=== PATIENT | female | born 1940 | race Caucasian/White ===

== ENCOUNTER 2018-10-08 10:45 | Inpatient (IN) | payer MEDICARE ==
[2018-10-08] MEDS ORDERED: SODIUM CHLORIDE 0.9% 1,000 ML IV STA (11:17)
[2018-10-08] MEDS ORDERED: ONDANSETRON 4 MG/2 ML VIAL IVP STA (11:17)
[2018-10-08 11:20] LABS: Glucose,Whole Blood 384 mg/dL (75-99)
--- NOTE | 2018-10-08 11:28 | ED ---
General Adult HPI - General Chief complaint: Recheck/Abnormal Lab/Rx Stated complaint: High Sugar Time Seen by Provider: 10/08/18 10:52 Source: patient, EMS, RN notes reviewed Mode of arrival: EMS Limitations: no limitations - History of Present Illness Initial comments: Patient is a pleasant 78-year-old female presenting to the emergency department with hyperglycemia. Onset of symptoms was the past couple of days. Blood sugar today was over 400. A week ago blood sugars was running low. Patient has been having urinary and polydipsia. Patient has been fatigued. Patient does have a mild cough. Patient does have some nausea and mild abdominal discomfort. - Related Data Home Medications Medication Instructions Recorded Confirmed ALPRAZolam 0.25 mg PO BID 03/15/15 10/08/18 Aspirin EC [Ecotrin] 325 mg PO DAILY 03/15/15 10/08/18 Clopidogrel Bisulfate [Clopidogrel] 75 mg PO DAILY@1200 03/15/15 10/08/18 Famotidine [Pepcid] 20 mg PO HS 03/15/15 10/08/18 Insulin Glargine,Hum.rec.anlog 10 units SQ HS 03/15/15 10/08/18 [Lantus Solostar] Multivitamin/Iron/Folic Acid 1 tab PO DAILY 03/15/15 10/08/18 [Centrum Complete Multivit Tab] Solifenacin Succinate [Vesicare] 5 mg PO DAILY 03/15/15 10/08/18 Insulin Lispro [humaLOG Kwikpen] See Protocol SQ AC-TID 07/17/18 10/08/18 Isosorbide Mononitrate ER [Imdur] 30 mg PO DAILY 07/17/18 10/08/18 Loratadine [Claritin] 10 mg PO HS 07/17/18 10/08/18 Metoprolol Succinate [Toprol XL] 25 mg PO DAILY 07/17/18 10/08/18 Pravastatin Sodium [Pravachol] 40 mg PO HS 07/17/18 10/08/18 Sodium Bicarbonate Tab 650 mg PO TID 07/17/18 10/08/18 Previous Rx's Medication Instructions Recorded Losartan [Cozaar] 25 mg PO DAILY #30 tab 07/19/18 Allergies Allergy/AdvReac Type Severity Reaction Status Date / Time influenza virus vaccine, Allergy Anaphylaxis Verified 10/08/18 11:26 specific [influenza virus vacc,specific] Iodinated Contrast- Oral and Allergy Rash/Hives Verified 10/08/18 11:26 IV Dye [Iodinated Contrast Media - IV Dye] iodine Allergy Rash/Hives Verified 10/08/18 11:26 Review of Systems ROS Statement: Those systems with pertinent positive or pertinent negative responses have been documented in the HPI. ROS Other: All systems not noted in ROS Statement are negative. Constitutional: Denies: fever Eyes: Denies: eye pain ENT: Denies: ear pain Respiratory: Reports: cough Cardiovascular: Denies: chest pain Endocrine: Reports: fatigue Gastrointestinal: Reports: nausea Genitourinary: Reports: frequency Musculoskeletal: Denies: back pain Skin: Denies: rash Neurological: Denies: weakness Past Medical History Past Medical History: Coronary Artery Disease (CAD), GERD/Reflux, Hyperlipidemia, Hypertension Additional Past Medical History / Comment(s): IDDM type II, impaired kidney function, pt states she has had a [place] in the past but unsure of year, macular degeneration bilaterally with limited vision, past 4-5 months pt states she has been having diarrhea/constipation, macular degeneration bilaterally, urinary incontinence, UTI, sinus problems, past ankle fracture, April 2018 had bilateral ear infections/sinus infection Last Myocardial Infarction Date:: unkn History of Any Multi-Drug Resistant Organisms: None Reported Past Surgical History: Appendectomy, Cholecystectomy, Coronary Bypass/CABG, Heart Catheterization With Stent, Orthopedic Surgery Additional Past Surgical History / Comment(s): 1988 CABG 3 vessel, PCI with stent 2003, bilateral cataract removals/lens implants-rejected lens. Past Anesthesia/Blood Transfusion Reactions: No Reported Reaction Additional Past Anesthesia/Blood Transfusion Reaction / Comment(s): Pt received blood with CABG Date of Last Stent Placement:: 2003 Past Psychological History: No Psychological Hx Reported Smoking Status: Never smoker Past Alcohol Use History: None Reported Past Drug Use History: None Reported - Past Family History Father Family Medical History: Myocardial Infarction ([place]) Additional Family Medical History / Comment(s): Father of a [place] at the age of 52 yrs. Mother Family Medical History: CVA/TIA, Diabetes Mellitus Additional Family Medical History / Comment(s): Mother developed diabetes later in life and had CVAs. She at the age of 64yrs from a CVA General Exam Limitations: no limitations General appearance: alert, in no apparent distress Head exam: Present: atraumatic Eye exam: Present: normal appearance, PERRL ENT exam: Present: mucous membranes dry Neck exam: Present: normal inspection Respiratory exam: Present: normal lung sounds bilaterally Cardiovascular Exam: Present: regular rate, normal rhythm GI/Abdominal exam: Present: soft. Absent: tenderness Extremities exam: Present: normal inspection. Absent: pedal edema, calf tenderness Neurological exam: Present: alert, oriented X3, CN II-XII intact. Absent: motor sensory deficit Psychiatric exam: Present: normal affect, normal mood Skin exam: Present: normal color Course Vital Signs 10/08/18 10/08/18 10/08/18 10:46 11:00 11:30 Temperature 97.9 F Pulse Rate 50 L Respiratory 20 Rate Blood Pressure 157/65 157/65 160/71 O2 Sat by Pulse 91 L 90 L 91 L Oximetry 10/08/18 10/08/18 10/08/18 12:15 12:30 13:00 Temperature Pulse Rate 81 89 96 Respiratory 18 18 18 Rate Blood Pressure 133/75 133/75 125/78 O2 Sat by Pulse 95 95 95 Oximetry 10/08/18 10/08/18 13:15 13:30 Temperature Pulse Rate 79 93 Respiratory 18 18 Rate Blood Pressure 119/67 119/67 O2 Sat by Pulse 94 L 95 Oximetry EKG Findings - EKG Comments: EKG Findings:: Sinus rhythm and 98. MI 190. QRS 120. QT 374. QTC 477. Normal axis. Recurrent PVCs with a pattern of Bigeminy. Normal QRS. No acute ST change. Medical Decision Making - Medical Decision Making Patient reevaluated and resting comfortably in bed. Patient and family updated on results and plan. Patient states she has been having arrhythmia problems that her primary care physician is aware of and discussion has previously been made regarding cardiology evaluation and possible pacemaker or defibrillator. Case was discussed in detail with Dr. Anderson who does agree with this and will admit his patient with consult with cardiology. bnp will be added. Patient will be covered with antibiotics for concern for urinary tract infection. Scale insulin will be started. - Lab Data Result diagrams: 10/08/18 11:27 10/08/18 11:27 Lab Results 10/08/18 10/08/18 10/08/18 Range/Units 11:18 11:27 11:27 WBC 11.7 H (3.8-10.6) k/uL RBC 4.57 (3.80-5.40) m/uL Hgb 13.0 (11.4-16.0) gm/dL Hct 41.0 (34.0-46.0) % MCV 89.7 (80.0-100.0) fL MCH 28.4 (25.0-35.0) pg MCHC 31.7 (31.0-37.0) g/dL RDW 15.0 (11.5-15.5) % Plt Count 410 (150-450) k/uL Neutrophils % 83 % Lymphocytes % 9 % Monocytes % 4 % Eosinophils % 2 % Basophils % 1 % Neutrophils # 9.7 H (1.3-7.7) k/uL Lymphocytes # 1.1 (1.0-4.8) k/uL Monocytes # 0.4 (0-1.0) k/uL Eosinophils # 0.3 (0-0.7) k/uL Basophils # 0.1 (0-0.2) k/uL PT (9.0-12.0) sec INR (<1.2) APTT (22.0-30.0) sec Sodium 133 L (137-145) mmol/L Potassium 5.2 H (3.5-5.1) mmol/L Chloride 101 (98-107) mmol/L Carbon Dioxide 20 L (22-30) mmol/L Anion Gap 12 mmol/L BUN 60 H (7-17) mg/dL Creatinine 1.46 H (0.52-1.04) mg/dL Est GFR (CKD-EPI)AfAm 39 (>60 ml/min/1.73 sqM) Est GFR (CKD-EPI)NonAf 34 (>60 ml/min/1.73 sqM) Glucose 365 H (74-99) mg/dL POC Glucose (mg/dL) 384 H (75-99) mg/dL POC Glu [employer]os[employer] Mixer Operator ID Nichol Gama Plasma Lactic Acid Hari (0.7-2.0) mmol/L Calcium 9.9 (8.4-10.2) mg/dL Phosphorus 3.7 (2.5-4.5) mg/dL Magnesium 2.3 (1.6-2.3) mg/dL Total Bilirubin 0.4 (0.2-1.3) mg/dL AST 18 (14-36) U/L ALT 12 (9-52) U/L Alkaline Phosphatase 171 H (38-126) U/L Creatine Kinase 79 (30-135) U/L Troponin I (0.000-0.034) ng/mL Total Protein 6.4 (6.3-8.2) g/dL Albumin 3.9 (3.5-5.0) g/dL Urine Color Urine Appearance (Clear) Urine pH (5.0-8.0) Ur Specific [place] (1.001-1.035) Urine Protein (Negative) Urine Glucose (UA) (Negative) Urine Ketones (Negative) Urine Blood (Negative) Urine Nitrite (Negative) Urine Bilirubin (Negative) Urine Urobilinogen (<2.0) mg/dL Ur Leukocyte Esterase (Negative) Urine WBC (0-5) /hpf Ur Squamous Epith Cells (0-4) /hpf Urine Bacteria (None) /hpf Acetone, Qual Negative (Negative) 10/08/18 10/08/18 10/08/18 Range/Units 11:27 11:27 11:27 WBC (3.8-10.6) k/uL RBC (3.80-5.40) m/uL Hgb (11.4-16.0) gm/dL Hct (34.0-46.0) % MCV (80.0-100.0) fL MCH (25.0-35.0) pg MCHC (31.0-37.0) g/dL RDW (11.5-15.5) % Plt Count (150-450) k/uL Neutrophils % % Lymphocytes % % Monocytes % % Eosinophils % % Basophils % % Neutrophils # (1.3-7.7) k/uL Lymphocytes # (1.0-4.8) k/uL Monocytes # (0-1.0) k/uL Eosinophils # (0-0.7) k/uL Basophils # (0-0.2) k/uL PT 10.3 (9.0-12.0) sec INR 1.0 (<1.2) APTT 29.8 (22.0-30.0) sec Sodium (137-145) mmol/L Potassium (3.5-5.1) mmol/L Chloride (98-107) mmol/L Carbon Dioxide (22-30) mmol/L Anion Gap mmol/L BUN (7-17) mg/dL Creatinine (0.52-1.04) mg/dL Est GFR (CKD-EPI)AfAm (>60 ml/min/1.73 sqM) Est GFR (CKD-EPI)NonAf (>60 ml/min/1.73 sqM) Glucose (74-99) mg/dL POC Glucose (mg/dL) (75-99) mg/dL POC Glu Explosives Mixer Operator ID Plasma Lactic Acid Hari 1.5 (0.7-2.0) mmol/L Calcium (8.4-10.2) mg/dL Phosphorus (2.5-4.5) mg/dL Magnesium (1.6-2.3) mg/dL Total Bilirubin (0.2-1.3) mg/dL AST (14-36) U/L ALT (9-52) U/L Alkaline Phosphatase (38-126) U/L Creatine Kinase (30-135) U/L Troponin I 0.013 (0.000-0.034) ng/mL Total Protein (6.3-8.2) g/dL Albumin (3.5-5.0) g/dL Urine Color Urine Appearance (Clear) Urine pH (5.0-8.0) Ur Specific [place] (1.001-1.035) Urine Protein (Negative) Urine Glucose (UA) (Negative) Urine Ketones (Negative) Urine Blood (Negative) Urine Nitrite (Negative) Urine Bilirubin (Negative) Urine Urobilinogen (<2.0) mg/dL Ur Leukocyte Esterase (Negative) Urine WBC (0-5) /hpf Ur Squamous Epith Cells (0-4) /hpf Urine Bacteria (None) /hpf Acetone, Qual (Negative) 10/08/18 10/08/18 10/08/18 Range/Units 13:30 13:33 14:39 WBC (3.8-10.6) k/uL RBC (3.80-5.40) m/uL Hgb (11.4-16.0) gm/dL Hct (34.0-46.0) % MCV (80.0-100.0) fL MCH (25.0-35.0) pg MCHC (31.0-37.0) g/dL RDW (11.5-15.5) % Plt Count (150-450) k/uL Neutrophils % % Lymphocytes % % Monocytes % % Eosinophils % % Basophils % % Neutrophils # (1.3-7.7) k/uL Lymphocytes # (1.0-4.8) k/uL Monocytes # (0-1.0) k/uL Eosinophils # (0-0.7) k/uL Basophils # (0-0.2) k/uL PT (9.0-12.0) sec INR (<1.2) APTT (22.0-30.0) sec Sodium (137-145) mmol/L Potassium (3.5-5.1) mmol/L Chloride (98-107) mmol/L Carbon Dioxide (22-30) mmol/L Anion Gap mmol/L BUN (7-17) mg/dL Creatinine (0.52-1.04) mg/dL Est GFR (CKD-EPI)AfAm (>60 ml/min/1.73 sqM) Est GFR (CKD-EPI)NonAf (>60 ml/min/1.73 sqM) Glucose (74-99) mg/dL POC Glucose (mg/dL) 317 H 335 H (75-99) mg/dL POC Glu Explosives Mixer Operator ID Kyler Thompson Meghan Plasma Lactic Acid Hari (0.7-2.0) mmol/L Calcium (8.4-10.2) mg/dL Phosphorus (2.5-4.5) mg/dL Magnesium (1.6-2.3) mg/dL Total Bilirubin (0.2-1.3) mg/dL AST (14-36) U/L ALT (9-52) U/L Alkaline Phosphatase (38-126) U/L Creatine Kinase (30-135) U/L Troponin I (0.000-0.034) ng/mL Total Protein (6.3-8.2) g/dL Albumin (3.5-5.0) g/dL Urine Color Colorless Urine Appearance Clear (Clear) Urine pH 6.0 (5.0-8.0) Ur Specific [place] 1.006 (1.001-1.035) Urine Protein 1+ H (Negative) Urine Glucose (UA) 2+ H (Negative) Urine Ketones Negative (Negative) Urine Blood Negative (Negative) Urine Nitrite Negative (Negative) Urine Bilirubin Negative (Negative) Urine Urobilinogen <2.0 (<2.0) mg/dL Ur Leukocyte Esterase Moderate H (Negative) Urine WBC 16 H (0-5) /hpf Ur Squamous Epith Cells <1 (0-4) /hpf Urine Bacteria Rare H (None) /hpf Acetone, Qual (Negative) - Radiology Data Radiology results: image reviewed (Two-view chest x-ray shows some increased interstitial changes and cardiomegaly. Suggesting fluid overload far less likely atypical pneumonia.) Disposition Clinical Impression: Hyperglycemia, Urinary tract infection Disposition: ADMITTED IP TO THIS HOSP Is patient prescribed a controlled substance at d/c from ED?: No Referrals: Kobe Anderson DO [Primary Care Provider] - 1-2 days Decision Time: 15:36
[2018-10-08 11:46] LABS: Basophils # (A) 0.1 k/uL (0-0.2); Basophils % (A) 1 %; Eosinophils # (A) 0.3 k/uL (0-0.7); Eosinophils % (A) 2 %; Lymphocytes # (A) 1.1 k/uL (1.0-4.8); Lymphocytes % (A) 9 %; MCH 28.4 pg (25.0-35.0); MCHC 31.7 g/dL (31.0-37.0); MCV 89.7 fL (80.0-100.0); Mean Platelet Volume 7.5; Monocytes # (A) 0.4 k/uL (0-1.0); Monocytes % (A) 4 %; Neutrophils # (A) 9.7 k/uL (1.3-7.7); Neutrophils % (A) 83 %; Platelet Count 410 k/uL (150-450); RBC 4.57 m/uL (3.80-5.40); WBC 11.7 k/uL (3.8-10.6)
[2018-10-08 11:52] LABS: Partial Thromboplastin Time 29.8 sec (22.0-30.0); Prothrombin Time 10.3 sec (9.0-12.0)
[2018-10-08 11:56] LABS: ALT 12 U/L (9-52); AST 18 U/L (14-36); African American GFR (CKD) 39 (>60 ml/min/1.73 sqM); Albumin 3.9 g/dL (3.5-5.0); Alkaline Phosphatase 171 U/L (38-126); Anion Gap 12 mmol/L; Blood Urea Nitrogen 60 mg/dL (7-17); Calcium 9.9 mg/dL (8.4-10.2); Carbon Dioxide 20 mmol/L (22-30); Chloride 101 mmol/L (98-107); Creatine Kinase 79 U/L (30-135); Glucose 365 mg/dL (74-99); Magnesium 2.3 mg/dL (1.6-2.3); Phosphorus 3.7 mg/dL (2.5-4.5); Potassium 5.2 mmol/L (3.5-5.1); Sodium 133 mmol/L (137-145); Total Bilirubin 0.4 mg/dL (0.2-1.3); Total Protein 6.4 g/dL (6.3-8.2)
--- NOTE | 2018-10-08 12:02 | XR ---
EXAMINATION TYPE: XR chest 2V DATE OF EXAM: 10/08/2018 COMPARISON: 07/17/2018 HISTORY: Weakness TECHNIQUE: Frontal and lateral views of the chest are obtained. FINDINGS: There is increased interstitial lung markings seen throughout in comparison the prior with some alveolar patchy opacities. Cardiomediastinal silhouette is enlarged with post CABG changes. Christiano gical clips are also seen near the left cardiophrenic angle. No sizable pleural effusion or pneumotho rax. Diffuse osseous demineralization is seen. IMPRESSION: Findings suggesting cardiogenic or noncardiogenic fluid overload is less likely multifoc al atypical pneumonia.
[2018-10-08 13:37] LABS: Glucose,Whole Blood 317 mg/dL (75-99)
[2018-10-08 13:50] LABS: Appearance,Urine Clear (Clear); Bacteria,Urine Rare /hpf; Bilirubin,Urine Negative (Negative); Blood,Urine Negative (Negative); Color,Urine Colorless; Glucose,Urine (UA) 2+ (Negative); Ketones,Urine Negative (Negative); Leukocyte Esterase,Urine Moderate (Negative); Nitrite,Urine Negative (Negative); Protein,Urine 1+ (Negative); Specific Gravity,Urine 1.006 (1.001-1.035); Squamous Epithelial Cell,Urine <1 /hpf (0-4); Urobilinogen,Urine <2.0 mg/dL (<2.0); WBC,Urine 16 /hpf (0-5)
[2018-10-08 14:40] LABS: Glucose,Whole Blood 335 mg/dL (75-99)
[2018-10-08] MEDS ORDERED: cefTRIAXone IN SWFI 1,000 MG/10 ML SYRINGE IVP STA (15:38)
[2018-10-08] MEDS ORDERED: NALOXONE 0.4 MG/ML 1 ML VIAL IV PRN (15:47)
[2018-10-08 15:51] LABS: Glucose,Whole Blood 306 mg/dL (75-99)
[2018-10-08] MEDS: INSULIN ASPART (NovoLOG) 100 UNIT/ML VIAL SQ SCH ×4 (15:58→21:24)
[2018-10-08] MEDS ORDERED: SODIUM CHLORIDE 0.9% 1,000 ML IV SCH (16:00)
[2018-10-08 16:55] LABS: Glucose,Whole Blood 344 mg/dL (75-99)
[2018-10-08] MEDS ORDERED: CLOPIDOGREL 75 MG TAB PO STA (18:08)
[2018-10-08] MEDS: METOPROLOL SUCCINATE (ER) 25 MG TAB.ER.24H PO SCH (18:46)
[2018-10-08] MEDS: ASPIRIN 81 MG PO SCH (18:46)
[2018-10-08] MEDS: ISOSORBIDE MONONITRATE ER 30 MG TAB.ER.24H PO SCH (18:46)
[2018-10-08] MEDS: SODIUM CHLORIDE 0.9% 1,000 ML IV SCH (19:28)
[2018-10-08 19:39] LABS: Glucose,Whole Blood 321 mg/dL (75-99)
[2018-10-08 20:59] LABS: Glucose,Whole Blood 277 mg/dL (75-99)
[2018-10-08] MEDS ORDERED: INSULIN DETEMIR (LEVEMIR) 100 UNIT/ML SYR SQ SCH (21:00)
[2018-10-08] MEDS: TROSPIUM CHLORIDE 20 MG TABLET PO SCH (21:25)
[2018-10-08] MEDS: SODIUM BICARBONATE TAB 650 MG TAB PO SCH (21:25)
[2018-10-08] MEDS: ALPRAZolam 0.25 MG TAB PO SCH (21:26)
[2018-10-08] MEDS: PRAVASTATIN SODIUM 40 MG TAB PO SCH (21:26)
[2018-10-08] MEDS: LORATADINE 10 MG TAB PO SCH (21:26)
[2018-10-08] MEDS: FAMOTIDINE 20 MG TAB PO SCH (21:26)
[2018-10-09 06:12] LABS: Basophils # (A) 0.1 k/uL (0-0.2); Basophils % (A) 1 %; Eosinophils # (A) 0.5 k/uL (0-0.7); Eosinophils % (A) 4 %; HCT 35.4 % (34.0-46.0); HGB 11.2 gm/dL (11.4-16.0); Lymphocytes # (A) 2.1 k/uL (1.0-4.8); Lymphocytes % (A) 19 %; MCH 28.3 pg (25.0-35.0); MCHC 31.5 g/dL (31.0-37.0); MCV 89.6 fL (80.0-100.0); Mean Platelet Volume 7.3; Monocytes # (A) 0.6 k/uL (0-1.0); Monocytes % (A) 6 %; Neutrophils # (A) 7.5 k/uL (1.3-7.7); Neutrophils % (A) 69 %; Platelet Count 381 k/uL (150-450); RBC 3.95 m/uL (3.80-5.40); RDW 15.1 % (11.5-15.5); WBC 10.9 k/uL (3.8-10.6)
[2018-10-09 06:16] LABS: Glucose,Whole Blood 77 mg/dL (75-99)
[2018-10-09 06:22] LABS: Albumin 3.3 g/dL (3.5-5.0); Potassium 5.2 mmol/L (3.5-5.1); Total Bilirubin 0.2 mg/dL (0.2-1.3); Total Protein 5.8 g/dL (6.3-8.2)
[2018-10-09] MEDS: INSULIN ASPART (NovoLOG) 100 UNIT/ML VIAL SQ SCH ×6 (06:27→21:06)
[2018-10-09] MEDS: METOPROLOL SUCCINATE (ER) 25 MG TAB.ER.24H PO SCH (08:54)
[2018-10-09] MEDS: ISOSORBIDE MONONITRATE ER 30 MG TAB.ER.24H PO SCH (08:54)
[2018-10-09] MEDS: SODIUM BICARBONATE TAB 650 MG TAB PO SCH ×3 (08:54→21:05)
[2018-10-09] MEDS: ALPRAZolam 0.25 MG TAB PO SCH ×2 (08:54→21:05)
[2018-10-09] MEDS: MULTIVITAMINS, THERA 1 EACH TAB PO SCH (08:54)
[2018-10-09] MEDS: ASPIRIN 81 MG PO SCH (08:54)
[2018-10-09] MEDS: LOSARTAN 25 MG TAB PO SCH (08:54)
[2018-10-09] MEDS: CLOPIDOGREL 75 MG TAB PO SCH (08:55)
[2018-10-09] MEDS: TROSPIUM CHLORIDE 20 MG TABLET PO SCH (08:55)
[2018-10-09] MEDS: SODIUM CHLORIDE 0.9% 1,000 ML IV SCH (08:56)
--- NOTE | 2018-10-09 11:31 | P.HPIM ---
History of Present Illness H&P Date: 10/09/18 Chief Complaint: High blood sugars This is an 78-year-old female presented to the ER with uncontrolled blood sugars, in a patient with history of CAD, [place], gastroesophageal reflux disease, hyperlipidemia, hypertension, macular degeneration, bradycardia with palpitations, UTIs, renal insufficiency and multiple other medical issues. Reports polydipsia, urinary frequency, fatigue, nausea vomiting, mild abdominal discomfort, occasional nonproductive cough and fatigue. Last week patient's blood sugars running low, patient stopped taking Lantus and using only Novolog. Presented to PCP's office. Lantus reinitiated at lower dose of 10 units( previously on 45 units) and sliding scale. Blood sugar on admission 384. Acetone negative. UA reporting moderate leukocytes, urine WBC 16. BUN 60, Creatinine 1.46, baseline 1.15, potassium 5.2. O2 sats 91% on 2 L nasal cannula, currently satting 95% on 3 L nasal cannula. Afebrile, elevated WBC 11.7. Denies fever or chills. EKG sinus rhythm with PVCs, bigeminy. Magnesium 2.3. Patient states she has been having low heart rates, palpitations accompanied by shortness of breath-has been scheduled for cardiology evaluation for potential pacemaker/defibrillator. BNP 6490. Chest x-ray reporting increased interstitial changes, fluid overload, less likely, multifocal atypical pneumonia. Denies chest pain. Antibiotics, sliding scale initiated .Cardiology consultated. Review of Systems ROS Statement: Those systems with pertinent positive or pertinent negative responses have been documented in the HPI. ROS Other: All systems not noted in ROS Statement are negative. Past Medical History Past Medical History: Coronary Artery Disease (CAD), GERD/Reflux, Hyperlipidemia, Hypertension, Myocardial Infarction ([place]) Additional Past Medical History / Comment(s): Pt states she has been having periods of rapid heart beats/SOB and that she is to soon possible have an AICD/pacemaker, IDDM type II, pt states recently had low blood sugar with syncope, impaired kidney function, [place] in 1988 and 2003, macular degeneration bilaterally with limited vision, past few months pt states she has been having diarrhea/constipation occasionally, diverticular disease, macular degeneration bilaterally, urinary incontinence, UTI, sinus problems, past ankle fracture, April 2018 had bilateral ear infections/sinus infection Last Myocardial Infarction Date:: 2003 History of Any Multi-Drug Resistant Organisms: None Reported Past Surgical History: Appendectomy, Cholecystectomy, Coronary Bypass/CABG, Heart Catheterization With Stent, Orthopedic Surgery Additional Past Surgical History / Comment(s): 1988 CABG 3 vessel, PCI with stent 2003, bilateral cataract removals/lens implants-unsuccessful, bilateral eye injections for macular degeneration., L ankle fracture with surgery/hardware. Past Anesthesia/Blood Transfusion Reactions: No Reported Reaction Additional Past Anesthesia/Blood Transfusion Reaction / Comment(s): Pt received blood with CABG Date of Last Stent Placement:: 2003 Smoking Status: Never smoker - Past Family History Father Family Medical History: Myocardial Infarction ([place]) Additional Family Medical History / Comment(s): Father of a [place] at the age of 52 yrs. Mother Family Medical History: CVA/TIA, Diabetes Mellitus Additional Family Medical History / Comment(s): Mother developed diabetes later in life and had CVAs. She at the age of 64yrs from a CVA Medications and Allergies Home Medications Medication Instructions Recorded Confirmed Type ALPRAZolam 0.25 mg PO BID 03/15/15 10/08/18 History Clopidogrel Bisulfate [Clopidogrel] 75 mg PO DAILY@1200 03/15/15 10/08/18 History Famotidine [Pepcid] 20 mg PO HS 03/15/15 10/08/18 History Insulin Glargine,Hum.rec.anlog 10 units SQ HS 03/15/15 10/08/18 History [Lantus Solostar] Multivitamin/Iron/Folic Acid 1 tab PO DAILY 03/15/15 10/08/18 History [Centrum Complete Multivit Tab] Solifenacin Succinate [Vesicare] 5 mg PO DAILY 03/15/15 10/08/18 History Insulin Lispro [humaLOG Kwikpen] See Protocol SQ AC-TID 07/17/18 10/08/18 History Isosorbide Mononitrate ER [Imdur] 30 mg PO DAILY 07/17/18 10/08/18 History Loratadine [Claritin] 10 mg PO HS 07/17/18 10/08/18 History Metoprolol Succinate [Toprol XL] 25 mg PO DAILY 07/17/18 10/08/18 History Pravastatin Sodium [Pravachol] 40 mg PO HS 07/17/18 10/08/18 History Sodium Bicarbonate Tab 650 mg PO TID 07/17/18 10/08/18 History Losartan [Cozaar] 25 mg PO DAILY #30 tab 07/19/18 10/08/18 Rx Aspirin 81 mg PO DAILY 10/08/18 10/08/18 History Allergies Allergy/AdvReac Type Severity Reaction Status Date / Time influenza virus vaccine, Allergy Anaphylaxis Verified 10/08/18 11:26 specific [influenza virus vacc,specific] Iodinated Contrast- Oral and Allergy Rash/Hives Verified 10/08/18 11:26 IV Dye [Iodinated Contrast Media - IV Dye] iodine Allergy Rash/Hives Verified 10/08/18 11:26 Physical Exam Vitals: Vital Signs Temp Pulse Pulse Resp BP BP Pulse Ox 10/09/18 03:55 97.9 F 69 16 125/79 96 10/08/18 23:15 97.6 F 63 16 125/63 97 10/08/18 21:00 97.5 F L 90 18 136/57 96 10/08/18 19:31 79 18 156/70 95 10/08/18 15:30 93 18 158/80 10/08/18 14:30 94 18 108/74 10/08/18 13:30 93 18 119/67 95 10/08/18 13:15 79 18 119/67 94 L 10/08/18 13:00 96 18 125/78 95 10/08/18 12:30 89 18 133/75 95 10/08/18 12:15 81 18 133/75 95 10/08/18 11:30 160/71 91 L 10/08/18 11:00 157/65 90 L 10/08/18 10:46 97.9 F 50 L 20 157/65 91 L Intake and Output 10/08/18 10/09/18 10/09/18 22:59 06:59 14:59 Intake Total 240 Output Total 250 200 Balance -250 40 Intake: Oral 240 Output: Urine 250 200 Other: # Voids 1 Weight 72.1 kg PHYSICAL EXAM: VITAL SIGNS: As above GENERAL: Sitting up in bed, no acute distress HEENT: Conjunctivae normal. eyes normal. Oral mucosa moist NECK: No JVD. No thyroid enlargement. No LNs CARDIOVASCULAR: S1, S2 regular.Systolic murmur RESPIRATION: Breath sounds diminished in the bases. No rhonchi , fine bibasilar crackles, No bronchial breathing. ABDOMEN: Soft, nontender . No guarding. no masses palpable. Bowel sounds heard. LEGS: No edema. no swelling PSYCHIATRY: Alert and oriented X3, mood and affect normal. NERVOUS SYSTEM: Cranial N 2-12 grossly normal. Moves all 4 limbs. Diffuse weakness, No focal deficits. Strength and sensation grossly intact.. Skin: no lesions, no rash Lymphatic system. No LN neck axilla or groin. Results CBC & Chem 7: 10/09/18 05:27 10/09/18 05:27 Labs: Abnormal Lab Results - Last 24 Hours (Table) 10/08/18 10/08/18 10/08/18 Range/Units 11:18 11:27 11:27 WBC 11.7 H (3.8-10.6) k/uL Hgb (11.4-16.0) gm/dL Neutrophils # 9.7 H (1.3-7.7) k/uL Sodium 133 L (137-145) mmol/L Potassium 5.2 H (3.5-5.1) mmol/L Chloride (98-107) mmol/L Carbon Dioxide 20 L (22-30) mmol/L BUN 60 H (7-17) mg/dL Creatinine 1.46 H (0.52-1.04) mg/dL Glucose 365 H (74-99) mg/dL POC Glucose (mg/dL) 384 H (75-99) mg/dL Alkaline Phosphatase 171 H (38-126) U/L Total Protein (6.3-8.2) g/dL Albumin (3.5-5.0) g/dL Urine Protein (Negative) Urine Glucose (UA) (Negative) Ur Leukocyte Esterase (Negative) Urine WBC (0-5) /hpf Urine Bacteria (None) /hpf 10/08/18 10/08/18 10/08/18 Range/Units 13:30 13:33 14:39 WBC (3.8-10.6) k/uL Hgb (11.4-16.0) gm/dL Neutrophils # (1.3-7.7) k/uL Sodium (137-145) mmol/L Potassium (3.5-5.1) mmol/L Chloride (98-107) mmol/L Carbon Dioxide (22-30) mmol/L BUN (7-17) mg/dL Creatinine (0.52-1.04) mg/dL Glucose (74-99) mg/dL POC Glucose (mg/dL) 317 H 335 H (75-99) mg/dL Alkaline Phosphatase (38-126) U/L Total Protein (6.3-8.2) g/dL Albumin (3.5-5.0) g/dL Urine Protein 1+ H (Negative) Urine Glucose (UA) 2+ H (Negative) Ur Leukocyte Esterase Moderate H (Negative) Urine WBC 16 H (0-5) /hpf Urine Bacteria Rare H (None) /hpf 10/08/18 10/08/18 10/08/18 Range/Units 15:48 16:54 19:29 WBC (3.8-10.6) k/uL Hgb (11.4-16.0) gm/dL Neutrophils # (1.3-7.7) k/uL Sodium (137-145) mmol/L Potassium (3.5-5.1) mmol/L Chloride (98-107) mmol/L Carbon Dioxide (22-30) mmol/L BUN (7-17) mg/dL Creatinine (0.52-1.04) mg/dL Glucose (74-99) mg/dL POC Glucose (mg/dL) 306 H 344 H 321 H (75-99) mg/dL Alkaline Phosphatase (38-126) U/L Total Protein (6.3-8.2) g/dL Albumin (3.5-5.0) g/dL Urine Protein (Negative) Urine Glucose (UA) (Negative) Ur Leukocyte Esterase (Negative) Urine WBC (0-5) /hpf Urine Bacteria (None) /hpf 10/08/18 10/09/18 10/09/18 Range/Units 20:57 05:27 05:27 WBC 10.9 H (3.8-10.6) k/uL Hgb 11.2 L (11.4-16.0) gm/dL Neutrophils # (1.3-7.7) k/uL Sodium (137-145) mmol/L Potassium 5.2 H (3.5-5.1) mmol/L Chloride 108 H (98-107) mmol/L Carbon Dioxide 21 L (22-30) mmol/L BUN 54 H (7-17) mg/dL Creatinine 1.39 H (0.52-1.04) mg/dL Glucose (74-99) mg/dL POC Glucose (mg/dL) 277 H (75-99) mg/dL Alkaline Phosphatase 132 H (38-126) U/L Total Protein 5.8 L (6.3-8.2) g/dL Albumin 3.3 L (3.5-5.0) g/dL Urine Protein (Negative) Urine Glucose (UA) (Negative) Ur Leukocyte Esterase (Negative) Urine WBC (0-5) /hpf Urine Bacteria (None) /hpf Thrombosis Risk Factor Assmnt - Choose All That Apply Any of the Below Risk Factors Present?: Yes Each Factor Represents 1 point: Obesity (BMI >25) Other Risk Factors: Yes Each Risk Factor Represents 3 Points: Age 75 years or older Other congenital or acquired thrombophilia - If yes, enter type in comment: No Thrombosis Risk Factor Assessment Total Risk Factor Score: 4 Thrombosis Risk Factor Assessment Level: Moderate Risk Assessment and Plan Assessment: -Diabetes mellitus, uncontrolled with hyperglycemia -Acute UTI, in a patient with history of recurrent UTIs, urinary incontinence -Possible acute CHF, systolic dysfunction, EF 30-35% secondary to fluid overload r/t polydipsia. Possible atypical Pneumonia, doubt, afebrile, normal WBC. -Acute hypoxic respiratory failure secondary to the above, weaning off O2. 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 GI and DVT prophylaxis in place. Home meds resumed. Lantus dose further increased to 25 units, sliding scale with close monitoring of Accu-Cheks. Maintain IV antibiotics for acute GI. Cardiology recommendations pending. The impression and plan of care has been dictated as directed. : I performed a history and examination of this patient, discussed the same with the dictator. I agree with the dictator's note ,documented as a scribe. Any additional findings or plans will be noted. Time taken: 33 minutes
[2018-10-09 12:06] LABS: Glucose,Whole Blood 141 mg/dL (75-99)
--- NOTE | 2018-10-09 12:44 | P.CRDCN ---
History of Present Illness Consult date: 10/09/18 Requesting physician: Kobe Anderson Reason for Consult (text): PVCs Chief complaint: Elevated blood sugars History of present illness: This is a pleasant 78-year-old female with known history of coronary artery disease, she underwent coronary artery bypass grafting surgery 30 years ago, subsequent to that she does state that she had stent placements on 2 separate occasions, the most recent being in 2003. She is to follow with Dr. Kumar in the office and now only follows with Dr. Anderson at this time. She has a history of hypertension, hyperlipidemia, diabetes, macular degeneration and renal insufficiency. She presents to the hospital on this occasion with elevated blood sugars, she states that last week her blood sugars were running in the 50 range when she would wake up in the morning, she presents now with blood sugars greater than 300. Patient also states that at nighttime she notices her heart racing fast, and develops a cough and has some mild shortness of breath, if she gets up and walks around it seems to subside. A cardiology consultation was requested for possible arrhythmias. Chest x-ray showed findings suggesting cardiogenic or noncardiogenic fluid overload. EKG shows a normal sinus rhythm with frequent PVCs, incomplete left bundle branch block pat tern and nonspecific ST-T wave changes. The patient had an echocardiogram with Doppler study performed in June which revealed an ejection fraction of 30-35%, moderate MR, moderate TR area. White blood cell count on admission 11.7, 10.9 this morning, hemoglobin 11.2, platelets 381. Sodium 139, potassium 5.2, BUN 54 and creatinine 1.3. Troponin 0.013, BNP level 6490. Past Medical History Past Medical History: Coronary Artery Disease (CAD), GERD/Reflux, Hyperlipidemia, Hypertension, Myocardial Infarction (IL) Additional Past Medical History / Comment(s): Pt states she has been having periods of rapid heart beats/SOB and that she is to soon possible have an AICD/pacemaker, IDDM type II, pt states recently had low blood sugar with syncope, impaired kidney function, IL in 1988 and 2003, macular degeneration bilaterally with limited vision, past few months pt states she has been having diarrhea/constipation occasionally, diverticular disease, macular degeneration bilaterally, urinary incontinence, UTI, sinus problems, past ankle fracture, April 2018 had bilateral ear infections/sinus infection Last Myocardial Infarction Date:: 2003 History of Any Multi-Drug Resistant Organisms: None Reported Past Surgical History: Appendectomy, Cholecystectomy, Coronary Bypass/CABG, Heart Catheterization With Stent, Orthopedic Surgery Additional Past Surgical History / Comment(s): 1988 CABG 3 vessel, PCI with stent 2003, bilateral cataract removals/lens implants-unsuccessful, bilateral eye injections for macular degeneration., L ankle fracture with surgery/hardware. Past Anesthesia/Blood Transfusion Reactions: No Reported Reaction Additional Past Anesthesia/Blood Transfusion Reaction / Comment(s): Pt received blood with CABG Date of Last Stent Placement:: 2003 Smoking Status: Never smoker - Past Family History Father Family Medical History: Myocardial Infarction ([place]) Additional Family Medical History / Comment(s): Father of a IL at the age of 52 yrs. Mother Family Medical History: CVA/TIA, Diabetes Mellitus Additional Family Medical History / Comment(s): Mother developed diabetes later in life and had CVAs. She at the age of 64yrs from a CVA Medications and Allergies Home Medications Medication Instructions Recorded Confirmed Type ALPRAZolam 0.25 mg PO BID 03/15/15 10/08/18 History Clopidogrel Bisulfate [Clopidogrel] 75 mg PO DAILY@1200 03/15/15 10/08/18 History Famotidine [Pepcid] 20 mg PO HS 03/15/15 10/08/18 History Insulin Glargine,Hum.rec.anlog 10 units SQ HS 03/15/15 10/08/18 History [Lantus Solostar] Multivitamin/Iron/Folic Acid 1 tab PO DAILY 03/15/15 10/08/18 History [Centrum Complete Multivit Tab] Solifenacin Succinate [Vesicare] 5 mg PO DAILY 03/15/15 10/08/18 History Insulin Lispro [humaLOG Kwikpen] See Protocol SQ AC-TID 07/17/18 10/08/18 History Isosorbide Mononitrate ER [Imdur] 30 mg PO DAILY 07/17/18 10/08/18 History Loratadine [Claritin] 10 mg PO HS 07/17/18 10/08/18 History Metoprolol Succinate [Toprol XL] 25 mg PO DAILY 07/17/18 10/08/18 History Pravastatin Sodium [Pravachol] 40 mg PO HS 07/17/18 10/08/18 History Sodium Bicarbonate Tab 650 mg PO TID 07/17/18 10/08/18 History Losartan [Cozaar] 25 mg PO DAILY #30 tab 07/19/18 10/08/18 Rx Aspirin 81 mg PO DAILY 10/08/18 10/08/18 History Allergies Allergy/AdvReac Type Severity Reaction Status Date / Time influenza virus vaccine, Allergy Anaphylaxis Verified 10/08/18 11:26 specific [influenza virus vacc,specific] Iodinated Contrast- Oral and Allergy Rash/Hives Verified 10/08/18 11:26 IV Dye [Iodinated Contrast Media - IV Dye] iodine Allergy Rash/Hives Verified 10/08/18 11:26 Physical Exam Vitals: Vital Signs Temp Pulse Pulse Resp BP BP Pulse Ox 10/09/18 08:00 98.0 F 80 16 130/63 98 10/09/18 03:55 97.9 F 69 16 125/79 96 10/08/18 23:15 97.6 F 63 16 125/63 97 10/08/18 21:00 97.5 F L 90 18 136/57 96 10/08/18 19:31 79 18 156/70 95 10/08/18 15:30 93 18 158/80 10/08/18 14:30 94 18 108/74 10/08/18 13:30 93 18 119/67 95 10/08/18 13:15 79 18 119/67 94 L 10/08/18 13:00 96 18 125/78 95 10/08/18 12:30 89 18 133/75 95 10/08/18 12:15 81 18 133/75 95 10/08/18 11:30 160/71 91 L 10/08/18 11:00 157/65 90 L 10/08/18 10:46 97.9 F 50 L 20 157/65 91 L Intake and Output 10/08/18 10/09/18 10/09/18 22:59 06:59 14:59 Intake Total 240 Output Total 250 200 Balance -250 40 Intake: Oral 240 Output: Urine 250 200 Other: # Voids 1 Weight 72.1 kg PHYSICAL EXAMINATION: GENERAL: 78-year-old female in no acute distress at the time of my examination HEENT: Head is atraumatic, normocephalic. Pupils equal, round. Sclera anicteric. Conjunctiva are clear. Mucous membranes of the mouth are moist. Neck is supple. There is elevated jugular venous pressure. No carotid bruit is heard. HEART EXAMINATION: Heart S1 and S2 systolic murmur is heard CHEST EXAMINATION: And's reveal rales to bilateral bases ABDOMEN: Soft, nontender. Bowel sounds are heard. No organomegaly noted. EXTREMITIES: 2+ peripheral pulses with no evidence of peripheral edema and no calf tenderness noted. NEUROLOGIC patient is awake, alert and oriented 3 . . Results 10/09/18 05:27 10/09/18 05:27 Cardiac Enzymes 10/08/18 10/08/18 10/09/18 Range/Units 11:27 11: 05:27 AST 18 15 (14-36) U/L Troponin I 0.013 (0.000-0.034) ng/mL Coagulation 10/08/18 Range/Units 11:27 PT 10.3 (9.0-12.0) sec APTT 29.8 (22.0-30.0) sec CBC 10/08/18 10/09/18 Range/Units 11:27 05:27 WBC 11.7 H 10.9 H (3.8-10.6) k/uL RBC 4.57 3.95 (3.80-5.40) m/uL Hgb 13.0 11.2 L (11.4-16.0) gm/dL Hct 41.0 35.4 (34.0-46.0) % Plt Count 410 381 (150-450) k/uL Comprehensive Metabolic Panel 10/08/18 10/09/18 Range/Units 11:27 05:27 Sodium 133 L 139 (137-145) mmol/L Potassium 5.2 H 5.2 H (3.5-5.1) mmol/L Chloride 101 108 H (98-107) mmol/L Carbon Dioxide 20 L 21 L (22-30) mmol/L BUN 60 H 54 H (7-17) mg/dL Creatinine 1.46 H 1.39 H (0.52-1.04) mg/dL Glucose 365 H 78 (74-99) mg/dL Calcium 9.9 10.0 (8.4-10.2) mg/dL AST 18 15 (14-36) U/L ALT 12 11 (9-52) U/L Alkaline Phosphatase 171 H 132 H (38-126) U/L Total Protein 6.4 5.8 L (6.3-8.2) g/dL Albumin 3.9 3.3 L (3.5-5.0) g/dL Current Medications Generic Name Dose Route Start Last Admin Trade Name Vero PRN Reason Stop Dose Admin Alprazolam 0.25 mg 10/08/18 21:00 10/09/18 08:54 Xanax PO 0.25 mg BID NICKI Administration Aspirin 81 mg 10/08/18 18:15 10/09/18 08:54 Aspirin PO 81 mg DAILY NICKI Administration Clopidogrel Bisulfate 75 mg 10/09/18 12:00 10/09/18 08:55 Plavix PO 75 mg DAILY@1200 NICKI Administration Famotidine 20 mg 10/08/18 21:00 10/08/18 21:26 Pepcid PO 20 mg HS NICKI Administration Ceftriaxone Sodium 1 gm/ 50 mls @ 100 mls/hr 10/08/18 23:00 10/09/18 08:54 Sodium Chloride IVPB 100 mls/hr Q12HR NICKI Administration Sodium Chloride 1,000 mls @ 80 mls/hr 10/08/18 18:15 10/09/18 08:56 Saline 0.9% IV 80 mls/hr .[id number] NICKI Administration Insulin Aspart 0 unit 10/08/18 17:30 10/09/18 06:27 Novolog SQ [facility] Protocol Insulin Aspart 10 unit 10/09/18 07:30 10/08/18 18:59 Novolog SQ 10 unit AC-TID NICKI Administration Insulin Detemir 25 unit 10/09/18 21:00 Levemir SQ HS NICKI Isosorbide Mononitrate 30 mg 10/08/18 18:15 10/09/18 08:54 Imdur PO 30 mg DAILY NICKI Administration Loratadine 10 mg 10/08/18 21:00 10/08/18 21:26 Claritin PO 10 mg HS NICKI Administration Losartan Potassium 25 mg 10/09/18 09:00 10/09/18 08:54 Cozaar PO 25 mg DAILY NICKI Administration Metoprolol Succinate 25 mg 10/08/18 18:15 10/09/18 08:54 Toprol Xl PO 25 mg DAILY NICKI Administration Multivitamins 1 each 10/09/18 09:00 10/09/18 08:54 Theragran PO 1 each DAILY NICKI Administration Naloxone HCl 0.2 mg 10/08/18 15:47 Narcan IV Q2M PRN Opioid Reversal Pravastatin Sodium 40 mg 10/08/18 21:00 10/08/18 21:26 Pravachol PO 40 mg HS NICKI Administration Sodium Bicarbonate 650 mg 10/08/18 22:00 10/09/18 08:54 Sodium Bicarbonate Tab PO 650 mg TID NICKI Administration Trospium 20 mg 10/08/18 18:15 10/09/18 08:55 Sanctura PO 20 mg DAILY NICKI Administration Intake and Output 10/08/18 10/09/18 10/09/18 22:59 06:59 14:59 Intake Total 240 Output Total 250 200 Balance -250 40 Intake: Oral 240 Output: Urine 250 200 Other: # Voids 1 Weight 72.1 kg 10/09/18 05:27 10/09/18 05:27 EKG Interpretations (text) EKG shows a normal sinus rhythm with incomplete left bundle branch block pattern and frequent PVCs and PACs Assessment and Plan Plan: Assessment and plan #1 hyperglycemia #2 systolic congestive heart failure acute on chronic, most recent echocardiogram with Doppler study was performed in June which revealed an ej ection fraction of 30-35%, moderate mitral regurg and moderate tricuspid regurg. #3 coronary artery disease with prior bypass surgery and stent placements #4 acute UTI #5 hypertension #6 diabetes #7 hyperlipidemia #8 renal insufficiency #9 macular degeneration Plan We will start the patient on some IV Lasix, repeat echocardiogram with Doppler study. According to the patient and her daughter, there has been a discussion in the past regarding possible defibrillator placement, once the patient is overall doing better from a heart failure perspective, we will again discuss this with the patient. Patient is having PVCs on the monitor, potassium and magnesium levels are stable, we will continue to monitor. Will continue aspirin, Plavix, Imdur 30, losartan 25 mg daily, metoprolol 25 mg daily, decrease IV fluids to KVO. DNP note has been reviewed, I agree with a documented findings and plan of care. Patient was seen and examined.
[2018-10-09 17:10] LABS: Glucose,Whole Blood 66 mg/dL (75-99)
[2018-10-09 17:10] LABS: Glucose,Whole Blood 64 mg/dL (75-99)
[2018-10-09 17:36] LABS: Glucose,Whole Blood 82 mg/dL (75-99)
[2018-10-09] MEDS: FUROSEMIDE 10 MG/ML 4 ML VIAL IV SCH ×2 (18:58→21:03)
[2018-10-09 20:50] LABS: Glucose,Whole Blood 155 mg/dL (75-99)
[2018-10-09] MEDS ORDERED: INSULIN DETEMIR (LEVEMIR) 100 UNIT/ML SYR SQ SCH (21:00)
[2018-10-09] MEDS: PRAVASTATIN SODIUM 40 MG TAB PO SCH (21:05)
[2018-10-09] MEDS: FAMOTIDINE 20 MG TAB PO SCH (21:05)
[2018-10-09] MEDS: LORATADINE 10 MG TAB PO SCH (21:05)
[2018-10-09] MEDS: ACETAMINOPHEN TAB 500 MG TAB PO PRN (22:26)
[2018-10-09 23:36] LABS: Glucose,Whole Blood 204 mg/dL (75-99)
[2018-10-10 06:08] LABS: Glucose,Whole Blood 57 mg/dL (75-99)
[2018-10-10] MEDS: INSULIN ASPART (NovoLOG) 100 UNIT/ML VIAL SQ SCH ×5 (06:17→20:44)
[2018-10-10 06:28] LABS: Glucose,Whole Blood 75 mg/dL (75-99)
[2018-10-10] MEDS: CLOPIDOGREL 75 MG TAB PO SCH (09:36)
[2018-10-10] MEDS: FUROSEMIDE 10 MG/ML 4 ML VIAL IV SCH ×2 (09:36→20:41)
[2018-10-10] MEDS: ISOSORBIDE MONONITRATE ER 30 MG TAB.ER.24H PO SCH (09:36)
[2018-10-10] MEDS: ASPIRIN 81 MG PO SCH (09:36)
[2018-10-10] MEDS: SODIUM BICARBONATE TAB 650 MG TAB PO SCH ×3 (09:36→20:41)
[2018-10-10] MEDS: ALPRAZolam 0.25 MG TAB PO SCH ×2 (09:36→20:41)
[2018-10-10] MEDS: LOSARTAN 25 MG TAB PO SCH (09:37)
[2018-10-10] MEDS: METOPROLOL SUCCINATE (ER) 25 MG TAB.ER.24H PO SCH (09:37)
[2018-10-10] MEDS: MULTIVITAMINS, THERA 1 EACH TAB PO SCH (09:37)
[2018-10-10] MEDS: TROSPIUM CHLORIDE 20 MG TABLET PO SCH (09:42)
[2018-10-10 12:42] LABS: Glucose,Whole Blood 149 mg/dL (75-99)
--- NOTE | 2018-10-10 15:56 | P.PN ---
Subjective Progress Note Date: 10/10/18 This is an 78-year-old female presented to the ER with uncontrolled blood sugars, in a patient with history of CAD, NM, gastroesophageal reflux disease, hyperlipidemia, hypertension, macular degeneration, bradycardia with palpitations, UTIs, renal insufficiency and multiple other medical issues. Reports polydipsia, urinary frequency, fatigue, nausea vomiting, mild abdominal discomfort, occasional nonproductive cough and fatigue. Last week patient's blood sugars running low, patient stopped taking Lantus and using only Novolog. Presented to PCP's office. Lantus reinitiated at lower dose of 10 units( previously on 45 units) and sliding scale. Blood sugar on admission 384. Acetone negative. UA reporting moderate leukocytes, urine WBC 16. BUN 60, Creatinine 1.46, baseline 1.15, potassium 5.2. O2 sats 91% on 2 L nasal cannula, currently satting 95% on 3 L nasal cannula. Afebrile, elevated WBC 11.7. Denies fever or chills. EKG sinus rhythm with PVCs, bigeminy. Magnesium 2.3. Patient states she has been having low heart rates, palpitations accompanied by shortness of breath-has been scheduled for cardiology evaluation for potential pacemaker/defibrillator. BNP 6490. Chest x-ray reporting increased interstitial changes, fluid overload, less likely, multifocal atypical pneumonia. Denies chest pain. Antibiotics, sliding scale initiated .Cardiology consultated. 10/10/2018 maintained on aspirin, Plavix, Imdur, losartan, metoprolol .Evaluated by cardiology with recommendations noted. Appears to be diuresing well on Lasix IV push, with no shortness of breath, no edema; 24-hour I&O currently not reflecting a weight loss or negative balance at this time. Hypoglycemic during the night and again this morning. Afebrile, preliminary blood cultures negative. Objective - Vital Signs Vital signs: Vital Signs Temp 97.7 F 10/10/18 04:05 Pulse 77 10/10/18 04:05 Resp 20 10/10/18 04:05 BP 136/70 10/10/18 04:05 Pulse Ox 96 10/10/18 04:05 Intake & Output 10/09/18 10/10/18 10/10/18 18:59 06:59 18:59 Intake Total 720 240 240 Output Total 200 800 Balance 520 240 -560 Weight 72.1 kg 72.7 kg Intake: Oral 720 240 240 Output: Urine 200 800 Other: Voiding Method Toilet # Voids 2 1 - Exam VITAL SIGNS: As above GENERAL: Sitting up in bed, no acute distress HEENT: Conjunctivae normal. eyes normal. Oral mucosa moist NECK: No JVD. No thyroid enlargement. No LNs CARDIOVASCULAR: S1, S2 regular.Systolic murmur RESPIRATION: Breath sounds diminished in the bases. No rhonchi , fine bibasilar crackles. ABDOMEN: Soft, nontender . No guarding. no masses palpable. Bowel sounds heard. LEGS: No edema. no swelling PSYCHIATRY: Alert and oriented X3, mood and affect normal. NERVOUS SYSTEM: Cranial N 2-12 grossly normal. Moves all 4 limbs. Diffuse weakness, No focal deficits. Strength and sensation grossly intact. Skin: no lesions, no rash - Labs CBC & Chem 7: 10/09/18 05:27 10/09/18 05:27 Labs: Abnormal Lab Results - Last 24 Hours (Table) 10/09/18 10/09/18 10/09/18 Range/Units 12:05 16:41 16:56 POC Glucose (mg/dL) 141 H 66 L 64 L (75-99) mg/dL 10/09/18 10/09/18 10/10/18 Range/Units 20:48 23:29 06:07 POC Glucose (mg/dL) 155 H 204 H 57 L (75-99) mg/dL Microbiology - Last 24 Hours (Table) 10/08/18 11:27 Blood Culture - Preliminary Blood No Growth after 24 hours Assessment and Plan Assessment: -Diabetes mellitus, uncontrolled with hyperglycemia and hypoglycemia -Acute UTI, in a patient with history of recurrent UTIs, urinary incontinence -Acute CHF, systolic dysfunction, EF 30-35% secondary to fluid overload r/t polydipsia. Possible atypical Pneumonia, doubt, afebrile, normal WBC. -Acute hypoxic respiratory failure secondary to the above, weaning off O2. 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 Lantus decreased, premeal insulin discontinued. Continue on sliding scale. Close monitoring of Accu-Cheks.Continue diuresing on Lasix IV push with strict I&O's. Maintain IV antibiotics. Follow closely with cardiology. The impression and plan of care has been dictated as directed. : I performed a history and examination of this patient, discussed the same with the dictator. I agree with the dictator's note ,documented as a scribe. Any additional findings or plans will be noted. Time taken: 33 minutes
[2018-10-10 16:13] LABS: Glucose,Whole Blood 310 mg/dL (75-99)
[2018-10-10 17:07] LABS: Hemoglobin A1C 7.7 % (4.0-6.0)
--- NOTE | 2018-10-10 17:08 | P.PN ---
Subjective Progress Note Date: 10/10/18 This 78-year-old female is admitted to the hospital with increasing shortness of breath, cough and palpitations. She was found to be in congestive heart failure. Her ejection fraction of 30-35%. Patient was initiated on IV Lasix and patient has been diuresing well. She is feeling better. We'll continue current medical therapy. Patient was debating to have is that he ACD and possible biventricular pacemaker. We'll follow his electrolytes closely Objective - Vital Signs Vital signs: Vital Signs Temp 97.7 F 10/10/18 04:05 Pulse 87 10/10/18 15:49 Resp 20 10/10/18 15:49 BP 129/57 10/10/18 15:49 Pulse Ox 94 L 10/10/18 15:49 Intake & Output 10/09/18 10/10/18 10/10/18 18:59 06:59 18:59 Intake Total 720 240 480 Output Total 200 1600 Balance 520 240 -1120 Weight 72.1 kg 72.7 kg Intake: Oral 720 240 480 Output: Urine 200 1600 Other: Voiding Method Toilet # Voids 2 1 1 - Exam GENERAL EXAM: Patient is alert and oriented and doesn't appear to be in any acute distress HEENT: Normocephalic. Normal reaction of pupils, equal size, normal range of extraocular motion. No erythema or exudates in the throat. NECK: No masses, no nuchal rigidity. CHEST: No chest wall deformity. LUNGS: Appear to be clear compared to yesterday HEART: S1 and S2 normal with no audible mumurs or gallops. Regular rhythm, femorals equal on both sides.. ABDOMEN: No hepatosplenomegaly, normal bowel sounds, no guarding or rigidity. SKIN: No rashes CENTRAL NERVOUS SYSTEM: No focal deficits. EXTREMITIES: No cyanosis, clubbing or edema. - Labs CBC & Chem 7: 10/09/18 05:27 10/09/18 05:27 Labs: Abnormal Lab Results - Last 24 Hours (Table) 10/09/18 10/09/18 10/09/18 Range/Units 16:41 16:56 20:48 POC Glucose (mg/dL) 66 L 64 L 155 H (75-99) mg/dL 10/09/18 10/10/18 10/10/18 Range/Units 23:29 06:07 12:12 POC Glucose (mg/dL) 204 H 57 L 149 H (75-99) mg/dL 10/10/18 Range/Units 16:11 POC Glucose (mg/dL) 310 H (75-99) mg/dL Microbiology - Last 24 Hours (Table) 10/08/18 11:27 Blood Culture - Preliminary Blood No Growth after 24 hours Assessment and Plan (1) Acute on chronic systolic CHF (congestive heart failure) Current Visit: Yes Status: Acute Code(s): I50.23 - ACUTE ON CHRONIC SYSTOLIC (CONGESTIVE) HEART FAILURE SNOMED Code(s): 674240330 (2) Coronary artery disease Current Visit: No Status: Acute Code(s): I25.10 - ATHSCL HEART DISEASE OF [place] CORONARY ARTERY W/O ANG PCTRS SNOMED Code(s): 12080112 (3) Cardiomyopathy, ischemic Current Visit: Yes Status: Acute Code(s): I25.5 - ISCHEMIC CARDIOMYOPATHY SNOMED Code(s): 164097045 Plan: Continue current medical therapy. May switch to by mouth Lasix tomorrow. Increase activity as tolerated. Possible AICD/biventricular pacemaker implantation in the near future
[2018-10-10 17:34] LABS: Glucose,Whole Blood 311 mg/dL (75-99)
--- NOTE | 2018-10-10 18:17 | ECHOF ---
Referral Reason:chf MEASUREMENTS -------- HEIGHT: 132.1 cm WEIGHT: 71.7 kg BP: RVIDd: 2.9 cm (< 3.3) IVSd: 0.8 cm (0.6 - 1.1) LVIDd: 5.6 cm (3.9 - 5.3) LVPWd: 1.1 cm (0.6 - 1.1) IVSs: 1.6 cm LVIDs: 3.9 cm LVPWs: 1.6 cm Ao Diam: 2.5 cm (2.0 - 3.7) AV Cusp: 1.3 cm (1.5 - 2.6) LA Diam: 3.7 cm (2.7 - 3.8) MV E Fernando: 1.23 m/s MV DecT: 213 ms MV A Fernando: 1.06 m/s MV E/A Ratio: 1.16 RAP: 5.00 mmHg RVSP: 51.59 mmHg FINDINGS -------- Atrial fibrillation. This was a technically difficult study with suboptimal views. The left ventricle is mildly dilated. There is moderate global hypokinesis of LV . Overall left v entricular systolic function is moderate-severely impaired with, an EF between 30 - 35 %. Basal lat eral LV wall motion is hypokinetic. Basal inferior LV wall motion is akinetic. Basal inferosept al LV wall motion is akinetic. Basal anteroseptal LV wall motion is hypokinetic. Mid lateral LV wall motion is hypokinetic. Mid inferior LV wall motion is akinetic. Mid inferoseptal LV wall motion is akinetic. The right ventricle is normal in size. The left atrial size is normal. The right atrial size is normal. Lumason used There is mild aortic valve sclerosis. The mitral valve leaflets are mildly thickened. [id number] mitral regurgitation is present. Severe tricuspid regurgitation present. There is moderate pulmonary hypertension. The right ventr icular systolic pressure, as measured by Doppler, is 51.59mmHg. There is no pulmonic regurgitation present. The aortic root size is normal. The inferior vena cava was not well visualized. There is no pericardial effusion. CONCLUSIONS -------- 1. Atrial fibrillation. 2. This was a technically difficult study with suboptimal views. 3. Basal lateral LV wall motion is hypokinetic. 4. Basal inferior LV wall motion is akinetic. 5. Basal inferoseptal LV wall motion is akinetic. 6. Mid lateral LV wall motion is hypokinetic. 7. Mid inferior LV wall motion is akinetic. 8. Mid inferoseptal LV wall motion is akinetic. 9. The left atrial size is normal. 10. Lumason used 11. There is mild aortic valve sclerosis. 12. The mitral valve leaflets are mildly thickened. 13. Wmcihqzy-qy-reskdz mitral regurgitation is present. 14. Severe tricuspid regurgitation present. 15. There is moderate pulmonary hypertension. 16. There is no pulmonic regurgitation present. 17. The aortic root size is normal. 18. The inferior vena cava was not well visualized. 19. There is no pericardial effusion. COMPOUNDING TECHNICIAN: Rosemarie Diaz RDCS
[2018-10-10 20:41] LABS: Glucose,Whole Blood 313 mg/dL (75-99)
[2018-10-10] MEDS: PRAVASTATIN SODIUM 40 MG TAB PO SCH (20:41)
[2018-10-10] MEDS: LORATADINE 10 MG TAB PO SCH (20:41)
[2018-10-10] MEDS: FAMOTIDINE 20 MG TAB PO SCH (20:41)
[2018-10-10] MEDS: INSULIN DETEMIR (LEVEMIR) 100 UNIT/ML SYR SQ SCH (20:44)
[2018-10-11] MEDS: ACETAMINOPHEN TAB 500 MG TAB PO PRN ×2 (01:46→23:14)
[2018-10-11 02:29] LABS: Glucose,Whole Blood 60 mg/dL (75-99)
[2018-10-11 02:56] LABS: Glucose,Whole Blood 65 mg/dL (75-99)
[2018-10-11 03:19] LABS: Glucose,Whole Blood 102 mg/dL (75-99)
[2018-10-11 05:47] LABS: Glucose,Whole Blood 156 mg/dL (75-99)
[2018-10-11 06:57] LABS: Anisocytosis Slight; Basophils # (A) 0.1 k/uL (0-0.2); Basophils % (A) 1 %; Eosinophils # (A) 0.8 k/uL (0-0.7); Eosinophils % (A) 7 %; HCT 35.4 % (34.0-46.0); HGB 11.4 gm/dL (11.4-16.0); Hypochromasia Slight; Lymphocytes # (A) 1.7 k/uL (1.0-4.8); Lymphocytes % (A) 15 %; MCH 28.6 pg (25.0-35.0); MCHC 32.3 g/dL (31.0-37.0); MCV 88.5 fL (80.0-100.0); Mean Platelet Volume 7.9; Monocytes # (A) 0.7 k/uL (0-1.0); Monocytes % (A) 6 %; Neutrophils # (A) 7.7 k/uL (1.3-7.7); Neutrophils % (A) 69 %; Platelet Count 354 k/uL (150-450); RDW 16.1 % (11.5-15.5); WBC 11.1 k/uL (3.8-10.6)
[2018-10-11] MEDS: INSULIN ASPART (NovoLOG) 100 UNIT/ML VIAL SQ SCH ×3 (07:05→17:52)
[2018-10-11 07:26] LABS: Calcium 9.5 mg/dL (8.4-10.2); Potassium 4.7 mmol/L (3.5-5.1)
[2018-10-11] MEDS: ISOSORBIDE MONONITRATE ER 30 MG TAB.ER.24H PO SCH (09:21)
[2018-10-11] MEDS: SODIUM BICARBONATE TAB 650 MG TAB PO SCH ×3 (09:21→20:52)
[2018-10-11] MEDS: ALPRAZolam 0.25 MG TAB PO SCH ×2 (09:21→20:52)
[2018-10-11] MEDS: MULTIVITAMINS, THERA 1 EACH TAB PO SCH (09:21)
[2018-10-11] MEDS: ASPIRIN 81 MG PO SCH (09:21)
[2018-10-11] MEDS: TROSPIUM CHLORIDE 20 MG TABLET PO SCH (09:21)
[2018-10-11] MEDS: METOPROLOL SUCCINATE (ER) 50 MG TAB.ER.24H PO SCH (09:21)
[2018-10-11] MEDS: FUROSEMIDE 10 MG/ML 4 ML VIAL IV SCH (09:22)
[2018-10-11] MEDS: CLOPIDOGREL 75 MG TAB PO SCH (09:22)
[2018-10-11] MEDS: LOSARTAN 25 MG TAB PO SCH (09:22)
[2018-10-11 11:57] LABS: Glucose,Whole Blood 177 mg/dL (75-99)
[2018-10-11 16:49] LABS: Glucose,Whole Blood 276 mg/dL (75-99)
--- NOTE | 2018-10-11 16:55 | P.PN ---
Subjective Progress Note Date: 10/11/18 This 78-year-old female is admitted to the hospital with increasing shortness of breath, cough and palpitations. She was found to be in congestive heart failure. Her ejection fraction of 30-35%. Patient was initiated on IV Lasix and patient has been diuresing well. She is feeling better. We'll continue current medical therapy. Patient was debating to have is that he ACD and possible biventricular pacemaker. We'll follow his electrolytes closely. 10/11/2018: This patient is admitted with increasing shortness of breath and evidence of CHF. Patient responded well to diuretics. She is feeling much better. Her BUN/creatinine are going up. Will discontinue IV Lasix and start her on by mouth Lasix. She is not having any palpitations. We'll increase her activity as tolerated. Discussed again about AICD. Patient wants to go home and think about it. Meanwhile she'll continue current medical therapy Objective - Vital Signs Vital signs: Vital Signs Temp 98.0 F 10/11/18 12:00 Pulse 70 10/11/18 12:00 Resp 18 10/11/18 12:00 BP 117/60 10/11/18 12:00 Pulse Ox 94 L 10/11/18 12:00 Intake & Output 10/10/18 10/11/18 10/11/18 18:59 06:59 18:59 Intake Total 480 130 480 Output Total 1600 1150 600 Balance -1120 -1020 -120 Weight 72.2 kg Intake: IV 80 0.9 80 Intake, IV Titration 50 Amount cefTRIAXone 1 gm In 50 Sodium Chloride 0.9% 50 ml @ 100 mls/hr IVPB Q12HR [facility] Rx#:[id number] Oral 480 480 Output: Urine 1600 1150 600 Other: Voiding Method Toilet Toilet # Voids 1 1 2 - Exam GENERAL EXAM: Patient is alert and oriented and doesn't appear to be in any acute distress HEENT: Normocephalic. Normal reaction of pupils, equal size, normal range of extraocular motion. No erythema or exudates in the throat. NECK: No masses, no nuchal rigidity. CHEST: No chest wall deformity. LUNGS: Appear to be clear compared to yesterday HEART: S1 and S2 normal with no audible mumurs or gallops. Regular rhythm, femorals equal on both sides.. ABDOMEN: No hepatosplenomegaly, normal bowel sounds, no guarding or rigidity. SKIN: No rashes CENTRAL NERVOUS SYSTEM: No focal deficits. EXTREMITIES: No cyanosis, clubbing or edema. - Labs CBC & Chem 7: 10/11/18 06:31 10/11/18 06:31 Labs: Abnormal Lab Results - Last 24 Hours (Table) 10/09/18 10/10/18 10/10/18 Range/Units 05:27 17:31 20:39 WBC (3.8-10.6) k/uL RDW (11.5-15.5) % Eosinophils # (0-0.7) k/uL BUN (7-17) mg/dL Creatinine (0.52-1.04) mg/dL Glucose (74-99) mg/dL POC Glucose (mg/dL) 311 H 313 H (75-99) mg/dL Hemoglobin A1c 7.7 H (4.0-6.0) % 10/11/18 10/11/18 10/11/18 Range/Units 02:27 02:55 03:17 WBC (3.8-10.6) k/uL RDW (11.5-15.5) % Eosinophils # (0-0.7) k/uL BUN (7-17) mg/dL Creatinine (0.52-1.04) mg/dL Glucose (74-99) mg/dL POC Glucose (mg/dL) 60 L 65 L 102 H (75-99) mg/dL Hemoglobin A1c (4.0-6.0) % 10/11/18 10/11/18 10/11/18 Range/Units 05:46 06:31 06:31 WBC 11.1 H (3.8-10.6) k/uL RDW 16.1 H (11.5-15.5) % Eosinophils # 0.8 H (0-0.7) k/uL BUN 53 H (7-17) mg/dL Creatinine 1.58 H (0.52-1.04) mg/dL Glucose 185 H (74-99) mg/dL POC Glucose (mg/dL) 156 H (75-99) mg/dL Hemoglobin A1c (4.0-6.0) % 10/11/18 10/11/18 Range/Units 11:56 16:47 WBC (3.8-10.6) k/uL RDW (11.5-15.5) % Eosinophils # (0-0.7) k/uL BUN (7-17) mg/dL Creatinine (0.52-1.04) mg/dL Glucose (74-99) mg/dL POC Glucose (mg/dL) 177 H 276 H (75-99) mg/dL Hemoglobin A1c (4.0-6.0) % Microbiology - Last 24 Hours (Table) 10/08/18 11:27 Blood Culture - Preliminary Blood No Growth after 48 hours Assessment and Plan (1) Acute on chronic systolic CHF (congestive heart failure) Current Visit: Yes Status: Acute Code(s): I50.23 - ACUTE ON CHRONIC SYSTOLIC (CONGESTIVE) HEART FAILURE SNOMED Code(s): 270719946 (2) Coronary artery disease Current Visit: No Status: Acute Code(s): I25.10 - ATHSCL HEART DISEASE OF [place] CORONARY ARTERY W/O ANG PCTRS SNOMED Code(s): 71125719 (3) Cardiomyopathy, ischemic Current Visit: Yes Status: Acute Code(s): I25.5 - ISCHEMIC CARDIOMYOPATHY SNOMED Code(s): 593759774 Plan: Overall patient is feeling much better. Lungs are clear. No JVD or peripheral edema. We'll stop IV Lasix and start her on by mouth Lasix. Increase activity. Possible discharge in a.m. May consider AICD/biventricular pacemaker as an outpatient
--- NOTE | 2018-10-11 16:59 | P.PN ---
Subjective Progress Note Date: 10/11/18 Principal diagnosis: UTI Acute exacerbation CHF Brittle diabetes mellitus 78-year-old female presented to the ER with uncontrolled blood sugars, in a patient with history of CAD, [place], gastroesophageal reflux disease, hyperlipidemia, hypertension, macular degeneration, bradycardia with palpitations, UTIs, renal insufficiency and multiple other medical issues. Reports polydipsia, urinary frequency, fatigue, nausea vomiting, mild abdominal discomfort, occasional nonproductive cough and fatigue. Last week patient's blood sugars running low, patient stopped taking Lantus and using only Novolog. Presented to PCP's office. Lantus reinitiated at lower dose of 10 units( previously on 45 units) and sliding scale. Blood sugar on admission 384. Acetone negative. UA reporting moderate leukocytes, urine WBC 16. BUN 60, Creatinine 1.46, baseline 1.15, potassium 5.2. O2 sats 91% on 2 L nasal cannula, currently satting 95% on 3 L nasal cannula. Afebrile, elevated WBC 11.7. Denies fever or chills. EKG sinus rhythm with PVCs, bigeminy. Magnesium 2.3. Patient states she has been having low heart rates, palpitations accompanied by shortness of breath-has been scheduled for cardiology evaluation for potential pacemaker/defibrillator. BNP 6490. Chest x-ray reporting incr eased interstitial changes, fluid overload, less likely, multifocal atypical pneumonia. Denies chest pain. Antibiotics, sliding scale initiated .Cardiology consultated. Objective - Vital Signs Vital signs: Vital Signs Temp 98.0 F 10/11/18 12:00 Pulse 70 10/11/18 12:00 Resp 18 10/11/18 12:00 BP 117/60 10/11/18 12:00 Pulse Ox 94 L 10/11/18 12:00 Intake & Output 10/10/18 10/11/18 10/11/18 18:59 06:59 18:59 Intake Total 480 130 240 Output Total 1600 1150 600 Balance -1120 1020 -360 Weight 72.2 kg Intake: IV 80 0.9 80 Intake, IV Titration 50 Amount cefTRIAXone 1 gm In 50 Sodium Chloride 0.9% 50 ml @ 100 mls/hr IVPB Q12HR [facility] Rx#:[id number] Oral 480 240 Output: Urine 1600 1150 600 Other: Voiding Method Toilet Toilet # Voids 1 1 - Exam - Constitutional General appearance: Present: average body habitus, cooperative, no acute distress - EENT Eyes: Present: anicteric sclerae, EOMI, PERRLA, normal appearance ENT: Present: hearing grossly normal, normal oropharynx Ears: bilateral: normal - Neck Neck: Present: normal ROM. Absent: lymphadenopathy, rigidity, thyromegaly Carotids: negative: bruit present Thyroid: bilateral: normal size, negative: enlarged, nodule - Respiratory Respiratory: bilateral: CTA, negative: rales, rhonchi, wheezing - Cardiovascular Rhythm: regular Heart sounds: normal: S1, S2 Abnormal Heart Sounds: Absent: systolic murmur, diastolic murmur - Gastrointestinal General gastrointestinal: Present: normal bowel sounds, soft. Absent: dis tended, organomegaly, tenderness - Genitourinary Genitourinary Comment(s): deferred - Integumentary Integumentary: Present: normal turgor. Absent: jaundiced, rash, ulcer - Neurologic Neurologic: Present: CNII-XII intact. Absent: focal deficits - Musculoskeletal Musculoskeletal: Present: gait normal, strength equal bilaterally - Psychiatric Psychiatric: Present: A&O x's 3, appropriate affect, intact judgment & insight - Labs CBC & Chem 7: 10/11/18 06:31 10/11/18 06:31 Labs: Abnormal Lab Results - Last 24 Hours (Table) 10/09/18 10/10/18 10/10/18 Range/Units 05:27 16:11 17:31 WBC (3.8-10.6) k/uL RDW (11.5-15.5) % Eosinophils # (0-0.7) k/uL BUN (7-17) mg/dL Creatinine (0.52-1.04) mg/dL Glucose (74-99) mg/dL POC Glucose (mg/dL) 310 H 311 H (75-99) mg/dL Hemoglobin A1c 7.7 H (4.0-6.0) % 10/10/18 10/11/18 10/11/18 Range/Units 20:39 02:27 02:55 WBC (3.8-10.6) k/uL RDW (11.5-15.5) % Eosinophils # (0-0.7) k/uL BUN (7-17) mg/dL Creatinine (0.52-1.04) mg/dL Glucose (74-99) mg/dL POC Glucose (mg/dL) 313 H 60 L 65 L (75-99) mg/dL Hemoglobin A1c (4.0-6.0) % 10/11/18 10/11/18 10/11/18 Range/Units 03:17 05:46 06:31 WBC 11.1 H (3.8-10.6) k/uL RDW 16.1 H (11.5-15.5) % Eosinophils # 0.8 H (0-0.7) k/uL BUN (7-17) mg/dL Creatinine (0.52-1.04) mg/dL Glucose (74-99) mg/dL POC Glucose (mg/dL) 102 H 156 H (75-99) mg/dL Hemoglobin A1c (4.0-6.0) % 10/11/18 10/11/18 Range/Units 06:31 11:56 WBC (3.8-10.6) k/uL RDW (11.5-15.5) % Eosinophils # (0-0.7) k/uL BUN 53 H (7-17) mg/dL Creatinine 1.58 H (0.52-1.04) mg/dL Glucose 185 H (74-99) mg/dL POC Glucose (mg/dL) 177 H (75-99) mg/dL Hemoglobin A1c (4.0-6.0) % Microbiology - Last 24 Hours (Table) 10/08/18 11:27 Blood Culture - Preliminary Blood No Growth after 48 hours Assessment and Plan Plan: Assessment: -Diabetes mellitus, uncontrolled with hyperglycemia and hypoglycemia -Acute UTI, in a patient with history of recurrent UTIs, urinary incontinence -Acute CHF, systolic dysfunction, EF 30-35% secondary to fluid overload r/t polydipsia. Possible atypical Pneumonia, doubt, afebrile, normal WBC. -Acute hypoxic respiratory failure secondary to the above, weaning off O2. -Moderate mitral regurgitation -Moderate tricuspid regurgitation -Pulmonary hypertension -Acute on chronic renal failure, Stage 3B - CAD, history of IL, CABG, stents -Gastroesophageal reflux disease -Hypertension -Hyperlipidemia -Macular degeneration This patient is admitted with increasing shortness of breath and evidence of CHF. Patient responded well to diuretics. She is feeling much better. Her BUN/creatinine are going up. Will discontinue IV Lasix and start her on by mouth Lasix. She is not having any palpitations. We'll increase her activity as tolerated. Discussed again about AICD. Patient wants to go home and think about it. Meanwhile she'll continue current medical therapy patient did have another episode of hypoglycemia early this morning; we will continue with Lantus as prescribed; change NovoLog sliding scale to before meals without any at bedtime coverage Continue to monitor blood sugars closely Time with Patient: Greater than 30
[2018-10-11 20:33] LABS: Glucose,Whole Blood 274 mg/dL (75-99)
[2018-10-11] MEDS: LORATADINE 10 MG TAB PO SCH (20:52)
[2018-10-11] MEDS: PRAVASTATIN SODIUM 40 MG TAB PO SCH (20:52)
[2018-10-11] MEDS: FAMOTIDINE 20 MG TAB PO SCH (20:52)
[2018-10-11] MEDS: INSULIN DETEMIR (LEVEMIR) 100 UNIT/ML SYR SQ SCH (20:52)
[2018-10-12 02:01] LABS: Glucose,Whole Blood 212 mg/dL (75-99)
[2018-10-12 05:48] LABS: Glucose,Whole Blood 111 mg/dL (75-99)
[2018-10-12] MEDS: INSULIN ASPART (NovoLOG) 100 UNIT/ML VIAL SQ SCH ×3 (06:01→17:54)
[2018-10-12 07:06] LABS: Basophils # (A) 0.1 k/uL (0-0.2); Basophils % (A) 1 %; Eosinophils # (A) 0.8 k/uL (0-0.7); Eosinophils % (A) 9 %; HCT 36.7 % (34.0-46.0); HGB 11.5 gm/dL (11.4-16.0); Lymphocytes # (A) 1.7 k/uL (1.0-4.8); Lymphocytes % (A) 19 %; MCH 27.8 pg (25.0-35.0); MCHC 31.4 g/dL (31.0-37.0); MCV 88.5 fL (80.0-100.0); Mean Platelet Volume 7.4; Monocytes # (A) 0.5 k/uL (0-1.0); Monocytes % (A) 5 %; Neutrophils % (A) 66 %; Platelet Count 413 k/uL (150-450); RBC 4.14 m/uL (3.80-5.40); RDW 15.1 % (11.5-15.5); WBC 9.1 k/uL (3.8-10.6)
[2018-10-12 07:18] LABS: Calcium 9.6 mg/dL (8.4-10.2); Potassium 4.5 mmol/L (3.5-5.1)
[2018-10-12] MEDS: METOPROLOL SUCCINATE (ER) 50 MG TAB.ER.24H PO SCH (08:46)
[2018-10-12] MEDS: ISOSORBIDE MONONITRATE ER 30 MG TAB.ER.24H PO SCH (08:46)
[2018-10-12] MEDS: SODIUM BICARBONATE TAB 650 MG TAB PO SCH ×3 (08:46→21:54)
[2018-10-12] MEDS: ALPRAZolam 0.25 MG TAB PO SCH ×2 (08:46→21:53)
[2018-10-12] MEDS: CLOPIDOGREL 75 MG TAB PO SCH (08:46)
[2018-10-12] MEDS: LOSARTAN 25 MG TAB PO SCH (08:46)
[2018-10-12] MEDS: ASPIRIN 81 MG PO SCH (08:46)
[2018-10-12] MEDS: FUROSEMIDE 40 MG TAB PO SCH ×2 (08:47→17:53)
[2018-10-12] MEDS: TROSPIUM CHLORIDE 20 MG TABLET PO SCH (08:47)
[2018-10-12] MEDS: MULTIVITAMINS, THERA 1 EACH TAB PO SCH (08:47)
[2018-10-12 11:44] LABS: Glucose,Whole Blood 194 mg/dL (75-99)
--- NOTE | 2018-10-12 12:31 | P.PN ---
Subjective Progress Note Date: 10/12/18 This 78-year-old female is admitted to the hospital with increasing shortness of breath, cough and palpitations. She was found to be in congestive heart failure. Her ejection fraction of 30-35%. Patient was initiated on IV Lasix and patient has been diuresing well. She is feeling better. We'll continue current medical therapy. Patient was debating to have is that he ACD and possible biventricular pacemaker. We'll follow his electrolytes closely. 10/11/2018: This patient is admitted with increasing shortness of breath and evidence of CHF. Patient responded well to diuretics. She is feeling much better. Her BUN/creatinine are going up. Will discontinue IV Lasix and start her on by mouth Lasix. She is not having any palpitations. We'll increase her activity as tolerated. Discussed again about AICD. Patient wants to go home and think about it. Meanwhile she'll continue current medical therapy. 10/12/2018: This patient is feeling much better. No orthopnea or paroxysmal nocturnal dyspnea. No arrhythmias or palpitations. Creatinine has remained stable or improved slightly. Patient will be discharged home on current medical therapy. Follow-up in the office with Dr. WOODROW Calvillo. Objective - Vital Signs Vital signs: Vital Signs Temp 97.8 F 10/12/18 08:00 Pulse 72 10/12/18 08:00 Resp 18 10/12/18 08:00 BP 107/70 10/12/18 08:00 Pulse Ox 93 L 10/12/18 08:01 Intake & Output 10/11/18 10/12/18 10/12/18 18:59 06:59 18:59 Intake Total 720 80 240 Output Total 600 700 Balance 120 -620 240 Weight 72.3 kg Intake: IV 80 0.9 80 Oral 720 240 Output: Urine 600 700 Other: Voiding Method Toilet Toilet Toilet # Voids 2 1 - Exam GENERAL EXAM: Patient is alert and oriented and doesn't appear to be in any acute distress HEENT: Normocephalic. Normal reaction of pupils, equal size, normal range of e xtraocular motion. No erythema or exudates in the throat. NECK: No masses, no nuchal rigidity. CHEST: No chest wall deformity. LUNGS: Appear to be clear compared to yesterday HEART: S1 and S2 normal with no audible mumurs or gallops. Regular rhythm, femorals equal on both sides.. ABDOMEN: No hepatosplenomegaly, normal bowel sounds, no guarding or rigidity. SKIN: No rashes CENTRAL NERVOUS SYSTEM: No focal deficits. EXTREMITIES: No cyanosis, clubbing or edema. - Labs CBC & Chem 7: 10/12/18 05:50 10/12/18 05:50 Labs: Abnormal Lab Results - Last 24 Hours (Table) 10/11/18 10/11/18 10/12/18 Range/Units 16:47 20:31 01:59 Eosinophils # (0-0.7) k/uL BUN (7-17) mg/dL Creatinine (0.52-1.04) mg/dL POC Glucose (mg/dL) 276 H 274 H 212 H (75-99) mg/dL 10/12/18 10/12/18 10/12/18 Range/Units 05:47 05:50 05:50 Eosinophils # 0.8 H (0-0.7) k/uL BUN 54 H (7-17) mg/dL Creatinine 1.56 H (0.52-1.04) mg/dL POC Glucose (mg/dL) 111 H (75-99) mg/dL 10/12/18 Range/Units 11:42 Eosinophils # (0-0.7) k/uL BUN (7-17) mg/dL Creatinine (0.52-1.04) mg/dL POC Glucose (mg/dL) 194 H (75-99) mg/dL Microbiology - Last 24 Hours (Table) 10/08/18 11:27 Blood Culture - Preliminary Blood No Growth after 72 hours Assessment and Plan (1) Acute on chronic systolic CHF (congestive heart failure) Current Visit: Yes Status: Acute Code(s): I50.23 - ACUTE ON CHRONIC SYSTOLIC (CONGESTIVE) HEART FAILURE SNOMED Code(s): 273553794 (2) Coronary artery disease Current Visit: No Status: Acute Code(s): I25.10 - ATHSCL HEART DISEASE OF [place] CORONARY ARTERY W/O ANG PCTRS SNOMED Code(s): 29586676 (3) Cardiomyopathy, ischemic Current Visit: Yes Status: Acute Code(s): I25.5 - ISCHEMIC CARDIOMYOPATHY SNOMED Code(s): 469994851 Plan: Patient is critically stable. Could be discharged home. Follow-up with Dr. WOODROW Calvillo
--- NOTE | 2018-10-12 14:33 | P.DS ---
Providers Date of admission: 10/09/18 15:47 Expected date of discharge: 10/12/18 Attending physician: Kobe Anderson Consults: 10/08/18 15:48 Consult Physician Urgent Consulting Provider: Musa Paniagua Consult Reason/Comments: arrythmia Do you want consulting provider notified?: Yes Primary care physician: [facility] Course: 10/10/18 This is an 78-year-old female presented to the ER with uncontrolled blood sugars, in a patient with history of CAD, CT, gastroesophageal reflux disease, hyperlipidemia, hypertension, macular degeneration, bradycardia with palpitatio ns, UTIs, renal insufficiency and multiple other medical issues. Reports polydipsia, urinary frequency, fatigue, nausea vomiting, mild abdominal discomfort, occasional nonproductive cough and fatigue. Last week patient's blood sugars running low, patient stopped taking Lantus and using only Novolog. Presented to PCP's office. Lantus reinitiated at lower dose of 10 units( previously on 45 units) and sliding scale. Blood sugar on admission 384. Acetone negative. UA reporting moderate leukocytes, urine WBC 16. BUN 60, Creatinine 1.46, baseline 1.15, potassium 5.2. O2 sats 91% on 2 L nasal c annula, currently satting 95% on 3 L nasal cannula. Afebrile, elevated WBC 11.7. Denies fever or chills. EKG sinus rhythm with PVCs, bigeminy. Magnesium 2.3. Patient states she has been having low heart rates, palpitations accompanied by shortness of breath-has been scheduled for cardiology evaluation for potential pacemaker/defibrillator. BNP 6490. Chest x-ray reporting increased interstitial changes, fluid overload, less likely, multifocal atypical pneumonia. Denies chest pain. Antibiotics, sliding scale initiated .Cardiology consultated. 10/10/2018 maintained on aspirin, Plavix, Imdur, losartan, metoprolol .Evaluated by cardiology with recommendations noted. Appears to be diuresing well on Lasix IV push, with no shortness of breath, no edema; 24-hour I&O currently not reflec ting a weight loss or negative balance at this time. Hypoglycemic during the night and again this morning. Afebrile, preliminary blood cultures negative. 10/11/2018: This patient is admitted with increasing shortness of breath and evidence of CHF. Patient responded well to diuretics. She is feeling much better. Her BUN/creatinine are going up. Will discontinue IV Lasix and start her on by mouth Lasix. She is not having any palpitations. We'll increase her activity as tolerated. Discussed again about AICD. Patient wants to go home and think about it. Meanwhile she'll continue current medical therapy While in the hospital patient continued to have fluctuations in her blood sugar; multiple adjustments were made to insulin therapy; patient was highly recommended 15 units of Levemir at bedtime with 10 units of NovoLog with each meal; patient discouraged to have found any coverage at bedtime Plan - Discharge Summary Discharge Rx Participant: No New Discharge Prescriptions: New Furosemide [Lasix] 40 mg PO BID@0900,1600 #60 tab Continue Solifenacin Succinate [Vesicare] 5 mg PO DAILY Multivitamin/Iron/Folic Acid [Centrum Complete Multivit Tab] 1 tab PO DAILY Insulin Glargine,Hum.rec.anlog [Lantus Solostar] 10 units SQ HS Clopidogrel Bisulfate [Clopidogrel] 75 mg PO DAILY@1200 ALPRAZolam 0.25 mg PO BID Famotidine [Pepcid] 20 mg PO HS Insulin Lispro [humaLOG Kwikpen] See Protocol SQ AC-TID Isosorbide Mononitrate ER [Imdur] 30 mg PO DAILY Loratadine [Claritin] 10 mg PO HS Metoprolol Succinate [Toprol XL] 25 mg PO DAILY Pravastatin Sodium [Pravachol] 40 mg PO HS Sodium Bicarbonate Tab 650 mg PO TID Losartan [Cozaar] 25 mg PO DAILY #30 tab Aspirin 81 mg PO DAILY Discharge Medication List ALPRAZolam 0.25 mg PO BID 03/15/15 [History] Clopidogrel Bisulfate [Clopidogrel] 75 mg PO DAILY@1200 03/15/15 [History] Famotidine [Pepcid] 20 mg PO HS 03/15/15 [History] Insulin Glargine,Hum.rec.anlog [Lantus Solostar] 10 units SQ HS 03/15/15 [History] Multivitamin/Iron/Folic Acid [Centrum Complete Multivit Tab] 1 tab PO DAILY 03/15/15 [History] Solifenacin Succinate [Vesicare] 5 mg PO DAILY 03/15/15 [History] Insulin Lispro [humaLOG Kwikpen] See Protocol SQ AC-TID 07/17/18 [History] Isosorbide Mononitrate ER [Imdur] 30 mg PO DAILY 07/17/18 [History] Loratadine [Claritin] 10 mg PO HS 07/17/18 [History] Metoprolol Succinate [Toprol XL] 25 mg PO DAILY 07/17/18 [History] Pravastatin Sodium [Pravachol] 40 mg PO HS 07/17/18 [History] Sodium Bicarbonate Tab 650 mg PO TID 07/17/18 [History] Losartan [Cozaar] 25 mg PO DAILY #30 tab 07/19/18 [Rx] Aspirin 81 mg PO DAILY 10/08/18 [History] Furosemide [Lasix] 40 mg PO BID@0900,1600 #60 tab 10/12/18 [Rx] Follow up Appointment(s)/Referral(s): Kobe Anderson DO [Primary Care Provider] - 1-2 days Discharge Disposition: HOME SELF-CARE
[2018-10-12] MEDS ORDERED: FUROSEMIDE 10 MG/ML 2 ML VIAL IV ONE (15:15)
--- NOTE | 2018-10-12 15:42 | P.PN ---
Subjective Progress Note Date: 10/12/18 Principal diagnosis: UTI Acute exacerbation CHF Brittle diabetes mellitus 78-year-old female presented to the ER with uncontrolled blood sugars, in a patient with history of CAD, [place], gastroesophageal reflux disease, hyperlipidemia, hypertension, macular degeneration, bradycardia with palpitations, UTIs, renal insufficiency and multiple other medical issues. Reports polydipsia, urinary frequency, fatigue, nausea vomiting, mild abdominal discomfort, occasional nonproductive cough and fatigue. Last week patient's blood sugars running low, patient stopped taking Lantus and using only Novolog. Presented to PCP's office. Lantus reinitiated at lower dose of 10 units( previously on 45 units) and sliding scale. Blood sugar on admission 384. Acetone negative. UA reporting moderate leukocytes, urine WBC 16. BUN 60, Creatinine 1.46, baseline 1.15, potassium 5.2. O2 sats 91% on 2 L nasal cannula, currently satting 95% on 3 L nasal cannula. Afebrile, elevated WBC 11.7. Denies fever or chills. EKG sinus rhythm with PVCs, bigeminy. Magnesium 2.3. Patient states she has been having low heart rates, palpitations accompanied by shortness of breath-has been scheduled for cardiology evaluation for potential pacemaker/defibrillator. BNP 6490. Chest x-ray reporting incr eased interstitial changes, fluid overload, less likely, multifocal atypical pneumonia. Denies chest pain. Antibiotics, sliding scale initiated .Cardiology consultated. 10/12/2018 Patient is seen and evaluated in room at bedside; at the time of evaluation patient is awake alert and oriented without any acute distress; patient's discharge plan was discussed in great detail regarding to her blood sugars and insulin use; discharge orders were completed; received a phone call from RN complaining of patient dropping SpO2 in 80s without oxygen; On examination patient does have some fine crackles bilateral bases; we will hold patient's discharge; order Lasix 20 mg IV 1; I will order stat chest x-ray and a BNP; further recommendations after testing is available Objective - Vital Signs Vital signs: Vital Signs Temp 97.8 F 10/12/18 08:00 Pulse 60 10/12/18 12:00 Resp 18 10/12/18 12:00 BP 122/74 10/12/18 12:00 Pulse Ox 96 10/12/18 12:00 Intake & Output 10/11/18 10/12/18 10/12/18 18:59 06:59 18:59 Intake Total 720 80 600 Output Total 600 700 Balance 120 -620 600 Weight 72.3 kg Intake: IV 80 0.9 80 Oral 720 600 Output: Urine 600 700 Other: Voiding Method Toilet Toilet Toilet # Voids 2 1 1 - Exam - Constitutional General appearance: Present: average body habitus, cooperative, no acute distress - EENT Eyes: Present: anicteric sclerae, EOMI, PERRLA, normal appearance ENT: Present: hearing grossly normal, normal oropharynx Ears: bilateral: normal - Neck Neck: Present: normal ROM. Absent: lymphadenopathy, rigidity, thyromegaly Carotids: negative: bruit present Thyroid: bilateral: normal size, negative: enlarged, nodule - Respiratory Respiratory: bilateral: CTA, negative: rales, rhonchi, wheezing - Cardiovascular Rhythm: regular Heart sounds: normal: S1, S2 Abnormal Heart Sounds: Absent: systolic murmur, diastolic murmur - Gastrointestinal General gastrointestinal: Present: normal bowel sounds, soft. Absent: distended, organomegaly, tenderness - Genitourinary Genitourinary Comment(s): deferred - Integumentary Integumentary: Present: normal turgor. Absent: jaundiced, rash, ulcer - Neurologic Neurologic: Present: CNII-XII intact. Absent: focal deficits - Musculoskeletal Musculoskeletal: Present: gait normal, strength equal bilaterally - Psychiatric Psychiatric: Present: A&O x's 3, appropriate affect, intact judgment & insight - Labs CBC & Chem 7: 10/12/18 05:50 10/12/18 05:50 Labs: Abnormal Lab Results - Last 24 Hours (Table) 10/11/18 10/11/18 10/12/18 Range/Units 16:47 20:31 01:59 Eosinophils # (0-0.7) k/uL BUN (7-17) mg/dL Creatinine (0.52-1.04) mg/dL POC Glucose (mg/dL) 276 H 274 H 212 H (75-99) mg/dL 10/12/18 10/12/18 10/12/18 Range/Units 05:47 05:50 05:50 Eosinophils # 0.8 H (0-0.7) k/uL BUN 54 H (7-17) mg/dL Creatinine 1.56 H (0.52-1.04) mg/dL POC Glucose (mg/dL) 111 H (75-99) mg/dL 10/12/18 Range/Units 11:42 Eosinophils # (0-0.7) k/uL BUN (7-17) mg/dL Creatinine (0.52-1.04) mg/dL POC Glucose (mg/dL) 194 H (75-99) mg/dL Microbiology - Last 24 Hours (Table) 10/08/18 11:27 Blood Culture - Preliminary Blood No Growth after 72 hours Assessment and Plan Plan: Assessment: -Diabetes mellitus, uncontrolled with hyperglycemia and hypoglycemia -Acute UTI, in a patient with history of recurrent UTIs, urinary incontinence -Acute CHF, systolic dysfunction, EF 30-35% secondary to fluid overload r/t polydipsia. Possible atypical Pneumonia, doubt, afebrile, normal WBC. -Acute hypoxic respiratory failure secondary to the above, weaning off O2. -Moderate mitral regurgitation -Moderate tricuspid regurgitation -Pulmonary hypertension -Acute on chronic renal failure, Stage 3B - CAD, history of [place], CABG, stents -Gastroesophageal reflux disease -Hypertension -Hyperlipidemia -Macular degeneration This patient is admitted with increasing shortness of breath and evidence of CHF. Patient responded well to diuretics. She is feeling much better. Her BUN/creatinine are going up. Will discontinue IV Lasix and start her on by mouth Lasix. She is not having any palpitations. We'll increase her activity as tolerated. Discussed again about AICD. Patient wants to go home and think a bout it. Meanwhile she'll continue current medical therapy patient did have another episode of hypoglycemia early this morning; we will continue with Lantus as prescribed; change NovoLog sliding scale to before meals without any at bedtime coverage Continue to monitor blood sugars closely Time with Patient: Greater than 30
--- NOTE | 2018-10-12 16:35 | XR ---
EXAMINATION TYPE: XR chest 2V DATE OF EXAM: 10/12/2018 COMPARISON: Chest x-ray from 4 days ago. HISTORY: Hypoxia. TECHNIQUE: Frontal and lateral views of the chest are obtained. FINDINGS: Overlying sternal wires and mediastinal clips are redemonstrated. There is persistent card iomegaly with atherosclerotic thoracic aorta. There is chronic emphysematous change with central vasc ular congestion. No pleural effusion or pneumothorax is noted bilaterally. Scoliotic curvature center ed in the lumbar spine are present. IMPRESSION: Suspect persistent CHF exacerbation and background chronic emphysematous change with car diomegaly and central vascular congestion still present.
[2018-10-12 17:13] LABS: Glucose,Whole Blood 288 mg/dL (75-99)
[2018-10-12 21:02] LABS: Glucose,Whole Blood 282 mg/dL (75-99)
[2018-10-12] MEDS: INSULIN DETEMIR (LEVEMIR) 100 UNIT/ML SYR SQ SCH (21:53)
[2018-10-12] MEDS: FAMOTIDINE 20 MG TAB PO SCH (21:53)
[2018-10-12] MEDS: LORATADINE 10 MG TAB PO SCH (21:54)
[2018-10-12] MEDS: PRAVASTATIN SODIUM 40 MG TAB PO SCH (21:54)
[2018-10-12] MEDS: ACETAMINOPHEN TAB 500 MG TAB PO PRN (23:11)
[2018-10-13 06:11] LABS: Basophils # (A) 0.1 k/uL (0-0.2); Basophils % (A) 1 %; Eosinophils # (A) 0.9 k/uL (0-0.7); Eosinophils % (A) 9 %; HCT 35.4 % (34.0-46.0); HGB 11.5 gm/dL (11.4-16.0); Hypochromasia Slight; Lymphocytes # (A) 1.5 k/uL (1.0-4.8); Lymphocytes % (A) 14 %; MCH 28.7 pg (25.0-35.0); MCHC 32.4 g/dL (31.0-37.0); MCV 88.7 fL (80.0-100.0); Mean Platelet Volume 7.3; Monocytes # (A) 0.5 k/uL (0-1.0); Monocytes % (A) 5 %; Neutrophils # (A) 7.1 k/uL (1.3-7.7); Neutrophils % (A) 70 %; Platelet Count 366 k/uL (150-450); RBC 3.99 m/uL (3.80-5.40); WBC 10.2 k/uL (3.8-10.6)
[2018-10-13 06:24] LABS: Calcium 9.5 mg/dL (8.4-10.2); Potassium 4.6 mmol/L (3.5-5.1)
[2018-10-13 06:30] LABS: Glucose,Whole Blood 257 mg/dL (75-99)
[2018-10-13] MEDS: INSULIN ASPART (NovoLOG) 100 UNIT/ML VIAL SQ SCH ×3 (06:30→17:20)
[2018-10-13] MEDS: TROSPIUM CHLORIDE 20 MG TABLET PO SCH (08:52)
[2018-10-13] MEDS: ALPRAZolam 0.25 MG TAB PO SCH ×2 (08:52→21:20)
[2018-10-13] MEDS: SODIUM BICARBONATE TAB 650 MG TAB PO SCH ×3 (08:52→21:20)
[2018-10-13] MEDS: FUROSEMIDE 40 MG TAB PO SCH ×2 (08:52→17:20)
[2018-10-13] MEDS: CLOPIDOGREL 75 MG TAB PO SCH (08:52)
[2018-10-13] MEDS: ISOSORBIDE MONONITRATE ER 30 MG TAB.ER.24H PO SCH (08:52)
[2018-10-13] MEDS: MULTIVITAMINS, THERA 1 EACH TAB PO SCH (08:52)
[2018-10-13] MEDS: ASPIRIN 81 MG PO SCH (08:52)
[2018-10-13] MEDS: LOSARTAN 25 MG TAB PO SCH (08:52)
[2018-10-13] MEDS: METOPROLOL SUCCINATE (ER) 50 MG TAB.ER.24H PO SCH (08:52)
[2018-10-13 11:57] LABS: Glucose,Whole Blood 153 mg/dL (75-99)
--- NOTE | 2018-10-13 15:38 | P.PN ---
Subjective Progress Note Date: 10/13/18 This is a pleasant 78-year-old female with known history of coronary artery disease, she underwent coronary artery bypass grafting surgery 30 years ago, subsequent to that she does state that she had stent placements on 2 separate occasions, the most recent being in 2003. She is to follow with Dr. Kumar in the office and now only follows with Dr. Anderson at this time. She has a history of hypertension, hyperlipidemia, diabetes, macular degeneration and renal insufficiency. She presents to the hospital on this occasion with elevated blood sugars, she states that last week her blood sugars were running in the 50 range when she would wake up in the morning, she presents now with blood sugars greater than 300. Patient also states that at nighttime she notices her heart racing fast, and develops a cough and has some mild shortness of breath, if she gets up and walks around it seems to subside. A cardiology consultation was requested for possible arrhythmias. Chest x-ray showed fi ndings suggesting cardiogenic or noncardiogenic fluid overload. EKG shows a normal sinus rhythm with frequent PVCs, incomplete left bundle branch block pattern and nonspecific ST-T wave changes. The patient had an echocardiogram with Doppler study performed in June which revealed an ejection fraction of 30- 35%, moderate MR, moderate TR area. White blood cell count on admission 11.7, 10.9 this morning, hemoglobin 11.2, platelets 381. Sodium 139, potassium 5.2, BUN 54 and creatinine 1.3. Troponin 0.013, BNP level 6490. 10/13 2018 Patient was seen and examined this morning, overall she feels well, her discharge was held yesterday because of some evidence of hypoxia. Overall her breathing is stable. Chest x-ray shows mild improvement from original x-ray, shows also some chronic changes. From our perspective she may be able to be discharged home once cleared by primary and we'll make her a follow-up appointment in the office post discharge. Objective - Vital Signs Vital signs: Vital Signs Temp 97.5 F L 10/13/18 12:00 Pulse 78 10/13/18 12:00 Resp 18 10/13/18 12:00 BP 113/69 10/13/18 12:00 Pulse Ox 97 10/13/18 12:00 Intake & Output 10/12/18 10/13/18 10/13/18 18:59 06:59 18:59 Intake Total 960 100 Balance 960 100 Weight 71.4 kg Intake: Oral 960 100 Other: Voiding Method Toilet Toilet Toilet # Voids 1 1 - Exam PHYSICAL EXAMINATION: GENERAL: 78-year-old female in no acute distress at the time of my examination HEENT: Head is atraumatic, normocephalic. Pupils equal, round. Sclera anicteric. Conjunctiva are clear. Mucous membranes of the mouth are moist. Neck is supple. There is elevated jugular venous pressure. No carotid bruit is heard. HEART EXAMINATION: Heart S1 and S2 systolic murmur is heard CHEST EXAMINATION: Lungs reveal crackles to bilateral bases ABDOMEN: Soft, nontender. Bowel sounds are heard. No organomegaly noted. EXTREMITIES: 2+ peripheral pulses with no evidence of peripheral edema and no calf tenderness noted. NEUROLOGIC patient is awake, alert and oriented 3 . . - Labs CBC & Chem 7: 10/13/18 05:21 10/13/18 05:21 Labs: Abnormal Lab Results - Last 24 Hours (Table) 10/12/18 10/12/18 10/13/18 Range/Units 16:59 21:00 05:21 Eosinophils # 0.9 H (0-0.7) k/uL Sodium (137-145) mmol/L BUN (7-17) mg/dL Creatinine (0.52-1.04) mg/dL Glucose (74-99) mg/dL POC Glucose (mg/dL) 288 H 282 H (75-99) mg/dL 10/13/18 10/13/18 10/13/18 Range/Units 05:21 06:18 11:52 Eosinophils # (0-0.7) k/uL Sodium 135 L (137-145) mmol/L BUN 56 H (7-17) mg/dL Creatinine 1.41 H (0.52-1.04) mg/dL Glucose 280 H (74-99) mg/dL POC Glucose (mg/dL) 257 H 153 H (75-99) mg/dL Microbiology - Last 24 Hours (Table) 10/08/18 11:27 Blood Culture - Preliminary Blood No Growth after 96 hours Assessment and Plan Plan: Assessment and plan #1 hyperglycemia #2 systolic congestive heart failure acute on chronic, most recent echocardiogram with Doppler study was performed in June which revealed an ejection fraction of 30-35%, moderate mitral regurg and moderate tricuspid regurg. #3 coronary artery disease with prior bypass surgery and stent placements #4 acute UTI #5 hypertension #6 diabetes #7 hyperlipidemia #8 renal insufficiency #9 macular degeneration Plan From cardiology's perspective, we'll recommend to continue this patient on her current medications. She may be able to be discharged home once cleared by primary. We will make her a follow-up appointment in the office post discharge. DNP note has been reviewed, I agree with a documented findings and plan of care. Patient was seen and examined.
[2018-10-13 17:08] LABS: Glucose,Whole Blood 281 mg/dL (75-99)
[2018-10-13 20:45] LABS: Glucose,Whole Blood 427 mg/dL (75-99)
--- NOTE | 2018-10-13 21:12 | PN ---
PROGRESS NOTE DATE OF SERVICE: 10/13/2018. I am covering for Dr. Anderson. HISTORY OF PRESENT ILLNESS: This 78-year-old woman was admitted with CHF exacerbation slated to be discharged yesterday, but patient had shortness of breath and hypoxia with saturation going down to 86% last night. The patient given one dose of Lasix. The patient being closely monitored. Cardiology following the patient closely. Chest x-ray showed cardiomegaly. 2D echo showed ejection fraction about 30 to 35%, indicating acute on chronic systolic dysfunction. PAST MEDICAL HISTORY: Reviewed. REVIEW OF SYSTEMS: Cardiovascular system: No angina or palpitations. RESPIRATORY: As mentioned earlier. GI no nausea or vomiting. : As mentioned earlier. CENTRAL NERVOUS SYSTEM: No numbness or weakness. CURRENT MEDICATIONS: Reviewed and include: 1. Tylenol 500 mg q.6h p.r.n. 2. Xanax 0.5 b.i.d. 3. Aspirin 81 mg daily. 4. Rocephin 1 g b.i.d. 5. Plavix 75 mg daily. 6. Pepcid 20 mg q.h.s. 7. Lasix 40 mg p.o. b.i.d. 8. NovoLog scale. 9. Levemir 15 units subcu q.h.s. 10.Imdur 30 mg. 11.Claritin 10 mg q.h.s. 12.Cozaar 25 mg daily. 13.Toprol-XL 50 mg p.o. daily. 14.Multivitamins. 15.Narcan. 16.Pravachol. 17.Sanctura. PHYSICAL EXAM: Patient is alert and oriented x3. Pulse 78, blood pressure 130/69, respiration 18, temperature 97.4, pulse ox 97% on 3 L. HEENT: Conjunctivae normal. NECK: No jugular venous distention. CARDIOVASCULAR: S1, S2 muffled. RESPIRATIONS: Breath sounds diminished in the bases. Bilateral scattered rhonchi and crackles. ABDOMEN: Soft, nontender. LEGS: No edema, no swelling. NERVOUS SYSTEM: Higher functions as mentioned earlier. Moves all four limbs. No focal motor or sensory deficits. LYMPHATICS: No lymph nodes palpable in the neck, axillae or groin. SKIN: No ulcer, no rash or bleeding. JOINTS: No active deforming arthropathy. LAB STUDIES: Accu-Cheks at 257, 150, 281. Creatinine is 1.41. ASSESSMENT: 1. Congestive heart failure acute exacerbation acute on chronic systolic dysfunction, ejection fraction 30 to 35% with acute hypoxic respiratory failure. Possible COPD 2. Diabetes mellitus type 2, uncontrolled with hyperglycemia and hypoglycemia. 3. Acute urinary tract infection present on admission with recurrent urinary tract infection. 4. Acute hypoxic respiratory failure. 5. Moderate mitral regurgitation. 6. Moderate tricuspid regurgitation. 7. Pulmonary hypertension. 8. Acute on chronic renal failure stage 3B. 9. Coronary artery disease, history of myocardial infarction, coronary artery bypass grafting. 10.Gastroesophageal reflux disease. 11.Hypertension. 12.Hyperlipidemia. 13.History of macular degeneration. RECOMMENDATIONS AND DISCUSSION: I recommend to continue current medications, management and symptomatic treatment. Otherwise, at this time, we will monitor the patient closely, continue with current medications. Continue with symptomatic treatment. Continue with Lasix. Incentive spirometry. Otherwise, I would also recommend close follow up with Cardiology. Check room air pulse ox. Prognosis guarded because of multiple complex medical issues. Fluid restriction and no added salt diet. Discussed with family. Understands and agrees. Further recommendations to follow. MMODL / IJN: [id number] / BRYON
[2018-10-13] MEDS: INSULIN DETEMIR (LEVEMIR) 100 UNIT/ML SYR SQ SCH (21:20)
[2018-10-13] MEDS: PRAVASTATIN SODIUM 40 MG TAB PO SCH (21:20)
[2018-10-13] MEDS: LORATADINE 10 MG TAB PO SCH (21:20)
[2018-10-13] MEDS: FAMOTIDINE 20 MG TAB PO SCH (21:20)
[2018-10-14 06:03] LABS: Glucose,Whole Blood 245 mg/dL (75-99)
[2018-10-14] MEDS: INSULIN ASPART (NovoLOG) 100 UNIT/ML VIAL SQ SCH ×2 (06:19→13:07)
[2018-10-14 08:33] VITALS: RESP 18
[2018-10-14] MEDS: ALPRAZolam 0.25 MG TAB PO SCH (09:20)
[2018-10-14] MEDS: LOSARTAN 25 MG TAB PO SCH (09:20)
[2018-10-14] MEDS: ASPIRIN 81 MG PO SCH (09:20)
[2018-10-14] MEDS: MULTIVITAMINS, THERA 1 EACH TAB PO SCH (09:20)
[2018-10-14] MEDS: ISOSORBIDE MONONITRATE ER 30 MG TAB.ER.24H PO SCH (09:20)
[2018-10-14] MEDS: METOPROLOL SUCCINATE (ER) 50 MG TAB.ER.24H PO SCH (09:20)
[2018-10-14] MEDS: TROSPIUM CHLORIDE 20 MG TABLET PO SCH (09:20)
[2018-10-14] MEDS: SODIUM BICARBONATE TAB 650 MG TAB PO SCH (09:20)
[2018-10-14] MEDS: FUROSEMIDE 40 MG TAB PO SCH (09:23)
--- NOTE | 2018-10-14 11:07 | XR ---
EXAMINATION TYPE: XR chest 1V portable DATE OF EXAM: 10/14/2018 COMPARISON: Chest x-ray 10/12/2018 HISTORY: Fluid overload TECHNIQUE: Single frontal view of the chest is obtained. FINDINGS: Heart remains enlarged, patient is post median sternotomy. Interstitium and central vascul arity are prominent. No pneumothorax or pleural effusion evident. IMPRESSION: Correlate for pulmonary venous hypertension and interstitial edema.
[2018-10-14 11:40] LABS: Glucose,Whole Blood 219 mg/dL (75-99)
[2018-10-14 11:55] VITALS: BP 114/53; PULSE 83; TEMP 98.2
[2018-10-14 12:04] VITALS: BMI 33.0
[2018-10-14] MEDS: CLOPIDOGREL 75 MG TAB PO SCH (13:07)
--- NOTE | 2018-10-14 15:09 | P.PN ---
Subjective Progress Note Date: 10/14/18 This is a pleasant 78-year-old female with known history of coronary artery disease, she underwent coronary artery bypass grafting surgery 30 years ago, subsequent to that she does state that she had stent placements on 2 separate occasions, the most recent being in 2003. She is to follow with Dr. Kumar in the office and now only follows with Dr. Anderson at this time. She has a history of hypertension, hyperlipidemia, diabetes, macular degeneration and renal insufficiency. She presents to the hospital on this occasion with elevated blood sugars, she states that last week her blood sugars were running in the 50 range when she would wake up in the morning, she presents now with blood sugars greater than 300. Patient also states that at nighttime she notices her heart racing fast, and develops a cough and has some mild shortness of breath, if she gets up and walks around it seems to subside. A cardiology consultation was requested for possible arrhythmias. Chest x-ray showed fi ndings suggesting cardiogenic or noncardiogenic fluid overload. EKG shows a normal sinus rhythm with frequent PVCs, incomplete left bundle branch block pattern and nonspecific ST-T wave changes. The patient had an echocardiogram with Doppler study performed in June which revealed an ejection fraction of 30- 35%, moderate MR, moderate TR area. White blood cell count on admission 11.7, 10.9 this morning, hemoglobin 11.2, platelets 381. Sodium 139, potassium 5.2, BUN 54 and creatinine 1.3. Troponin 0.013, BNP level 6490. 10/13 2018 Patient was seen and examined this morning, overall she feels well, her discharge was held yesterday because of some evidence of hypoxia. Overall her breathing is stable. Chest x-ray shows mild improvement from original x-ray, shows also some chronic changes. From our perspective she may be able to be discharged home once cleared by primary and we'll make her a follow-up appointment in the office post discharge. 10/14/2018 Patient was seen and examined this morning, overall feels well.blood pressure 114/50 with a heart rate in the 80s, 92% on 3 L. Objective - Vital Signs Vital signs: Vital Signs Temp 98.2 F 10/14/18 11:46 Pulse 83 10/14/18 11:46 Resp 18 10/14/18 11:46 BP 114/53 10/14/18 11:46 Pulse Ox 92 L 10/14/18 11:46 Intake & Output 10/13/18 10/14/18 10/14/18 18:59 06:59 18:59 Intake Total 720 600 530 Balance 720 600 530 Weight 71.8 kg 71.8 kg Intake: Intake, IV Titration 50 Amount cefTRIAXone 1 gm In 50 Sodium Chloride 0.9% 50 ml @ 100 mls/hr IVPB Q12HR [facility] Rx#:[id number] Oral 720 600 480 Other: Voiding Method Toilet Toilet # Voids 1 2 - Exam PHYSICAL EXAMINATION: GENERAL: 78-year-old female in no acute distress at the time of my examination HEENT: Head is atraumatic, normocephalic. Pupils equal, round. Sclera anicteric. Conjunctiva are clear. Mucous membranes of the mouth are moist. Neck is supple. There is elevated jugular venous pressure. No carotid bruit is heard. HEART EXAMINATION: Heart S1 and S2 systolic murmur is heard CHEST EXAMINATION: Lungs reveal crackles to bilateral bases ABDOMEN: Soft, nontender. Bowel sounds are heard. No organomegaly noted. EXTREMITIES: 2+ peripheral pulses with no evidence of peripheral edema and no calf tenderness noted. NEUROLOGIC patient is awake, alert and oriented 3 . . - Labs CBC & Chem 7: 10/13/18 05:21 10/13/18 05:21 Labs: Abnormal Lab Results - Last 24 Hours (Table) 10/13/18 10/13/18 10/14/18 Range/Units 17:01 20:41 06:02 POC Glucose (mg/dL) 281 H 427 H 245 H (75-99) mg/dL 10/14/18 Range/Units 11:38 POC Glucose (mg/dL) 219 H (75-99) mg/dL Microbiology - Last 24 Hours (Table) 10/08/18 11:27 Blood Culture - Preliminary Blood No Growth after 120 hours Assessment and Plan Plan: Assessment and plan #1 hyperglycemia #2 systolic congestive heart failure acute on chronic, most recent echocardiogram with Doppler study was performed in June which revealed an ejection fraction of 30-35%, moderate mitral regurg and moderate tricuspid regurg. #3 coronary artery disease with prior bypass surgery and stent placements #4 acute UTI #5 hypertension #6 diabetes #7 hyperlipidemia #8 renal insufficiency #9 macular degeneration Plan From cardiology's perspective, we'll recommend to continue this patient on her current medications. She may be able to be discharged home once cleared by primary. We will make her a follow-up appointment in the office post discharge. DNP note has been reviewed, I agree with a documented findings and plan of care. Patient was seen and examined.
--- NOTE | 2018-10-15 06:24 | DS ---
DISCHARGE SUMMARY I am covering for Dr. Anderson. FINAL DIAGNOSES: 1. Congestive heart failure acute exacerbation with acute on chronic systolic dysfunction, ejection fraction 30% to 35% with acute hypoxic respiratory failure, present on admission. 2. Chronic obstructive pulmonary disease acute exacerbation possibly. 3. Diabetes mellitus type 2, uncontrolled with hyperglycemia and hypoglycemia. 4. Acute urinary tract infection present on admission with recurrent urinary tract infection. 5. Acute hypoxic respiratory failure, present on admission. 6. Moderate mitral regurgitation. 7. Moderate tricuspid regurgitation. 8. Pulmonary hypertension. 9. Acute on chronic renal failure stage 3. 10.Coronary artery disease, myocardial infarction, coronary artery bypass grafting. 11.Gastroesophageal reflux disease. 12.Hypertension. 13.Hyperlipidemia. 14.History of macular degeneration. 15.Chronic hypoxic respiratory failure. DISCHARGE DISPOSITION: The patient will be discharged in stable condition with guarded prognosis. Total time taken 35 minutes. HISTORY OF PRESENT ILLNESS: This 78-year-old woman with a past medical history of multiple medical problems admitted with CHF, acute exacerbation with shortness of breath. The patient was treated with diuretics. Patient improved significantly. Patient was found to be hypoxic. The possibility of COPD acute exacerbation is also considered. The patient had a past history of smoking and patient exposed to heavy secondhand smoking as well. Overall patient improved significantly. Incentive spirometry also recommended. The patient will be discharged in a stable condition with guarded prognosis. Home O2 was also arranged. Pulse ox was less than 88 on ambulation in room air. On exam, vital signs are stable. CARDIOVASCULAR: S1, S2 muffled. RESPIRATORY: A few scattered rhonchi and crackles. ABDOMEN: Soft. NERVOUS SYSTEM: No focal deficits. DISCHARGE ADVICE: 1. Diet is cardiac. 2. Activity limited until followup. 3. Follow up with Dr. Kobe Anderson in 1 to 2 weeks. 4. CBC, BMP in the outpatient. 5. Follow up with Dr. Erica Calvillo in the outpatient setting. MEDICATIONS ARE: 1. Xanax 0.25 mg p.o. b.i.d. 2. Aspirin 81 mg p.o. daily. 3. Multivitamins 1 p.o. daily. 4. Claritin 10 mg q.h.s. 5. Plavix 75 mg p.o. daily. 6. Lispro as before scale. 7. Imdur 30 mg p.o. daily. 8. Pepcid 20 mg q.h.s. 9. Pravachol 40 mg q.h.s. 10.Sodium bicarb 650 mg p.o. t.i.d. 11.Toprol XL 25 mg p.o. daily. 12.VESIcare 5 mg p.o. daily. 13.Ceftin 500 mg p.o. bid for 3 days. 14.Cozaar 25 mg p.o. daily. 15.DuoNeb q.i.d. and p.r.n. 16.Insulin Lantus 20 units subcu q.h.s. 17.Lasix 40 mg p.o. b.i.d. 18.Tylenol 500 mg q.6 p.r.n. The diuretics to be adjusted in the outpatient setting. MMODL / IJN: [id number] / MTDD
== END 2018-10-14 15:17 | disposition home or self-care (01) | DRG 291 ==
LOC: EC 10:45 → 3SCARD 15:48 → INTOOBSV 15:48 → 3SCARD 17:06 → OBSVTOIN 10-09 15:47
PROVIDERS: ADMIT Family Medicine; ATTEND Family Medicine
DX: I13.0 Hypertensive heart and chronic kidney disease with heart failure and stage 1 through stage 4 chronic kidney disease, or unspecified chronic kidney disease (principal); I50.23 Acute on chronic systolic (congestive) heart failure; J96.21 Acute and chronic respiratory failure with hypoxia; J44.1 Chronic obstructive pulmonary disease with (acute) exacerbation; N17.9 Acute kidney failure, unspecified; N39.0 Urinary tract infection, site not specified; E11.22 Type 2 diabetes mellitus with diabetic chronic kidney disease; E11.649 Type 2 diabetes mellitus with hypoglycemia without coma; E11.65 Type 2 diabetes mellitus with hyperglycemia; I27.20 Pulmonary hypertension, unspecified; I08.1 Rheumatic disorders of both mitral and tricuspid valves; I25.5 Ischemic cardiomyopathy; I44.7 Left bundle-branch block, unspecified; N18.3 Chronic kidney disease, stage 3 (moderate); R00.1 Bradycardia, unspecified; E78.5 Hyperlipidemia, unspecified; H35.30 Unspecified macular degeneration; I25.10 Atherosclerotic heart disease of native coronary artery without angina pectoris; I25.2 Old myocardial infarction; K21.9 Gastro-esophageal reflux disease without esophagitis; K57.90 Diverticulosis of intestine, part unspecified, without perforation or abscess without bleeding; R00.8 Other abnormalities of heart beat; R32 Unspecified urinary incontinence; Z79.02 Long term (current) use of antithrombotics/antiplatelets; Z79.4 Long term (current) use of insulin; Z79.82 Long term (current) use of aspirin; Z79.899 Other long term (current) drug therapy; Z95.5 Presence of coronary angioplasty implant and graft; Z95.1 Presence of aortocoronary bypass graft; Z87.891 Personal history of nicotine dependence; Z87.440 Personal history of urinary (tract) infections; Z88.7 Allergy status to serum and vaccine; Z91.041 Radiographic dye allergy status; Z90.49 Acquired absence of other specified parts of digestive tract; Z98.42 Cataract extraction status, left eye; Z98.41 Cataract extraction status, right eye; Z96.1 Presence of intraocular lens; Z82.3 Family history of stroke; Z82.49 Family history of ischemic heart disease and other diseases of the circulatory system; Z83.3 Family history of diabetes mellitus
CPT/HCPCS: 36415; 71045; 71046; 80048; 80053; 81001; 82009; 82550; 83036; 83605; 83735; 83880; 84100; 84484; 85025; 85610; 85730; 87040; 93005; 93306; 96360; 96361; 96374; 99285

== ENCOUNTER 2021-07-11 19:05 | Inpatient (IN) | payer MEDICARE ==
[2021-07-11] MEDS ORDERED: ALBUTEROL NEBULIZED 2.5 MG/3 ML INHALATION STA (19:14)
[2021-07-11] MEDS ORDERED: IPRATROPIUM 0.5 MG/2.5 ML NEBU INHALATION STA (19:14)
--- NOTE | 2021-07-11 19:26 | ED ---
General Adult HPI - General Source: patient, RN notes reviewed, old records reviewed <Asim Gonzalez - Last Filed: 07/11/21 20:23> <Asim Bales - Last Filed: 07/11/21 22:35> - General Stated complaint: UTI Time Seen by Provider: 07/11/21 19:05 - History of Present Illness Initial comments: This is an 81-year-old female who presents to the emergency department with any shortness of breath. Patient states his been ongoing for 2 weeks. Patient states the family took her pulse ox and it was low so they decided to call EMS bring her to the hospital. EMS also stated she was recently diagnosed with urinary tract infection. Patient denies any chest pain patient denies any fever chills or cough. Patient denies any abdominal pain patient denies any nausea vomiting diarrhea. Patient states she normally wears 2 L of oxygen at home. (Asim Gonzalez) - Related Data Home Medications Medication Instructions Recorded Confirmed Clopidogrel Bisulfate [Clopidogrel] 75 mg PO DAILY@1200 03/15/15 07/11/21 Famotidine [Pepcid] 20 mg PO HS 03/15/15 07/11/21 Multivitamin/Iron/Folic Acid 1 tab PO DAILY 03/15/15 07/11/21 [Centrum Complete Multivit Tab] Solifenacin Succinate [Vesicare] 5 mg PO DAILY 03/15/15 07/11/21 Insulin Lispro [humaLOG Kwikpen] See Protocol SQ AC-TID 07/17/18 07/11/21 Isosorbide Mononitrate ER [Imdur] 30 mg PO DAILY 07/17/18 07/11/21 Loratadine [Claritin] 10 mg PO DAILY 07/17/18 07/11/21 Metoprolol Succinate [Toprol XL] 25 mg PO DAILY 07/17/18 07/11/21 Pravastatin Sodium [Pravachol] 40 mg PO HS 07/17/18 07/11/21 Sodium Bicarbonate Tab 650 mg PO TID 07/17/18 07/11/21 Aspirin 81 mg PO DAILY 10/08/18 07/11/21 Cholecalciferol [Vitamin D3 (25 100 mcg PO DAILY 07/11/21 07/11/21 Mcg = 1000 Iu)] Furosemide [Lasix] 40 mg PO DAILY 07/11/21 07/11/21 Insulin Glargine,Hum.rec.anlog 50 - 60 units SQ HS 07/11/21 07/11/21 [Lantus Solostar Pen] Losartan [Cozaar] 25 mg PO HS 07/11/21 07/11/21 QUEtiapine FUMARATE [SEROquel] 25 mg PO HS PRN 07/11/21 07/11/21 Sulfamethox-Tmp 800-160Mg [Bactrim 1 tab PO BID 07/11/21 07/11/21 DS 800-160 mg] amLODIPine [Norvasc] 5 mg PO HS 07/11/21 07/11/21 Allergies Allergy/AdvReac Type Severity Reaction Status Date / Time influenza virus vaccine, Allergy Anaphylaxis Verified 07/11/21 21:09 specific [influenza virus vacc,specific] Iodinated Contrast Media Allergy Rash/Hives Verified 07/11/21 21:09 [Iodinated Contrast Media - IV Dye] iodine Allergy Rash/Hives Verified 07/11/21 21:09 Review of Systems ROS Other: All systems not noted in ROS Statement are negative. <Asim Gnozalez - Last Filed: 07/11/21 20:23> ROS Other: All systems not noted in ROS Statement are negative. <Asim Bales - Last Filed: 07/11/21 22:35> ROS Statement: Those systems with pertinent positive or pertinent negative responses have been documented in the HPI. Past Medical History Past Medical History: Coronary Artery Disease (CAD), GERD/Reflux, Hyperlipidemia, Hypertension, Myocardial Infarction ([place]) Additional Past Medical History / Comment(s): Pt states she has been having periods of rapid heart beats/SOB and that she is to soon possible have an AICD/pacemaker, IDDM type II, pt states recently had low blood sugar with syncope, impaired kidney function, [place] in 1988 and 2003, macular degeneration bilaterally with limited vision, past few months pt states she has been having diarrhea/constipation occasionally, diverticular disease, macular degeneration bilaterally, urinary incontinence, UTI, sinus problems, past ankle fracture, April 2018 had bilateral ear infections/sinus infection Last Myocardial Infarction Date:: 2003 History of Any Multi-Drug Resistant Organisms: None Reported Past Surgical History: Appendectomy, Cholecystectomy, Coronary Bypass/CABG, Heart Catheterization With Stent, Orthopedic Surgery Additional Past Surgical History / Comment(s): 1988 CABG 3 vessel, PCI with stent 2003, bilateral cataract removals/lens implants-unsuccessful, bilateral eye injections for macular degeneration., L ankle fracture with surgery/hardware. Past Anesthesia/Blood Transfusion Reactions: No Reported Reaction Additional Past Anesthesia/Blood Transfusion Reaction / Comment(s): Pt received blood with CABG Date of Last Stent Placement:: 2003 Past Psychological History: No Psychological Hx Reported Additional Psychological History / Comment(s): Pt has a daughter who resides with her. Pt has limited vision d/t macular degeneration. She states she can manage her own medications. She has a glucometer. She uses no assistive devices but own a walker and wheelchair that were her her spouses. Her hal drives her to [address]. Her home is handicap accessible. Past Alcohol Use History: None Reported Past Drug Use History: None Reported - Past Family History Father Family Medical History: Myocardial Infarction ([place]) Additional Family Medical History / Comment(s): Father of a [place] at the age of 52 yrs. Mother Family Medical History: CVA/TIA, Diabetes Mellitus Additional Family Medical History / Comment(s): Mother developed diabetes later in life and had CVAs. She at the age of 64yrs from a CVA <Asim Gonzalez - Last Filed: 07/11/21 20:23> General Exam <Asim Gonzalez - Last Filed: 07/11/21 20:23> Limitations: altered mental status General appearance: alert, in no apparent distress Head exam: Present: atraumatic, normocephalic, normal inspection Eye exam: Present: normal appearance, PERRL, EOMI. Absent: scleral icterus, conjunctival injection, periorbital swelling ENT exam: Present: normal exam, mucous membranes moist Neck exam: Present: normal inspection. Absent: tenderness, meningismus, lymphadenopathy Respiratory exam: Present: normal lung sounds bilaterally. Absent: respiratory distress, wheezes, rales, rhonchi, stridor Cardiovascular Exam: Present: regular rate, normal rhythm, normal heart sounds. Absent: systolic murmur, diastolic murmur, rubs, gallop, clicks GI/Abdominal exam: Present: soft, normal bowel sounds. Absent: distended, tenderness, guarding, rebound, rigid Extremities exam: Present: normal inspection, full ROM, normal capillary refill. Absent: tenderness, pedal edema, joint swelling, calf tenderness Back exam: Present: normal inspection Neurological exam: Present: alert, oriented X3, CN II-XII intact Psychiatric exam: Present: normal affect, normal mood Skin exam: Present: warm, dry, intact, normal color. Absent: rash <Asim Bales - Last Filed: 07/11/21 22:35> - General Exam Comments Initial Comments: GENERAL: Patient is well-developed and well-nourished. Patient is nontoxic and well-hydrated and is in mild distress. Pulse ox on room air is 83% on 4 L to 90% ENT: Neck is soft and supple. No significant lymphadenopathy is noted. Oropharynx is clear. Moist mucous membranes. Neck has full range of motion without eliciting any pain. EYES: The sclera were anicteric and conjunctiva were pink and moist. Extraocular movements were intact and pupils were equal round and reactive to light. Eyelids were unremarkable. PULMONARY: Patient is tachypneic and has diminished breath sounds. CARDIOVASCULAR: There is a regular rate and rhythm without any murmurs gallops or rubs. ABDOMEN: Soft and nontender with normal bowel sounds. SKIN: Skin is clear with no lesions or rashes and otherwise unremarkable. NEUROLOGIC: Patient is alert and oriented x3. Cranial nerves II through XII are grossly intact. Motor and sensory are also intact. Normal speech, volume and content. Symmetrical smile. MUSCULOSKELETAL: Normal extremities with adequate strength and full range of motion. No lower extremity swelling or edema. No calf tenderness. LYMPHATICS: No significant lymphadenopathy is noted PSYCHIATRIC: Normal psychiatric evaluation. (Asim Gonzalez) Course <Asim Bales - Last Filed: 07/11/21 22:35> Vital Signs 07/11/21 07/11/21 07/11/21 19:15 20:08 20:27 Temperature 98.2 F Pulse Rate 87 84 87 Respiratory 18 Rate Blood Pressure 169/85 O2 Sat by Pulse 90 L Oximetry 07/11/21 21:31 Temperature Pulse Rate 86 Respiratory 18 Rate Blood Pressure 151/84 O2 Sat by Pulse 90 L Oximetry - Reevaluation(s) Reevaluation #1: 07/11/21 22:34 patient to be started on 3% hypertonic saline for sodium of 116 (Roskopp,Asim B) - Consultations Consultation #1: Spoke with Dr. Fulton regarding ICU admission he is agreeable (Asim Bales) Medical Decision Making - Lab Data Result diagrams: 07/11/21 19:35 07/11/21 19:35 <Asim Gonzalez - Last Filed: 07/11/21 20:23> - Lab Data Result diagrams: 07/11/21 19:35 07/11/21 19:35 <Asim Bales - Last Filed: 07/11/21 22:35> - Medical Decision Making EKG shows an accelerated junctional rhythm at 87 bpm QRS is 137 QT interval 364 QTC is 408. Patient's EKG shows no ST segment elevation or depression. Chest x-ray shows congestive heart failure. I gave the patient Lasix Nitropaste and Vasotec. I spoke with Dr. Anderson he agreed to admit the patient I admitted the patient I wrote admitting orders. (Asim Gonzalez) - Lab Data Lab Results 07/11/21 07/11/21 07/11/21 Range/Units 19:35 19:35 19:35 WBC 12.3 H (3.8-10.6) k/uL RBC 4.11 (3.80-5.40) m/uL Hgb 12.0 (11.4-16.0) gm/dL Hct 36.6 (34.0-46.0) % MCV 89.0 (80.0-100.0) fL MCH 29.1 (25.0-35.0) pg MCHC 32.7 (31.0-37.0) g/dL RDW 14.0 (11.5-15.5) % Plt Count 399 (150-450) k/uL MPV 7.3 Neutrophils % 82 % Lymphocytes % 9 % Monocytes % 5 % Eosinophils % 2 % Basophils % 1 % Neutrophils # 10.1 H (1.3-7.7) k/uL Lymphocytes # 1.2 (1.0-4.8) k/uL Monocytes # 0.6 (0-1.0) k/uL Eosinophils # 0.2 (0-0.7) k/uL Basophils # 0.1 (0-0.2) k/uL PT 9.7 (9.0-12.0) sec INR 0.9 (<1.2) APTT 27.8 (22.0-30.0) sec D-Dimer 0.85 H (<0.60) mg/L FEU Sodium 116 L* (137-145) mmol/L Potassium 5.3 H (3.5-5.1) mmol/L Chloride 82 L (98-107) mmol/L Carbon Dioxide 20 L (22-30) mmol/L Anion Gap 14 mmol/L BUN 47 H (7-17) mg/dL Creatinine 1.52 H (0.52-1.04) mg/dL Est GFR (CKD-EPI)AfAm 36 (>60 ml/min/1.73 sqM) Est GFR (CKD-EPI)NonAf 32 (>60 ml/min/1.73 sqM) Glucose 266 H (74-99) mg/dL Plasma Lactic Acid Hari (0.7-2.0) mmol/L Calcium 9.4 (8.4-10.2) mg/dL Magnesium 2.1 (1.6-2.3) mg/dL Total Bilirubin 0.8 (0.2-1.3) mg/dL AST 34 (14-36) U/L ALT 25 (4-34) U/L Alkaline Phosphatase 158 H (38-126) U/L Troponin I (0.000-0.034) ng/mL NT-Pro-B Natriuret Pep pg/mL Total Protein 7.0 (6.3-8.2) g/dL Albumin 4.1 (3.5-5.0) g/dL Coronavirus (PCR) (Not Detectd) 07/11/21 07/11/21 07/11/21 Range/Units 19:35 19:35 19:35 WBC (3.8-10.6) k/uL RBC (3.80-5.40) m/uL Hgb (11.4-16.0) gm/dL Hct (34.0-46.0) % MCV (80.0-100.0) fL MCH (25.0-35.0) pg MCHC (31.0-37.0) g/dL RDW (11.5-15.5) % Plt Count (150-450) k/uL MPV Neutrophils % % Lymphocytes % % Monocytes % % Eosinophils % % Basophils % % Neutrophils # (1.3-7.7) k/uL Lymphocytes # (1.0-4.8) k/uL Monocytes # (0-1.0) k/uL Eosinophils # (0-0.7) k/uL Basophils # (0-0.2) k/uL PT (9.0-12.0) sec INR (<1.2) APTT (22.0-30.0) sec D-Dimer (<0.60) mg/L FEU Sodium (137-145) mmol/L Potassium (3.5-5.1) mmol/L Chloride (98-107) mmol/L Carbon Dioxide (22-30) mmol/L Anion Gap mmol/L BUN (7-17) mg/dL Creatinine (0.52-1.04) mg/dL Est GFR (CKD-EPI)AfAm (>60 ml/min/1.73 sqM) Est GFR (CKD-EPI)NonAf (>60 ml/min/1.73 sqM) Glucose (74-99) mg/dL Plasma Lactic Acid Hari 1.3 (0.7-2.0) mmol/L Calcium (8.4-10.2) mg/dL Magnesium (1.6-2.3) mg/dL Total Bilirubin (0.2-1.3) mg/dL AST (14-36) U/L ALT (4-34) U/L Alkaline Phosphatase (38-126) U/L Troponin I 0.035 H* (0.000-0.034) ng/mL NT-Pro-B Natriuret Pep 8770 pg/mL Total Protein (6.3-8.2) g/dL Albumin (3.5-5.0) g/dL Coronavirus (PCR) (Not Detectd) 07/11/21 Range/Units 19:35 WBC (3.8-10.6) k/uL RBC (3.80-5.40) m/uL Hgb (11.4-16.0) gm/dL Hct (34.0-46.0) % MCV (80.0-100.0) fL MCH (25.0-35.0) pg MCHC (31.0-37.0) g/dL RDW (11.5-15.5) % Plt Count (150-450) k/uL MPV Neutrophils % % Lymphocytes % % Monocytes % % Eosinophils % % Basophils % % Neutrophils # (1.3-7.7) k/uL Lymphocytes # (1.0-4.8) k/uL Monocytes # (0-1.0) k/uL Eosinophils # (0-0.7) k/uL Basophils # (0-0.2) k/uL PT (9.0-12.0) sec INR (<1.2) APTT (22.0-30.0) sec D-Dimer (<0.60) mg/L FEU Sodium (137-145) mmol/L Potassium (3.5-5.1) mmol/L Chloride (98-107) mmol/L Carbon Dioxide (22-30) mmol/L Anion Gap mmol/L BUN (7-17) mg/dL Creatinine (0.52-1.04) mg/dL Est GFR (CKD-EPI)AfAm (>60 ml/min/1.73 sqM) Est GFR (CKD-EPI)NonAf (>60 ml/min/1.73 sqM) Glucose (74-99) mg/dL Plasma Lactic Acid Ahri (0.7-2.0) mmol/L Calcium (8.4-10.2) mg/dL Magnesium (1.6-2.3) mg/dL Total Bilirubin (0.2-1.3) mg/dL AST (14-36) U/L ALT (4-34) U/L Alkaline Phosphatase (38-126) U/L Troponin I (0.000-0.034) ng/mL NT-Pro-B Natriuret Pep pg/mL Total Protein (6.3-8.2) g/dL Albumin (3.5-5.0) g/dL Coronavirus (PCR) Not Detected (Not Detectd) Critical Care Time Critical Care Time: Yes Total Critical Care Time: 35 <Asim Gonzalez - Last Filed: 07/11/21 20:23> Disposition Time of Disposition: 20:25 <Asim Gonzalez - Last Filed: 07/11/21 20:23> <Asim Bales - Last Filed: 07/11/21 22:35> Clinical Impression: Acute pulmonary edema, Elevated troponin, Hyponatremia Disposition: ADMITTED IP TO THIS HOSP
[2021-07-11 19:43] LABS: Basophils # (A) 0.1 k/uL (0-0.2); Basophils % (A) 1 %; Eosinophils # (A) 0.2 k/uL (0-0.7); Eosinophils % (A) 2 %; HCT 36.6 % (34.0-46.0); Lymphocytes # (A) 1.2 k/uL (1.0-4.8); Lymphocytes % (A) 9 %; MCH 29.1 pg (25.0-35.0); MCHC 32.7 g/dL (31.0-37.0); Mean Platelet Volume 7.3; Monocytes # (A) 0.6 k/uL (0-1.0); Monocytes % (A) 5 %; Neutrophils # (A) 10.1 k/uL (1.3-7.7); Neutrophils % (A) 82 %; Platelet Count 399 k/uL (150-450); RBC 4.11 m/uL (3.80-5.40); WBC 12.3 k/uL (3.8-10.6)
[2021-07-11 19:54] LABS: Albumin 4.1 g/dL (3.5-5.0); Calcium 9.4 mg/dL (8.4-10.2); Magnesium 2.1 mg/dL (1.6-2.3); Potassium 5.3 mmol/L (3.5-5.1); Total Bilirubin 0.8 mg/dL (0.2-1.3)
[2021-07-11 19:56] LABS: INR 0.9 (<1.2); Partial Thromboplastin Time 27.8 sec (22.0-30.0); Prothrombin Time 9.7 sec (9.0-12.0)
--- NOTE | 2021-07-11 20:05 | XR ---
EXAMINATION TYPE: XR chest 2V DATE OF EXAM: 07/11/2021 COMPARISON: 10/14/2018 HISTORY: Short of breath TECHNIQUE: FINDINGS: Heart is enlarged. There is pulmonary interstitial and airspace edema. There are chest lead s. There is fluid in the right minor fissure. There is mild blunting of the costophrenic angles. IMPRESSION: There is congestive heart failure with increased pulmonary congestion and fluid compared to last exam.
[2021-07-11] MEDS ORDERED: ENALAPRILAT 1.25 MG/ML 1 ML VIAL IVP STA (20:17)
[2021-07-11] MEDS ORDERED: NITROGLYCERIN OINT 1 INCH/GM PACKET TOPICAL STA (20:17)
[2021-07-11] MEDS ORDERED: FUROSEMIDE 10 MG/ML 4 ML VIAL IV STA (20:17)
[2021-07-11] MEDS ORDERED: NALOXONE 0.4 MG/ML 1 ML VIAL IV PRN (22:29)
[2021-07-11] MEDS: SODIUM CHLORIDE 3%(HYPERTONIC) 500 ML IV SCH (22:59)
[2021-07-11 23:30] LABS: Glucose,Whole Blood 278 mg/dL (75-99)
[2021-07-12] MEDS: FUROSEMIDE 10 MG/ML 4 ML VIAL IV SCH ×4 (00:54→23:38)
[2021-07-12 01:23] LABS: Appearance,Urine Clear (Clear); Bilirubin,Urine Negative (Negative); Blood,Urine Negative (Negative); Color,Urine Light Yellow; Glucose,Urine (UA) Negative (Negative); Ketones,Urine Negative (Negative); Leukocyte Esterase,Urine Trace (Negative); Mucus,Urine Rare /hpf; Nitrite,Urine Negative (Negative); PH, Urine 6.5 (5.0-8.0); Protein,Urine 1+ (Negative); RBC,Urine 1 /hpf (0-5); Specific Gravity,Urine 1.011 (1.001-1.035); Urobilinogen,Urine <2.0 mg/dL (<2.0); WBC,Urine 2 /hpf (0-5)
[2021-07-12 03:37] LABS: Basophils # (A) 0.1 k/uL (0-0.2); Basophils % (A) 1 %; Eosinophils # (A) 0.1 k/uL (0-0.7); Eosinophils % (A) 1 %; HCT 33.4 % (34.0-46.0); HGB 11.1 gm/dL (11.4-16.0); Lymphocytes # (A) 1.2 k/uL (1.0-4.8); Lymphocytes % (A) 10 %; MCH 30.2 pg (25.0-35.0); MCHC 33.1 g/dL (31.0-37.0); MCV 91.1 fL (80.0-100.0); Mean Platelet Volume 7.6; Monocytes # (A) 0.8 k/uL (0-1.0); Monocytes % (A) 7 %; Neutrophils # (A) 9.5 k/uL (1.3-7.7); Neutrophils % (A) 81 %; Platelet Count 345 k/uL (150-450); RBC 3.67 m/uL (3.80-5.40); RDW 13.5 % (11.5-15.5); WBC 11.7 k/uL (3.8-10.6)
[2021-07-12 03:41] LABS: Albumin 3.4 g/dL (3.5-5.0); Magnesium 1.9 mg/dL (1.6-2.3); Phosphorus 4.7 mg/dL (2.5-4.5); Potassium 4.9 mmol/L (3.5-5.1); Total Bilirubin 0.6 mg/dL (0.2-1.3); Total Protein 6.1 g/dL (6.3-8.2)
[2021-07-12] MEDS ORDERED: QUEtiapine 25 MG TAB PO STA (04:23)
[2021-07-12] MEDS: SODIUM CHLORIDE 3%(HYPERTONIC) 500 ML IV SCH (05:00)
[2021-07-12 06:18] LABS: Glucose,Whole Blood 308 mg/dL (75-99)
[2021-07-12 07:04] LABS: Basophils # (A) 0.1 k/uL (0-0.2); Basophils % (A) 1 %; Eosinophils # (A) 0.1 k/uL (0-0.7); Eosinophils % (A) 0 %; HCT 33.5 % (34.0-46.0); HGB 11.3 gm/dL (11.4-16.0); Lymphocytes % (A) 9 %; MCH 30.3 pg (25.0-35.0); MCHC 33.6 g/dL (31.0-37.0); MCV 90.1 fL (80.0-100.0); Mean Platelet Volume 7.4; Monocytes # (A) 0.7 k/uL (0-1.0); Monocytes % (A) 7 %; Neutrophils # (A) 8.9 k/uL (1.3-7.7); Neutrophils % (A) 82 %; Platelet Count 338 k/uL (150-450); RBC 3.72 m/uL (3.80-5.40); RDW 13.6 % (11.5-15.5); WBC 10.8 k/uL (3.8-10.6)
[2021-07-12 07:16] LABS: African American GFR (CKD) 33 (>60 ml/min/1.73 sqM); Anion Gap 9 mmol/L; Blood Urea Nitrogen 45 mg/dL (7-17); Carbon Dioxide 21 mmol/L (22-30); Chloride 92 mmol/L (98-107); Glucose 280 mg/dL (74-99); Non-African American GFR(CKD) 29 (>60 ml/min/1.73 sqM); Potassium 5.1 mmol/L (3.5-5.1); Sodium 122 mmol/L (137-145)
--- NOTE | 2021-07-12 08:13 | P.CRDCN ---
History of Present Illness Consult date: 07/12/21 Chief complaint: Shortness of breath History of present illness: The patient is a very pleasant 81-year-old female patient who currently doesn't follow-up with any test lead application testing was known history of CAD and prior revascularization as well as valvular heart disease was known severe mitral regurgitation as well as moderate tricuspid regurgitation and also history of hypertension and dyslipidemia we consulted to see for further evaluation of abn ormal cardiac enzymes. The patient presented to the hospital with progressive dyspnea. She started experiencing shortness of breath with exertion about 2 weeks ago according to her. She stated that the shortness of breath was only with exertion. She has no shortness of breath lying flat in bed. She has no orthopnea. She did not have any change in her weight nor lower extremities edema. She did not have any symptoms of chest pain or chest discomfort or dizziness or lightheadedness or any feeling of heart racing or fluttering or presyncope or syncope. When she presented to the emergency department she was hypoxic. The patient normally is on oxygen at home and she was told in the past that she has to be on oxygen at 2 L only during the night. Currently the patient is on oxygen 2 L and she has been satting in the 90s. She was diagnosed with heart failure and she was started on Lasix. The urine output has been good. The patient chest x-ray showed findings consistent with pulmonary edema. On examination today she does have diminished breathing sounds bilaterally. No lower extremities edema noted. She underwent also a blood work and that showed NT proBNP about 8000. Her sodium was low as well. The rest of her blood work overall unremarkable beside chronic kidney disease and her creatinine is about her baseline. Please note that the patient had an echocardiogram was performed in 2018 and that revealed inverted only function with EF of around 35% with evidence of valvular heart disease with severe mitral regurgitation and moderate tricuspid regurgitation. Past Medical History Past Medical History: Coronary Artery Disease (CAD), GERD/Reflux, Hyperlipidemia, Hypertension, Myocardial Infarction ([place]), Renal Disease Additional Past Medical History / Comment(s): Pt states she has been having periods of rapid heart beats/SOB and that she is to soon possible have an AICD/pacemaker, IDDM type II, pt states recently had low blood sugar with syncope, impaired kidney function, [place] in 1988 and 2003, macular degeneration bilaterally with limited vision, past few months pt states she has been having diarrhea/constipation occasionally, diverticular disease, macular degeneration bilaterally, urinary incontinence, UTI, sinus problems, past ankle fracture, April 2018 had bilateral ear infections/sinus infection Last Myocardial Infarction Date:: 2003 History of Any Multi-Drug Resistant Organisms: None Reported Past Surgical History: Appendectomy, Cholecystectomy, Coronary Bypass/CABG, Heart Catheterization With Stent, Orthopedic Surgery Additional Past Surgical History / Comment(s): 1988 CABG 3 vessel, PCI with stent 2003, bilateral cataract removals/lens implants-unsuccessful, bilateral eye injections for macular degeneration., L ankle fracture with surgery/hardware. Past Anesthesia/Blood Transfusion Reactions: No Reported Reaction Additional Past Anesthesia/Blood Transfusion Reaction / Comment(s): Pt received blood with CABG Date of Last Stent Placement:: 2003 Past Psychological History: No Psychological Hx Reported Additional Psychological History / Comment(s): Pt has a daughter who resides with her. Pt has limited vision d/t macular degeneration. She states she can manage her own medications. She has a glucometer. She uses no assistive devices but own a walker and wheelchair that were her her spouses. Her hal drives her to [employer]. Her home is handicap accessible. Smoking Status: Never smoker Past Alcohol Use History: None Reported Past Drug Use History: None Reported - Past Family History Father Family Medical History: Myocardial Infarction ([place]) Additional Family Medical History / Comment(s): Father of a [place] at the age of 52 yrs. Mother Family Medical History: CVA/TIA, Diabetes Mellitus, Hypertension Additional Family Medical History / Comment(s): Mother developed diabetes later in life and had CVAs. She at the age of 64yrs from a CVA Medications and Allergies Home Medications Medication Instructions Recorded Confirmed Type Clopidogrel Bisulfate [Clopidogrel] 75 mg PO DAILY@1200 03/15/15 07/11/21 History Famotidine [Pepcid] 20 mg PO HS 03/15/15 07/11/21 History Multivitamin/Iron/Folic Acid 1 tab PO DAILY 03/15/15 07/11/21 History [Centrum Complete Multivit Tab] Solifenacin Succinate [Vesicare] 5 mg PO DAILY 03/15/15 07/11/21 History Insulin Lispro [humaLOG Kwikpen] See Protocol SQ AC-TID 07/17/18 07/11/21 History Isosorbide Mononitrate ER [Imdur] 30 mg PO DAILY 07/17/18 07/11/21 History Loratadine [Claritin] 10 mg PO DAILY 07/17/18 07/11/21 History Metoprolol Succinate [Toprol XL] 25 mg PO DAILY 07/17/18 07/11/21 History Pravastatin Sodium [Pravachol] 40 mg PO HS 07/17/18 07/11/21 History Sodium Bicarbonate Tab 650 mg PO TID 07/17/18 07/11/21 History Aspirin 81 mg PO DAILY 10/08/18 07/11/21 History Cholecalciferol [Vitamin D3 (25 100 mcg PO DAILY 07/11/21 07/11/21 History Mcg = 1000 Iu)] Furosemide [Lasix] 40 mg PO DAILY 07/11/21 07/11/21 History Insulin Glargine,Hum.rec.anlog 50 - 60 units SQ HS 07/11/21 07/11/21 History [Lantus Solostar Pen] Losartan [Cozaar] 25 mg PO HS 07/11/21 07/11/21 History QUEtiapine FUMARATE [SEROquel] 25 mg PO HS PRN 07/11/21 07/11/21 History Sulfamethox-Tmp 800-160Mg [Bactrim 1 tab PO BID 07/11/21 07/11/21 History DS 800-160 mg] amLODIPine [Norvasc] 5 mg PO HS 07/11/21 07/11/21 History Allergies Allergy/AdvReac Type Severity Reaction Status Date / Time influenza virus vaccine, Allergy Anaphylaxis Verified 07/11/21 21:09 specific [influenza virus vacc,specific] Iodinated Contrast Media Allergy Rash/Hives Verified 07/11/21 21:09 [Iodinated Contrast Media - IV Dye] iodine Allergy Rash/Hives Verified 07/11/21 21:09 Physical Exam Vitals: Vital Signs Temp Pulse Resp BP Pulse Ox 07/12/21 07:00 85 90/72 91 L 07/12/21 06:00 85 149/66 88 L 07/12/21 05:00 87 119/70 88 L 07/12/21 04:00 80 119/70 85 L 07/12/21 03:00 89 150/66 89 L 07/12/21 02:00 89 25 H 119/94 91 L 07/12/21 01:18 92 L 07/12/21 01:00 85 32 H 107/62 87 L 07/12/21 00:00 98.6 F 86 45 H 121/60 88 L 07/11/21 23:04 64 18 154/87 90 L 07/11/21 23:00 86 27 H 92 L 07/11/21 22:35 85 36 H 87 L 07/11/21 21:31 86 18 151/84 90 L 07/11/21 21:20 98.3 F 07/11/21 21:00 87 30 H 169/85 93 L 07/11/21 20:27 87 07/11/21 20:08 84 07/11/21 20:00 86 45 H 169/85 88 L 07/11/21 19:15 98.2 F 87 18 169/85 90 L 07/11/21 19:08 87 L Intake and Output 07/11/21 07/12/21 07/12/21 22:59 06:59 14:59 Intake Total 400 0 Output Total 1325 70 Balance -925 -70 Intake: IV 400 0 Sodium Chloride 3%( 400 0 Hypertonic) 500 ml @ 25 mls/hr IV .Q20H [facility] Rx#: [id number] Output: Urine 1325 70 Uretheral (Christie) 750 Other: Voiding Method Indwelling Catheter Weight 69.1 kg 69 kg - Constitutional General appearance: no acute distress - Respiratory Respiratory: bilateral: diminished - Cardiovascular Rhythm: regular Heart sounds: normal: S1, S2 Abnormal Heart Sounds: systolic murmur Results 07/12/21 06:29 07/12/21 06:43 Cardiac Enzymes 07/11/21 07/11/21 07/12/21 Range/Units 19:35 19:35 03:00 AST 34 28 (14-36) U/L Troponin I 0.035 H* (0.000-0.034) ng/mL Coagulation 07/11/21 Range/Units 19:35 PT 9.7 (9.0-12.0) sec APTT 27.8 (22.0-30.0) sec CBC 07/11/21 07/12/21 07/12/21 Range/Units 19:35 02:30 06:29 WBC 12.3 H 11.7 H 10.8 H (3.8-10.6) k/uL RBC 4.11 3.67 L 3.72 L (3.80-5.40) m/uL Hgb 12.0 11.1 L 11.3 L (11.4-16.0) gm/dL Hct 36.6 33.4 L 33.5 L (34.0-46.0) % Plt Count 399 345 338 (150-450) k/uL Comprehensive Metabolic Panel 07/11/21 07/11/21 07/12/21 Range/Units 19:35 22:45 03:00 Sodium 116 L* 116 L* 119 L* (137-145) mmol/L Potassium 5.3 H 4.9 (3.5-5.1) mmol/L Chloride 82 L 89 L (98-107) mmol/L Carbon Dioxide 20 L 18 L (22-30) mmol/L BUN 47 H 46 H (7-17) mg/dL Creatinine 1.52 H 1.56 H (0.52-1.04) mg/dL Glucose 266 H 308 H (74-99) mg/dL Calcium 9.4 9.0 (8.4-10.2) mg/dL AST 34 28 (14-36) U/L ALT 25 21 (4-34) U/L Alkaline Phosphatase 158 H 129 H (38-126) U/L Total Protein 7.0 6.1 L (6.3-8.2) g/dL Albumin 4.1 3.4 L (3.5-5.0) g/dL 07/12/21 Range/Units 06:43 Sodium 122 L (137-145) mmol/L Potassium 5.1 (3.5-5.1) mmol/L Chloride 92 L (98-107) mmol/L Carbon Dioxide 21 L (22-30) mmol/L BUN 45 H (7-17) mg/dL Creatinine 1.63 H (0.52-1.04) mg/dL Glucose 280 H (74-99) mg/dL Calcium 9.0 (8.4-10.2) mg/dL AST (14-36) U/L ALT (4-34) U/L Alkaline Phosphatase (38-126) U/L Total Protein (6.3-8.2) g/dL Albumin (3.5-5.0) g/dL Current Medications Generic Name Dose Route Start Last Admin Trade Name Freq PRN Reason Stop Dose Admin Furosemide 40 mg 07/12/21 00:00 07/12/21 00:54 Furosemide 10 Mg/Ml 4 Ml Vial IV 40 mg Q8HR NICKI Administration Sodium Chloride (Hypertonic) 500 mls @ 25 mls/hr 07/11/21 22:45 07/12/21 05:00 Saline 3% (Hypertonic) IV 07/12/21 22:46 Not Given .Q20H NICKI Protocol Naloxone HCl 0.2 mg 07/11/21 22:29 Naloxone 0.4 Mg/Ml 1 Ml Vial IV Q2M PRN Opioid Reversal Quetiapine Fumarate 25 mg 07/12/21 21:00 Quetiapine 25 Mg Tab PO HS NICKI Intake and Output 07/11/21 07/12/21 07/12/21 22:59 06:59 14:59 Intake Total 400 0 Output Total 1325 70 Balance -925 -70 Intake: IV 400 0 Sodium Chloride 3%( 400 0 Hypertonic) 500 ml @ 25 mls/hr IV .Q20H [facility] Rx#: [id number] Output: Urine 1325 70 Uretheral (Christie) 750 Other: Voiding Method Indwelling Catheter Weight 69.1 kg 69 kg 07/12/21 06:29 07/12/21 06:43 Assessment and Plan Assessment: Assessment #1 acute hypoxic respiratory failure secondary to heart failure with reduced ejection fraction #2 congestive heart failure exacerbation secondary to heart failure with reduced ejection fraction #3 known severe cardiomyopathy with EF around 35% #4 valvular heart disease with severe mitral regurgitation and moderate tricuspid regurgitation #5 coronary artery disease with prior revascularization #6 history of chronic kidney disease Plan #1 continue the current dose of Lasix IV #2 monitor the electrolytes mainly the sodium and potassium as well #3 monitor the kidney function #4 obtain an echo to assess ejection fraction at this point #5 monitor the urine output #6 follow-up with the patient
[2021-07-12] MEDS ORDERED: QUEtiapine 25 MG TAB PO PRN (08:42)
--- NOTE | 2021-07-12 08:52 | P.CNPUL ---
History of Present Illness Consult date: 07/12/21 Reason for consult: dyspnea History of present illness: 81-year-old female patient with extensive cardiac history with previous coronary artery bypass surgery and the patient is known to have CAD and valvular heart disease with severe mitral regurgitation, tricuspid regurgitation, along with history of hypertension and hyperlipidemia and chronic kidney disease. She has also multiple other medical positive comorbidities as mentioned in the medical records. The patient presented to the hospital because of progressive worsening shortness of breath. No increase in lower extremity edema. Denied having any chest pain. She specifically on 2 L of O2 at home. Currently her oxidation is worse and the patient is currently up to 12 L of O2. In the emergency, the chest x-ray showed pulmonary edema, bilateral pleural effusion, right lower lobe atelectasis. Same time, her proBNP level was elevated at 8770. Initial troponin was at 0.035. Sodium level was also had 116 attributed to CHF. Creatinine is at 1.5 to which is essentially equivalent to her baseline as the patient is chronic stage III kidney disease. The patient was started on diuretics. She is currently on Lasix. Follow-up sodium level is up to 122. Noted the patient taking Lasix 40 mg at home on a daily basis. She is also maintained on a combination of metoprolol, Cozaar, M.D. or. She is diabetic and she is on Lantus insulin and a NovoLog scale. Review of Systems Constitutional: Reports fatigue, Reports weakness, Reports weight gain Eyes: denies as per HPI, denies blurred vision, denies bulging eye, denies decreased vision, denies diplopia, denies discharge, denies dry eye, denies irritation, denies itching, denies pain, denies photophobia, denies loss of peripheral vision, denies loss of vision, denies tunnel vision/blind spots Ears: deny: decreased hearing, ear discharge, earache, tinnitus Ears, nose, mouth and throat: Reports as per HPI Breasts: absent: as per HPI, change in shape, gynecomastia, masses, nipple discharge, pain, skin changes, swelling Cardiovascular: Reports decreased exercise tolerance, Reports dyspnea on exertion Respiratory: Reports dyspnea Gastrointestinal: Reports as per HPI Genitourinary: Reports as per HPI Menstruation: Reports as per HPI Musculoskeletal: Reports as per HPI Musculoskeletal: bilateral: ankle swelling, absent: ankle pain, ankle stiffness Integumentary: Reports as per HPI Neurological: Reports as per HPI Psychiatric: Reports as per HPI Endocrine: Reports as per HPI Hematologic/Lymphatic: Reports as per HPI Past Medical History Past Medical History: Coronary Artery Disease (CAD), GERD/Reflux, Hyperlipidemia, Hypertension, Myocardial Infarction ([place]), Renal Disease Additional Past Medical History / Comment(s): CAD, CABG, CHF, IDDM type II, pt states recently had low blood sugar with syncope, impaired kidney function, NV in 1988 and 2003, macular degeneration bilaterally with limited vision, past few months pt states she has been having diarrhea/constipation occasionally, diverticular disease, macular degeneration bilaterally, urinary incontinence, UTI, sinus problems, past ankle fracture, April 2018 had bilateral ear infections/sinus infection Last Myocardial Infarction Date:: 2003 History of Any Multi-Drug Resistant Organisms: None Reported Past Surgical History: Appendectomy, Cholecystectomy, Coronary Bypass/CABG, Heart Catheterization With Stent, Orthopedic Surgery Additional Past Surgical History / Comment(s): 1988 CABG 3 vessel, PCI with stent 2003, bilateral cataract removals/lens implants-unsuccessful, bilateral eye injections for macular degeneration., L ankle fracture with surgery/hardware. Past Anesthesia/Blood Transfusion Reactions: No Reported Reaction Additional Past Anesthesia/Blood Transfusion Reaction / Comment(s): Pt received blood with CABG Date of Last Stent Placement:: 2003 Past Psychological History: No Psychological Hx Reported Additional Psychological History / Comment(s): Pt has a daughter who resides with her. Pt has limited vision d/t macular degeneration. She states she can manage her own medications. She has a glucometer. She uses no assistive devices but own a walker and wheelchair that were her her spouses. Her hal drives her to [employer]. Her home is handicap accessible. Smoking Status: Never smoker Past Alcohol Use History: None Reported Past Drug Use History: None Reported - Past Family History Father Family Medical History: Myocardial Infarction (NV) Additional Family Medical History / Comment(s): Father of a NV at the age of 52 yrs. Mother Family Medical History: CVA/TIA, Diabetes Mellitus, Hypertension Additional Family Medical History / Comment(s): Mother developed diabetes later in life and had CVAs. She at the age of 64yrs from a CVA Medications and Allergies Home Medications Medication Instructions Recorded Confirmed Type Clopidogrel Bisulfate [Clopidogrel] 75 mg PO DAILY@1200 03/15/15 07/11/21 History Famotidine [Pepcid] 20 mg PO HS 03/15/15 07/11/21 History Multivitamin/Iron/Folic Acid 1 tab PO DAILY 03/15/15 07/11/21 History [Centrum Complete Multivit Tab] Solifenacin Succinate [Vesicare] 5 mg PO DAILY 03/15/15 07/11/21 History Insulin Lispro [humaLOG Kwikpen] See Protocol SQ AC-TID 07/17/18 07/11/21 History Isosorbide Mononitrate ER [Imdur] 30 mg PO DAILY 07/17/18 07/11/21 History Loratadine [Claritin] 10 mg PO DAILY 07/17/18 07/11/21 History Metoprolol Succinate [Toprol XL] 25 mg PO DAILY 07/17/18 07/11/21 History Pravastatin Sodium [Pravachol] 40 mg PO HS 07/17/18 07/11/21 History Sodium Bicarbonate Tab 650 mg PO TID 07/17/18 07/11/21 History Aspirin 81 mg PO DAILY 10/08/18 07/11/21 History Cholecalciferol [Vitamin D3 (25 100 mcg PO DAILY 07/11/21 07/11/21 History Mcg = 1000 Iu)] Furosemide [Lasix] 40 mg PO DAILY 07/11/21 07/11/21 History Insulin Glargine,Hum.rec.anlog 50 - 60 units SQ HS 07/11/21 07/11/21 History [Lantus Solostar Pen] Losartan [Cozaar] 25 mg PO HS 07/11/21 07/11/21 History QUEtiapine FUMARATE [SEROquel] 25 mg PO HS PRN 07/11/21 07/11/21 History Sulfamethox-Tmp 800-160Mg [Bactrim 1 tab PO BID 07/11/21 07/11/21 History DS 800-160 mg] amLODIPine [Norvasc] 5 mg PO HS 07/11/21 07/11/21 History Allergies Allergy/AdvReac Type Severity Reaction Status Date / Time influenza virus vaccine, Allergy Anaphylaxis Verified 07/11/21 21:09 specific [influenza virus vacc,specific] Iodinated Contrast Media Allergy Rash/Hives Verified 07/11/21 21:09 [Iodinated Contrast Media - IV Dye] iodine Allergy Rash/Hives Verified 07/11/21 21:09 Physical Exam Vitals: Vital Signs Temp Pulse Resp BP Pulse Ox 07/12/21 08:00 98.3 F 83 16 131/70 92 L 07/12/21 07:00 85 90/72 91 L 07/12/21 06:00 85 149/66 88 L 07/12/21 05:00 87 119/70 88 L 07/12/21 04:00 80 119/70 85 L 07/12/21 03:00 89 150/66 89 L 07/12/21 02:00 89 25 H 119/94 91 L 07/12/21 01:18 92 L 07/12/21 01:00 85 32 H 107/62 87 L 07/12/21 00:00 98.6 F 86 45 H 121/60 88 L 07/11/21 23:04 64 18 154/87 90 L 07/11/21 23:00 86 27 H 92 L 07/11/21 22:35 85 36 H 87 L 07/11/21 21:31 86 18 151/84 90 L 07/11/21 21:20 98.3 F 07/11/21 21:00 87 30 H 169/85 93 L 07/11/21 20:27 87 07/11/21 20:08 84 07/11/21 20:00 86 45 H 169/85 88 L 07/11/21 19:15 98.2 F 87 18 169/85 90 L 07/11/21 19:08 87 L Intake and Output 07/11/21 07/12/21 07/12/21 22:59 06:59 14:59 Intake Total 400 0 Output Total 1325 120 Balance -925 -120 Intake: IV 400 0 Sodium Chloride 3%( 400 0 Hypertonic) 500 ml @ 25 mls/hr IV .Q20H [facility] Rx#: [id number] Output: Urine 1325 120 Uretheral (Christie) 750 Other: Voiding Method Indwelling Catheter Indwelling Catheter Weight 69.1 kg 69 kg GENERAL: 81-year-old female in no acute distress at the time of my examination, currently on 12 L of O2 by nasal cannula Head exam was generally normal. There was no scleral icterus or corneal arcus. Mucous membranes were moist. HEENT: Head is atraumatic, normocephalic. Pupils equal, round. Sclera anicteric. Conjunctiva are clear. Mucous membranes of the mouth are moist. Neck is supple. There is no elevated jugular venous pressure. No carotid bruit is heard. HEART EXAMINATION: Heart S1 and S2 with soft systolic murmur is heard. There is a gallop rhythm. At the same time, the patient is positive JVDs bilaterally. CHEST EXAMINATION: Lungs are diminished breath sounds bilaterally the patient has crackles in the mid lower lung vital more so on the right. Breath sounds are quite diminished in lung bases. The patient also has a thoracotomy scar over the anterior chest area. ABDOMEN: Soft, nontender. Bowel sounds are heard. No organomegaly noted. EXTREMITIES: 2+ peripheral pulses with no evidence of peripheral edema and no calf tenderness noted. NEUROLOGIC patient is awake, alert and oriented 3 . Results - Laboratory Findings CBC and BMP: 07/12/21 06:29 07/12/21 06:43 PT/INR, D-dimer PT 9.7 sec (9.0-12.0) 07/11/21 19:35 INR 0.9 (<1.2) 07/11/21 19:35 D-Dimer 0.85 mg/L FEU (<0.60) H 07/11/21 19:35 Abnormal lab findings: Abnormal Labs 07/11/21 07/11/21 07/11/21 19:35 19:35 19:35 WBC 12.3 H RBC Hgb Hct Neutrophils # 10.1 H D-Dimer 0.85 H Sodium 116 L* Potassium 5.3 H Chloride 82 L Carbon Dioxide 20 L BUN 47 H Creatinine 1.52 H Glucose 266 H POC Glucose (mg/dL) Phosphorus Alkaline Phosphatase 158 H Troponin I Total Protein Albumin Urine Protein Ur Leukocyte Esterase Urine Mucus 07/11/21 07/11/21 07/11/21 19:35 22:45 23:29 WBC RBC Hgb Hct Neutrophils # D-Dimer Sodium 116 L* Potassium Chloride Carbon Dioxide BUN Creatinine Glucose POC Glucose (mg/dL) 278 H Phosphorus Alkaline Phosphatase Troponin I 0.035 H* Total Protein Albumin Urine Protein Ur Leukocyte Esterase Urine Mucus 07/12/21 07/12/21 07/12/21 00:45 02:30 03:00 WBC 11.7 H RBC 3.67 L Hgb 11.1 L Hct 33.4 L Neutrophils # 9.5 H D-Dimer Sodium 119 L* Potassium Chloride 89 L Carbon Dioxide 18 L BUN 46 H Creatinine 1.56 H Glucose 308 H POC Glucose (mg/dL) Phosphorus 4.7 H Alkaline Phosphatase 129 H Troponin I Total Protein 6.1 L Albumin 3.4 L Urine Protein 1+ H Ur Leukocyte Esterase Trace H Urine Mucus Rare H 07/12/21 07/12/21 07/12/21 06:17 06:29 06:43 WBC 10.8 H RBC 3.72 L Hgb 11.3 L Hct 33.5 L Neutrophils # 8.9 H D-Dimer Sodium 122 L Potassium Chloride 92 L Carbon Dioxide 21 L BUN 45 H Creatinine 1.63 H Glucose 280 H POC Glucose (mg/dL) 308 H Phosphorus Alkaline Phosphatase Troponin I Total Protein Albumin Urine Protein Ur Leukocyte Esterase Urine Mucus - Diagnostic Findings Chest x-ray: image reviewed Assessment and Plan Plan: 1 acute exacerbation of chronic systolic heart failure. The patient presents with pulmonary edema in addition to bilateral pleural effusions and hypoxic respiratory failure currently on 12 L O2 nasal cannula 2 acute on chronic hypoxic respiratory failure currently on 12 L 3 acute hyponatremia, improving secondary to CHF 4 chronic systolic heart failure with impaired LV function and multiple segmental wall motion abnormalities. The patient is known to have an ejection fraction of 30-35% based on echocardiogram from 2019 addition to segmental wall motion abnormalities 5 valvular heart disease in addition to moderate to severe mitral regurgitation and severe tricuspid regurgitation and severe pulmonary hypertension 6 history of coronary artery bypass surgery 7 history of AICD/pacemaker insertion 8 chronic kidney disease stage III, likely diabetic in nature 9 diabetes mellitus type 2 maintained on Lantus in addition to NovoLog sliding scale coverage 10 hypertension 11 macular degeneration 12 coronary artery disease 13 previous history of NV 14 diverticular disease Plan Titrate FiO2 as tolerated to maintain a saturation above 90% Started patient IV Lasix 40 mg every 8 hours Repeat echocardiogram Evaluate LV function by another echocardiogram Monitor electrodes in urine output Monitor sodium level Resume home medications including long-acting insulin and a NovoLog sliding scale coverage Resume beta blockers Hold losartan for now Lovenox 30 mg subcu for DVT prophylaxis Resume aspirin Resume oral bicarb Resume Plavix Repeat chest x-ray with next 2448 hrs. Keep the patient ICU Cardiology nephrology consultation
--- NOTE | 2021-07-12 08:53 | P.NPCON ---
History of Present Illness - Reason for Consult hyponatremia - History of Present Illness Reason for consultation: Hyponatremia History of present illness: Patient is a 81-year-old female seen in consultation for hyponatremia. Patient's sodium level on admission was 116. She received IV Lasix and was also started on 3% saline. She was noted to have urinary retention and subsequently had a Christie catheter placed. 750 mL of urine was obtained and Christie catheter was first inserted. Patient presented to the hospital with worsening shortness of breath going on for the last 2 weeks. Chest x-ray was suggestive of CHF. Patient also has history of CKD stage IIIB with baseline creatinine near 1.5. Patient states she was to follow with a tank driver but hasn't seen one in several years. Sodium level this morning was 122. 3% was discontinued earlier this morning. She is nonoliguric. Receiving IV Lasix. Blood pressure stable. Currently on 12 L high flow cannula. Denies fever or chills. No vomiting or diarrhea. Oral intake has been fair. She does admit to drinking quite a bit of fluids. Patient states she drinks about 4-5 bottles of water daily. She does have long-standing history of diabetes. She was taking Lasix 40 mg orally once daily at home. Denies any falls. No syncopal episodes. Vital signs are stable. General: Awake and alert. On nasal cannula. HEENT: Head exam is unremarkable. LUNGS: Breath sounds decreased. HEART: Rate and Rhythm are regular. ABDOMEN: Soft, no distention. EXTREMITITES: Trace edema. Past Medical History Past Medical History: Coronary Artery Disease (CAD), GERD/Reflux, Hyperlipidemia, Hypertension, Myocardial Infarction ([place]), Renal Disease Additional Past Medical History / Comment(s): Pt states she has been having periods of rapid heart beats/SOB and that she is to soon possible have an AICD/pacemaker, IDDM type II, pt states recently had low blood sugar with syncope, impaired kidney function, [place] in 1988 and 2003, macular degeneration bilaterally with limited vision, past few months pt states she has been having diarrhea/constipation occasionally, diverticular disease, macular degeneration bilaterally, urinary incontinence, UTI, sinus problems, past ankle fracture, April 2018 had bilateral ear infections/sinus infection Last Myocardial Infarction Date:: 2003 History of Any Multi-Drug Resistant Organisms: None Reported Past Surgical History: Appendectomy, Cholecystectomy, Coronary Bypass/CABG, Heart Catheterization With Stent, Orthopedic Surgery Additional Past Surgical History / Comment(s): 1988 CABG 3 vessel, PCI with stent 2003, bilateral cataract removals/lens implants-unsuccessful, bilateral eye injections for macular degeneration., L ankle fracture with surgery/hardware. Past Anesthesia/Blood Transfusion Reactions: No Reported Reaction Additional Past Anesthesia/Blood Transfusion Reaction / Comment(s): Pt received blood with CABG Date of Last Stent Placement:: 2003 Past Psychological History: No Psychological Hx Reported Additional Psychological History / Comment(s): Pt has a daughter who resides with her. Pt has limited vision d/t macular degeneration. She states she can manage her own medications. She has a glucometer. She uses no assistive devices but own a walker and wheelchair that were her her spouses. Her hal drives her to [employer]. Her home is handicap accessible. Smoking Status: Never smoker Past Alcohol Use History: None Reported Past Drug Use History: None Reported - Past Family History Father Family Medical History: Myocardial Infarction (IL) Additional Family Medical History / Comment(s): Father of a [place] at the age of 52 yrs. Mother Family Medical History: CVA/TIA, Diabetes Mellitus, Hypertension Additional Family Medical History / Comment(s): Mother developed diabetes later in life and had CVAs. She at the age of 64yrs from a CVA Medications and Allergies Home Medications Medication Instructions Recorded Confirmed Type Clopidogrel Bisulfate [Clopidogrel] 75 mg PO DAILY@1200 03/15/15 07/11/21 History Famotidine [Pepcid] 20 mg PO HS 03/15/15 07/11/21 History Multivitamin/Iron/Folic Acid 1 tab PO DAILY 03/15/15 07/11/21 History [Centrum Complete Multivit Tab] Solifenacin Succinate [Vesicare] 5 mg PO DAILY 03/15/15 07/11/21 History Insulin Lispro [humaLOG Kwikpen] See Protocol SQ AC-TID 07/17/18 07/11/21 History Isosorbide Mononitrate ER [Imdur] 30 mg PO DAILY 07/17/18 07/11/21 History Loratadine [Claritin] 10 mg PO DAILY 07/17/18 07/11/21 History Metoprolol Succinate [Toprol XL] 25 mg PO DAILY 07/17/18 07/11/21 History Pravastatin Sodium [Pravachol] 40 mg PO HS 07/17/18 07/11/21 History Sodium Bicarbonate Tab 650 mg PO TID 07/17/18 07/11/21 History Aspirin 81 mg PO DAILY 10/08/18 07/11/21 History Cholecalciferol [Vitamin D3 (25 100 mcg PO DAILY 07/11/21 07/11/21 History Mcg = 1000 Iu)] Furosemide [Lasix] 40 mg PO DAILY 07/11/21 07/11/21 History Insulin Glargine,Hum.rec.anlog 50 - 60 units SQ HS 07/11/21 07/11/21 History [Lantus Solostar Pen] Losartan [Cozaar] 25 mg PO HS 07/11/21 07/11/21 History QUEtiapine FUMARATE [SEROquel] 25 mg PO HS PRN 07/11/21 07/11/21 History Sulfamethox-Tmp 800-160Mg [Bactrim 1 tab PO BID 07/11/21 07/11/21 History DS 800-160 mg] amLODIPine [Norvasc] 5 mg PO HS 07/11/21 07/11/21 History Allergies Allergy/AdvReac Type Severity Reaction Status Date / Time influenza virus vaccine, Allergy Anaphylaxis Verified 07/11/21 21:09 specific [influenza virus vacc,specific] Iodinated Contrast Media Allergy Rash/Hives Verified 07/11/21 21:09 [Iodinated Contrast Media - IV Dye] iodine Allergy Rash/Hives Verified 07/11/21 21:09 Physical Exam Vitals: Vital Signs Temp Pulse Resp BP Pulse Ox 07/12/21 08:00 98.3 F 83 16 131/70 92 L 07/12/21 07:00 85 90/72 91 L 07/12/21 06:00 85 149/66 88 L 07/12/21 05:00 87 119/70 88 L 07/12/21 04:00 80 119/70 85 L 07/12/21 03:00 89 150/66 89 L 07/12/21 02:00 89 25 H 119/94 91 L 07/12/21 01:18 92 L 07/12/21 01:00 85 32 H 107/62 87 L 07/12/21 00:00 98.6 F 86 45 H 121/60 88 L 07/11/21 23:04 64 18 154/87 90 L 07/11/21 23:00 86 27 H 92 L 07/11/21 22:35 85 36 H 87 L 07/11/21 21:31 86 18 151/84 90 L 07/11/21 21:20 98.3 F 07/11/21 21:00 87 30 H 169/85 93 L 07/11/21 20:27 87 07/11/21 20:08 84 07/11/21 20:00 86 45 H 169/85 88 L 07/11/21 19:15 98.2 F 87 18 169/85 90 L 07/11/21 19:08 87 L Intake and Output 07/11/21 07/12/21 07/12/21 22:59 06:59 14:59 Intake Total 400 0 Output Total 1325 120 Balance -925 -120 Intake: IV 400 0 Sodium Chloride 3%( 400 0 Hypertonic) 500 ml @ 25 mls/hr IV [facility] Rx#: [id number] Output: Urine 1325 120 Uretheral (Christie) 750 Other: Voiding Method Indwelling Catheter Indwelling Catheter Weight 69.1 kg 69 kg Results - Lab Results Most recent lab results Calcium 9.0 mg/dL (8.4-10.2) 07/12/21 06:43 Phosphorus 4.7 mg/dL (2.5-4.5) H 07/12/21 03:00 Magnesium 1.9 mg/dL (1.6-2.3) 07/12/21 03:00 07/12/21 06:29 07/12/21 06:43 Assessment and Plan Plan: Assessment: 1. Hypervolemic hyponatremia. Sodium level was 116 on admission and is 122 this morning. Also component of hypertonicity from hyperglycemia. 2. Urinary retention status post Christie catheter placement. 3. Chronic kidney disease stage IIIb. Baseline creatinine near 1.5 secondary to diabetic kidney disease. 4. Volume overload. 5. Acute hypoxic respiratory failure. 6. Diabetes mellitus. 7. Metabolic acidosis secondary to chronic kidney disease maintained on oral bicarbonate. 8. Hypertension with chronic kidney disease. Stable. Plan: Maintain IV Lasix. Check serum and urine osmolality and urine sodium level. Check TSH. Repeat sodium level this afternoon. Follow-up echocardiogram. Thank you for the consultation. I will continue to follow the patient with you during her hospital stay.
[2021-07-12] MEDS: LORATADINE 10 MG TAB PO SCH (09:09)
[2021-07-12] MEDS: METOPROLOL SUCCINATE (ER) 25 MG TAB.ER.24H PO SCH (09:09)
[2021-07-12] MEDS: ISOSORBIDE MONONITRATE ER 30 MG TAB.ER.24H PO SCH (09:09)
[2021-07-12] MEDS: ASPIRIN 81 MG PO SCH (09:09)
[2021-07-12] MEDS: CHOLECALCIFEROL 25 MCG (1000 IU) TABLET PO SCH (09:09)
[2021-07-12] MEDS: SODIUM BICARBONATE TAB 650 MG TAB PO SCH ×3 (09:09→21:00)
[2021-07-12] MEDS: TAMSULOSIN 0.4 MG CAP.ER.24H PO SCH (09:10)
--- NOTE | 2021-07-12 12:31 | ECHOF ---
Referral Reason:CHF MEASUREMENTS -------- HEIGHT: 129.5 cm WEIGHT: 68.9 kg BP: IVSd: 0.8 cm (0.6 - 1.1) LVIDd: 5.7 cm (3.9 - 5.3) LVPWd: 0.9 cm (0.6 - 1.1) EDV(Teich): 159 ml IVSs: 0.9 cm LVIDs: 5.4 cm LVPWs: 0.9 cm %IVS Thck: 15 % ESV(Teich): 144 ml EF(Teich): 10 % %FS: 4 % SV(Teich): 15 ml RVIDd: 3.0 cm (< 3.3) LALs A4C: 4.4 cm LAAs A4C: 11.2 cm LAESV A-L A4C: 24 ml LAESV MOD A4C: 23 ml LALs A2C: 4.6 cm LAAs A2C: 16.7 cm LAESV A-L A2C: 51 ml LAESV MOD A2C: 50 ml LAESV(A-L): 36 ml LAESV Index (A-L): 24.50 ml/m Ao Diam: 3.0 cm (2.0 - 3.7) LA Diam: 2.4 cm (2.7 - 3.8) AV Cusp: 1.2 cm (1.5 - 2.6) EPSS: 2.6 cm MV E Fernando: 1.81 m/s MV DecT: 147 ms MV Dec Codington: 12.3 m/s MV A Fernando: 1.26 m/s MV E/A Ratio: 1.44 MV PHT: 43 ms MR Vmax: 5.78 m/s MR maxP.69 mmHg AV Vmax: 1.61 m/s AV maxP.42 mmHg AR Vmax: 2.33 m/s AR maxP.79 mmHg AR PHT: 519 ms AR Dec Time: 1789 ms AR Dec Codington: 1.3 m/s TR Vmax: 3.37 m/s TR maxP.55 mmHg RAP: 5.00 mmHg RVSP: 50.55 mmHg MV EF SLOPE: 58.13 mm/s (70 - 150) MV EXCURSION: 12.84 mm (> 18.000) FINDINGS -------- This was a technically difficult study with suboptimal views. The left ventricle is mildly dilated. Left ventricular wall thickness is normal. Overall left tri tricular systolic function is moderate-severely impaired with, an EF between 30 - 35 %. Increased L AP Grade 2 Diastolic Dysfunction. The right ventricle is normal in size. The left atrial size is normal. Normal LA size by volume 22+/-6 ml/m2. The right atrial size is normal. Lumason used Aortic valve is trileaflet and is mildly thickened. There is mild aortic regurgitation. The mitral valve is normal. The mitral valve leaflets are mildly thickened. Hziukxks-[id number] mi tral regurgitation is present. The tricuspid valve appears structurally normal. Moderate tricuspid regurgitation present. There is moderate pulmonary hypertension. The right ventricular systolic pressure, as measured by Doppler , is 50.55mmHg. There is no pulmonic regurgitation present. The aortic root size is normal. IVC Not well visulized. There is no pericardial effusion. CONCLUSIONS -------- 1. The left ventricle is mildly dilated. 2. Left ventricular wall thickness is normal. 3. Overall left ventricular systolic function is moderate-severely impaired with, an EF between 30 - 35 %. 4. Increased LAP Grade 2 Diastolic Dysfunction. 5. Aortic valve is trileaflet and is mildly thickened. 6. There is mild aortic regurgitation. 7. The mitral valve leaflets are mildly thickened. 8. [id number] mitral regurgitation is present. 9. Moderate tricuspid regurgitation present. 10. There is moderate pulmonary hypertension. 11. The right ventricular systolic pressure, as measured by Doppler, is 50.55mmHg. 12. There is no pericardial effusion. EFFICIENCY MANAGER: Rosemarie Diaz RDCS
[2021-07-12] MEDS: ACETAMINOPHEN TAB 325 MG TAB PO PRN (12:57)
[2021-07-12] MEDS: CLOPIDOGREL 75 MG TAB PO SCH (12:58)
[2021-07-12 14:09] VITALS: BMI 31.8
[2021-07-12] MEDS: ALPRAZolam 0.25 MG TAB PO PRN ×2 (15:47→22:36)
--- NOTE | 2021-07-12 17:20 | P.HPIM ---
History of Present Illness H&P Date: 07/12/21 Chief Complaint: Worsening shortness of breath This is a pleasant 81-year-old female with past medical history of CAD, MO, CABG, pulmonary hypertension, moderate mitral and tricuspid regurgitation, hyperlipidemia, hypertension, chronic hypoxic respiratory failure, diabetes me llitus, gastroesophageal reflux disease,macular degeneration, UTIs-recently treated for UTI with current UA negative, CKD IIIB and multiple other medical issues, admitted to ICU with worsening shortness of breath without edema over the last 2 weeks. Pulse ox low at home, EMS called.(EMS report currently unavailable). Reports drinking significant amount of fluids. Denies nausea vomiting or diarrhea. Denies abdominal pain. Denies lightheadedness dizziness or focal deficits. Denies chest pain, palpitations or shortness of breath. Denies any fever or chills. Garcia virus not detected.EKG reported atrial fibrillation, with ventricular rate controlled. Serial troponins in progress ;0.035.Chest x-ray reported CHF with increased pulmonary congestion and fluid .Pro-BNP elevated, 8770 .Sodium on admission 116, IV fluids of 3% hypertonic saline initiated along with Lasix IVP. Requiring 12 L high flow nasal cannula to maintain O2 sats in the low 90s. Creatinine 1.5, baseline. Hyperglycemic, blood sugars in the high 200s. Admitted to ICU. Afebrile, WBC 11.7. AM Labs pending. Review of Systems ROS Statement: Those systems with pertinent positive or pertinent negative responses have been documented in the HPI. ROS Other: All systems not noted in ROS Statement are negative. Past Medical History Past Medical History: Coronary Artery Disease (CAD), GERD/Reflux, Hyperlipidemia, Hypertension, Myocardial Infarction (MO), Renal Disease Additional Past Medical History / Comment(s): Pt states she has been having periods of rapid heart beats/SOB and that she is to soon possible have an AICD/pacemaker, IDDM type II, pt states recently had low blood sugar with syncope, impaired kidney function, MO in 1988 and 2003, macular degeneration bilaterally with limited vision, past few months pt states she has been having diarrhea/constipation occasionally, diverticular disease, macular degeneration bilaterally, urinary incontinence, UTI, sinus problems, past ankle fracture, April 2018 had bilateral ear infections/sinus infection Last Myocardial Infarction Date:: 2003 History of Any Multi-Drug Resistant Organisms: None Reported Past Surgical History: Appendectomy, Cholecystectomy, Coronary Bypass/CABG, Heart Catheterization With Stent, Orthopedic Surgery Additional Past Surgical History / Comment(s): 1988 CABG 3 vessel, PCI with stent 2003, bilateral cataract removals/lens implants-unsuccessful, bilateral eye injections for macular degeneration., L ankle fracture with surgery/hardware. Past Anesthesia/Blood Transfusion Reactions: No Reported Reaction Additional Past Anesthesia/Blood Transfusion Reaction / Comment(s): Pt received blood with CABG Date of Last Stent Placement:: 2003 Past Psychological History: No Psychological Hx Reported Additional Psychological History / Comment(s): Pt has a daughter who resides with her. Pt has limited vision d/t macular degeneration. She states she can manage her own medications. She has a glucometer. She uses no assistive devices but own a walker and wheelchair that were her her spouses. Her hal drives her to [employer]. Her home is handicap accessible. Smoking Status: Never smoker Past Alcohol Use History: None Reported Past Drug Use History: None Reported - Past Family History Father Family Medical History: Myocardial Infarction (MO) Additional Family Medical History / Comment(s): Father of a MO at the age o f 52 yrs. Mother Family Medical History: CVA/TIA, Diabetes Mellitus, Hypertension Additional Family Medical History / Comment(s): Mother developed diabetes later in life and had CVAs. She at the age of 64yrs from a CVA Medications and Allergies Home Medications Medication Instructions Recorded Confirmed Type Clopidogrel Bisulfate [Clopidogrel] 75 mg PO DAILY@1200 03/15/15 07/11/21 His tory Famotidine [Pepcid] 20 mg PO HS 03/15/15 07/11/21 History Multivitamin/Iron/Folic Acid 1 tab PO DAILY 03/15/15 07/11/21 History [Centrum Complete Multivit Tab] Solifenacin Succinate [Vesicare] 5 mg PO DAILY 03/15/15 07/11/21 History Insulin Lispro [humaLOG Kwikpen] See Protocol SQ AC-TID 07/17/18 07/11/21 History Isosorbide Mononitrate ER [Imdur] 30 mg PO DAILY 07/17/18 07/11/21 History Loratadine [Claritin] 10 mg PO DAILY 07/17/18 07/11/21 History Metoprolol Succinate [Toprol XL] 25 mg PO DAILY 07/17/18 07/11/21 History Pravastatin Sodium [Pravachol] 40 mg PO HS 07/17/18 07/11/21 History Sodium Bicarbonate Tab 650 mg PO TID 07/17/18 07/11/21 History Aspirin 81 mg PO DAILY 10/08/18 07/11/21 History Cholecalciferol [Vitamin D3 (25 100 mcg PO DAILY 07/11/21 07/11/21 History Mcg = 1000 Iu)] Furosemide [Lasix] 40 mg PO DAILY 07/11/21 07/11/21 History Insulin Glargine,Hum.rec.anlog 50 - 60 units SQ HS 07/11/21 07/11/21 History [Lantus Solostar Pen] Losartan [Cozaar] 25 mg PO HS 07/11/21 07/11/21 History QUEtiapine FUMARATE [SEROquel] 25 mg PO HS PRN 07/11/21 07/11/21 History Sulfamethox-Tmp 800-160Mg [Bactrim 1 tab PO BID 07/11/21 07/11/21 History DS 800-160 mg] amLODIPine [Norvasc] 5 mg PO HS 07/11/21 07/11/21 History Allergies Allergy/AdvReac Type Severity Reaction Status Date / Time influenza virus vaccine, Allergy Anaphylaxis Verified 07/11/21 21:09 specific [influenza virus vacc,specific] Iodinated Contrast Media Allergy Rash/Hives Verified 07/11/21 21:09 [Iodinated Contrast Media - IV Dye] iodine Allergy Rash/Hives Verified 07/11/21 21:09 Physical Exam Vitals: Vital Signs Temp Pulse Resp BP Pulse Ox 07/12/21 15:00 76 21 110/80 94 L 07/12/21 14:00 80 24 110/80 91 L 07/12/21 13:00 79 22 106/54 91 L 07/12/21 12:00 82 25 H 111/58 90 L 07/12/21 11:00 74 24 108/58 90 L 07/12/21 10:00 82 22 126/69 92 L 07/12/21 09:00 88 25 H 151/81 88 L 07/12/21 08:00 98.3 F 83 16 131/70 92 L 07/12/21 07:00 85 90/72 91 L 07/12/21 06:00 85 149/66 88 L 07/12/21 05:00 87 119/70 88 L 07/12/21 04:00 80 119/70 85 L 07/12/21 03:00 89 150/66 89 L 07/12/21 02:00 89 25 H 119/94 91 L 07/12/21 01:18 92 L 07/12/21 01:00 85 32 H 107/62 87 L 07/12/21 00:00 98.6 F 86 45 H 121/60 88 L 07/11/21 23:04 64 18 154/87 90 L 07/11/21 23:00 86 27 H 92 L 07/11/21 22:35 85 36 H 87 L 07/11/21 21:31 86 18 151/84 90 L 07/11/21 21:20 98.3 F 07/11/21 21:00 87 30 H 169/85 93 L 07/11/21 20:27 87 07/11/21 20:08 84 07/11/21 20:00 86 45 H 169/85 88 L 07/11/21 19:15 98.2 F 87 18 169/85 90 L 07/11/21 19:08 87 L Intake and Output 07/12/21 07/12/21 07/12/21 06:59 14:59 22:59 Intake Total 400 0 Output Total 1325 690 Balance -925 -690 Intake: IV 400 0 Sodium Chloride 3%( 400 0 Hypertonic) 500 ml @ 25 mls/hr IV .Q20H [facility] Rx#: [id number] Output: Urine 1325 690 Uretheral (Christie) 750 Other: Voiding Method Indwelling Catheter Indwelling Catheter Weight 69 kg 69 kg - Exam VITAL SIGNS: As above GENERAL: Sitting up in bed, no acute distress HEENT: Conjunctivae normal. eyes normal. Oral mucosa moist NECK: No JVD. No thyroid enlargement. No LNs CARDIOVASCULAR: S1, S2 regular.Systolic murmur RESPIRATION: Breath sounds diminished in the bases. No rhonchi , bilateral mid- to bibasilar crackles. ABDOMEN: Soft, nontender . No guarding. no masses palpable. Bowel sounds heard. LEGS: No edema. no swelling PSYCHIATRY: Alert and oriented X3, mood and affect normal. NERVOUS SYSTEM: Cranial N 2-12 grossly normal. Diffuse weakness, No focal deficits. Strength and sensation grossly intact. Skin: no lesions, no rash Results CBC & Chem 7: 07/12/21 06:29 07/12/21 13:25 Labs: Abnormal Lab Results - Last 24 Hours (Table) 07/11/21 07/11/21 07/11/21 Range/Units 19:35 19:35 19:35 WBC 12.3 H (3.8-10.6) k/uL RBC (3.80-5.40) m/uL Hgb (11.4-16.0) gm/dL Hct (34.0-46.0) % Neutrophils # 10.1 H (1.3-7.7) k/uL D-Dimer 0.85 H (<0.60) mg/L FEU Sodium 116 L* (137-145) mmol/L Potassium 5.3 H (3.5-5.1) mmol/L Chloride 82 L (98-107) mmol/L Carbon Dioxide 20 L (22-30) mmol/L BUN 47 H (7-17) mg/dL Creatinine 1.52 H (0.52-1.04) mg/dL Glucose 266 H (74-99) mg/dL POC Glucose (mg/dL) (75-99) mg/dL Phosphorus (2.5-4.5) mg/dL Alkaline Phosphatase 158 H (38-126) U/L Troponin I (0.000-0.034) ng/mL Total Protein (6.3-8.2) g/dL Albumin (3.5-5.0) g/dL Urine Protein (Negative) Ur Leukocyte Esterase (Negative) Urine Mucus (None) /hpf 07/11/21 07/11/21 07/11/21 Range/Units 19:35 22:45 23:29 WBC (3.8-10.6) k/uL RBC (3.80-5.40) m/uL Hgb (11.4-16.0) gm/dL Hct (34.0-46.0) % Neutrophils # (1.3-7.7) k/uL D-Dimer (<0.60) mg/L FEU Sodium 116 L* (137-145) mmol/L Potassium (3.5-5.1) mmol/L Chloride (98-107) mmol/L Carbon Dioxide (22-30) mmol/L BUN (7-17) mg/dL Creatinine (0.52-1.04) mg/dL Glucose (74-99) mg/dL POC Glucose (mg/dL) 278 H (75-99) mg/dL Phosphorus (2.5-4.5) mg/dL Alkaline Phosphatase (38-126) U/L Troponin I 0.035 H* (0.000-0.034) ng/mL Total Protein (6.3-8.2) g/dL Albumin (3.5-5.0) g/dL Urine Protein (Negative) Ur Leukocyte Esterase (Negative) Urine Mucus (None) /hpf 07/12/21 07/12/21 07/12/21 Range/Units 00:45 02:30 03:00 WBC 11.7 H (3.8-10.6) k/uL RBC 3.67 L (3.80-5.40) m/uL Hgb 11.1 L (11.4-16.0) gm/dL Hct 33.4 L (34.0-46.0) % Neutrophils # 9.5 H (1.3-7.7) k/uL D-Dimer (<0.60) mg/L FEU Sodium 119 L* (137-145) mmol/L Potassium (3.5-5.1) mmol/L Chloride 89 L (98-107) mmol/L Carbon Dioxide 18 L (22-30) mmol/L BUN 46 H (7-17) mg/dL Creatinine 1.56 H (0.52-1.04) mg/dL Glucose 308 H (74-99) mg/dL POC Glucose (mg/dL) (75-99) mg/dL Phosphorus 4.7 H (2.5-4.5) mg/dL Alkaline Phosphatase 129 H (38-126) U/L Troponin I (0.000-0.034) ng/mL Total Protein 6.1 L (6.3-8.2) g/dL Albumin 3.4 L (3.5-5.0) g/dL Urine Protein 1+ H (Negative) Ur Leukocyte Esterase Trace H (Negative) Urine Mucus Rare H (None) /hpf 07/12/21 07/12/21 07/12/21 Range/Units 06:17 06:29 06:43 WBC 10.8 H (3.8-10.6) k/uL RBC 3.72 L (3.80-5.40) m/uL Hgb 11.3 L (11.4-16.0) gm/dL Hct 33.5 L (34.0-46.0) % Neutrophils # 8.9 H (1.3-7.7) k/uL D-Dimer (<0.60) mg/L FEU Sodium 122 L (137-145) mmol/L Potassium (3.5-5.1) mmol/L Chloride 92 L (98-107) mmol/L Carbon Dioxide 21 L (22-30) mmol/L BUN 45 H (7-17) mg/dL Creatinine 1.63 H (0.52-1.04) mg/dL Glucose 280 H (74-99) mg/dL POC Glucose (mg/dL) 308 H (75-99) mg/dL Phosphorus (2.5-4.5) mg/dL Alkaline Phosphatase (38-126) U/L Troponin I (0.000-0.034) ng/mL Total Protein (6.3-8.2) g/dL Albumin (3.5-5.0) g/dL Urine Protein (Negative) Ur Leukocyte Esterase (Negative) Urine Mucus (None) /hpf 07/12/21 07/12/21 07/12/21 Range/Units 06:43 13:25 13:25 WBC (3.8-10.6) k/uL RBC (3.80-5.40) m/uL Hgb (11.4-16.0) gm/dL Hct (34.0-46.0) % Neutrophils # (1.3-7.7) k/uL D-Dimer (<0.60) mg/L FEU Sodium 121 L (137-145) mmol/L Potassium (3.5-5.1) mmol/L Chloride (98-107) mmol/L Carbon Dioxide (22-30) mmol/L BUN (7-17) mg/dL Creatinine (0.52-1.04) mg/dL Glucose (74-99) mg/dL POC Glucose (mg/dL) (75-99) mg/dL Phosphorus (2.5-4.5) mg/dL Alkaline Phosphatase (38-126) U/L Troponin I 0.051 H* 0.040 H* (0.000-0.034) ng/mL Total Protein (6.3-8.2) g/dL Albumin (3.5-5.0) g/dL Urine Protein (Negative) Ur Leukocyte Esterase (Negative) Urine Mucus (None) /hpf Assessment and Plan Assessment: -Acute CHF systolic dysfunction, EF 30-35% -Acute on chronic hypoxic respiratory failure secondary to the above. Wears 2 L nasal cannula O2 at home -Hyponatremia, hypervolemic and related to hyperglycemia -Diabetes mellitus, uncontrolled with hyperglycemia -CAD, history of MO, CABG, stents -Moderate mitral regurgitation -Moderate tricuspid regurgitation -Pulmonary hypertension -Chronic renal failure, Stage 3B, baseline creatinine around 1.5 -Metabolic acidosis secondary to the above -Gastroesophageal reflux disease -Hypertension -Hyperlipidemia -Macular degeneration -Obesity, BMI 31.8 Plan: Continue on current medication regime ,monitoring and symptomatic treatment. Echo pending. Close monitoring of sodium, A.m. labs pending. Maintain diuretics. Cardiology, Nephrology consults in place, recommendations pending. NovoLog sliding scale, low-dose Lantus initiated-anticipate increasing, Hemoglobin A1c ordered. ICU management as per assistant kitchen manager. Prognosis guarded given multiple complex medical issues. The impression and plan of care has been dictated as directed. : I performed a history and examination of this patient, discussed the same with the dictator. I agree with the dictator's note ,documented as a scribe. Any additional findings or plans will be noted.
[2021-07-12 18:08] LABS: Glucose,Whole Blood 456 mg/dL (75-99)
[2021-07-12] MEDS: INSULIN ASPART (NovoLOG) 100 UNIT/ML VIAL SQ SCH ×2 (18:12→20:53)
[2021-07-12] MEDS: INSULIN DETEMIR (LEVEMIR) 100 UNIT/ML SYR SQ SCH (18:30)
[2021-07-12] MEDS: QUEtiapine 25 MG TAB PO SCH (20:11)
[2021-07-12] MEDS: FAMOTIDINE 20 MG TAB PO SCH (20:11)
[2021-07-12] MEDS: PRAVASTATIN SODIUM 40 MG TAB PO SCH (20:12)
[2021-07-12] MEDS ORDERED: TOLVAPTAN 15 MG 1/2 TABLET PO ONE (20:30)
[2021-07-12 20:53] LABS: Glucose,Whole Blood 124 mg/dL (75-99)
[2021-07-12 22:11] LABS: Glucose,Whole Blood 50 mg/dL (75-99)
[2021-07-12 22:34] LABS: Glucose,Whole Blood 67 mg/dL (75-99)
[2021-07-12 22:51] LABS: Glucose,Whole Blood 90 mg/dL (75-99)
[2021-07-12 23:43] LABS: Glucose,Whole Blood 77 mg/dL (75-99)
[2021-07-13 00:40] LABS: Glucose,Whole Blood 77 mg/dL (75-99)
[2021-07-13 04:39] LABS: Glucose,Whole Blood 50 mg/dL (75-99)
[2021-07-13] MEDS ORDERED: DEXTROSE 50% SYRINGE 50 ML IVP ONE (04:44)
[2021-07-13 05:09] LABS: Glucose,Whole Blood 126 mg/dL (75-99)
[2021-07-13 06:01] LABS: Basophils # (A) 0.1 k/uL (0-0.2); Basophils % (A) 1 %; Eosinophils # (A) 0.4 k/uL (0-0.7); Eosinophils % (A) 4 %; HGB 10.5 gm/dL (11.4-16.0); Lymphocytes # (A) 1.6 k/uL (1.0-4.8); Lymphocytes % (A) 14 %; MCH 29.3 pg (25.0-35.0); MCHC 32.9 g/dL (31.0-37.0); MCV 88.9 fL (80.0-100.0); Mean Platelet Volume 7.4; Monocytes # (A) 0.8 k/uL (0-1.0); Monocytes % (A) 7 %; Neutrophils # (A) 8.7 k/uL (1.3-7.7); Neutrophils % (A) 74 %; Platelet Count 362 k/uL (150-450); RDW 14.1 % (11.5-15.5); WBC 11.7 k/uL (3.8-10.6)
[2021-07-13] MEDS ORDERED: ALPRAZolam 0.25 MG TAB PO PRN (06:21)
[2021-07-13 06:26] LABS: Glucose,Whole Blood 77 mg/dL (75-99)
[2021-07-13] MEDS: INSULIN DETEMIR (LEVEMIR) 100 UNIT/ML SYR SQ SCH ×2 (06:37→18:24)
[2021-07-13] MEDS: INSULIN ASPART (NovoLOG) 100 UNIT/ML VIAL SQ SCH ×4 (06:38→20:55)
[2021-07-13 06:52] LABS: Potassium 4.9 mmol/L (3.5-5.1)
--- NOTE | 2021-07-13 07:21 | P.PN ---
Subjective Progress Note Date: 07/13/21 Principal diagnosis: Heart failure The patient is a pleasant 81-year-old female patient with coronary artery disease and prior revascularization as well as known ischemic cardiomyopathy with EF around 35% and also valvular heart disease with mitral and tricuspid regurgitation as well as multiple comorbid conditions was admitted to the hospital with heart failure. She presented with progressive exertional dyspnea. The patient was seen this morning. She was a slightly lethargic. She stated that the shortness of breath is better. She reports no pain in the chest. On examination she continues to have bilateral expiratory wheezing. No lower extremities edema noted. She continues to be on diuretics with Lasix and she has been diuresing very well. Nephrology team is on the case. She underwent an echo which revealed impaired LV function with EF around 35% with evidence of moderate mitral regurgitation and moderate tricuspid regurgitation as well as moderate pulmonary hypertension. The creatinine continues to be somewhat stable. Her sodium has improved. When she presented she was hyponatremic. Objective - Vital Signs Vital signs: Vital Signs Temp 97.9 F 07/13/21 04:00 Pulse 78 07/13/21 07:00 Resp 14 07/13/21 07:00 BP 109/71 07/13/21 07:00 Pulse Ox 90 L 07/13/21 07:00 Intake & Output 07/12/21 07/13/21 07/13/21 18:59 06:59 18:59 Intake Total 0 0 Output Total 890 815 110 Balance -890 -815 -110 Weight 69 kg 64.6 kg Intake: IV 0 0 Sodium Chloride 3%( 0 0 Hypertonic) 500 ml @ 25 mls/hr IV .Q20H [facility] Rx#: [id number] Output: Urine 890 815 110 Other: Voiding Method Indwelling Catheter Indwelling Catheter - Constitutional General appearance: Present: no acute distress - Respiratory Respiratory: bilateral: wheezing - Cardiovascular Rhythm: regular Heart sounds: normal: S1, S2 Abnormal Heart Sounds: Present: systolic murmur - Labs CBC & Chem 7: 07/13/21 05:49 07/13/21 05:49 Labs: Abnormal Lab Results - Last 24 Hours (Table) 07/12/21 07/12/21 07/12/21 Range/Units 06:43 13:25 13:25 WBC (3.8-10.6) k/uL RBC (3.80-5.40) m/uL Hgb (11.4-16.0) gm/dL Hct (34.0-46.0) % Neutrophils # (1.3-7.7) k/uL Sodium 121 L (137-145) mmol/L Chloride (98-107) mmol/L BUN (7-17) mg/dL Creatinine (0.52-1.04) mg/dL POC Glucose (mg/dL) (75-99) mg/dL Hemoglobin A1c (0.0-6.0) % Troponin I 0.051 H* 0.040 H* (0.000-0.034) ng/mL 07/12/21 07/12/21 07/12/21 Range/Units 18:07 19:05 19:05 WBC (3.8-10.6) k/uL RBC (3.80-5.40) m/uL Hgb (11.4-16.0) gm/dL Hct (34.0-46.0) % Neutrophils # (1.3-7.7) k/uL Sodium 119 L* (137-145) mmol/L Chloride (98-107) mmol/L BUN (7-17) mg/dL Creatinine (0.52-1.04) mg/dL POC Glucose (mg/dL) 456 H (75-99) mg/dL Hemoglobin A1c 6.8 H (0.0-6.0) % Troponin I (0.000-0.034) ng/mL 07/12/21 07/12/21 07/12/21 Range/Units 20:52 22:10 22:30 WBC (3.8-10.6) k/uL RBC (3.80-5.40) m/uL Hgb (11.4-16.0) gm/dL Hct (34.0-46.0) % Neutrophils # (1.3-7.7) k/uL Sodium (137-145) mmol/L Chloride (98-107) mmol/L BUN (7-17) mg/dL Creatinine (0.52-1.04) mg/dL POC Glucose (mg/dL) 124 H 50 L 67 L (75-99) mg/dL Hemoglobin A1c (0.0-6.0) % Troponin I (0.000-0.034) ng/mL 07/13/21 07/13/21 07/13/21 Range/Units 04:38 05:08 05:49 WBC (3.8-10.6) k/uL RBC (3.80-5.40) m/uL Hgb (11.4-16.0) gm/dL Hct (34.0-46.0) % Neutrophils # (1.3-7.7) k/uL Sodium 122 L (137-145) mmol/L Chloride 92 L (98-107) mmol/L BUN 52 H (7-17) mg/dL Creatinine 1.78 H (0.52-1.04) mg/dL POC Glucose (mg/dL) 50 L 126 H (75-99) mg/dL Hemoglobin A1c (0.0-6.0) % Troponin I (0.000-0.034) ng/mL 07/13/21 07/13/21 Range/Units 05:49 05:49 WBC 11.7 H (3.8-10.6) k/uL RBC 3.60 L (3.80-5.40) m/uL Hgb 10.5 L (11.4-16.0) gm/dL Hct 32.0 L (34.0-46.0) % Neutrophils # 8.7 H (1.3-7.7) k/uL Sodium (137-145) mmol/L Chloride (98-107) mmol/L BUN (7-17) mg/dL Creatinine (0.52-1.04) mg/dL POC Glucose (mg/dL) (75-99) mg/dL Hemoglobin A1c (0.0-6.0) % Troponin I 0.046 H* (0.000-0.034) ng/mL Assessment and Plan Assessment: Assessment #1 acute hypoxic respiratory failure secondary to heart failure with reduced ejection fraction #2 congestive heart failure exacerbation secondary to heart failure with reduced ejection fraction #3 known severe cardiomyopathy with EF around 35% #4 valvular heart disease with severe mitral regurgitation and moderate tricuspid regurgitation #5 coronary artery disease with prior revascularization #6 history of chronic kidney disease Plan #1 continue the current dose of Lasix IV. We might consider to decrease the dose of Lasix IV in view of the slightly worsening kidney function #2 monitor the electrolytes mainly the sodium and potassium as well #3 monitor the kidney function #4 the echo was reviewed and revealed inverted FUNCTION was EF around 35%, finding and change compared to prior echo #5 monitor the urine output #6 follow-up with the patient
[2021-07-13] MEDS: ENOXAPARIN 30 MG/0.3 ML SYRINGE SQ SCH (08:23)
[2021-07-13] MEDS: METOPROLOL SUCCINATE (ER) 25 MG TAB.ER.24H PO SCH (08:24)
[2021-07-13] MEDS: ISOSORBIDE MONONITRATE ER 30 MG TAB.ER.24H PO SCH (08:24)
[2021-07-13] MEDS: TAMSULOSIN 0.4 MG CAP.ER.24H PO SCH (08:24)
[2021-07-13] MEDS: ASPIRIN 81 MG PO SCH (08:24)
[2021-07-13] MEDS: CHOLECALCIFEROL 25 MCG (1000 IU) TABLET PO SCH (08:24)
[2021-07-13] MEDS: LORATADINE 10 MG TAB PO SCH (08:24)
[2021-07-13] MEDS: SODIUM BICARBONATE TAB 650 MG TAB PO SCH ×2 (08:24→20:09)
[2021-07-13] MEDS ORDERED: IPRATROPIUM-ALBUTEROL 3 ML NEB INHALATION PRN (08:36)
[2021-07-13] MEDS: methylPREDNISolone SOD SUCCI 125 MG/2 ML VIAL IV SCH ×4 (08:47→23:35)
--- NOTE | 2021-07-13 08:53 | P.PN ---
Subjective Patient is seen in follow-up for hyponatremia and chronic kidney disease. Renal function little worse from diuresis. Sodium level 122 this morning. She is maintained on IV Lasix. Also received a dose of Samsca last night. Oral intake fair. No vomiting or diarrhea. Hemodynamically stable. Vital signs are stable. General: Awake and alert. HEENT: Head exam is unremarkable. On nasal cannula. LUNGS: Breath sounds decreased. HEART: Rate and Rhythm are regular. ABDOMEN: Soft, no distention. EXTREMITITES: No edema. Objective - Vital Signs Vital signs: Vital Signs Temp 97.4 F L 07/13/21 08:00 Pulse 77 07/13/21 08:00 Resp 28 H 07/13/21 08:00 BP 121/61 07/13/21 08:00 Pulse Ox 92 L 07/13/21 08:00 Intake & Output 07/12/21 07/13/21 07/13/21 18:59 06:59 18:59 Intake Total 0 0 200 Output Total 890 815 260 Balance -890 -815 -60 Weight 69 kg 64.6 kg Intake: IV 0 0 Sodium Chloride 3%( 0 0 Hypertonic) 500 ml @ 25 mls/hr IV .Q20H [facility] Rx#: [id number] Oral 200 Output: Urine 890 815 260 Other: Voiding Method Indwelling Catheter Indwelling Catheter - Labs CBC & Chem 7: 07/13/21 05:49 07/13/21 05:49 Labs: Abnormal Lab Results - Last 24 Hours (Table) 07/12/21 07/12/21 07/12/21 Range/Units 06:43 13:25 13:25 WBC (3.8-10.6) k/uL RBC (3.80-5.40) m/uL Hgb (11.4-16.0) gm/dL Hct (34.0-46.0) % Neutrophils # (1.3-7.7) k/uL Sodium 121 L (137-145) mmol/L Chloride (98-107) mmol/L BUN (7-17) mg/dL Creatinine (0.52-1.04) mg/dL POC Glucose (mg/dL) (75-99) mg/dL Hemoglobin A1c (0.0-6.0) % Troponin I 0.051 H* 0.040 H* (0.000-0.034) ng/mL 07/12/21 07/12/21 07/12/21 Range/Units 18:07 19:05 19:05 WBC (3.8-10.6) k/uL RBC (3.80-5.40) m/uL Hgb (11.4-16.0) gm/dL Hct (34.0-46.0) % Neutrophils # (1.3-7.7) k/uL Sodium 119 L* (137-145) mmol/L Chloride (98-107) mmol/L BUN (7-17) mg/dL Creatinine (0.52-1.04) mg/dL POC Glucose (mg/dL) 456 H (75-99) mg/dL Hemoglobin A1c 6.8 H (0.0-6.0) % Troponin I (0.000-0.034) ng/mL 07/12/21 07/12/21 07/12/21 Range/Units 20:52 22:10 22:30 WBC (3.8-10.6) k/uL RBC (3.80-5.40) m/uL Hgb (11.4-16.0) gm/dL Hct (34.0-46.0) % Neutrophils # (1.3-7.7) k/uL Sodium (137-145) mmol/L Chloride (98-107) mmol/L BUN (7-17) mg/dL Creatinine (0.52-1.04) mg/dL POC Glucose (mg/dL) 124 H 50 L 67 L (75-99) mg/dL Hemoglobin A1c (0.0-6.0) % Troponin I (0.000-0.034) ng/mL 07/13/21 07/13/21 07/13/21 Range/Units 04:38 05:08 05:49 WBC (3.8-10.6) k/uL RBC (3.80-5.40) m/uL Hgb (11.4-16.0) gm/dL Hct (34.0-46.0) % Neutrophils # (1.3-7.7) k/uL Sodium 122 L (137-145) mmol/L Chloride 92 L (98-107) mmol/L BUN 52 H (7-17) mg/dL Creatinine 1.78 H (0.52-1.04) mg/dL POC Glucose (mg/dL) 50 L 126 H (75-99) mg/dL Hemoglobin A1c (0.0-6.0) % Troponin I (0.000-0.034) ng/mL 07/13/21 07/13/21 Range/Units 05:49 05:49 WBC 11.7 H (3.8-10.6) k/uL RBC 3.60 L (3.80-5.40) m/uL Hgb 10.5 L (11.4-16.0) gm/dL Hct 32.0 L (34.0-46.0) % Neutrophils # 8.7 H (1.3-7.7) k/uL Sodium (137-145) mmol/L Chloride (98-107) mmol/L BUN (7-17) mg/dL Creatinine (0.52-1.04) mg/dL POC Glucose (mg/dL) (75-99) mg/dL Hemoglobin A1c (0.0-6.0) % Troponin I 0.046 H* (0.000-0.034) ng/mL Assessment and Plan Plan: Assessment: 1. Hypervolemic hyponatremia. Sodium level was 116 on admission and is 122 this morning. Urine sodium 67 and urine osmolality 293. TSH normal. Status post M Kirit last night. 2. Urinary retention status post Christie catheter placement. 3. Chronic kidney disease stage IIIb. Baseline creatinine near 1.5 secondary to diabetic kidney disease. 4. Volume overload. Improving with diuresis. 5. Acute hypoxic respiratory failure. 6. Diabetes mellitus. 7. Metabolic acidosis secondary to chronic kidney disease maintained on oral bicarbonate. Improved. 8. Hypertension with chronic kidney disease. Stable. 9. Acute on chronic systolic CHF with ejection fraction of 30-35% with moderate to severe mitral regurgitation, moderate tricuspid regurgitation and moderate pulmonary hypertension. Plan: Maintain IV Lasix. Repeat 7.5 mg Samsca once. Encouraged oral intake. Repeat sodium level this evening. Decrease bicarb to twice a day.
[2021-07-13] MEDS ORDERED: SODIUM BICARBONATE TAB 650 MG TAB PO SCH (09:00)
[2021-07-13] MEDS ORDERED: TOLVAPTAN 15 MG 1/2 TABLET PO ONE ×2 (09:00→20:27)
--- NOTE | 2021-07-13 09:12 | XR ---
EXAMINATION TYPE: XR chest 1V portable DATE OF EXAM: 07/13/2021 COMPARISON: Chest x-ray 07/11/2021 HISTORY: Congestive heart failure and shortness of breath TECHNIQUE: Single frontal view of the chest is obtained. FINDINGS: Patient is post median sternotomy. Cardiac mediastinal silhouette is likely stable account ing for differences in technique, patient is rotated. Right hemidiaphragm is elevated. Bilateral airs pace disease, prominence interstitium is noted. No pneumothorax. Difficult to exclude effusion. IMPRESSION: Expiratory rotated exam. Findings consistent with congestive heart failure, pneumonia no t excluded. Follow-up recommended.
[2021-07-13] MEDS ORDERED: DOBUTamine DRIP 500 MG in DEXTROSE/WATER 1 250ML.BAG IV SCH (09:15)
[2021-07-13] MEDS: FUROSEMIDE 10 MG/ML 4 ML VIAL IV SCH ×3 (09:19→23:35)
--- NOTE | 2021-07-13 09:38 | US ---
EXAMINATION TYPE: US chest DATE OF EXAM: 07/13/2021 COMPARISON: Same-day chest x-ray. CLINICAL HISTORY: Markings for thoracentesis by pulmonary staff. SOB TECHNIQUE: Targeted ultrasound of the posterior lower bilateral hemithoraces EXAM MEASUREMENTS: Right Pleural Effusion pocket size: 7.8 cm Right skin surface to fluid distance: 3.0 cm Left Pleural Effusion pocket size: 4.7 cm Left skin surface to fluid distance: 3.6 cm Right side marked for possible thoracentesis outside the dept. Left side marked for possible thoracentesis outside the dept. Pulmonologists are able to review the images in the patient?s EMR. Small bilateral pleural effusions identified which correlate with most recent x-ray IMPRESSIONS: As above.
[2021-07-13] MEDS: IPRATROPIUM-ALBUTEROL 3 ML NEB INHALATION SCH ×4 (10:43→19:53)
[2021-07-13 11:17] LABS: Glucose,Whole Blood 148 mg/dL (75-99)
--- NOTE | 2021-07-13 12:02 | P.PN ---
Subjective Progress Note Date: 07/13/[address] Kobe Anderson This is a pleasant 81-year-old female with past medical history of CAD, CT, CABG, pulmonary hypertension, moderate mitral and tricuspid regurgitation, hyperlipidemia, hypertension, chronic hypoxic respiratory failure, diabetes mellitus, gastroesophageal reflux disease,macular degeneration, UTIs-recently treated for UTI with current UA negative, CKD IIIB and multiple other medical issues, admitted to ICU with worsening shortness of breath without edema over the last 2 weeks. Pulse ox low at home, EMS called.(EMS report currently unavailable). Reports drinking significant amount of fluids. Denies nausea vomiting or diarrhea. Denies abdominal pain. Denies lightheadedness dizziness or focal deficits. Denies chest pain, palpitations or shortness of breath. Denies any fever or chills. Garcia virus not detected.EKG reported atrial fibrillation, with ventricular rate controlled. Serial troponins in progress ;0.035.Chest x-ray reported CHF with increased pulmonary congestion and fluid .Pro-BNP elevated, 8770 .Sodium on admission 116, IV fluids of 3% hypertonic saline initiated along with Lasix IVP. Requiring 12 L high flow nasal cannula to maintain O2 sats in the low 90s. Creatinine 1.5, baseline. Hyperglycemic, blood sugars in the high 200s. Admitted to ICU. Afebrile, WBC 11.7. AM Labs pending. 07/13/2021 Patient is seen and evaluated in the ICU with multiple medical consultations including pulmonary, cardiology, nephrology following. She continues on dobutamine drip along with IV steroids 60 every 6 as well as IV Lasix 40 mg every 8 hours. Patient received a dose of the skull yesterday for hyponatremia with some mild improvement and is scheduled to receive Samsca again today with nephrology following closely. Patient also maintained on bicarb tablets and will continue. Patient reports he normally wearing 2 L of oxygen via nasal cannula currently on 15 L high flow missed his neck with minimal exertion on exam. Sodium was found to be 122. Creatinine also elevated at 1.78. Patient denies chest pain or palpitations. Patient is afebrile. No reports of nausea or vomiting and patient eating very little but tolerating. Chest x-ray today shows some expiratory rotated exam with findings consistent with congestive heart failure and a pneumonia not excluded and difficult will exclude effusion. Chest ultrasound ordered at this time for possible thoracentesis. Review of systems: Constitutional: No reports of fatigue, fever, or chills Cardiovascular: No reports of chest pain or palpitations Respiratory: reports continued shortness of breath and cough, extremely short of breath with minimal exertion GI: No reports of nausea, vomiting, or diarrhea : No reports of dysuria or retention Neurovascular: reports of generalized weakness All medications have been reviewed Active Medications Acetaminophen (Acetaminophen Tab 325 Mg Tab) 650 mg PO Q6HR PRN PRN Reason: Fever and/ or Pain Last Admin: 07/12/21 12:57 Dose: 650 mg Documented by: Albuterol/Ipratropium (Ipratropium-Albuterol 3 Ml Neb) 3 ml INHALATION RT-QID [facility] Last Admin: 07/13/21 10:43 Dose: 3 ml Documented by: Albuterol/Ipratropium (Ipratropium-Albuterol 3 Ml Neb) 3 ml INHALATION RT-Q2H PRN PRN Reason: Shortness Of Breath Or Wheezing Alprazolam (Alprazolam 0.25 Mg Tab) 0.25 mg PO Q6H PRN PRN Reason: Anxiety Aspirin (Aspirin 81 Mg) 81 mg PO DAILY [facility] Last Admin: 07/13/21 08:24 Dose: 81 mg Documented by: Cholecalciferol (Cholecalciferol 25 Mcg (1000 Iu) Tablet) 100 mcg PO DAILY [facility] Last Admin: 07/13/21 08:24 Dose: 100 mcg Documented by: Clopidogrel Bisulfate (Clopidogrel 75 Mg Tab) 75 mg PO DAILY@1200 [facility] Last Admin: 07/12/21 12:58 Dose: 75 mg Documented by: Enoxaparin Sodium (Enoxaparin 30 Mg/0.3 Ml Syringe) 30 mg SQ DAILY [facility] Last Admin: 07/13/21 08:23 Dose: 30 mg Documented by: Famotidine (Famotidine 20 Mg Tab) 20 mg PO HS [facility] Last Admin: 07/12/21 20:11 Dose: 20 mg Documented by: Furosemide (Furosemide 10 Mg/Ml 4 Ml Vial) 40 mg IV Q8HR [facility] Last Admin: 07/13/21 09:19 Dose: 40 mg Documented by: Dobutamine HCl/Dextrose 500 mg (/ IV Solution) 250 mls @ 4.845 mls/hr IV .Q24H [facility] Last Admin: 07/13/21 09:19 Dose: 2.5 mcg/kg/min, 4.845 mls/hr Documented by: Insulin Aspart (Insulin Aspart (Novolog) 100 Unit/Ml Vial) 0 unit SQ [facility]; Protocol Last Admin: 07/13/21 06:38 Dose: Not Given Documented by: Insulin Detemir (Insulin Detemir (Levemir) 100 Unit/Ml Syr) 20 unit SQ DAILY@0700 [facility] Last Admin: 07/13/21 06:37 Dose: Not Given Documented by: Isosorbide Mononitrate (Isosorbide Mononitrate Er 30 Mg Tab.Er.24h) 30 mg PO DAILY [facility] Last Admin: 07/13/21 08:24 Dose: 30 mg Documented by: Loratadine (Loratadine 10 Mg Tab) 10 mg PO DAILY [facility] Last Admin: 07/13/21 08:24 Dose: 10 mg Documented by: Methylprednisolone Sodium Succinate (Methylprednisolone Sod Succi 125 Mg/2 Ml Vial) 60 mg IV Q6HR [facility] Last Admin: 07/13/21 08:47 Dose: 60 mg Documented by: Metoprolol Succinate (Metoprolol Succinate (Er) 25 Mg Tab.Er.24h) 25 mg PO DAILY [facility] Last Admin: 07/13/21 08:24 Dose: 25 mg Documented by: Naloxone HCl (Naloxone 0.4 Mg/Ml 1 Ml Vial) 0.2 mg IV Q2M PRN PRN Reason: Opioid Reversal Pravastatin Sodium (Pravastatin Sodium 40 Mg Tab) 40 mg PO [facility] Last Admin: 07/12/21 20:12 Dose: 40 mg Documented by: Quetiapine Fumarate (Quetiapine 25 Mg Tab) 25 mg PO [facility] Last Admin: 07/12/21 20:11 Dose: 25 mg Documented by: Sodium Bicarbonate (Sodium Bicarbonate Tab 650 Mg Tab) 650 mg PO BID [facility] Tamsulosin HCl (Tamsulosin 0.4 Mg Cap.Er.24h) 0.4 mg PO PC-BRKFST [facility] Last Admin: 07/13/21 08:24 Dose: 0.4 mg Documented by: Physical exam: GENERAL: Sitting up in bed, alert and oriented 3, well-developed, well-nourished. currently on 15 L high flow nasal cannula HEENT: Conjunctivae normal. eyes normal. Oral mucosa moist NECK: No JVD. No thyroid enlargement. No LNs CARDIOVASCULAR: S1, S2 regular. RESPIRATION: Breath sounds diminished in the bases with crackles noted throughout ABDOMEN: Soft, nontender . No guarding. no masses palpable. Bowel sounds heard. LEGS: No edema. no swelling PSYCHIATRY: Alert and oriented X3, mood and affect normal. NERVOUS SYSTEM: Cranial N 2-12 grossly normal. Diffuse weakness, No focal deficits. Strength and sensation grossly intact. Skin: no lesions, no rash Assessment: -Acute CHF systolic dysfunction, EF 30-35% -Acute on chronic hypoxic respiratory failure secondary to the above. Wears 2 L nasal cannula O2 at home and currently 15 L high flow -Hyponatremia, hypervolemic and related to hyperglycemia -Diabetes mellitus, uncontrolled with hyperglycemia -CAD, history of CT, CABG, stents -Moderate mitral regurgitation -Moderate tricuspid regurgitation -Pulmonary hypertension -Chronic renal failure, Stage 3B, baseline creatinine around 1.5 -Metabolic acidosis secondary to the above -Gastroesophageal reflux disease -Hypertension -Hyperlipidemia -Macular degeneration -Obesity, BMI 31.8 -GI prophylaxis -DVT prophylaxis -No code Plan: Continue on current medication regime ,monitoring and symptomatic treatment. Cardiology pulmonary, and nephrology following closely. Patient started on dobutamine drip along with IV Lasix and continued on IV steroids along with breathing inhalational treatments. Chest ultrasound was done along with 2-D echo showing the left ventricle is mildly dilated overall LV systolic function is moderately to severely impaired with an EF of 35%. Patient has LAD grade 2 diastolic dysfunction. There is noted moderate tricuspid regurgitation present with moderate pulmonary hypertension noted. Chest ultrasound shows right pleural effusion pocket size 7.8 cm, left pleural effusion pocket size 4.7 cm both sides were marked by radiology for possible thoracentesis. Sodium is 122 today and to receive another dose of Samsca with nephrology following closely. Patient also maintained on sodium bicarb tablets and will continue. Maintain diuretics. Recommend continue with Accu-Cheks before meals and at bedtime and close monitoring of blood sugars and will continue with sliding scale and long-acting as needed. Due to multiple complex medical issues, prognosis is guarded. The impression and plan of care has been dictated by Kathleen Tan, Nurse Practitioner as directed. Dr. Alfredo MD I have performed a history and examination and MDM of this patient, discussed the same with the dictator, and agree with the dictator's assessment and plan as written ,documented as a scribe. Based on total visit time, I have performed more than 50% of the visit. Objective - Vital Signs Vital signs: Vital Signs Temp 97.4 F L 07/13/21 08:00 Pulse 77 07/13/21 08:00 Resp 28 H 07/13/21 08:00 BP 121/61 07/13/21 08:00 Pulse Ox 92 L 07/13/21 08:00 Intake & Output 07/12/21 07/13/21 07/13/21 18:59 06:59 18:59 Intake Total 0 0 200 Output Total 890 815 260 Balance -890 -815 -60 Weight 69 kg 64.6 kg Intake: IV 0 0 Sodium Chloride 3%( 0 0 Hypertonic) 500 ml @ 25 mls/hr IV .Q20H [facility] Rx#: [id number] Oral 200 Output: Urine 890 815 260 Other: Voiding Method Indwelling Catheter Indwelling Catheter - Labs CBC & Chem 7: 07/13/21 05:49 07/13/21 05:49 Labs: Abnormal Lab Results - Last 24 Hours (Table) 07/12/21 07/12/21 07/12/21 Range/Units 06:43 13:25 13:25 WBC (3.8-10.6) k/uL RBC (3.80-5.40) m/uL Hgb (11.4-16.0) gm/dL Hct (34.0-46.0) % Neutrophils # (1.3-7.7) k/uL Sodium 121 L (137-145) mmol/L Chloride (98-107) mmol/L BUN (7-17) mg/dL Creatinine (0.52-1.04) mg/dL POC Glucose (mg/dL) (75-99) mg/dL Hemoglobin A1c (0.0-6.0) % Troponin I 0.051 H* 0.040 H* (0.000-0.034) ng/mL 07/12/21 07/12/21 07/12/21 Range/Units 18:07 19:05 19:05 WBC (3.8-10.6) k/uL RBC (3.80-5.40) m/uL Hgb (11.4-16.0) gm/dL Hct (34.0-46.0) % Neutrophils # (1.3-7.7) k/uL Sodium 119 L* (137-145) mmol/L Chloride (98-107) mmol/L BUN (7-17) mg/dL Creatinine (0.52-1.04) mg/dL POC Glucose (mg/dL) 456 H (75-99) mg/dL Hemoglobin A1c 6.8 H (0.0-6.0) % Troponin I (0.000-0.034) ng/mL 07/12/21 07/12/21 07/12/21 Range/Units 20:52 22:10 22:30 WBC (3.8-10.6) k/uL RBC (3.80-5.40) m/uL Hgb (11.4-16.0) gm/dL Hct (34.0-46.0) % Neutrophils # (1.3-7.7) k/uL Sodium (137-145) mmol/L Chloride (98-107) mmol/L BUN (7-17) mg/dL Creatinine (0.52-1.04) mg/dL POC Glucose (mg/dL) 124 H 50 L 67 L (75-99) mg/dL Hemoglobin A1c (0.0-6.0) % Troponin I (0.000-0.034) ng/mL 07/13/21 07/13/21 07/13/21 Range/Units 04:38 05:08 05:49 WBC (3.8-10.6) k/uL RBC (3.80-5.40) m/uL Hgb (11.4-16.0) gm/dL Hct (34.0-46.0) % Neutrophils # (1.3-7.7) k/uL Sodium 122 L (137-145) mmol/L Chloride 92 L (98-107) mmol/L BUN 52 H (7-17) mg/dL Creatinine 1.78 H (0.52-1.04) mg/dL POC Glucose (mg/dL) 50 L 126 H (75-99) mg/dL Hemoglobin A1c (0.0-6.0) % Troponin I (0.000-0.034) ng/mL 07/13/21 07/13/21 Range/Units 05:49 05:49 WBC 11.7 H (3.8-10.6) k/uL RBC 3.60 L (3.80-5.40) m/uL Hgb 10.5 L (11.4-16.0) gm/dL Hct 32.0 L (34.0-46.0) % Neutrophils # 8.7 H (1.3-7.7) k/uL Sodium (137-145) mmol/L Chloride (98-107) mmol/L BUN (7-17) mg/dL Creatinine (0.52-1.04) mg/dL POC Glucose (mg/dL) (75-99) mg/dL Hemoglobin A1c (0.0-6.0) % Troponin I 0.046 H* (0.000-0.034) ng/mL
--- NOTE | 2021-07-13 12:49 | P.PN ---
Subjective Progress Note Date: 07/13/21 81-year-old female patient with extensive cardiac history with previous coronary artery bypass surgery and the patient is known to have CAD and valvular heart disease with severe mitral regurgitation, tricuspid regurgitation, along with history of hypertension and hyperlipidemia and chronic kidney disease. She has also multiple other medical positive comorbidities as mentioned in the medical records. The patient presented to the hospital because of progressive worsening shortness of breath. No increase in lower extremity edema. Denied having any chest pain. She specifically on 2 L of O2 at home. Currently her oxidation is worse and the patient is currently up to 12 L of O2. In the emergency, the chest x-ray showed pulmonary edema, bilateral pleural effusion, right lower lobe atelectasis. Same time, her proBNP level was elevated at 8770. Initial troponin was at 0.035. Sodium level was also had 116 attributed to CHF. Creatinine is at 1.5 to which is essentially equivalent to her baseline as the patient is chronic stage III kidney disease. The patient was started on diuretics. She is currently on Lasix. Follow-up sodium level is up to 122. Noted the patient taking Lasix 40 mg at home on a daily basis. She is also maintained on a combination of metoprolol, Cozaar, M.D. or. She is diabetic and she is on Lantus insulin and a NovoLog scale. On today's evaluation of 3 72,022, the patient continues to BE short of breath. She remains on oxygen at 12 L over oxygen by nasal cannula. Chest x-ray still showed pulmonary edema. There is also possibility about the pleural effusion more so on the right. There is also cardiomegaly. Echo of the heart was done and the patient was found to have an EF around 30-35%. There is grade 2 diastolic heart failure. There is also evidence of pulmonary hypertension moderate to severe in nature along with moderate to severe MR, moderate tricuspid regurgitation. The patient is currently on IV Lasix 40 mg every 8 hours. She is a negative fluid balance. Her cardiac rhythm is sinus for now. She history of any chest pain or angina. On her blood work, the white cell count is at 11.7 with a hemoglobin of 10.5 and a platelet count of 362. Sodium level is at 122 which is improved compared to yesterday and the patient has a BUN of 52 with a creatinine of 1.7. Troponins of 0.04. Blood sugars of 77 from this morning. The patient is diabetic. No altered mentation. No chest pain. Objective - Vital Signs Vital signs: Vital Signs Temp 97.4 F L 07/13/21 08:00 Pulse 80 07/13/21 11:00 Resp 30 H 07/13/21 11:00 BP 136/67 07/13/21 11:00 Pulse Ox 92 L 07/13/21 11:00 Intake & Output 07/12/21 07/13/21 07/13/21 18:59 06:59 18:59 Intake Total 0 0 209.6 Output Total 890 815 710 Balance -890 -815 -500.4 Weight 69 kg 64.6 kg Intake: IV 0 0 Sodium Chloride 3%( 0 0 Hypertonic) 500 ml @ 25 mls/hr IV .Q20H [facility] Rx#: [id number] Intake, IV Titration 9.6 Amount DOBUTamine DRIP 500 mg In 9.6 Dextrose/Water 1 250ml. bag @ 2.5 MCG/KG/MIN 4. 845 mls/hr IV .Q24H [facility] Rx#:[id number] Oral 200 Output: Urine 890 815 710 Other: Voiding Method Indwelling Catheter Indwelling Catheter Indwelling Catheter - Exam GENERAL: 81-year-old female in no acute distress at the time of my examination, currently on 12 L of O2 by nasal cannula Head exam was generally normal. There was no scleral icterus or corneal arcus. Mucous membranes were moist. HEENT: Head is atraumatic, normocephalic. Pupils equal, round. Sclera anicteric. Conjunctiva are clear. Mucous membranes of the mouth are moist. Neck is supple. There is no elevated jugular venous pressure. No carotid bruit is heard. HEART EXAMINATION: Heart S1 and S2 with soft systolic murmur is heard. There is a gallop rhythm. At the same time, the patient is positive JVDs bilaterally. CHEST EXAMINATION: Lungs are diminished breath sounds bilaterally the patient has crackles in the mid lower lung vital more so on the right. Breath sounds are quite diminished in lung bases. The patient also has a thoracotomy scar over the anterior chest area. ABDOMEN: Soft, nontender. Bowel sounds are heard. No organomegaly noted. EXTREMITIES: 2+ peripheral pulses with no evidence of peripheral edema and no calf tenderness noted. - Labs CBC & Chem 7: 07/13/21 05:49 07/13/21 05:49 Labs: Abnormal Lab Results - Last 24 Hours (Table) 07/12/21 07/12/21 07/12/21 Range/Units 13:25 13:25 18:07 WBC (3.8-10.6) k/uL RBC (3.80-5.40) m/uL Hgb (11.4-16.0) gm/dL Hct (34.0-46.0) % Neutrophils # (1.3-7.7) k/uL Sodium 121 L (137-145) mmol/L Chloride (98-107) mmol/L BUN (7-17) mg/dL Creatinine (0.52-1.04) mg/dL POC Glucose (mg/dL) 456 H (75-99) mg/dL Hemoglobin A1c (0.0-6.0) % Troponin I 0.040 H* (0.000-0.034) ng/mL 07/12/21 07/12/21 07/12/21 Range/Units 19:05 19:05 20:52 WBC (3.8-10.6) k/uL RBC (3.80-5.40) m/uL Hgb (11.4-16.0) gm/dL Hct (34.0-46.0) % Neutrophils # (1.3-7.7) k/uL Sodium 119 L* (137-145) mmol/L Chloride (98-107) mmol/L BUN (7-17) mg/dL Creatinine (0.52-1.04) mg/dL POC Glucose (mg/dL) 124 H (75-99) mg/dL Hemoglobin A1c 6.8 H (0.0-6.0) % Troponin I (0.000-0.034) ng/mL 07/12/21 07/12/21 07/13/21 Range/Units 22:10 22:30 04:38 WBC (3.8-10.6) k/uL RBC (3.80-5.40) m/uL Hgb (11.4-16.0) gm/dL Hct (34.0-46.0) % Neutrophils # (1.3-7.7) k/uL Sodium (137-145) mmol/L Chloride (98-107) mmol/L BUN (7-17) mg/dL Creatinine (0.52-1.04) mg/dL POC Glucose (mg/dL) 50 L 67 L 50 L (75-99) mg/dL Hemoglobin A1c (0.0-6.0) % Troponin I (0.000-0.034) ng/mL 07/13/21 07/13/21 07/13/21 Range/Units 05:08 05:49 05:49 WBC 11.7 H (3.8-10.6) k/uL RBC 3.60 L (3.80-5.40) m/uL Hgb 10.5 L (11.4-16.0) gm/dL Hct 32.0 L (34.0-46.0) % Neutrophils # 8.7 H (1.3-7.7) k/uL Sodium 122 L (137-145) mmol/L Chloride 92 L (98-107) mmol/L BUN 52 H (7-17) mg/dL Creatinine 1.78 H (0.52-1.04) mg/dL POC Glucose (mg/dL) 126 H (75-99) mg/dL Hemoglobin A1c (0.0-6.0) % Troponin I (0.000-0.034) ng/mL 07/13/21 07/13/21 Range/Units 05:49 11:15 WBC (3.8-10.6) k/uL RBC (3.80-5.40) m/uL Hgb (11.4-16.0) gm/dL Hct (34.0-46.0) % Neutrophils # (1.3-7.7) k/uL Sodium (137-145) mmol/L Chloride (98-107) mmol/L BUN (7-17) mg/dL Creatinine (0.52-1.04) mg/dL POC Glucose (mg/dL) 148 H (75-99) mg/dL Hemoglobin A1c (0.0-6.0) % Troponin I 0.046 H* (0.000-0.034) ng/mL Assessment and Plan Plan: 1 acute exacerbation of chronic systolic heart failure. The patient presents with pulmonary edema in addition to bilateral pleural effusions and hypoxic respiratory failure currently on 12 L O2 nasal cannula, the patient continues to BE short of breath and clinically the patient continues to be in heart failure. Echo shows CHF with moderate impairment of LV function and ejection fraction of around 30-35% in addition to moderate to severe mitral regurgitation and seconda ry pulmonary hypertension.. The patient continues to be on Lasix. Clinical response is suboptimal and the patient has having some limited diuresis. We'll likely optimized CHF further. 2 acute on chronic hypoxic respiratory failure currently on 12 L, oxygen requirements and remain unchanged compared to yesterday 3 acute hyponatremia, improving secondary to CHF 4 chronic systolic heart failure with impaired LV function and multiple segmental wall motion abnormalities. The patient is known to have an ejection fraction of 30-35% based on echocardiogram from 2019 addition to segmental wall motion abnormalities 5 valvular heart disease in addition to moderate to severe mitral regurgitation and severe tricuspid regurgitation and severe pulmonary hypertension 6 history of coronary artery bypass surgery 7 history of AICD/pacemaker insertion 8 chronic kidney disease stage III, likely diabetic in nature 9 diabetes mellitus type 2 maintained on Lantus in addition to NovoLog sliding scale coverage 10 hypertension 11 macular degeneration 12 coronary artery disease 13 previous history of PR 14 diverticular disease Plan Proceed with ultrasound of the chest Evaluate for pleural effusion and consider thoracentesis if needed Abdomen dobutamine initiate 2.5 g and increase the dose up to 5 g depending on the clinical response Continue IV Lasix Titrate FiO2 as tolerated to maintain a saturation above 90% Started patient IV Lasix 40 mg every 8 hours Echo results were noted Monitor sodium level, the patient was given a dose of samsca by nephrology Resume home medications including long-acting insulin and a NovoLog sliding scale coverage Resume beta blockers Lovenox 30 mg subcu for DVT prophylaxis Continue aspirin and Plavix Keep the patient ICU Cardiology nephrology consultation
[2021-07-13] MEDS: CLOPIDOGREL 75 MG TAB PO SCH (12:59)
[2021-07-13 16:29] LABS: Glucose,Whole Blood 313 mg/dL (75-99)
[2021-07-13] MEDS ORDERED: INSULIN DETEMIR (LEVEMIR) 100 UNIT/ML SYR SQ ONE (18:45)
[2021-07-13] MEDS: FAMOTIDINE 20 MG TAB PO SCH (20:09)
[2021-07-13] MEDS: QUEtiapine 25 MG TAB PO SCH (20:10)
[2021-07-13] MEDS: PRAVASTATIN SODIUM 40 MG TAB PO SCH (20:10)
[2021-07-13 20:51] LABS: Glucose,Whole Blood 487 mg/dL (75-99)
[2021-07-13] MEDS: ACETAMINOPHEN TAB 325 MG TAB PO PRN (20:54)
[2021-07-13 22:06] LABS: Glucose,Whole Blood 508 mg/dL (75-99)
[2021-07-13] MEDS ORDERED: INSULIN REGULAR BOLUS (FROM DRIP BAG) IV PRN (22:48)
[2021-07-13] MEDS ORDERED: INSULIN REGULAR 100 UNIT in SODIUM CHLORIDE 0.9% 100 ML IV SCH (23:15)
[2021-07-13 23:22] LABS: Glucose,Whole Blood 357 mg/dL (75-99)
[2021-07-13 23:40] LABS: Glucose,Whole Blood 304 mg/dL (75-99)
[2021-07-14 00:07] LABS: Glucose,Whole Blood 361 mg/dL (75-99)
[2021-07-14 00:39] LABS: Glucose,Whole Blood 161 mg/dL (75-99)
[2021-07-14 01:29] LABS: Glucose,Whole Blood 171 mg/dL (75-99)
[2021-07-14 02:06] LABS: Glucose,Whole Blood 62 mg/dL (75-99)
[2021-07-14] MEDS: ACETAMINOPHEN TAB 325 MG TAB PO PRN ×2 (02:06→23:36)
[2021-07-14] MEDS: DEXTROSE 50% SYRINGE 50 ML IVP ONE ×2 (02:18→02:24)
[2021-07-14 02:43] LABS: Glucose,Whole Blood 110 mg/dL (75-99)
[2021-07-14 03:59] LABS: Glucose,Whole Blood 90 mg/dL (75-99)
[2021-07-14 04:49] LABS: Glucose,Whole Blood 108 mg/dL (75-99)
[2021-07-14] MEDS: methylPREDNISolone SOD SUCCI 125 MG/2 ML VIAL IV SCH (05:18)
[2021-07-14 06:06] LABS: Glucose,Whole Blood 131 mg/dL (75-99)
[2021-07-14 06:38] LABS: Calcium 9.4 mg/dL (8.4-10.2); Magnesium 2.1 mg/dL (1.6-2.3); Potassium 4.8 mmol/L (3.5-5.1)
[2021-07-14 06:44] LABS: Glucose,Whole Blood 140 mg/dL (75-99)
--- NOTE | 2021-07-14 07:21 | P.PN ---
Subjective Progress Note Date: 07/14/21 Principal diagnosis: Heart failure The patient is a pleasant 81-year-old female patient with coronary artery disease and prior revascularization as well as known ischemic cardiomyopathy with EF around 35% and also valvular heart disease with mitral and tricuspid regurgitation as well as multiple comorbid conditions was admitted to the hospital with heart failure. She presented with progressive exertional dyspnea and left heart failure more than right heart failure. She was seen this morning. She is definitely doing better. The shortness of breath has improved significantly. She looks somewhat euvolemic on examination. Her creatinine is a slightly worse. She underwent yesterday ultrasound of the chest and that showed small bilateral pleural effusion consistent with a chest x-ray. I'm going to decrease the dose of Lasix from 40 mg IV 3 times a day to 40 mg IV twice a day. Continue the current medical regimen. The last echo during this admission revealed severe cardiomyopathy with EF around 35% with evidence of moderate mitral regurgitation and moderate pulmonary hypertension and moderate tricuspid regurgitation. Objective - Vital Signs Vital signs: Vital Signs Temp 97.6 F 07/13/21 20:00 Pulse 91 07/14/21 07:00 Resp 15 07/14/21 07:00 BP 119/59 07/14/21 07:00 Pulse Ox 94 L 07/14/21 07:00 Intake & Output 07/13/21 07/14/21 07/14/21 18:59 06:59 18:59 Intake Total 443.2 355.130 Output Total 1925 1640 Balance -1481.8 -1284.870 Weight 63 kg Intake: Intake, IV Titration 43.2 55.130 Amount DOBUTamine DRIP 500 mg In 43.2 24.0 Dextrose/Water 1 250ml. bag @ 2.5 MCG/KG/MIN 4. 845 mls/hr IV .Q24H N[facility]I Rx#:[id number] Insulin Regular 100 unit 31.130 In Sodium Chloride 0.9% 100 ml @ Per Protocol IV .Q0M NICKI Rx#:[id number] Oral 400 300 Output: Urine 1925 1640 Other: Voiding Method Indwelling Catheter Indwelling Catheter - Constitutional General appearance: Present: no acute distress - Respiratory Respiratory: bilateral: rales - Cardiovascular Rhythm: regular Heart sounds: normal: S1, S2 Abnormal Heart Sounds: Present: systolic murmur - Labs CBC & Chem 7: 07/13/21 05:49 07/14/21 05:38 Labs: Abnormal Lab Results - Last 24 Hours (Table) 07/13/21 07/13/21 07/13/21 Range/Units 11:15 16:28 18:54 Sodium 123 L (137-145) mmol/L Chloride (98-107) mmol/L BUN (7-17) mg/dL Creatinine (0.52-1.04) mg/dL Glucose (74-99) mg/dL POC Glucose (mg/dL) 148 H 313 H (75-99) mg/dL 07/13/21 07/13/21 07/13/21 Range/Units 20:49 21:56 23:20 Sodium (137-145) mmol/L Chloride (98-107) mmol/L BUN (7-17) mg/dL Creatinine (0.52-1.04) mg/dL Glucose (74-99) mg/dL POC Glucose (mg/dL) 487 H 508 H 357 H (75-99) mg/dL 07/13/21 07/14/21 07/14/21 Range/Units 23:39 00:06 00:37 Sodium (137-145) mmol/L Chloride (98-107) mmol/L BUN (7-17) mg/dL Creatinine (0.52-1.04) mg/dL Glucose (74-99) mg/dL POC Glucose (mg/dL) 304 H 361 H 161 H (75-99) mg/dL 07/14/21 07/14/21 07/14/21 Range/Units 01:26 02:04 02:41 Sodium (137-145) mmol/L Chloride (98-107) mmol/L BUN (7-17) mg/dL Creatinine (0.52-1.04) mg/dL Glucose (74-99) mg/dL POC Glucose (mg/dL) 171 H 62 L 110 H (75-99) mg/dL 07/14/21 07/14/21 07/14/21 Range/Units 04:48 05:38 06:05 Sodium 127 L (137-145) mmol/L Chloride 96 L (98-107) mmol/L BUN 58 H (7-17) mg/dL Creatinine 1.87 H (0.52-1.04) mg/dL Glucose 110 H (74-99) mg/dL POC Glucose (mg/dL) 108 H 131 H (75-99) mg/dL 07/14/21 Range/Units 06:43 Sodium (137-145) mmol/L Chloride (98-107) mmol/L BUN (7-17) mg/dL Creatinine (0.52-1.04) mg/dL Glucose (74-99) mg/dL POC Glucose (mg/dL) 140 H (75-99) mg/dL Assessment and Plan Assessment: Assessment #1 acute hypoxic respiratory failure secondary to heart failure with reduced ejection fraction #2 congestive heart failure exacerbation secondary to heart failure with reduced ejection fraction #3 known severe cardiomyopathy with EF around 35% #4 valvular heart disease with severe mitral regurgitation and moderate tricuspid regurgitation #5 coronary artery disease with prior revascularization #6 history of chronic kidney disease Plan #1 increase the dose of Lasix to 40 mg IV twice a day #2 continue monitoring the kidney function and electrolytes #3 the echo was reviewed and showed the above findings #4 follow-up with the patient
[2021-07-14 08:18] LABS: Glucose,Whole Blood 159 mg/dL (75-99)
--- NOTE | 2021-07-14 09:01 | XR ---
EXAMINATION TYPE: XR chest 1V portable DATE OF EXAM: 07/14/2021 COMPARISON: 07/13/2021 HISTORY: Shortness of breath FINDINGS: There are bilateral pleural effusions with cardiomegaly and bibasilar infiltrate. There is a diffuse interstitial pattern. Postoperative change. Diffuse osteopenia. Biapical pleural thickening. IMPRESSION: 1. Diffuse pleural-parenchymal changes correlate with diffuse pneumonia versus pulmonary edema.
--- NOTE | 2021-07-14 09:15 | P.PN ---
Subjective Patient is seen in follow-up for hyponatremia and chronic kidney disease. Renal function little worse from diuresis. Sodium level 127 this morning. She is maintained on IV Lasix. Received another dose of Samsca last night. Oral intake fair. No vomiting or diarrhea. Hemodynamically stable. Vital signs are stable. General: Awake and alert. HEENT: Head exam is unremarkable. On nasal cannula. LUNGS: Breath sounds decreased. HEART: Rate and Rhythm are regular. ABDOMEN: Soft, no distention. EXTREMITITES: No edema. Objective - Vital Signs Vital signs: Vital Signs Temp 97.6 F 07/13/21 20:00 Pulse 91 07/14/21 07:00 Resp 15 07/14/21 07:00 BP 119/59 07/14/21 07:00 Pulse Ox 94 L 07/14/21 07:00 Intake & Output 07/13/21 07/14/21 07/14/21 18:59 06:59 18:59 Intake Total 443.2 355.130 0 Output Total 1925 1640 Balance -1481.8 -1284.870 0 Weight 63 kg Intake: Intake, IV Titration 43.2 55.130 0 Amount DOBUTamine DRIP 500 mg In 43.2 24.0 Dextrose/Water 1 250ml. bag @ 2.5 MCG/KG/MIN 4. 845 mls/hr IV .Q24H NICKI Rx#:[id number] Insulin Regular 100 unit 31.130 0 In Sodium Chloride 0.9% 100 ml @ Per Protocol IV .Q0M NICKI Rx#:[id number] Oral 400 300 Output: Urine 1925 1640 Other: Voiding Method Indwelling Catheter Indwelling Catheter - Labs CBC & Chem 7: 07/13/21 05:49 07/14/21 05:38 Labs: Abnormal Lab Results - Last 24 Hours (Table) 07/13/21 07/13/21 07/13/21 Range/Units 11:15 16:28 18:54 Sodium 123 L (137-145) mmol/L Chloride (98-107) mmol/L BUN (7-17) mg/dL Creatinine (0.52-1.04) mg/dL Glucose (74-99) mg/dL POC Glucose (mg/dL) 148 H 313 H (75-99) mg/dL 07/13/21 07/13/21 07/13/21 Range/Units 20:49 21:56 23:20 Sodium (137-145) mmol/L Chloride (98-107) mmol/L BUN (7-17) mg/dL Creatinine (0.52-1.04) mg/dL Glucose (74-99) mg/dL POC Glucose (mg/dL) 487 H 508 H 357 H (75-99) mg/dL 07/13/21 07/14/21 07/14/21 Range/Units 23:39 00:06 00:37 Sodium (137-145) mmol/L Chloride (98-107) mmol/L BUN (7-17) mg/dL Creatinine (0.52-1.04) mg/dL Glucose (74-99) mg/dL POC Glucose (mg/dL) 304 H 361 H 161 H (75-99) mg/dL 07/14/21 07/14/21 07/14/21 Range/Units 01:26 02:04 02:41 Sodium (137-145) mmol/L Chloride (98-107) mmol/L BUN (7-17) mg/dL Creatinine (0.52-1.04) mg/dL Glucose (74-99) mg/dL POC Glucose (mg/dL) 171 H 62 L 110 H (75-99) mg/dL 07/14/21 07/14/21 07/14/21 Range/Units 04:48 05:38 06:05 Sodium 127 L (137-145) mmol/L Chloride 96 L (98-107) mmol/L BUN 58 H (7-17) mg/dL Creatinine 1.87 H (0.52-1.04) mg/dL Glucose 110 H (74-99) mg/dL POC Glucose (mg/dL) 108 H 131 H (75-99) mg/dL 07/14/21 07/14/21 Range/Units 06:43 08:16 Sodium (137-145) mmol/L Chloride (98-107) mmol/L BUN (7-17) mg/dL Creatinine (0.52-1.04) mg/dL Glucose (74-99) mg/dL POC Glucose (mg/dL) 140 H 159 H (75-99) mg/dL Assessment and Plan Plan: Assessment: 1. Hypervolemic hyponatremia. Sodium level 127 this morning. Urine sodium 67 and urine osmolality 293. TSH normal. Status post another dose of Samsca last night. 2. Urinary retention status post Christie catheter placement. 3. Chronic kidney disease stage IIIb. Baseline creatinine near 1.5 secondary to diabetic kidney disease. 4. Volume overload. Improving with diuresis. 5. Acute hypoxic respiratory failure. 6. Diabetes mellitus. 7. Metabolic acidosis secondary to chronic kidney disease maintained on oral bicarbonate. 8. Hypertension with chronic kidney disease. Stable. 9. Acute on chronic systolic CHF with ejection fraction of 30-35% with moderate to severe mitral regurgitation, moderate tricuspid regurgitation and moderate pulmonary hypertension. Plan: Maintain IV Lasix - decreased to 40 mg IV twice daily. Maintain fluid restriction. Encouraged oral intake. Repeat sodium level this evening.
[2021-07-14] MEDS: IPRATROPIUM-ALBUTEROL 3 ML NEB INHALATION SCH ×4 (09:41→21:39)
[2021-07-14 09:43] LABS: Glucose,Whole Blood 211 mg/dL (75-99)
[2021-07-14] MEDS: ENOXAPARIN 30 MG/0.3 ML SYRINGE SQ SCH (10:19)
[2021-07-14] MEDS: TAMSULOSIN 0.4 MG CAP.ER.24H PO SCH (10:20)
[2021-07-14] MEDS: FUROSEMIDE 10 MG/ML 4 ML VIAL IV SCH ×2 (10:20→21:36)
[2021-07-14] MEDS: CHOLECALCIFEROL 25 MCG (1000 IU) TABLET PO SCH (10:21)
[2021-07-14] MEDS: METOPROLOL SUCCINATE (ER) 25 MG TAB.ER.24H PO SCH (10:22)
[2021-07-14] MEDS: ASPIRIN 81 MG PO SCH (10:22)
[2021-07-14] MEDS: SODIUM BICARBONATE TAB 650 MG TAB PO SCH ×2 (10:22→21:39)
[2021-07-14] MEDS: LORATADINE 10 MG TAB PO SCH (10:23)
[2021-07-14] MEDS: ISOSORBIDE MONONITRATE ER 30 MG TAB.ER.24H PO SCH (10:26)
[2021-07-14 11:03] LABS: Glucose,Whole Blood 218 mg/dL (75-99)
[2021-07-14 12:08] LABS: Glucose,Whole Blood 200 mg/dL (75-99)
[2021-07-14 13:17] LABS: Glucose,Whole Blood 95 mg/dL (75-99)
[2021-07-14] MEDS: CLOPIDOGREL 75 MG TAB PO SCH (13:19)
--- NOTE | 2021-07-14 13:49 | P.PN ---
Subjective Progress Note Date: 07/14/[address] Kobe Anderson This is a pleasant 81-year-old female with past medical history of CAD, ND, CABG, pulmonary hypertension, moderate mitral and tricuspid regurgitation, hyperlipidemia, hypertension, chronic hypoxic respiratory failure, diabetes mellitus, gastroesophageal reflux disease,macular degeneration, UTIs-recently treated for UTI with current UA negative, CKD IIIB and multiple other medical issues, admitted to ICU with worsening shortness of breath without edema over the last 2 weeks. Pulse ox low at home, EMS called.(EMS report currently unavailable). Reports drinking significant amount of fluids. Denies nausea vomiting or diarrhea. Denies abdominal pain. Denies lightheadedness dizziness or focal deficits. Denies chest pain, palpitations or shortness of breath. Denies any fever or chills. Garcia virus not detected.EKG reported atrial fibrillation, with ventricular rate controlled. Serial troponins in progress ;0.035.Chest x-ray reported CHF with increased pulmonary congestion and fluid .Pro-BNP elevated, 8770 .Sodium on admission 116, IV fluids of 3% hypertonic saline initiated along with Lasix IVP. Requiring 12 L high flow nasal cannula to maintain O2 sats in the low 90s. Creatinine 1.5, baseline. Hyperglycemic, blood sugars in the high 200s. Admitted to ICU. Afebrile, WBC 11.7. AM Labs pending. 07/13/2021 Patient is seen and evaluated in the ICU with multiple medical consultations including pulmonary, cardiology, nephrology following. She continues on dobutamine drip along with IV steroids 60 every 6 as well as IV Lasix 40 mg every 8 hours. Patient received a dose of the skull yesterday for hyponatremia with some mild improvement and is scheduled to receive Samsca again today with nephrology following closely. Patient also maintained on bicarb tablets and will continue. Patient reports he normally wearing 2 L of oxygen via nasal cannula currently on 15 L high flow, extremely dyspneic with minimal exertion on exam. Sodium was found to be 122. Creatinine also elevated at 1.78. Patient denies chest pain or palpitations. Patient is afebrile. No reports of nausea or vomiting and patient eating very little but tolerating. Chest x-ray today shows some expiratory rotated exam with findings consistent with congestive h eart failure and a pneumonia not excluded and difficult will exclude effusion. Chest ultrasound ordered at this time for possible thoracentesis. 07/14/2021 Patient is seen this morning continues to be in the ICU being closely monitored by multiple medical consultations. Nephrology following for hyponatremia and sodium slightly improved at 127 today. Creatinine trending up at 1.87 with a BUN of 58. Patient does continue on IV Lasix twice daily and dobutamine along with IV Solu-Medrol has been discontinued. Patient reports to improvement in breathing stating she feels better than yesterday. Patient currently on 3 L via nasal cannula and tolerating saturations above 90%. Patient also placed on insulin drip for elevated blood sugars and IV steroids along with dobutamine has been discontinued which may have also contributed to elevated blood sugars and will restart sliding scale along with long-acting Levemir 20 units twice daily and closely monitor Accu-Cheks before meals and at bedtime and at 2 AM. Encouraged oral intake and continue with fluid restrictions per nephrology sherif mmendations. Patient denies chest pain or palpitations. Patient is afebrile. PT/OT therapy to evaluate the patient. Review of systems: Constitutional: No reports of fatigue, fever, or chills Cardiovascular: No reports of chest pain or palpitations Respiratory: reports continued shortness of breath and cough, reports significant improvement GI: No reports of nausea, vomiting, or diarrhea : No reports of dysuria or retention Neurovascular: reports of generalized weakness All medications have been reviewed Active Medications Acetaminophen (Acetaminophen Tab 325 Mg Tab) 650 mg PO Q6HR PRN PRN Reason: Fever and/ or Pain Last Admin: 07/14/21 02:06 Dose: 650 mg Documented by: Albuterol/Ipratropium (Ipratropium-Albuterol 3 Ml Neb) 3 ml INHALATION RT-QID S Last Admin: 07/14/21 12:34 Dose: Not Given Documented by: Albuterol/Ipratropium (Ipratropium-Albuterol 3 Ml Neb) 3 ml INHALATION RT-Q2H PRN PRN Reason: Shortness Of Breath Or Wheezing Alprazolam (Alprazolam 0.25 Mg Tab) 0.25 mg PO Q6H PRN PRN Reason: Anxiety Aspirin (Aspirin 81 Mg) 81 mg PO DAILY [facility] Last Admin: 07/14/21 10:22 Dose: 81 mg Documented by: Cholecalciferol (Cholecalciferol 25 Mcg (1000 Iu) Tablet) 100 mcg PO DAILY [facility] Last Admin: 07/14/21 10:21 Dose: 100 mcg Documented by: Clopidogrel Bisulfate (Clopidogrel 75 Mg Tab) 75 mg PO DAILY@1200 [facility] Last Admin: 07/13/21 12:59 Dose: 75 mg Documented by: Enoxaparin Sodium (Enoxaparin 30 Mg/0.3 Ml Syringe) 30 mg SQ DAILY [facility] Last Admin: 07/14/21 10:19 Dose: 30 mg Documented by: Famotidine (Famotidine 20 Mg Tab) 20 mg PO [facility] Last Admin: 07/13/21 20:09 Dose: 20 mg Documented by: Furosemide (Furosemide 10 Mg/Ml 4 Ml Vial) 40 mg IV BID [facility] Last Admin: 07/14/21 10:20 Dose: 40 mg Documented by: Insulin Aspart (Insulin Aspart (Novolog) 100 Unit/Ml Vial) 0 unit SQ [id number] [facility]; Protocol Insulin Detemir (Insulin Detemir (Levemir) 100 Unit/Ml Syr) 20 unit SQ BID [facility] Isosorbide Mononitrate (Isosorbide Mononitrate Er 30 Mg Tab.Er.24h) 30 mg PO DAILY [facility] Last Admin: 07/14/21 10:26 Dose: 30 mg Documented by: Loratadine (Loratadine 10 Mg Tab) 10 mg PO DAILY [facility] Last Admin: 07/14/21 10:23 Dose: 10 mg Documented by: Metoprolol Succinate (Metoprolol Succinate (Er) 25 Mg Tab.Er.24h) 25 mg PO DAILY [facility] Last Admin: 07/14/21 10:22 Dose: 25 mg Documented by: Naloxone HCl (Naloxone 0.4 Mg/Ml 1 Ml Vial) 0.2 mg IV Q2M PRN PRN Reason: Opioid Reversal Pravastatin Sodium (Pravastatin Sodium 40 Mg Tab) 40 mg PO [facility] Last Admin: 07/13/21 20:10 Dose: 40 mg Documented by: Quetiapine Fumarate (Quetiapine 25 Mg Tab) 25 mg PO [facility] Last Admin: 07/13/21 20:10 Dose: 25 mg Documented by: Sodium Bicarbonate (Sodium Bicarbonate Tab 650 Mg Tab) 650 mg PO BID [facility] Last Admin: 07/14/21 10:22 Dose: 650 mg Documented by: Tamsulosin HCl (Tamsulosin 0.4 Mg Cap.Er.24h) 0.4 mg PO PC-[id number] [facility] Last Admin: 07/14/21 10:20 Dose: 0.4 mg Documented by: Physical exam: GENERAL: Sitting up in bed, alert and oriented 3, well-developed, well- nourished. currently on 3 L via nasal cannula HEENT: Conjunctivae normal. eyes normal. Oral mucosa moist NECK: No JVD. No thyroid enlargement. No LNs CARDIOVASCULAR: S1, S2 regular. RESPIRATION: Breath sounds diminished in the bases with crackles noted throughout ABDOMEN: Soft, nontender . No guarding. no masses palpable. Bowel sounds heard. LEGS: No edema. no swelling PSYCHIATRY: Alert and oriented X3, mood and affect normal. NERVOUS SYSTEM: Cranial N 2-12 grossly normal. Diffuse weakness, No focal deficits. Strength and sensation grossly intact. Skin: no lesions, no rash Assessment: -Acute CHF systolic dysfunction, EF 30-35% -Acute on chronic hypoxic respiratory failure secondary to the above. Wears 2 L nasal cannula O2 at home and currently 3 L NC -Hyponatremia, hypervolemic and related to hyperglycemia -Diabetes mellitus, uncontrolled with hyperglycemia -CAD, history of ND, CABG, stents -Moderate mitral regurgitation -Moderate tricuspid regurgitation -Pulmonary hypertension -Chronic renal failure, Stage 3B, baseline creatinine around 1.5 -Metabolic acidosis secondary to the above -Gastroesophageal reflux disease -Hypertension -Hyperlipidemia -Macular degeneration -Obesity, BMI 31.8 -GI prophylaxis -DVT prophylaxis -No code Plan: Recommend to continue on current medications with multiple medical consultations following. Cardiology pulmonary, and nephrology following closely. Patient is now currently on 3 L via nasal cannula and tolerating oxygen saturations above 90%. Patient was on IV steroids along with dobutamine drip which has been discontinued started on dobutamine drip along with IV Lasix and continued on IV steroids along with breathing inhalational treatments. Chest ultrasound was done along with 2-D echo showing the left ventricle is mildly dilated overall LV systolic function is moderately to severely impaired with an EF of 35%. Patient has LAD grade 2 diastolic dysfunction. There is noted moderate tricuspid regurgitation present with moderate pulmonary hypertension noted. Chest ultrasound shows right pleural effusion pocket size 7.8 cm, left pleural effusion pocket size 4.7 cm both sides were marked by radiology for possible thoracentesis. Sodium is 127 today with nephrology following closely. Patient also maintained on sodium bicarb tablets and will continue. Continue fluid restrictions as well and consistent carb diet. Maintain diuretics. Recommend continue with Accu-Cheks before meals and at bedtime and close monitoring of blood sugars and will continue with sliding scale and long-acting. Insulin drip being discontinued. Due to multiple complex medical issues, prognosis is guarded. The impression and plan of care has been dictated by Kathleen Tan, Nurse Practitioner as directed. Dr. Alfredo MD I have performed a history and examination and MDM of this patient, discussed the same with the dictator, and agree with the dictator's assessment and plan as written ,documented as a scribe. Based on total visit time, I have performed more than 50% of the visit. Objective - Vital Signs Vital signs: Vital Signs Temp 97.6 F 07/13/21 20:00 Pulse 91 07/14/21 07:00 Resp 15 07/14/21 07:00 BP 119/59 07/14/21 07:00 Pulse Ox 94 L 07/14/21 07:00 Intake & Output 07/13/21 07/14/21 07/14/21 18:59 06:59 18:59 Intake Total 443.2 355.130 0 Output Total 1925 1640 Balance -1481.8 -1284.870 0 Weight 63 kg Intake: Intake, IV Titration 43.2 55.130 0 Amount DOBUTamine DRIP 500 mg In 43.2 24.0 Dextrose/Water 1 250ml. bag @ 2.5 MCG/KG/MIN 4. 845 mls/hr IV .Q24H [facility]ICKI Rx#:[id number] Insulin Regular 100 unit 31.130 0 In Sodium Chloride 0.9% 100 ml @ Per Protocol IV .Q0M NICKI Rx#:[id number] Oral 400 300 Output: Urine 1925 1640 Other: Voiding Method Indwelling Catheter Indwelling Catheter - Labs CBC & Chem 7: 07/13/21 05:49 07/14/21 05:38 Labs: Abnormal Lab Results - Last 24 Hours (Table) 07/13/21 07/13/21 07/13/21 Range/Units 11:15 16:28 18:54 Sodium 123 L (137-145) mmol/L Chloride (98-107) mmol/L BUN (7-17) mg/dL Creatinine (0.52-1.04) mg/dL Glucose (74-99) mg/dL POC Glucose (mg/dL) 148 H 313 H (75-99) mg/dL 07/13/21 07/13/21 07/13/21 Range/Units 20:49 21:56 23:20 Sodium (137-145) mmol/L Chloride (98-107) mmol/L BUN (7-17) mg/dL Creatinine (0.52-1.04) mg/dL Glucose (74-99) mg/dL POC Glucose (mg/dL) 487 H 508 H 357 H (75-99) mg/dL 07/13/21 07/14/21 07/14/21 Range/Units 23:39 00:06 00:37 Sodium (137-145) mmol/L Chloride (98-107) mmol/L BUN (7-17) mg/dL Creatinine (0.52-1.04) mg/dL Glucose (74-99) mg/dL POC Glucose (mg/dL) 304 H 361 H 161 H (75-99) mg/dL 07/14/21 07/14/21 07/14/21 Range/Units 01:26 02:04 02:41 Sodium (137-145) mmol/L Chloride (98-107) mmol/L BUN (7-17) mg/dL Creatinine (0.52-1.04) mg/dL Glucose (74-99) mg/dL POC Glucose (mg/dL) 171 H 62 L 110 H (75-99) mg/dL 07/14/21 07/14/21 07/14/21 Range/Units 04:48 05:38 06:05 Sodium 127 L (137-145) mmol/L Chloride 96 L (98-107) mmol/L BUN 58 H (7-17) mg/dL Creatinine 1.87 H (0.52-1.04) mg/dL Glucose 110 H (74-99) mg/dL POC Glucose (mg/dL) 108 H 131 H (75-99) mg/dL 07/14/21 07/14/21 Range/Units 06:43 08:16 Sodium (137-145) mmol/L Chloride (98-107) mmol/L BUN (7-17) mg/dL Creatinine (0.52-1.04) mg/dL Glucose (74-99) mg/dL POC Glucose (mg/dL) 140 H 159 H (75-99) mg/dL
--- NOTE | 2021-07-14 14:02 | P.PN ---
Subjective Progress Note Date: 07/14/21 81-year-old female patient with extensive cardiac history with previous coronary artery bypass surgery and the patient is known to have CAD and valvular heart disease with severe mitral regurgitation, tricuspid regurgitation, along with history of hypertension and hyperlipidemia and chronic kidney disease. She has also multiple other medical positive comorbidities as mentioned in the medical records. The patient presented to the hospital because of progressive worsening shortness of breath. No increase in lower extremity edema. Denied having any chest pain. She specifically on 2 L of O2 at home. Currently her oxidation is worse and the patient is currently up to 12 L of O2. In the emergency, the chest x-ray showed pulmonary edema, bilateral pleural effusion, right lower lobe atelectasis. Same time, her proBNP level was elevated at 8770. Initial troponin was at 0.035. Sodium level was also had 116 attributed to CHF. Creatinine is at 1.5 to which is essentially equivalent to her baseline as the patient is chronic stage III kidney disease. The patient was started on diuretics. She is currently on Lasix. Follow-up sodium level is up to 122. Noted the patient taking Lasix 40 mg at home on a daily basis. She is also maintained on a combination of metoprolol, Cozaar, M.D. or. She is diabetic and she is on Lantus insulin and a NovoLog scale. On today's evaluation of 3 72,022, the patient continues to BE short of breath. She remains on oxygen at 12 L over oxygen by nasal cannula. Chest x-ray still showed pulmonary edema. There is also possibility about the pleural effusion more so on the right. There is also cardiomegaly. Echo of the heart was done and the patient was found to have an EF around 30-35%. There is grade 2 diastolic heart failure. There is also evidence of pulmonary hypertension moderate to severe in nature along with moderate to severe MR, moderate tricuspid regurgitation. The patient is currently on IV Lasix 40 mg every 8 hours. She is a negative fluid balance. Her cardiac rhythm is sinus for now. She history of any chest pain or angina. On her blood work, the white cell count is at 11.7 with a hemoglobin of 10.5 and a platelet count of 362. Sodium level is at 122 which is improved compared to yesterday and the patient has a BUN of 52 with a creatinine of 1.7. Troponins of 0.04. Blood sugars of 77 from this morning. The patient is diabetic. No altered mentation. No chest pain. 07/14/2021, seeing the patient for a follow-up. Clinically improved compared to yesterday. The patient was started on dobutamine and this improved her cardiac output and urine output. The patient has been a negative fluid balance. The patient has diuresed adequately over the past 24 hours and the patient is currently on 3 L of oxygen by nasal cannula. Her chest x-ray still showing CHF and edema and the patient has bilateral pleural effusion, small. The patient's is currently on diuretics and the patient is receiving Lasix 40 mg IV push every 12 hours. Sodium is at 127, BUN is associated with a creatinine of 1.8, and the patient's potassium level is at 4.8. The patient is able to speak in longer s entences. No angina. No palpitation. Cardiac rhythm is sinus. The patient has a RBBB pattern on her EKG. Noted the patient also had issues with hyperglycemia. She was on an insulin drip overnight. This morning, blood sugars under better control. She was given Levemir insulin 20 units twice a day along with NovoLog sliding scale coverage. She is also on beta blockers and the patient is currently on metoprolol 25 mg by mouth daily. She is on aspirin and Plavix. Objective - Vital Signs Vital signs: Vital Signs Temp 98.2 F 07/14/21 12:00 Pulse 87 07/14/21 13:00 Resp 18 07/14/21 13:00 BP 125/52 07/14/21 13:00 Pulse Ox 92 L 07/14/21 13:00 Intake & Output 07/13/21 07/14/21 07/14/21 18:59 06:59 18:59 Intake Total 443.2 355.130 199.864 Output Total 1925 1640 975 Balance -1481.8 -1284.870 -775.136 Weight 63 kg Intake: IV 40 0.9 NACL 40 Intake, IV Titration 43.2 55.130 9.864 Amount DOBUTamine DRIP 500 mg In 43.2 24.0 Dextrose/Water 1 250ml. bag @ 2.5 MCG/KG/MIN 4. 845 mls/hr IV .Q24H [facility] Rx#:[id number] Insulin Regular 100 unit 31.130 9.864 In Sodium Chloride 0.9% 100 ml @ Per Protocol IV .Q0M [facility] Rx#:[id number] Oral 400 300 150 Output: Urine 1925 1640 975 Other: Voiding Method Indwelling Catheter Indwelling Catheter Indwelling Catheter - Exam GENERAL: 81-year-old female in no acute distress at the time of my examination, currently on 3 L of O2 by nasal cannula Head exam was generally normal. There was no scleral icterus or corneal arcus. Mucous membranes were moist. HEENT: Head is atraumatic, normocephalic. Pupils equal, round. Sclera anicteric. Conjunctiva are clear. Mucous membranes of the mouth are moist. Neck is supple. There is no elevated jugular venous pressure. No carotid bruit is heard. HEART EXAMINATION: Heart S1 and S2 with soft systolic murmur is heard. There is a gallop rhythm. At the same time, the patient is positive JVDs bilaterally. CHEST EXAMINATION: Lungs are diminished breath sounds bilaterally the patient has crackles in the mid lower lung vital more so on the right. Breath sounds are quite diminished in lung bases. The patient also has a thoracotomy scar over the anterior chest area. ABDOMEN: Soft, nontender. Bowel sounds are heard. No organomegaly noted. EXTREMITIES: 2+ peripheral pulses with no evidence of peripheral edema and no calf tenderness noted. - Labs CBC & Chem 7: 07/13/21 05:49 07/14/21 05:38 Labs: Abnormal Lab Results - Last 24 Hours (Table) 07/13/21 07/13/21 07/13/21 Range/Units 16:28 18:54 20:49 Sodium 123 L (137-145) mmol/L Chloride (98-107) mmol/L BUN (7-17) mg/dL Creatinine (0.52-1.04) mg/dL Glucose (74-99) mg/dL POC Glucose (mg/dL) 313 H 487 H (75-99) mg/dL 07/13/21 07/13/21 07/13/21 Range/Units 21:56 23:20 23:39 Sodium (137-145) mmol/L Chloride (98-107) mmol/L BUN (7-17) mg/dL Creatinine (0.52-1.04) mg/dL Glucose (74-99) mg/dL POC Glucose (mg/dL) 508 H 357 H 304 H (75-99) mg/dL 07/14/21 07/14/21 07/14/21 Range/Units 00:06 00:37 01:26 Sodium (137-145) mmol/L Chloride (98-107) mmol/L BUN (7-17) mg/dL Creatinine (0.52-1.04) mg/dL Glucose (74-99) mg/dL POC Glucose (mg/dL) 361 H 161 H 171 H (75-99) mg/dL 07/14/21 07/14/21 07/14/21 Range/Units 02:04 02:41 04:48 Sodium (137-145) mmol/L Chloride (98-107) mmol/L BUN (7-17) mg/dL Creatinine (0.52-1.04) mg/dL Glucose (74-99) mg/dL POC Glucose (mg/dL) 62 L 110 H 108 H (75-99) mg/dL 07/14/21 07/14/21 07/14/21 Range/Units 05:38 06:05 06:43 Sodium 127 L (137-145) mmol/L Chloride 96 L (98-107) mmol/L BUN 58 H (7-17) mg/dL Creatinine 1.87 H (0.52-1.04) mg/dL Glucose 110 H (74-99) mg/dL POC Glucose (mg/dL) 131 H 140 H (75-99) mg/dL 07/14/21 07/14/21 07/14/21 Range/Units 08:16 09:40 11:01 Sodium (137-145) mmol/L Chloride (98-107) mmol/L BUN (7-17) mg/dL Creatinine (0.52-1.04) mg/dL Glucose (74-99) mg/dL POC Glucose (mg/dL) 159 H 211 H 218 H (75-99) mg/dL 07/14/21 Range/Units 12:06 Sodium (137-145) mmol/L Chloride (98-107) mmol/L BUN (7-17) mg/dL Creatinine (0.52-1.04) mg/dL Glucose (74-99) mg/dL POC Glucose (mg/dL) 200 H (75-99) mg/dL Assessment and Plan Plan: 1 acute exacerbation of chronic systolic heart failure. The patient presents with pulmonary edema in addition to bilateral pleural effusions and hypoxic respiratory failure currently on 12 L O2 nasal cannula, the patient continues to BE short of breath and clinically the patient continues to be in heart failure. Echo shows CHF with moderate impairment of LV function and ejection fraction of around 30-35% in addition to moderate to severe mitral regurgitation and secondary pulmonary hypertension.. The patient continues to be on Lasix. Clinical improving and the patient is diuresing adequately over the past 24 hours. Less short of breath. Chest x-ray still showing pulmonary edema. 2 acute on chronic hypoxic respiratory failure currently on 3 L of oxygen by nasal cannula 3 acute hyponatremia, improving secondary to CHF, improving and the sodium level is up to 127 4 chronic systolic heart failure with impaired LV function and multiple segmental wall motion abnormalities. The patient is known to have an ejection f raction of 30-35% based on echocardiogram from 2019 addition to segmental wall motion abnormalities 5 valvular heart disease in addition to moderate to severe mitral regurgitation and severe tricuspid regurgitation and severe pulmonary hypertension 6 history of coronary artery bypass surgery 7 history of AICD/pacemaker insertion 8 chronic kidney disease stage III, likely diabetic in nature 9 diabetes mellitus type 2 maintained on Lantus in addition to NovoLog sliding scale coverage, currently the patient on Levemir insulin 20 units twice a day along with a scale 10 hypertension 11 macular degeneration 12 coronary artery disease 13 previous history of NM 14 diverticular disease Plan Discontinue the dobutamine drip per cardiology Continue IV Lasix Monitor fluid balance Titrate FiO2 as tolerated to maintain a saturation above 90% Chest x-ray still showing acute pulmonary edema and CHF and small bilateral pleural effusions Echo results were noted Monitor sodium level, the patient was given a dose of samsca by nephrology Resume home medications including long-acting insulin and a NovoLog sliding scale coverage Resume beta blockers, currently on metoprolol 25 mg by mouth daily Lovenox 30 mg subcu for DVT prophylaxis Continue aspirin and Plavix Keep the patient ICU
[2021-07-14 15:31] LABS: Glucose,Whole Blood 209 mg/dL (75-99)
[2021-07-14] MEDS: INSULIN DETEMIR (LEVEMIR) 100 UNIT/ML SYR SQ SCH ×2 (16:08→20:18)
[2021-07-14 16:58] LABS: Glucose,Whole Blood 255 mg/dL (75-99)
[2021-07-14] MEDS: INSULIN ASPART (NovoLOG) 100 UNIT/ML VIAL SQ SCH ×2 (16:59→20:18)
[2021-07-14 17:25] LABS: Calcium 9.6 mg/dL (8.4-10.2); Potassium 4.8 mmol/L (3.5-5.1)
[2021-07-14 19:59] LABS: Glucose,Whole Blood 354 mg/dL (75-99)
[2021-07-14] MEDS: FAMOTIDINE 20 MG TAB PO SCH (21:39)
[2021-07-14] MEDS: PRAVASTATIN SODIUM 40 MG TAB PO SCH (21:39)
[2021-07-14] MEDS: QUEtiapine 25 MG TAB PO SCH (21:39)
[2021-07-15 01:54] LABS: Glucose,Whole Blood 306 mg/dL (75-99)
[2021-07-15] MEDS: INSULIN ASPART (NovoLOG) 100 UNIT/ML VIAL SQ SCH ×5 (01:55→20:21)
--- NOTE | 2021-07-15 05:10 | P.PN ---
Subjective HISTORY OF PRESENTING ILLNESS The patient is a pleasant 81-year-old female patient with coronary artery disease and prior revascularization as well as known ischemic cardiomyopathy with EF around 35% and also valvular heart disease with mitral and tricuspid regurgitation as well as multiple comorbid conditions was admitted to the hospital with heart failure. She presented with progressive exertional dyspnea and left heart failure more than right heart failure. 07/15 Patient seen and examined. Creatinine has been going up slowly up to 1.9. She was changed to Lasix IV twice a day yesterday and has had approximately -1.5-2 L over last few days. She states she is feeling much better day by day. Losartan has been held secondary to acute kidney injury. Blood pressures been somewhat borderline 110s over 60s. Denies any chest pain or pressure. Admits to orthopnea slowly improving. Dobutamine has been off. On a low-dose Toprol. PHYSICAL EXAMINATION Vital signs reviewed. CONSTITUTIONAL: No apparent distress. HEENT: Head is normocephalic. Pupils are equal, round. Sclerae anicteric. Mucous membranes of the mouth are moist. No JVD. No carotid bruit. CHEST EXAMINATION: Lungs are clear to auscultation. +crackles bilaterally HEART EXAMINATION: Regular rate and rhythm. S1, S2 heard. No murmurs, gallops or rub. ABDOMEN: Soft, nontender. Positive bowel sounds. EXTREMITIES: 2+ peripheral pulses, no lower extremity edema and no calf tenderness. NEUROLOGIC EXAMINATION: Patient is awake, alert and oriented x3. Assessment #1 acute hypoxic respiratory failure secondary to heart failure with reduced ejection fraction #2 congestive heart failure exacerbation secondary to heart failure with reduced ejection fraction #3 known severe cardiomyopathy with EF around 35% #4 valvular heart disease with severe mitral regurgitation and moderate tricuspid regurgitation #5 coronary artery disease with prior revascularization #6 history of chronic kidney disease #7 Hyponaatremia likely mianly related to volume overload, congestive heart f ailure Plan Patient has slowly been improving clinically however creatinine mildly increased. Suspect some form of cardiorenal syndrome. Ideally afterload reduction and may consider adding hydralazine as losartan has been held secondary to acute kidney injury. If creatinine worsens would likely need to be placed back on dobutamine drip and may even consider right heart catheterization/[employer] marita catheter. She appears to slowly be improving however and we will continue with current therapy. Monitor ins and outs closely. Prognosis guarded. Objective - Vital Signs Vital signs: Vital Signs Temp 98.3 F 07/15/21 04:00 Pulse 84 07/15/21 04:00 Resp 21 07/15/21 04:00 BP 128/68 07/15/21 04:00 Pulse Ox 94 L 07/15/21 04:00 Intake & Output 07/14/21 07/14/21 07/15/21 06:59 18:59 06:59 Intake Total 355.130 809.864 300 Output Total 1640 1575 1105 Balance -1284.870 -765.136 -805 Weight 63 kg 61.7 kg Intake: IV 50 0.9 NACL 50 Intake, IV Titration 55.130 9.864 Amount DOBUTamine DRIP 500 mg In 24.0 Dextrose/Water 1 250ml. bag @ 2.5 MCG/KG/MIN 4. 845 mls/hr IV .Q24H [facility] Rx#:[id number] Insulin Regular 100 unit 31.130 9.864 In Sodium Chloride 0.9% 100 ml @ Per Protocol IV .Q0M [facility] Rx#:[id number] Oral 300 750 300 Output: Urine 1640 1575 1105 Other: Voiding Method Indwelling Catheter Indwelling Catheter Indwelling Catheter - Labs CBC & Chem 7: 07/13/21 05:49 07/14/21 16:55 Labs: Abnormal Lab Results - Last 24 Hours (Table) 07/14/21 07/14/21 07/14/21 Range/Units 05:38 06:05 06:43 Sodium 127 L (137-145) mmol/L Chloride 96 L (98-107) mmol/L BUN 58 H (7-17) mg/dL Creatinine 1.87 H (0.52-1.04) mg/dL Glucose 110 H (74-99) mg/dL POC Glucose (mg/dL) 131 H 140 H (75-99) mg/dL 07/14/21 07/14/21 07/14/21 Range/Units 08:16 09:40 11:01 Sodium (137-145) mmol/L Chloride (98-107) mmol/L BUN (7-17) mg/dL Creatinine (0.52-1.04) mg/dL Glucose (74-99) mg/dL POC Glucose (mg/dL) 159 H 211 H 218 H (75-99) mg/dL 07/14/21 07/14/21 07/14/21 Range/Units 12:06 15:29 16:55 Sodium 129 L (137-145) mmol/L Chloride 94 L (98-107) mmol/L BUN 63 H (7-17) mg/dL Creatinine 1.90 H (0.52-1.04) mg/dL Glucose 250 H (74-99) mg/dL POC Glucose (mg/dL) 200 H 209 H (75-99) mg/dL 07/14/21 07/14/21 07/15/21 Range/Units 16:57 19:58 01:53 Sodium (137-145) mmol/L Chloride (98-107) mmol/L BUN (7-17) mg/dL Creatinine (0.52-1.04) mg/dL Glucose (74-99) mg/dL POC Glucose (mg/dL) 255 H 354 H 306 H (75-99) mg/dL
[2021-07-15 06:21] LABS: HCT 32.5 % (34.0-46.0); HGB 10.5 gm/dL (11.4-16.0); MCH 29.3 pg (25.0-35.0); MCHC 32.3 g/dL (31.0-37.0); MCV 90.6 fL (80.0-100.0); Mean Platelet Volume 7.4; Platelet Count 471 k/uL (150-450); RBC 3.59 m/uL (3.80-5.40); RDW 14.4 % (11.5-15.5); WBC 21.7 k/uL (3.8-10.6)
[2021-07-15 06:29] LABS: Calcium 10.1 mg/dL (8.4-10.2); Potassium 4.4 mmol/L (3.5-5.1)
--- NOTE | 2021-07-15 06:35 | XR ---
EXAMINATION TYPE: XR chest 1V portable DATE OF EXAM: 07/15/2021 CLINICAL HISTORY: Difficulty breathing progress study. TECHNIQUE: Single AP portable upright view of the chest is obtained. COMPARISON: Chest x-ray from one day earlier and older studies. FINDINGS: Overlying sternal wires and mediastinal clips redemonstrated. Surgical clips at level of d iaphragmatic hiatus again seen. Persistent cardiomegaly with bilateral central alveolar and interstit ial opacities. Persistent small right pleural effusion. Osseous structures are demineralized. IMPRESSION: Cardiomegaly with bilateral moderate alveolar and interstitial edema suggestive of CHF ex acerbation are felt present. Correlate clinically. Small right pleural effusion noted. No significant change from one day earlier.
[2021-07-15 06:55] LABS: Glucose,Whole Blood 49 mg/dL (75-99)
[2021-07-15 07:16] LABS: Glucose,Whole Blood 65 mg/dL (75-99)
[2021-07-15 08:03] LABS: Glucose,Whole Blood 92 mg/dL (75-99)
[2021-07-15] MEDS: LORATADINE 10 MG TAB PO SCH (08:18)
[2021-07-15] MEDS: SODIUM BICARBONATE TAB 650 MG TAB PO SCH ×2 (08:18→20:20)
[2021-07-15] MEDS: TAMSULOSIN 0.4 MG CAP.ER.24H PO SCH (08:18)
[2021-07-15] MEDS: ASPIRIN 81 MG PO SCH (08:19)
[2021-07-15] MEDS: METOPROLOL SUCCINATE (ER) 25 MG TAB.ER.24H PO SCH (08:19)
[2021-07-15] MEDS: ISOSORBIDE MONONITRATE ER 30 MG TAB.ER.24H PO SCH (08:19)
[2021-07-15] MEDS: CHOLECALCIFEROL 25 MCG (1000 IU) TABLET PO SCH (08:19)
[2021-07-15] MEDS: ENOXAPARIN 30 MG/0.3 ML SYRINGE SQ SCH (08:19)
[2021-07-15] MEDS: FUROSEMIDE 10 MG/ML 4 ML VIAL IV SCH ×2 (08:19→20:21)
[2021-07-15] MEDS: IPRATROPIUM-ALBUTEROL 3 ML NEB INHALATION SCH ×4 (09:24→18:55)
[2021-07-15] MEDS: INSULIN DETEMIR (LEVEMIR) 100 UNIT/ML SYR SQ SCH ×2 (10:08→20:21)
[2021-07-15 11:19] LABS: Glucose,Whole Blood 158 mg/dL (75-99)
[2021-07-15] MEDS: CLOPIDOGREL 75 MG TAB PO SCH (11:24)
--- NOTE | 2021-07-15 12:25 | P.PN ---
Subjective Progress Note Date: 07/15/21 81-year-old female patient with extensive cardiac history with previous coronary artery bypass surgery and the patient is known to have CAD and valvular heart disease with severe mitral regurgitation, tricuspid regurgitation, along with history of hypertension and hyperlipidemia and chronic kidney disease. She has also multiple other medical positive comorbidities as mentioned in the medical records. The patient presented to the hospital because of progressive worsening shortness of breath. No increase in lower extremity edema. Denied having any chest pain. She specifically on 2 L of O2 at home. Currently her oxidation is worse and the patient is currently up to 12 L of O2. In the emergency, the chest x-ray showed pulmonary edema, bilateral pleural effusion, right lower lobe atelectasis. Same time, her proBNP level was elevated at 8770. Initial troponin was at 0.035. Sodium level was also had 116 attributed to CHF. Creatinine is at 1.5 to which is essentially equivalent to her baseline as the patient is chronic stage III kidney disease. The patient was started on diuretics. She is currently on Lasix. Follow-up sodium level is up to 122. Noted the patient taking Lasix 40 mg at home on a daily basis. She is also maintained on a combination of metoprolol, Cozaar, M.D. or. She is diabetic and she is on Lantus insulin and a NovoLog scale. On today's evaluation of 3 72,022, the patient continues to BE short of breath. She remains on oxygen at 12 L over oxygen by nasal cannula. Chest x-ray still showed pulmonary edema. There is also possibility about the pleural effusion more so on the right. There is also cardiomegaly. Echo of the heart was done and the patient was found to have an EF around 30-35%. There is grade 2 diastolic heart failure. There is also evidence of pulmonary hypertension moderate to severe in nature along with moderate to severe MR, moderate tricuspid regurgitation. The patient is currently on IV Lasix 40 mg every 8 hours. She is a negative fluid balance. Her cardiac rhythm is sinus for now. She history of any chest pain or angina. On her blood work, the white cell count is at 11.7 with a hemoglobin of 10.5 and a platelet count of 362. Sodium level is at 122 which is improved compared to yesterday and the patient has a BUN of 52 with a creatinine of 1.7. Troponins of 0.04. Blood sugars of 77 from this morning. The patient is diabetic. No altered mentation. No chest pain. 07/14/2021, seeing the patient for a follow-up. Clinically improved compared to yesterday. The patient was started on dobutamine and this improved her cardiac output and urine output. The patient has been a negative fluid balance. The patient has diuresed adequately over the past 24 hours and the patient is currently on 3 L of oxygen by nasal cannula. Her chest x-ray still showing CHF and edema and the patient has bilateral pleural effusion, small. The patient's is currently on diuretics and the patient is receiving Lasix 40 mg IV push every 12 hours. Sodium is at 127, BUN is associated with a creatinine of 1.8, and the patient's potassium level is at 4.8. The patient is able to speak in longer s entences. No angina. No palpitation. Cardiac rhythm is sinus. The patient has a RBBB pattern on her EKG. Noted the patient also had issues with hyperglycemia. She was on an insulin drip overnight. This morning, blood sugars under better control. She was given Levemir insulin 20 units twice a day along with NovoLog sliding scale coverage. She is also on beta blockers and the patient is currently on metoprolol 25 mg by mouth daily. She is on aspirin and Plavix. 07/15/2021, patient is doing well. No specific complaints. Continues to improve. Producing excellent urine output. Fluid balance is -2.7 L over the past 24 hours. Chest x-ray still showing pulmonary edema. Remains on 4 L of O2 by nasal cannula. Creatinine is up to 1.9 which is stable. Sodium level is at 134, improved. The patient continues to be an IV Lasix. The patient is off dobutamine. Cardiac rhythm remains sinus with a RBB pattern. The patient had a bout of hypoglycemia today. Levemir insulin was held for today. No altered mentation. No chest pain.Lasix dose was reduced down to 40 mg every 12 hours. no other complaints for now.the patient's white cell count is 21.7 with hemoglobin of 10.5. Objective - Vital Signs Vital signs: Vital Signs Temp 97.7 F 07/15/21 08:00 Pulse 71 07/15/21 11:00 Resp 12 07/15/21 11:00 BP 124/64 07/15/21 11:00 Pulse Ox 95 07/15/21 11:00 Intake & Output 07/14/21 07/15/21 07/15/21 18:59 06:59 18:59 Intake Total 809.864 300 118 Output Total 1575 1180 560 Balance -765.136 -880 -442 Weight 61.7 kg Intake: IV 50 0.9 NACL 50 Intake, IV Titration 9.864 Amount Insulin Regular 100 unit 9.864 In Sodium Chloride 0.9% 100 ml @ Per Protocol IV .Q0M [facility] Rx#:[id number] Oral 750 300 118 Output: Urine 1575 1180 560 Other: Voiding Method Indwelling Catheter Indwelling Catheter Indwelling Catheter - Exam GENERAL: 81-year-old female in no acute distress at the time of my examination, currently on 3 L of O2 by nasal cannula Head exam was generally normal. There was no scleral icterus or corneal arcus. Mucous membranes were moist. HEENT: Head is atraumatic, normocephalic. Pupils equal, round. Sclera anicteric. Conjunctiva are clear. Mucous membranes of the mouth are moist. Neck is supple. There is no elevated jugular venous pressure. No carotid bruit is heard. HEART EXAMINATION: Heart S1 and S2 with soft systolic murmur is heard. There is a gallop rhythm. At the same time, the patient is positive JVDs bilaterally. CHEST EXAMINATION: Lungs are diminished breath sounds bilaterally the patient has crackles in the mid lower lung vital more so on the right. Breath sounds are quite diminished in lung bases. The patient also has a thoracotomy scar over the anterior chest area. ABDOMEN: Soft, nontender. Bowel sounds are heard. No organomegaly noted. EXTREMITIES: 2+ peripheral pulses with no evidence of peripheral edema and no calf tenderness noted. - Labs CBC & Chem 7: 07/15/21 05:39 07/15/21 05:39 Labs: Abnormal Lab Results - Last 24 Hours (Table) 07/14/21 07/14/21 07/14/21 Range/Units 15:29 16:55 16:57 WBC (3.8-10.6) k/uL RBC (3.80-5.40) m/uL Hgb (11.4-16.0) gm/dL Hct (34.0-46.0) % Plt Count (150-450) k/uL Sodium 129 L (137-145) mmol/L Chloride 94 L (98-107) mmol/L BUN 63 H (7-17) mg/dL Creatinine 1.90 H (0.52-1.04) mg/dL Glucose 250 H (74-99) mg/dL POC Glucose (mg/dL) 209 H 255 H (75-99) mg/dL 07/14/21 07/15/21 07/15/21 Range/Units 19:58 01:53 05:39 WBC 21.7 H (3.8-10.6) k/uL RBC 3.59 L (3.80-5.40) m/uL Hgb 10.5 L (11.4-16.0) gm/dL Hct 32.5 L (34.0-46.0) % Plt Count 471 H (150-450) k/uL Sodium (137-145) mmol/L Chloride (98-107) mmol/L BUN (7-17) mg/dL Creatinine (0.52-1.04) mg/dL Glucose (74-99) mg/dL POC Glucose (mg/dL) 354 H 306 H (75-99) mg/dL 07/15/21 07/15/21 07/15/21 Range/Units 05:39 06:53 07:14 WBC (3.8-10.6) k/uL RBC (3.80-5.40) m/uL Hgb (11.4-16.0) gm/dL Hct (34.0-46.0) % Plt Count (150-450) k/uL Sodium 134 L (137-145) mmol/L Chloride (98-107) mmol/L BUN 71 H (7-17) mg/dL Creatinine 1.95 H (0.52-1.04) mg/dL Glucose 33 L* (74-99) mg/dL POC Glucose (mg/dL) 49 L 65 L (75-99) mg/dL 07/15/21 Range/Units 11:18 WBC (3.8-10.6) k/uL RBC (3.80-5.40) m/uL Hgb (11.4-16.0) gm/dL Hct (34.0-46.0) % Plt Count (150-450) k/uL Sodium (137-145) mmol/L Chloride (98-107) mmol/L BUN (7-17) mg/dL Creatinine (0.52-1.04) mg/dL Glucose (74-99) mg/dL POC Glucose (mg/dL) 158 H (75-99) mg/dL Assessment and Plan Plan: 1 acute exacerbation of chronic systolic heart failure. The patient presents with pulmonary edema in addition to bilateral pleural effusions and hypoxic respiratory failure currently on 4 L of O2 nasal cannula. FiO2 has been weaned off. The patient continues to be on diuretics with Lasix. The patient is currently off dobutamine. Creatinine is stable at 1.9. Continues to improve clinically. Cardiac rhythm remains sinus. 2 acute on chronic hypoxic respiratory failure currently on 3 L of oxygen by nasal cannula 3 acute hyponatremia, improving secondary to CHF, improving and the sodium level is up to 134 4 chronic systolic heart failure with impaired LV function and multiple segmental wall motion abnormalities. The patient is known to have an ejection fraction of 30-35% based on echocardiogram from 2019 addition to segmental wall motion abnormalities 5 valvular heart disease in addition to moderate to severe mitral regurgitation and severe tricuspid regurgitation and severe pulmonary hypertension 6 history of coronary artery bypass surgery 7 history of AICD/pacemaker insertion 8 chronic kidney disease stage III, likely diabetic in nature 9 diabetes mellitus type 2 maintained on Lantus in addition to NovoLog sliding scale coverage, currently the patient on Levemir insulin 20 units twice a day along with a scale 10 hypertension 11 macular degeneration 12 coronary artery disease 13 previous history of [place] 14 diverticular disease Plan Continue IV Lasix Monitor fluid balance Titrate FiO2 as tolerated to maintain a saturation above 90% Chest x-ray still showing acute pulmonary edema and CHF and small bilateral pleural effusions Echo results were noted Monitor sodium level, the patient sodium level is improved hold Levemir insulin and put the patient only on insulin scale insulin coverage metoprolol 25 mg by mouth daily Lovenox 30 mg subcu for DVT prophylaxis Continue aspirin and Plavix Keep the patient ICU for another 24 hours and will continue to follow.
--- NOTE | 2021-07-15 16:15 | P.PN ---
Subjective Patient is seen for follow-up for hyponatremia and chronic kidney disease. Currently patient is being diuresed and is maintained on fluid restriction. She also received Samsca and her sodium has improved. Patient the denies any significant complaints today. No nausea vomiting No shortness of breath. Sodium is 134 and serum creatinine 1.95 Lasix was decreased to 40 mg IV twice a day yesterday. Objective - Vital Signs Vital signs: Vital Signs Temp 97.7 F 07/15/21 12:00 Pulse 78 07/15/21 15:00 Resp 21 07/15/21 15:00 BP 105/58 07/15/21 15:00 Pulse Ox 92 L 07/15/21 15:00 Intake & Output 07/14/21 07/15/21 07/15/21 18:59 06:59 18:59 Intake Total 809.864 300 168 Output Total 1575 1180 875 Balance -765.136 -880 -707 Weight 61.7 kg Intake: IV 50 0.9 NACL 50 Intake, IV Titration 9.864 Amount Insulin Regular 100 unit 9.864 In Sodium Chloride 0.9% 100 ml @ Per Protocol IV .Q0M [facility] Rx#:[id number] Oral 750 300 168 Output: Urine 1575 1180 875 Other: Voiding Method Indwelling Catheter Indwelling Catheter Indwelling Catheter - Exam Patient is awake comfortable. Not in any acute distress. Alert oriented 3 Examination of the heart S1 and S2 Examination lungs shows decreased breath sounds at the bases Abdomen is soft nontender Exam in lower extremities shows no evidence of edema. - Labs CBC & Chem 7: 07/15/21 05:39 07/15/21 05:39 Labs: Abnormal Lab Results - Last 24 Hours (Table) 07/14/21 07/14/21 07/14/21 Range/Units 16:55 16:57 19:58 WBC (3.8-10.6) k/uL RBC (3.80-5.40) m/uL Hgb (11.4-16.0) gm/dL Hct (34.0-46.0) % Plt Count (150-450) k/uL Sodium 129 L (137-145) mmol/L Chloride 94 L (98-107) mmol/L BUN 63 H (7-17) mg/dL Creatinine 1.90 H (0.52-1.04) mg/dL Glucose 250 H (74-99) mg/dL POC Glucose (mg/dL) 255 H 354 H (75-99) mg/dL 07/15/21 07/15/21 07/15/21 Range/Units 01:53 05:39 05:39 WBC 21.7 H (3.8-10.6) k/uL RBC 3.59 L (3.80-5.40) m/uL Hgb 10.5 L (11.4-16.0) gm/dL Hct 32.5 L (34.0-46.0) % Plt Count 471 H (150-450) k/uL Sodium 134 L (137-145) mmol/L Chloride (98-107) mmol/L BUN 71 H (7-17) mg/dL Creatinine 1.95 H (0.52-1.04) mg/dL Glucose 33 L* (74-99) mg/dL POC Glucose (mg/dL) 306 H (75-99) mg/dL 07/15/21 07/15/21 07/15/21 Range/Units 06:53 07:14 11:18 WBC (3.8-10.6) k/uL RBC (3.80-5.40) m/uL Hgb (11.4-16.0) gm/dL Hct (34.0-46.0) % Plt Count (150-450) k/uL Sodium (137-145) mmol/L Chloride (98-107) mmol/L BUN (7-17) mg/dL Creatinine (0.52-1.04) mg/dL Glucose (74-99) mg/dL POC Glucose (mg/dL) 49 L 65 L 158 H (75-99) mg/dL Assessment and Plan Assessment: 1. Hypervolemic hyponatremia. Status post Samsca maintained on diuretics and fluid restriction. Sodium is up to 134 today 2. Urinary retention status post Christie catheter placement 3. CK D stage III B baseline creatinine 1.5 secondary to diabetic kidney disea se 4. Volume overload improving with diuresis 5. Metabolic acidosis secondary to CK D maintained on oral sodium bicarb 6. Acute on chronic systolic CHF with ejection fraction 30-35% with moderate to severe mitral regurgitation, moderate tricuspid regurg and moderate pulmonary hypertension Plan: Continue current dose of IV Lasix. Serum creatinine is slightly increased however chest x-ray continues to show significant pulmonary vascular congestion. Decrease Lasix in a.m. if serum creatinine is significantly worse. Maintain fluid restriction Repeat labs in a.m.
[2021-07-15 16:58] LABS: Glucose,Whole Blood 81 mg/dL (75-99)
[2021-07-15 20:14] LABS: Glucose,Whole Blood 200 mg/dL (75-99)
[2021-07-15] MEDS: FAMOTIDINE 20 MG TAB PO SCH (20:20)
[2021-07-15] MEDS: QUEtiapine 25 MG TAB PO SCH (20:21)
[2021-07-15] MEDS: PRAVASTATIN SODIUM 40 MG TAB PO SCH (20:21)
[2021-07-16 01:49] LABS: Glucose,Whole Blood 210 mg/dL (75-99)
[2021-07-16] MEDS: INSULIN ASPART (NovoLOG) 100 UNIT/ML VIAL SQ SCH ×5 (01:50→20:53)
--- NOTE | 2021-07-16 06:11 | XR ---
EXAMINATION TYPE: XR chest 1V portable DATE OF EXAM: 07/16/2021 CLINICAL HISTORY: Difficulty breathing progress study. TECHNIQUE: Single AP portable upright view of the chest is obtained. COMPARISON: Chest x-ray from one day earlier and older studies. FINDINGS: Overlying sternal wires and mediastinal clips redemonstrated. Surgical clips at level of d iaphragmatic hiatus are again seen. Persistent cardiomegaly with improving bilateral central alveolar and interstitial opacities. Persist ent small right pleural effusion. Osseous structures remain demineralized. IMPRESSION: Cardiomegaly with improving bilateral mild to moderate alveolar and interstitial edema haji ggestive of resolving CHF exacerbation are felt present. Correlate clinically. Small right pleural ef fusion redemonstrated.
[2021-07-16 06:48] LABS: Glucose,Whole Blood 53 mg/dL (75-99)
[2021-07-16 07:09] LABS: Glucose,Whole Blood 58 mg/dL (75-99)
--- NOTE | 2021-07-16 07:22 | P.PN ---
Subjective HISTORY OF PRESENTING ILLNESS The patient is a pleasant 81-year-old female patient with coronary artery disease and prior revascularization as well as known ischemic cardiomyopathy with EF around 35% and also valvular heart disease with mitral and tricuspid regurgitation as well as multiple comorbid conditions was admitted to the hospital with heart failure. She presented with progressive exertional dyspnea and left heart failure more than right heart failure. 07/15 Patient seen and examined. Creatinine has been going up slowly up to 1.9. She was changed to Lasix IV twice a day yesterday and has had approximately -1.5-2 L over last few days. She states she is feeling much better day by day. Losartan has been held secondary to acute kidney injury. Blood pressures been somewhat borderline 110s over 60s. Denies any chest pain or pressure. Admits to orthopnea slowly improving. Dobutamine has been off. On a low-dose Toprol. 07/16 Patient seen and examined. Patient's creatinine still mildly increased at 1.95. Labs pending from today. She has been having good urine output. Blood pressures borderline 135/69 currently. She did have a bowel movement and feels better. She states her breathing is improving. She has had labile blood sugars. PHYSICAL EXAMINATION Vital signs reviewed. CONSTITUTIONAL: No apparent distress. HEENT: Head is normocephalic. Pupils are equal, round. Sclerae anicteric. Mucous membranes of the mouth are moist. No JVD. No carotid bruit. CHEST EXAMINATION: Lungs are clear to auscultation. +crackles bilaterally HEART EXAMINATION: Regular rate and rhythm. S1, S2 heard. No murmurs, gallops or rub. ABDOMEN: Soft, nontender. Positive bowel sounds. EXTREMITIES: 2+ peripheral pulses, no lower extremity edema and no calf tenderness. NEUROLOGIC EXAMINATION: Patient is awake, alert and oriented x3. Assessment #1 acute hypoxic respiratory failure secondary to heart failure with reduced ejection fraction #2 congestive heart failure exacerbation secondary to heart failure with reduced ejection fraction #3 known severe cardiomyopathy with EF around 35% #4 valvular heart disease with severe mitral regurgitation and moderate tricuspid regurgitation #5 coronary artery disease with prior revascularization #6 history of chronic kidney disease #7 Hyponaatremia likely mianly related to volume overload, congestive heart failure Plan Likely some form of cardiorenal syndrome. If creatinine remains stable however would ideally add low-dose afterload reduction with losartan. Continue to with diuretics and possibly 1 more day and then transitioned to oral medications. Labs pending. Otherwise patient appears stable for transfer out of the ICU. Objective - Vital Signs Vital signs: Vital Signs Temp 97.9 F 07/15/21 20:00 Pulse 73 07/16/21 06:00 Resp 17 07/16/21 06:00 BP 136/64 07/16/21 06:00 Pulse Ox 93 L 07/16/21 06:00 Intake & Output 07/15/21 07/16/21 07/16/21 18:59 06:59 18:59 Intake Total 168 808 Output Total 1105 1475 Balance -937 -667 Weight 59.9 kg Intake: Oral 168 808 Output: Urine 1105 1475 Other: Voiding Method Indwelling Catheter Indwelling Catheter - Labs CBC & Chem 7: 07/15/21 05:39 07/15/21 05:39 Labs: Abnormal Lab Results - Last 24 Hours (Table) 07/15/21 07/15/21 07/16/21 Range/Units 11:18 20:13 01:46 POC Glucose (mg/dL) 158 H 200 H 210 H (75-99) mg/dL 07/16/21 07/16/21 Range/Units 06:46 07:08 POC Glucose (mg/dL) 53 L 58 L (75-99) mg/dL
[2021-07-16 07:38] LABS: Basophils % (A) 0 %; Eosinophils # (A) 0.5 k/uL (0-0.7); Eosinophils % (A) 4 %; HCT 37.4 % (34.0-46.0); HGB 11.7 gm/dL (11.4-16.0); Hypochromasia Slight; Lymphocytes # (A) 2.9 k/uL (1.0-4.8); Lymphocytes % (A) 22 %; MCH 28.9 pg (25.0-35.0); MCHC 31.3 g/dL (31.0-37.0); MCV 92.3 fL (80.0-100.0); Mean Platelet Volume 7.1; Monocytes # (A) 1.1 k/uL (0-1.0); Monocytes % (A) 8 %; Neutrophils # (A) 8.5 k/uL (1.3-7.7); Neutrophils % (A) 65 %; Platelet Count 472 k/uL (150-450); RBC 4.05 m/uL (3.80-5.40); RDW 14.5 % (11.5-15.5); WBC 13.2 k/uL (3.8-10.6)
[2021-07-16] MEDS: IPRATROPIUM-ALBUTEROL 3 ML NEB INHALATION SCH ×4 (07:47→21:07)
[2021-07-16 07:53] LABS: Calcium 9.9 mg/dL (8.4-10.2); Potassium 4.5 mmol/L (3.5-5.1)
[2021-07-16 08:03] LABS: Glucose,Whole Blood 83 mg/dL (75-99)
[2021-07-16] MEDS: INSULIN DETEMIR (LEVEMIR) 100 UNIT/ML SYR SQ SCH ×2 (09:27→20:53)
[2021-07-16] MEDS: LOSARTAN 25 MG TAB PO SCH (09:39)
[2021-07-16] MEDS: METOPROLOL SUCCINATE (ER) 25 MG TAB.ER.24H PO SCH (09:40)
[2021-07-16] MEDS: ASPIRIN 81 MG PO SCH (09:40)
[2021-07-16] MEDS: CHOLECALCIFEROL 25 MCG (1000 IU) TABLET PO SCH (09:40)
[2021-07-16] MEDS: SODIUM BICARBONATE TAB 650 MG TAB PO SCH ×2 (09:40→20:53)
[2021-07-16] MEDS: FUROSEMIDE 10 MG/ML 4 ML VIAL IV SCH ×2 (09:40→20:52)
[2021-07-16] MEDS: LORATADINE 10 MG TAB PO SCH (09:40)
[2021-07-16] MEDS: ENOXAPARIN 30 MG/0.3 ML SYRINGE SQ SCH (09:40)
[2021-07-16] MEDS: ISOSORBIDE MONONITRATE ER 30 MG TAB.ER.24H PO SCH (09:40)
[2021-07-16] MEDS: TAMSULOSIN 0.4 MG CAP.ER.24H PO SCH (09:40)
--- NOTE | 2021-07-16 10:32 | P.PN ---
Subjective Patient is seen for follow-up for hyponatremia and chronic kidney disease. Currently patient is being diuresed and is maintained on fluid restriction. She also received Samsca and her sodium has improved. Patient the denies any significant complaints today. No nausea vomiting No shortness of breath. Sodium is 134 and serum creatinine 1.95 Lasix was decreased to 40 mg IV twice a day. No significant shortness of breath Objective - Vital Signs Vital signs: Vital Signs Temp 97.8 F 07/16/21 08:00 Pulse 79 07/16/21 09:00 Resp 17 07/16/21 09:00 BP 135/59 07/16/21 09:00 Pulse Ox 94 L 07/16/21 09:00 Intake & Output 07/15/21 07/16/21 07/16/21 18:59 06:59 18:59 Intake Total 168 808 Output Total 1105 1475 160 Balance -937 -667 -160 Weight 59.9 kg Intake: Oral 168 808 Output: Urine 1105 1475 160 Other: Voiding Method Indwelling Catheter Indwelling Catheter - Exam Patient is awake comfortable. Not in any acute distress. Alert oriented 3 Examination of the heart S1 and S2 Examination lungs shows decreased breath sounds at the bases Abdomen is soft nontender Exam in lower extremities shows no evidence of edema. - Labs CBC & Chem 7: 07/16/21 07:05 07/16/21 07:05 Labs: Abnormal Lab Results - Last 24 Hours (Table) 07/15/21 07/15/21 07/16/21 Range/Units 11:18 20:13 01:46 WBC (3.8-10.6) k/uL Plt Count (150-450) k/uL Neutrophils # (1.3-7.7) k/uL Monocytes # (0-1.0) k/uL Carbon Dioxide (22-30) mmol/L BUN (7-17) mg/dL Creatinine (0.52-1.04) mg/dL Glucose (74-99) mg/dL POC Glucose (mg/dL) 158 H 200 H 210 H (75-99) mg/dL 07/16/21 07/16/21 07/16/21 Range/Units 06:46 07:05 07:05 WBC 13.2 H (3.8-10.6) k/uL Plt Count 472 H (150-450) k/uL Neutrophils # 8.5 H (1.3-7.7) k/uL Monocytes # 1.1 H (0-1.0) k/uL Carbon Dioxide 34 H (22-30) mmol/L BUN 79 H (7-17) mg/dL Creatinine 1.85 H (0.52-1.04) mg/dL Glucose 46 L* (74-99) mg/dL POC Glucose (mg/dL) 53 L (75-99) mg/dL 07/16/21 Range/Units 07:08 WBC (3.8-10.6) k/uL Plt Count (150-450) k/uL Neutrophils # (1.3-7.7) k/uL Monocytes # (0-1.0) k/uL Carbon Dioxide (22-30) mmol/L BUN (7-17) mg/dL Creatinine (0.52-1.04) mg/dL Glucose (74-99) mg/dL POC Glucose (mg/dL) 58 L (75-99) mg/dL Assessment and Plan Assessment: 1. Hypervolemic hyponatremia. Status post Samsca maintained on diuretics and fluid restriction. Sodium is up to 137 today 2. Urinary retention status post Christie catheter placement 3. CK D stage III B baseline creatinine 1.5 secondary to diabetic kidney disease 4. Volume overload improving with diuresis 5. Metabolic acidosis secondary to CK D maintained on oral sodium bicarb 6. Acute on chronic systolic CHF with ejection fraction 30-35% with moderate to severe mitral regurgitation, moderate tricuspid regurg and moderate pulmonary hypertension Plan: Continue current dose of IV Lasix. Maintain fluid restriction Repeat labs in a.m.
[2021-07-16] MEDS: CLOPIDOGREL 75 MG TAB PO SCH (12:02)
[2021-07-16 12:04] LABS: Glucose,Whole Blood 89 mg/dL (75-99)
--- NOTE | 2021-07-16 16:00 | P.PN ---
Subjective Progress Note Date: 07/16/21 81-year-old female patient with extensive cardiac history with previous coronary artery bypass surgery and the patient is known to have CAD and valvular heart disease with severe mitral regurgitation, tricuspid regurgitation, along with history of hypertension and hyperlipidemia and chronic kidney disease. She has also multiple other medical positive comorbidities as mentioned in the medical records. The patient presented to the hospital because of progressive worsening shortness of breath. No increase in lower extremity edema. Denied having any chest pain. She specifically on 2 L of O2 at home. Currently her oxidation is worse and the patient is currently up to 12 L of O2. In the emergency, the chest x-ray showed pulmonary edema, bilateral pleural effusion, right lower lobe atelectasis. Same time, her proBNP level was elevated at 8770. Initial troponin was at 0.035. Sodium level was also had 116 attributed to CHF. Creatinine is at 1.5 to which is essentially equivalent to her baseline as the patient is chronic stage III kidney disease. The patient was started on diuretics. She is currently on Lasix. Follow-up sodium level is up to 122. Noted the patient taking Lasix 40 mg at home on a daily basis. She is also maintained on a combination of metoprolol, Cozaar, M.D. or. She is diabetic and she is on Lantus insulin and a NovoLog scale. On today's evaluation of 3 72,022, the patient continues to BE short of breath. She remains on oxygen at 12 L over oxygen by nasal cannula. Chest x-ray still showed pulmonary edema. There is also possibility about the pleural effusion more so on the right. There is also cardiomegaly. Echo of the heart was done and the patient was found to have an EF around 30-35%. There is grade 2 diastolic heart failure. There is also evidence of pulmonary hypertension moderate to severe in nature along with moderate to severe MR, moderate tricuspid regurgitation. The patient is currently on IV Lasix 40 mg every 8 hours. She is a negative fluid balance. Her cardiac rhythm is sinus for now. She history of any chest pain or angina. On her blood work, the white cell count is at 11.7 with a hemoglobin of 10.5 and a platelet count of 362. Sodium level is at 122 which is improved compared to yesterday and the patient has a BUN of 52 with a creatinine of 1.7. Troponins of 0.04. Blood sugars of 77 from this morning. The patient is diabetic. No altered mentation. No chest pain. 07/14/2021, seeing the patient for a follow-up. Clinically improved compared to yesterday. The patient was started on dobutamine and this improved her cardiac output and urine output. The patient has been a negative fluid balance. The patient has diuresed adequately over the past 24 hours and the patient is currently on 3 L of oxygen by nasal cannula. Her chest x-ray still showing CHF and edema and the patient has bilateral pleural effusion, small. The patient's is currently on diuretics and the patient is receiving Lasix 40 mg IV push every 12 hours. Sodium is at 127, BUN is associated with a creatinine of 1.8, and the patient's potassium level is at 4.8. The patient is able to speak in longer s entences. No angina. No palpitation. Cardiac rhythm is sinus. The patient has a RBBB pattern on her EKG. Noted the patient also had issues with hyperglycemia. She was on an insulin drip overnight. This morning, blood sugars under better control. She was given Levemir insulin 20 units twice a day along with NovoLog sliding scale coverage. She is also on beta blockers and the patient is currently on metoprolol 25 mg by mouth daily. She is on aspirin and Plavix. 07/15/2021, patient is doing well. No specific complaints. Continues to improve. Producing excellent urine output. Fluid balance is -2.7 L over the past 24 hours. Chest x-ray still showing pulmonary edema. Remains on 4 L of O2 by nasal cannula. Creatinine is up to 1.9 which is stable. Sodium level is at 134, improved. The patient continues to be an IV Lasix. The patient is off dobutamine. Cardiac rhythm remains sinus with a RBB pattern. The patient had a bout of hypoglycemia today. Levemir insulin was held for today. No altered mentation. No chest pain.Lasix dose was reduced down to 40 mg every 12 hours. no other complaints for now.the patient's white cell count is 21.7 with hemoglobin of 10.5. 07/16/2021, seeing the patient for a follow-up. The patient remains in the intensive care unit. Over the past 24 hours, the patient WAS kept on diuretics and the patient was being diuresed adequately. Fluid balance is -1.6 L over the past 24 hours. As such, the patient is improved. She is less short of breath. She is showing improvement in chest x-ray findings although the chest x-ray findings not completely normalized. She is currently on 3 L of O2 by nasal cannula. Creatinine is stable at 1.8 with a BUN of 79 and his sodium level of 137. Meanwhile, the patient is noted to have some episodes of hypoglycemia that occurred in early this morning. Levemir insulin dose will be adjusted. Free of any chest pain. Cardiac rhythm is sinus. There is a RBB pattern. She is not requiring any inotropes at this point in time. The plan is to continue the treatment and the patient will be transferred to a medical surgical floor with telemetry. The patient will be kept on diuretics. Objective - Vital Signs Vital signs: Vital Signs Temp 97.5 F L 07/16/21 12:00 Pulse 77 07/16/21 12:00 Resp 20 07/16/21 12:12 BP 145/75 07/16/21 12:00 Pulse Ox 94 L 07/16/21 12:00 Intake & Output 07/15/21 07/16/21 07/16/21 18:59 06:59 18:59 Intake Total 168 808 365 Output Total 1105 1475 820 Balance -937 -667 -455 Weight 59.9 kg Intake: Oral 168 808 365 Output: Urine 1105 1475 820 Other: Voiding Method Indwelling Catheter Indwelling Catheter Indwelling Catheter - Exam GENERAL: 81-year-old female in no acute distress at the time of my examination, currently on 3 L of O2 by nasal cannula Head exam was generally normal. There was no scleral icterus or corneal arcus. Mucous membranes were moist. HEENT: Head is atraumatic, normocephalic. Pupils equal, round. Sclera anicteric. Conjunctiva are clear. Mucous membranes of the mouth are moist. Neck is supple. There is no elevated jugular venous pressure. No carotid br uit is heard. HEART EXAMINATION: Heart S1 and S2 with soft systolic murmur is heard. There is a gallop rhythm. At the same time, the patient is positive JVDs bilaterally. CHEST EXAMINATION: Lungs are diminished breath sounds bilaterally the patient has crackles in the mid lower lung vital more so on the right. Breath sounds are quite diminished in lung bases. The patient also has a thoracotomy scar over the anterior chest area. ABDOMEN: Soft, nontender. Bowel sounds are heard. No organomegaly noted. EXTREMITIES: 2+ peripheral pulses with no evidence of peripheral edema and no calf tenderness noted. - Labs CBC & Chem 7: 07/16/21 07:05 07/16/21 07:05 Labs: Abnormal Lab Results - Last 24 Hours (Table) 07/15/21 07/16/21 07/16/21 Range/Units 20:13 01:46 06:46 WBC (3.8-10.6) k/uL Plt Count (150-450) k/uL Neutrophils # (1.3-7.7) k/uL Monocytes # (0-1.0) k/uL Carbon Dioxide (22-30) mmol/L BUN (7-17) mg/dL Creatinine (0.52-1.04) mg/dL Glucose (74-99) mg/dL POC Glucose (mg/dL) 200 H 210 H 53 L (75-99) mg/dL 07/16/21 07/16/21 07/16/21 Range/Units 07:05 07:05 07:08 WBC 13.2 H (3.8-10.6) k/uL Plt Count 472 H (150-450) k/uL Neutrophils # 8.5 H (1.3-7.7) k/uL Monocytes # 1.1 H (0-1.0) k/uL Carbon Dioxide 34 H (22-30) mmol/L BUN 79 H (7-17) mg/dL Creatinine 1.85 H (0.52-1.04) mg/dL Glucose 46 L* (74-99) mg/dL POC Glucose (mg/dL) 58 L (75-99) mg/dL Assessment and Plan Plan: 1 acute exacerbation of chronic systolic heart failure. The patient presents with pulmonary edema in addition to bilateral pleural effusions and hypoxic respiratory failure currently on 3 L of O2 nasal cannula. FiO2 has been weaned off. The patient continues to be on diuretics with Lasix. There is improvement in the volume status. The patient's chest x-ray is also improving. Patient has been negative fluid balance 2 acute on chronic hypoxic respiratory failure currently on 3 L of oxygen by nasal cannula 3 acute hyponatremia, improving secondary to CHF, improving and the sodium level is up to 134 4 chronic systolic heart failure with impaired LV function and multiple segmental wall motion abnormalities. The patient is known to have an ejection fraction of 30-35% based on echocardiogram from 2019 addition to segmental wall motion abnormalities 5 valvular heart disease in addition to moderate to severe mitral regurgitation and severe tricuspid regurgitation and severe pulmonary hypertension 6 history of coronary artery bypass surgery 7 history of AICD/pacemaker insertion 8 chronic kidney disease stage III, likely diabetic in nature 9 diabetes mellitus type 2 maintained on Lantus in addition to NovoLog sliding scale coverage, currently the patient on Levemir insulin 20 units twice a day along with a scale 10 hypertension 11 macular degeneration 12 coronary artery disease 13 previous history of SD 14 diverticular disease Plan Transfer this patient to cardiac unit, telemetry and she may potentially reliev ed ICU today as the patient is quite comfortable Continue IV Lasix for another 24 hours Monitor fluid balance Titrate FiO2 as tolerated to maintain a saturation above 90% Chest x-ray still showing acute pulmonary edema and CHF and small bilateral pleural effusions, clinically improving and the chest x-ray findings are also improving Echo results were noted Monitor sodium level, the patient sodium level is improved Change the Levemir dose down to 6 units twice a day and monitor blood sugar control metoprolol 25 mg by mouth daily Lovenox 30 mg subcu for DVT prophylaxis Continue aspirin and Plavix Follow-up with cardiology. We'll transferred outside the intensive care unit..
[2021-07-16 16:36] LABS: Glucose,Whole Blood 226 mg/dL (75-99)
[2021-07-16 20:13] LABS: Glucose,Whole Blood 309 mg/dL (75-99)
[2021-07-16] MEDS: QUEtiapine 25 MG TAB PO SCH (20:53)
[2021-07-16] MEDS: PRAVASTATIN SODIUM 40 MG TAB PO SCH (20:53)
[2021-07-16] MEDS: FAMOTIDINE 20 MG TAB PO SCH (20:53)
--- NOTE | 2021-07-16 23:37 | P.PN ---
Subjective Progress Note Date: 07/15/21 This is a pleasant 81-year-old female with past medical history of CAD, MO, CABG, pulmonary hypertension, moderate mitral and tricuspid regurgitation, hyperlipidemia, hypertension, chronic hypoxic respiratory failure, diabetes mellitus, gastroesophageal reflux disease,macular degeneration, UTIs-recently treated for UTI with current UA negative, CKD IIIB and multiple other medical issues, admitted to ICU with worsening shortness of breath without edema over the last 2 weeks. Pulse ox low at home, EMS called.(EMS report currently unavailable). Reports drinking significant amount of fluids. Denies nausea vomiting or diarrhea. Denies abdominal pain. Denies lightheadedness dizziness or focal deficits. Denies chest pain, palpitations or shortness of breath. Denies any fever or chills. Garcia virus not detected.EKG reported atrial fibrillation, with ventricular rate controlled. Serial troponins in progress ;0.035.Chest x-ray reported CHF with increased pulmonary congestion and fluid .Pro-BNP elevated, 8770 .Sodium on admission 116, IV fluids of 3% hypertonic saline initiated along with Lasix IVP. Requiring 12 L high flow nasal cannula to maintain O2 sats in the low 90s. Creatinine 1.5, baseline. Hyperglycemic, blood sugars in the high 200s. Admitted to ICU. Afebrile, WBC 11.7. AM Labs pending. 07/13/2021 Patient is seen and evaluated in the ICU with multiple medical consultations including pulmonary, cardiology, nephrology following. She continues on dobutamine drip along with IV steroids 60 every 6 as well as IV Lasix 40 mg every 8 hours. Patient received a dose of the skull yesterday for hyponatremia with some mild improvement and is scheduled to receive Samsca again today with nephrology following closely. Patient also maintained on bicarb tablets and will continue. Patient reports he normally wearing 2 L of oxygen via nasal cannula currently on 15 L high flow, extremely dyspneic with minimal exertion on exam. Sodium was found to be 122. Creatinine also elevated at 1.78. Patient denies chest pain or palpitations. Patient is afebrile. No reports of nausea or vomiting and patient eating very little but tolerating. Chest x-ray today shows some expiratory rotated exam with findings consistent with congestive heart failure and a pneumonia not excluded and difficult will exclude effusion. Chest ultrasound ordered at this time for possible thoracentesis. 07/14/2021 Patient is seen this morning continues to be in the ICU being closely monitored by multiple medical consultations. Nephrology following for hyponatremia and sodium slightly improved at 127 today. Creatinine trending up at 1.87 with a BUN of 58. Patient does continue on IV Lasix twice daily and dobutamine along with IV Solu-Medrol has been discontinued. Patient reports to improvement in breathing stating she feels better than yesterday. Patient currently on 3 L via nasal cannula and tolerating saturations above 90%. Patient also placed on insulin drip for elevated blood sugars and IV steroids along with dobutamine has been discontinued which may have also contributed to elevated blood sugars and will restart sliding scale along with long-acting Levemir 20 units twice daily and closely monitor Accu-Cheks before meals and at bedtime and at 2 AM. Encouraged oral intake and continue with fluid restrictions per nephrology recommendations. Patient denies chest pain or palpitations. Patient is afebrile. PT/OT therapy to evaluate the patient. 07/15/2021 Patient is in the MICU. Resting in bed comfortably. Patient is being continued on IV Lasix. Off dobutamine drip. Blood pressure is maintained. Patient does have negative balance. Chest x-ray showed pulmonary edema. Currently requiring 4 L oxygen via nasal cannula. Laboratory data showed WBC 21.7 hemoglobin 10.5 and platelets 471 sodium 134 potassium 4.4 chloride 98 BUN 71 and creatinine 1.95. Blood sugar is 33 today. Insulin will be held. Nephrology, cardiology and pulmonary is on board. Current medications reviewed. Review of systems: Constitutional: No reports of fatigue, fever, or chills Cardiovascular: No reports of chest pain or palpitations Respiratory: reports continued shortness of breath and cough, reports significant improvement GI: No reports of nausea, vomiting, or diarrhea : No reports of dysuria or retention Neurovascular: reports of generalized weakness All medications have been reviewed Objective - Vital Signs Vital signs: Vital Signs Temp 97.9 F 07/15/21 20:00 Pulse 84 07/15/21 22:00 Resp 18 07/15/21 22:00 BP 121/58 07/15/21 22:00 Pulse Ox 96 07/15/21 22:00 Intake & Output 07/15/21 07/15/21 07/16/21 06:59 18:59 06:59 Intake Total 300 168 440 Output Total 1180 1105 135 Balance -880 -937 305 Weight 61.7 kg Intake: Oral 300 168 440 Output: Urine 1180 1105 135 Other: Voiding Method Indwelling Catheter Indwelling Catheter Indwelling Catheter - Exam Physical exam: GENERAL: Sitting up in bed, alert and oriented 3, well-developed, well- nourished. currently on 3 L via nasal cannula HEENT: Conjunctivae normal. eyes normal. Oral mucosa moist NECK: No JVD. No thyroid enlargement. No LNs CARDIOVASCULAR: S1, S2 regular. RESPIRATION: Breath sounds diminished in the bases with crackles noted throughout ABDOMEN: Soft, nontender . No guarding. no masses palpable. Bowel sounds heard. LEGS: No edema. no swelling PSYCHIATRY: Alert and oriented X3, mood and affect normal. NERVOUS SYSTEM: Cranial N 2-12 grossly normal. Diffuse weakness, No focal deficits. Strength and sensation grossly intact. Skin: no lesions, no rash - Labs CBC & Chem 7: 07/16/21 07:05 07/16/21 07:05 Labs: Abnormal Lab Results - Last 24 Hours (Table) 07/15/21 07/15/21 07/15/21 Range/Units 01:53 05:39 05:39 WBC 21.7 H (3.8-10.6) k/uL RBC 3.59 L (3.80-5.40) m/uL Hgb 10.5 L (11.4-16.0) gm/dL Hct 32.5 L (34.0-46.0) % Plt Count 471 H (150-450) k/uL Sodium 134 L (137-145) mmol/L BUN 71 H (7-17) mg/dL Creatinine 1.95 H (0.52-1.04) mg/dL Glucose 33 L* (74-99) mg/dL POC Glucose (mg/dL) 306 H (75-99) mg/dL 07/15/21 07/15/21 07/15/21 Range/Units 06:53 07:14 11:18 WBC (3.8-10.6) k/uL RBC (3.80-5.40) m/uL Hgb (11.4-16.0) gm/dL Hct (34.0-46.0) % Plt Count (150-450) k/uL Sodium (137-145) mmol/L BUN (7-17) mg/dL Creatinine (0.52-1.04) mg/dL Glucose (74-99) mg/dL POC Glucose (mg/dL) 49 L 65 L 158 H (75-99) mg/dL 07/15/21 Range/Units 20:13 WBC (3.8-10.6) k/uL RBC (3.80-5.40) m/uL Hgb (11.4-16.0) gm/dL Hct (34.0-46.0) % Plt Count (150-450) k/uL Sodium (137-145) mmol/L BUN (7-17) mg/dL Creatinine (0.52-1.04) mg/dL Glucose (74-99) mg/dL POC Glucose (mg/dL) 200 H (75-99) mg/dL Assessment and Plan Assessment: -Acute CHF systolic dysfunction, EF 30-35% -Acute on chronic hypoxic respiratory failure secondary to the above. Wears 2 L nasal cannula O2 at home and currently 4 L NC -Hyponatremia, hypervolemic and related to hyperglycemia -Diabetes mellitus 2 -CAD, history of MO, CABG, stents -Moderate mitral regurgitation -Moderate tricuspid regurgitation -Pulmonary hypertension -Chronic renal failure, Stage 3B, baseline creatinine around 1.5 -Metabolic acidosis secondary to the above -Gastroesophageal reflux disease -Hypertension -Hyperlipidemia -Macular degeneration -Obesity, BMI 31.8 -GI prophylaxis -DVT prophylaxis -No code Plan: Recommend to continue on current medications with multiple medical consultations following. Cardiology pulmonary, and nephrology following closely. Patient is now currently on 4 L via nasal cannula and tolerating oxygen saturations above 90%. Patient was on IV steroids has been discontinued. started on dobutamine drip along with IV Lasix and continued on IV steroids along with breathing inhalational treatments. Chest ultrasound was done along with 2-D echo showing the left ventricle is mildly dilated overall LV systolic function is moderately to severely impaired with an EF of 35%. Patient has LAD grade 2 diastolic dysfunction. There is noted moderate tricuspid regurgitation present with moderate pulmonary hypertens ion noted. Chest ultrasound shows right pleural effusion pocket size 7.8 cm, left pleural effusion pocket size 4.7 cm both sides were marked by radiology for possible thoracentesis. Patient also maintained on sodium bicarb tablets and will continue. Continue fluid restrictions as well and consistent carb diet. Maintain diuretics. Recommend continue with Accu-Cheks before meals and at bedtime and close monitoring of blood sugars and will continue with sliding scale and long-acting. Insulin drip being discontinued. Due to multiple complex medical issues, prognosis is guarded. Time with Patient: Greater than 30
--- NOTE | 2021-07-16 23:41 | P.PN ---
Subjective Progress Note Date: 07/16/21 This is a pleasant 81-year-old female with past medical history of CAD, CO, CABG, pulmonary hypertension, moderate mitral and tricuspid regurgitation, hyperlipidemia, hypertension, chronic hypoxic respiratory failure, diabetes mellitus, gastroesophageal reflux disease,macular degeneration, UTIs-recently treated for UTI with current UA negative, CKD IIIB and multiple other medical issues, admitted to ICU with worsening shortness of breath without edema over the last 2 weeks. Pulse ox low at home, EMS called.(EMS report currently unavailable). Reports drinking significant amount of fluids. Denies nausea vomiting or diarrhea. Denies abdominal pain. Denies lightheadedness dizziness or focal deficits. Denies chest pain, palpitations or shortness of breath. Denies any fever or chills. Garcia virus not detected.EKG reported atrial fibrillation, with ventricular rate controlled. Serial troponins in progress ;0.035.Chest x-ray reported CHF with increased pulmonary congestion and fluid .Pro-BNP elevated, 8770 .Sodium on admission 116, IV fluids of 3% hypertonic saline initiated along with Lasix IVP. Requiring 12 L high flow nasal cannula to maintain O2 sats in the low 90s. Creatinine 1.5, baseline. Hyperglycemic, blood sugars in the high 200s. Admitted to ICU. Afebrile, WBC 11.7. AM Labs pending. 07/13/2021 Patient is seen and evaluated in the ICU with multiple medical consultations including pulmonary, cardiology, nephrology following. She continues on dobutamine drip along with IV steroids 60 every 6 as well as IV Lasix 40 mg every 8 hours. Patient received a dose of the skull yesterday for hyponatremia with some mild improvement and is scheduled to receive Samsca again today with nephrology following closely. Patient also maintained on bicarb tablets and will continue. Patient reports he normally wearing 2 L of oxygen via nasal cannula currently on 15 L high flow, extremely dyspneic with minimal exertion on exam. Sodium was found to be 122. Creatinine also elevated at 1.78. Patient denies chest pain or palpitations. Patient is afebrile. No reports of nausea or vomiting and patient eating very little but tolerating. Chest x-ray today shows some expiratory rotated exam with findings consistent with congestive heart failure and a pneumonia not excluded and difficult will exclude effusion. Chest ultrasound ordered at this time for possible thoracentesis. 07/14/2021 Patient is seen this morning continues to be in the ICU being closely monitored by multiple medical consultations. Nephrology following for hyponatremia and sodium slightly improved at 127 today. Creatinine trending up at 1.87 with a BUN of 58. Patient does continue on IV Lasix twice daily and dobutamine along with IV Solu-Medrol has been discontinued. Patient reports to improvement in breathing stating she feels better than yesterday. Patient currently on 3 L via nasal cannula and tolerating saturations above 90%. Patient also placed on insulin drip for elevated blood sugars and IV steroids along with dobutamine has been discontinued which may have also contributed to elevated blood sugars and will restart sliding scale along with long-acting Levemir 20 units twice daily and closely monitor Accu-Cheks before meals and at bedtime and at 2 AM. Encouraged oral intake and continue with fluid restrictions per nephrology recommendations. Patient denies chest pain or palpitations. Patient is afebrile. PT/OT therapy to evaluate the patient. 07/15/2021 Patient is in the MICU. Resting in bed comfortably. Patient is being continued on IV Lasix. Off dobutamine drip. Blood pressure is maintained. Patient does have negative balance. Chest x-ray showed pulmonary edema. Currently requiring 4 L oxygen via nasal cannula. Laboratory data showed WBC 21.7 hemoglobin 10.5 and platelets 471 sodium 134 potassium 4.4 chloride 98 BUN 71 and creatinine 1.95. Blood sugar is 33 today. Insulin will be held. Nephrology, cardiology and pulmonary is on board. 07/16/2021 Patient is currently in the intensive care unit. Awake alert and oriented x3. Continued on IV Lasix due to acute CHF exacerbation patient did have negative balance overnight. Dobutamine drip was discontinued yesterday. Currently blood pressure is maintaining. Otherwise patient was hypoglycemic this morning with blood sugar 46. Other laboratory showed WBC 13.2 hemoglobin 11.7 platelets 472 BUN 79 and creatinine 125. Sodium level improved to 137. Patient denied any complaints of chest pain. Breathing status is improving. No cough or sputum production. Fever no chills. No nausea vomiting abdominal pain or diarrhea. Denies any dysuria or hematuria. Patient is being transferred to medical floor today. Current medications reviewed. Review of systems: Constitutional: No reports of fatigue, fever, or chills Cardiovascular: No reports of chest pain or palpitations Respiratory: reports continued shortness of breath and cough, reports significant improvement GI: No reports of nausea, vomiting, or diarrhea : No reports of dysuria or retention Neurovascular: reports of generalized weakness All medications have been reviewed Objective - Vital Signs Vital signs: Vital Signs Temp 97.5 F L 07/16/21 12:00 Pulse 80 07/16/21 17:00 Resp 20 07/16/21 12:12 BP 145/75 07/16/21 12:00 Pulse Ox 94 L 07/16/21 12:00 Intake & Output 07/15/21 07/16/21 07/16/21 18:59 06:59 18:59 Intake Total 168 808 605 Output Total 1105 1475 820 Balance -937 -667 -215 Weight 59.9 kg Intake: Oral 168 808 605 Output: Urine 1105 1475 820 Other: Voiding Method Indwelling Catheter Indwelling Catheter Indwelling Catheter - Exam Physical exam: GENERAL: Sitting up in bed, alert and oriented 3, well-developed, well- nourished. currently on 3 L via nasal cannula HEENT: Conjunctivae normal. eyes normal. Oral mucosa moist NECK: No JVD. No thyroid enlargement. No LNs CARDIOVASCULAR: S1, S2 regular. RESPIRATION: Breath sounds diminished in the bases with crackles noted throughout ABDOMEN: Soft, nontender . No guarding. no masses palpable. Bowel sounds heard. LEGS: No edema. no swelling PSYCHIATRY: Alert and oriented X3, mood and affect normal. NERVOUS SYSTEM: Cranial N 2-12 grossly normal. Diffuse weakness, No focal def icits. Strength and sensation grossly intact. Skin: no lesions, no rash - Labs CBC & Chem 7: 07/16/21 07:05 07/16/21 07:05 Labs: Abnormal Lab Results - Last 24 Hours (Table) 07/15/21 07/16/21 07/16/21 Range/Units 20:13 01:46 06:46 WBC (3.8-10.6) k/uL Plt Count (150-450) k/uL Neutrophils # (1.3-7.7) k/uL Monocytes # (0-1.0) k/uL Carbon Dioxide (22-30) mmol/L BUN (7-17) mg/dL Creatinine (0.52-1.04) mg/dL Glucose (74-99) mg/dL POC Glucose (mg/dL) 200 H 210 H 53 L (75-99) mg/dL 07/16/21 07/16/21 07/16/21 Range/Units 07:05 07:05 07:08 WBC 13.2 H (3.8-10.6) k/uL Plt Count 472 H (150-450) k/uL Neutrophils # 8.5 H (1.3-7.7) k/uL Monocytes # 1.1 H (0-1.0) k/uL Carbon Dioxide 34 H (22-30) mmol/L BUN 79 H (7-17) mg/dL Creatinine 1.85 H (0.52-1.04) mg/dL Glucose 46 L* (74-99) mg/dL POC Glucose (mg/dL) 58 L (75-99) mg/dL 07/16/21 Range/Units 16:33 WBC (3.8-10.6) k/uL Plt Count (150-450) k/uL Neutrophils # (1.3-7.7) k/uL Monocytes # (0-1.0) k/uL Carbon Dioxide (22-30) mmol/L BUN (7-17) mg/dL Creatinine (0.52-1.04) mg/dL Glucose (74-99) mg/dL POC Glucose (mg/dL) 226 H (75-99) mg/dL Assessment and Plan Assessment: -Acute CHF systolic dysfunction, EF 30-35% -Acute on chronic hypoxic respiratory failure secondary to the above. Wears 2 L nasal cannula O2 at home and currently 3 L NC -Hyponatremia, hypervolemic and related to hyperglycemia. improved -Diabetes mellitus 2 -CAD, history of CO, CABG, stents -Moderate mitral regurgitation -Moderate tricuspid regurgitation -Pulmonary hypertension -Chronic renal failure, Stage 3B, baseline creatinine around 1.5 -Metabolic acidosis secondary to the above -Gastroesophageal reflux disease -Hypertension -Hyperlipidemia -Macular degeneration -Obesity, BMI 31.8 -GI prophylaxis -DVT prophylaxis -No code Plan: Recommend to continue on current medications with multiple medical consultations following. Cardiology pulmonary, and nephrology following closely. Patient is now currently on 3 L via nasal cannula and tolerating oxygen saturations above 90%. Patient was on IV steroids has been discontinued. started on dobutamine drip along with IV Lasix and continued on IV steroids along with breathing inhalational treatments. Chest ultrasound was done along with 2-D echo showing the left ventricle is mildly dilated overall LV systolic function is moderately to severely impaired with an EF of 35%. Patient has LAD grade 2 diastolic dysfunction. There is noted moderate tricuspid regurgitation present with moderate pulmonary hypertension noted. Chest ultrasound shows right pleural effusion pocket size 7.8 cm, left pleural effusion pocket size 4.7 cm both sides were marked by radiology for possible thoracentesis. Patient also maintained on sodium bicarb tablets and will continue. Continue fluid restrictions as well and consistent carb diet. Maintain diuretics. continue with Accu-Cheks before meals and at bedtime and close monitoring of blood sugars and will continue with sliding scale and long-acting. c/w levemir. Due to multiple complex medical issues, prognosis is guarded. Time with Patient: Greater than 30
[2021-07-17 03:10] LABS: Glucose,Whole Blood 261 mg/dL (75-99)
[2021-07-17] MEDS: INSULIN ASPART (NovoLOG) 100 UNIT/ML VIAL SQ SCH ×5 (03:11→22:30)
[2021-07-17 07:07] LABS: Glucose,Whole Blood 96 mg/dL (75-99)
[2021-07-17] MEDS: IPRATROPIUM-ALBUTEROL 3 ML NEB INHALATION SCH ×4 (08:03→21:10)
[2021-07-17] MEDS: LOSARTAN 25 MG TAB PO SCH (08:23)
[2021-07-17] MEDS: ISOSORBIDE MONONITRATE ER 30 MG TAB.ER.24H PO SCH (08:24)
[2021-07-17] MEDS: ENOXAPARIN 30 MG/0.3 ML SYRINGE SQ SCH (08:24)
[2021-07-17] MEDS: ASPIRIN 81 MG PO SCH (08:24)
[2021-07-17] MEDS: CHOLECALCIFEROL 25 MCG (1000 IU) TABLET PO SCH (08:24)
[2021-07-17] MEDS: TAMSULOSIN 0.4 MG CAP.ER.24H PO SCH (08:24)
[2021-07-17] MEDS: INSULIN DETEMIR (LEVEMIR) 100 UNIT/ML SYR SQ SCH ×2 (08:24→22:31)
[2021-07-17] MEDS: METOPROLOL SUCCINATE (ER) 25 MG TAB.ER.24H PO SCH (08:24)
[2021-07-17] MEDS: SODIUM BICARBONATE TAB 650 MG TAB PO SCH ×2 (08:24→22:30)
[2021-07-17] MEDS: LORATADINE 10 MG TAB PO SCH (08:24)
[2021-07-17] MEDS: FUROSEMIDE 10 MG/ML 4 ML VIAL IV SCH ×2 (08:25→22:31)
[2021-07-17 09:01] LABS: Basophils # (A) 0.03 X 10*3/uL (0.00-0.10); Basophils % (A) 0.3 %; Eosinophils # (A) 0.66 X 10*3/uL (0.04-0.35); Eosinophils % (A) 5.9 %; HCT 34.9 % (37.2-46.3); Immature Grans, Automated 0.4 %; Lymphocytes # (A) 3.04 X 10*3/uL (0.90-5.00); Lymphocytes % (A) 27.3 %; MCH 28.6 pg (27.0-32.0); MCHC 31.5 g/dL (32.0-37.0); MCV 90.9 fL (80.0-97.0); Mean Platelet Volume 9.6 fL (9.5-12.2); Monocytes # (A) 1.03 X 10*3/uL (0.20-1.00); Monocytes % (A) 9.2 %; NRBC Per 100 WBC 0 /100 WBCS (0.0-0.0); Neutrophils # (A) 6.34 X 10*3/uL (1.80-7.70); Neutrophils % (A) 56.9 %; Platelet Count 448 X 10*3/uL (140-440); RBC 3.84 X 10*6/uL (4.10-5.20); RDW 14.9 % (11.5-14.5); WBC 11.14 X 10*3/uL (4.50-10.00)
[2021-07-17 09:27] LABS: African American GFR (CKD) 31.8 (60.0-200.0); Anion Gap 12.1 mmol/L (10.00-18.00); BUN/Creat Ratio 38.18 Ratio (12.00-20.00); Blood Urea Nitrogen 64.9 mg/dL (9.0-27.0); Carbon Dioxide 25.9 mmol/L (20.0-27.5); Non-African American GFR(CKD) 27.4 (60.0-200.0); Potassium 4.9 mmol/L (3.5-5.5)
--- NOTE | 2021-07-17 11:21 | P.PN ---
Subjective Patient is seen for follow-up for hyponatremia and chronic kidney disease. Currently patient is being diuresed and is maintained on fluid restriction. She also received Samsca and her sodium has improved. Patient the denies any significant complaints today. No nausea vomiting No shortness of breath. Sodium and serum creatinine continues to improve Lasix is at 40 mg IV twice a day. No significant shortness of breath Objective - Vital Signs Vital signs: Vital Signs Temp 97.8 F 07/17/21 07:59 Pulse 85 07/17/21 08:17 Resp 18 07/17/21 07:59 BP 120/72 07/17/21 07:59 Pulse Ox 95 07/17/21 07:59 Intake & Output 07/16/21 07/17/21 07/17/21 18:59 06:59 18:59 Intake Total 605 240 Output Total 820 1500 Balance -215 -1260 Intake: Oral 605 240 Output: Urine 820 1500 Other: Voiding Method Indwelling Catheter Indwelling Catheter Indwelling Catheter # Bowel Movements 1 - Exam Patient is awake comfortable. Not in any acute distress. Alert oriented 3 Examination of the heart S1 and S2 Examination lungs shows decreased breath sounds at the bases Abdomen is soft nontender Exam in lower extremities shows no evidence of edema. - Labs CBC & Chem 7: 07/17/21 04:38 07/17/21 04:38 Labs: Abnormal Lab Results - Last 24 Hours (Table) 07/16/21 07/16/21 07/17/21 Range/Units 16:33 20:12 03:08 WBC (4.50-10.00) X 10*3/uL RBC (4.10-5.20) X 10*6/uL Hgb (12.0-15.0) g/dL Hct (37.2-46.3) % MCHC (32.0-37.0) g/dL RDW (11.5-14.5) % Plt Count (140-440) X 10*3/uL Monocytes # (0.20-1.00) X 10*3/uL Eosinophils # (0.04-0.35) X 10*3/uL Sodium (135-145) mmol/L BUN (9.0-27.0) mg/dL Creatinine (0.6-1.5) mg/dL Est GFR (CKD-EPI)AfAm (60.0-200.0) Est GFR (CKD-EPI)NonAf (60.0-200.0) BUN/Creatinine Ratio (12.00-20.00) Ratio Glucose (70-110) mg/dL POC Glucose (mg/dL) 226 H 309 H 261 H (75-99) mg/dL 07/17/21 07/17/21 Range/Units 04:38 04:38 WBC 11.14 H (4.50-10.00) X 10*3/uL RBC 3.84 L (4.10-5.20) X 10*6/uL Hgb 11.0 L (12.0-15.0) g/dL Hct 34.9 L (37.2-46.3) % MCHC 31.5 L (32.0-37.0) g/dL RDW 14.9 H (11.5-14.5) % Plt Count 448 H (140-440) X 10*3/uL Monocytes # 1.03 H (0.20-1.00) X 10*3/uL Eosinophils # 0.66 H (0.04-0.35) X 10*3/uL Sodium 134 L (135-145) mmol/L BUN 64.9 H (9.0-27.0) mg/dL Creatinine 1.7 H (0.6-1.5) mg/dL Est GFR (CKD-EPI)AfAm 31.8 L (60.0-200.0) Est GFR (CKD-EPI)NonAf 27.4 L (60.0-200.0) BUN/Creatinine Ratio 38.18 H (12.00-20.00) Ratio Glucose 183 H (70-110) mg/dL POC Glucose (mg/dL) (75-99) mg/dL Assessment and Plan Assessment: 1. Hypervolemic hyponatremia. Status post Samsca maintained on diuretics and fluid restriction. Sodium is up to 137 today 2. Urinary retention status post Christie catheter placement 3. CK D stage III B baseline creatinine 1.5 secondary to diabetic kidney disease 4. Volume overload improving with diuresis 5. Metabolic acidosis secondary to CK D maintained on oral sodium bicarb 6. Acute on chronic systolic CHF with ejection fraction 30-35% with moderate to severe mitral regurgitation, moderate tricuspid regurg and moderate pulmonary hypertension Plan: Continue current dose of IV Lasix. Maintain fluid restriction Repeat labs in a.m.
[2021-07-17 11:41] LABS: Glucose,Whole Blood 238 mg/dL (75-99)
--- NOTE | 2021-07-17 12:29 | P.PN ---
Subjective The patient is a very pleasant 81-year-old female. She used to follow with Dr. Calvillo in 2019, does not currently follow with a aircraft structural design engineer. She has a known history of CAD s/p PCI in 2004, CABG 30+ years ago, hypertension, hyperlipidemia, severe mitral regurgitation as well as moderate tricuspid regurgitation, ischemic cardiomyopathy with EF 30-35%. We were initially consulted to see for further evaluation of abnormal cardiac enzymes. She presen praneeth to the hospital on 07/11/2021 with with progressive dyspnea. Diagnosed with acute heart failure exacerbaion. She presented with progressive exertional dyspnea and left heart failure more than right heart failure. 07/17/2021 Patient seen and examined at bedside, no acute distress. Her breathing and symptoms of orthopnea have improved. She was transferred out of the ICU yesterday. -1475mL balance, decreased weight noted. She's currently maintained on IV Lasix 40 mg twice a day, aspirin 80 mg daily, Plavix 75 mg daily, Imdur 30 mg daily, losartan 12.5 mg daily, pravastatin 40 mg nightly, metoprolol succinate 25 mg daily Labs, sodium 134, potassium 4.9, BUN 64, serum creatinine 1.7 PHYSICAL EXAMINATION Vital signs reviewed. CONSTITUTIONAL: No apparent distress. HEENT: Some mild JVD noted. No carotid bruit. CHEST EXAMINATION: Lungs with mild crackles in the bases bilaterally to auscultation. HEART EXAMINATION: Regular rate and rhythm. S1, S2 heard. Systolic ejection murmur noted, No gallops or rub. ABDOMEN: Soft, nontender. Positive bowel sounds. EXTREMITIES: 2+ peripheral pulses, no lower extremity edema and no calf tenderness. NEUROLOGIC EXAMINATION: Patient is awake, alert and oriented x3. Assessment Acute hypoxic respiratory failure secondary to heart failure with reduced ejection fraction Congestive heart failure exacerbation secondary to heart failure with reduced ejection fraction Known severe cardiomyopathy with EF around 35% Valvular heart disease with severe mitral regurgitation and moderate tricuspid regurgitation Coronary artery disease with prior revascularization History of chronic kidney disease Hyponatremia likely mainly related to volume overload, congestive heart failure, improved Plan Continue to with IV diuretics for additional 24 hours. Continue Losartan Continue aspirin, statin, plavix, and metoprolol succinate Monitor renal function and electrolytes, I/Os, daily weights Further recommendations based on clinical course Nurse Practitioner note has been reviewed, I agree with a documented findings and plan of care. Patient was seen and examined. Objective - Vital Signs Vital signs: Vital Signs Temp 97.8 F 07/17/21 07:59 Pulse 85 07/17/21 12:02 Resp 18 07/17/21 07:59 BP 120/72 07/17/21 07:59 Pulse Ox 95 07/17/21 07:59 Intake & Output 07/16/21 07/17/21 07/17/21 18:59 06:59 18:59 Intake Total 605 240 Output Total 820 1500 Balance -215 -1260 Intake: Oral 605 240 Output: Urine 820 1500 Other: Voiding Method Indwelling Catheter Indwelling Catheter Indwelling Catheter # Bowel Movements 1 - Labs CBC & Chem 7: 07/17/21 04:38 07/17/21 04:38 Labs: Abnormal Lab Results - Last 24 Hours (Table) 07/16/21 07/16/21 07/17/21 Range/Units 16:33 20:12 03:08 WBC (4.50-10.00) X 10*3/uL RBC (4.10-5.20) X 10*6/uL Hgb (12.0-15.0) g/dL Hct (37.2-46.3) % MCHC (32.0-37.0) g/dL RDW (11.5-14.5) % Plt Count (140-440) X 10*3/uL Monocytes # (0.20-1.00) X 10*3/uL Eosinophils # (0.04-0.35) X 10*3/uL Sodium (135-145) mmol/L BUN (9.0-27.0) mg/dL Creatinine (0.6-1.5) mg/dL Est GFR (CKD-EPI)AfAm (60.0-200.0) Est GFR (CKD-EPI)NonAf (60.0-200.0) BUN/Creatinine Ratio (12.00-20.00) Ratio Glucose (70-110) mg/dL POC Glucose (mg/dL) 226 H 309 H 261 H (75-99) mg/dL 07/17/21 07/17/21 07/17/21 Range/Units 04:38 04:38 11:40 WBC 11.14 H (4.50-10.00) X 10*3/uL RBC 3.84 L (4.10-5.20) X 10*6/uL Hgb 11.0 L (12.0-15.0) g/dL Hct 34.9 L (37.2-46.3) % MCHC 31.5 L (32.0-37.0) g/dL RDW 14.9 H (11.5-14.5) % Plt Count 448 H (140-440) X 10*3/uL Monocytes # 1.03 H (0.20-1.00) X 10*3/uL Eosinophils # 0.66 H (0.04-0.35) X 10*3/uL Sodium 134 L (135-145) mmol/L BUN 64.9 H (9.0-27.0) mg/dL Creatinine 1.7 H (0.6-1.5) mg/dL Est GFR (CKD-EPI)AfAm 31.8 L (60.0-200.0) Est GFR (CKD-EPI)NonAf 27.4 L (60.0-200.0) BUN/Creatinine Ratio 38.18 H (12.00-20.00) Ratio Glucose 183 H (70-110) mg/dL POC Glucose (mg/dL) 238 H (75-99) mg/dL
[2021-07-17] MEDS: CLOPIDOGREL 75 MG TAB PO SCH (13:05)
--- NOTE | 2021-07-17 14:47 | P.PN ---
Subjective Progress Note Date: 07/17/21 Principal diagnosis: Shortness of breath 81-year-old female patient with extensive cardiac history with previous coronary artery bypass surgery and the patient is known to have CAD and valvular heart disease with severe mitral regurgitation, tricuspid regurgitation, along with h istory of hypertension and hyperlipidemia and chronic kidney disease. She has also multiple other medical positive comorbidities as mentioned in the medical records. The patient presented to the hospital because of progressive worsening shortness of breath. No increase in lower extremity edema. Denied having any chest pain. She specifically on 2 L of O2 at home. Currently her oxidation is worse and the patient is currently up to 12 L of O2. In the emergency, the chest x-ray showed pulmonary edema, bilateral pleural effusion, right lower lobe atelectasis. Same time, her proBNP level was elevated at 8770. Initial troponin was at 0.035. Sodium level was also had 116 attributed to C HF. Creatinine is at 1.5 to which is essentially equivalent to her baseline as the patient is chronic stage III kidney disease. The patient was started on diuretics. She is currently on Lasix. Follow-up sodium level is up to 122. Noted the patient taking Lasix 40 mg at home on a daily basis. She is also maintained on a combination of metoprolol, Cozaar, M.D. or. She is diabetic and she is on Lantus insulin and a NovoLog scale. On today's evaluation of 3 72,022, the patient continues to BE short of breath. She remains on oxygen at 12 L over oxygen by nasal cannula. Chest x-ray still s howed pulmonary edema. There is also possibility about the pleural effusion more so on the right. There is also cardiomegaly. Echo of the heart was done and the patient was found to have an EF around 30-35%. There is grade 2 diastolic heart failure. There is also evidence of pulmonary hypertension moderate to severe in nature along with moderate to severe MR, moderate tricuspid regurgitation. The patient is currently on IV Lasix 40 mg every 8 hours. She is a negative fluid balance. Her cardiac rhythm is sinus for now. She history of any chest pain or angina. On her blood work, the white cell count is at 11.7 with a hemoglobin of 10.5 and a platelet count of 362. Sodium level is at 122 which is improved compared to yesterday and the patient has a BUN of 52 with a creatinine of 1.7. Troponins of 0.04. Blood sugars of 77 from this morning. The patient is diabetic. No altered mentation. No chest pain. 07/14/2021, seeing the patient for a follow-up. Clinically improved compared to yesterday. The patient was started on dobutamine and this improved her cardiac output and urine output. The patient has been a negative fluid balance. The patient has diuresed adequately over the past 24 hours and the patient is currently on 3 L of oxygen by nasal cannula. Her chest x-ray still showing CHF and edema and the patient has bilateral pleural effusion, small. The patient's is currently on diuretics and the patient is receiving Lasix 40 mg IV push every 12 hours. Sodium is at 127, BUN is associated with a creatinine of 1.8, and the patient's potassium level is at 4.8. The patient is able to speak in longer sentences. No angina. No palpitation. Cardiac rhythm is sinus. The patient has a RBBB pattern on her EKG. Noted the patient also had issues with hyperglycemia. She was on an insulin drip overnight. This morning, blood sugars under better control. She was given Levemir insulin 20 units twice a day along with NovoLog sliding scale coverage. She is also on beta blockers and the patient is currently on metoprolol 25 mg by mouth daily. She is on aspirin and Plavix. 07/15/2021, patient is doing well. No specific complaints. Continues to improve. Producing excellent urine output. Fluid balance is -2.7 L over the past 24 hours. Chest x-ray still showing pulmonary edema. Remains on 4 L of O2 by nasal cannula. Creatinine is up to 1.9 which is stable. Sodium level is at 134, improved. The patient continues to be an IV Lasix. The patient is off dobutamine. Cardiac rhythm remains sinus with a RBB pattern. The patient had a bout of hypoglycemia today. Levemir insulin was held for today. No altered mentation. No chest pain.Lasix dose was reduced down to 40 mg every 12 hours. no other complaints for now.the patient's white cell count is 21.7 with hemoglobin of 10.5. 07/16/2021, seeing the patient for a follow-up. The patient remains in the intensive care unit. Over the past 24 hours, the patient WAS kept on diuretics and the patient was being diuresed adequately. Fluid balance is -1.6 L over the past 24 hours. As such, the patient is improved. She is less short of breath. She is showing improvement in chest x-ray findings although the chest x-ray findings not completely normalized. She is currently on 3 L of O2 by nasal cannula. Creatinine is stable at 1.8 with a BUN of 79 and his sodium level of 137. Meanwhile, the patient is noted to have some episodes of hypoglycemia that occurred in early this morning. Levemir insulin dose will be adjusted. Free of any chest pain. Cardiac rhythm is sinus. There is a RBB pattern. She is not requiring any inotropes at this point in time. The plan is to continue the treatment and the patient will be transferred to a medical surgical floor with telemetry. The patient will be kept on diuretics. On 07/17/2021 patient seen in follow-up on medical surgical floor. Patient is up in the chair, she looks quite comfortable, she is on 3 L of oxygen her pulse ox is 95-96%. She remains on Lasix at 40 mg twice daily, she is in -1475 ML net fluid balance over the last 24 hours. She states her breathing is much improved, Christie catheter is in place. Today's labs have been reviewed, white blood cell count is improving and is down to 11.14, hemoglobin is 11, sodium is 134, the rest of electrolytes are unremarkable, BUN is 64, creatinine is 1.7. No complaints of chest discomfort, no worsening dyspnea or cough Objective - Vital Signs Vital signs: Vital Signs Temp 97.8 F 07/17/21 07:59 Pulse 85 07/17/21 12:02 Resp 18 07/17/21 07:59 BP 120/72 07/17/21 07:59 Pulse Ox 95 07/17/21 07:59 Intake & Output 07/16/21 07/17/21 07/17/21 18:59 06:59 18:59 Intake Total 605 240 Output Total 820 1500 Balance -215 -1260 Intake: Oral 605 240 Output: Urine 820 1500 Other: Voiding Method Indwelling Catheter Indwelling Catheter Indwelling Catheter # Bowel Movements 1 - Exam GENERAL EXAM: Alert, very pleasant, 81-year-old white female, on 3 L of oxygen with a pulse ox of 93-99% comfortable in no apparent distress. HEAD: Normocephalic/atraumatic. EYES: Normal reaction of pupils, equal size. Conjunctiva pink, sclera white. NOSE: Clear with pink turbinates. THROAT: No erythema or exudates. NECK: No masses, no JVD, no thyroid enlargement, no adenopathy. CHEST: No chest wall deformity. Symmetrical expansion. LUNGS: Equal air entry with no crackles, wheeze, rhonchi or dullness. CVS: Regular rate and rhythm, normal S1 and S2, no gallops, no murmurs, no rubs ABDOMEN: Soft, nontender. No hepatosplenomegaly, normal bowel sounds, no guarding or rigidity. EXTREMITIES: No clubbing, no edema, no cyanosis, 2+ pulses and upper and lower extremities. MUSCULOSKELETAL: Muscle strength and tone normal. SPINE: No scoliosis or deformity SKIN: No rashes CENTRAL NERVOUS SYSTEM: Alert and oriented -3. No focal deficits, tone is normal in all 4 extremities. PSYCHIATRIC: Alert and oriented -3. Appropriate affect. Intact judgment and insight. - Labs CBC & Chem 7: 07/17/21 04:38 07/17/21 04:38 Labs: Abnormal Lab Results - Last 24 Hours (Table) 07/16/21 07/16/21 07/17/21 Range/Units 16:33 20:12 03:08 WBC (4.50-10.00) X 10*3/uL RBC (4.10-5.20) X 10*6/uL Hgb (12.0-15.0) g/dL Hct (37.2-46.3) % MCHC (32.0-37.0) g/dL RDW (11.5-14.5) % Plt Count (140-440) X 10*3/uL Monocytes # (0.20-1.00) X 10*3/uL Eosinophils # (0.04-0.35) X 10*3/uL Sodium (135-145) mmol/L BUN (9.0-27.0) mg/dL Creatinine (0.6-1.5) mg/dL Est GFR (CKD-EPI)AfAm (60.0-200.0) Est GFR (CKD-EPI)NonAf (60.0-200.0) BUN/Creatinine Ratio (12.00-20.00) Ratio Glucose (70-110) mg/dL POC Glucose (mg/dL) 226 H 309 H 261 H (75-99) mg/dL 07/17/21 07/17/21 07/17/21 Range/Units 04:38 04:38 11:40 WBC 11.14 H (4.50-10.00) X 10*3/uL RBC 3.84 L (4.10-5.20) X 10*6/uL Hgb 11.0 L (12.0-15.0) g/dL Hct 34.9 L (37.2-46.3) % MCHC 31.5 L (32.0-37.0) g/dL RDW 14.9 H (11.5-14.5) % Plt Count 448 H (140-440) X 10*3/uL Monocytes # 1.03 H (0.20-1.00) X 10*3/uL Eosinophils # 0.66 H (0.04-0.35) X 10*3/uL Sodium 134 L (135-145) mmol/L BUN 64.9 H (9.0-27.0) mg/dL Creatinine 1.7 H (0.6-1.5) mg/dL Est GFR (CKD-EPI)AfAm 31.8 L (60.0-200.0) Est GFR (CKD-EPI)NonAf 27.4 L (60.0-200.0) BUN/Creatinine Ratio 38.18 H (12.00-20.00) Ratio Glucose 183 H (70-110) mg/dL POC Glucose (mg/dL) 238 H (75-99) mg/dL Assessment and Plan Plan: Assessment: #1. Acute exacerbation of chronic systolic CHF. Patient presented with pulmonary edema and bilateral pleural effusions, currently improving, breathing easier, maintaining negative fluid balance #2. Acute on chronic hypoxic respiratory failure related to the above #3. Acute hypovolemic hyponatremia, improving with diuresis #4. Chronic CHF with impaired LV function and multiple segmental wall motion abnormalities, EF of 30-35% based on the echocardiogram from 2019 #5. Valvular heart disease in addition to moderate to severe mitral regurgitation, and severe tricuspid regurgitation and severe pulmonary hypertension #6. History of coronary artery bypass surgery #7. History of AICD/pacemaker insertion #8. Chronic kidney disease stage III #9. Diabetes but this type II #10. Hypertension #11. Macular degeneration #12. Coronary artery disease #13. Previous history of DC #14. Diverticular disease Plan: Patient is breathing comfortably Renal function is improving Continue weaning FiO2 Vital signs are stable Follow-up labs including electrolytes and renal profile tomorrow GI and DVT prophylaxis Continue aspirin and Plavix continue metoprolol Cardiology recommendations Overall stable and continues to improve She is anticipating discharge home tomorrow I have personally seen and examined the patient, performed the documentation and the assessment and plan as written. Number of minutes spent on the visit: [10] Time with Patient: Less than 30
--- NOTE | 2021-07-17 16:17 | P.PN ---
Subjective Progress Note Date: 07/17/21 This is a pleasant 81-year-old female with past medical history of CAD, UT, CABG, pulmonary hypertension, moderate mitral and tricuspid regurgitation, hyperlipidemia, hypertension, chronic hypoxic respiratory failure, diabetes mellitus, gastroesophageal reflux disease,macular degeneration, UTIs-recently treated for UTI with current UA negative, CKD IIIB and multiple other medical issues, admitted to ICU with worsening shortness of breath without edema over the last 2 weeks. Pulse ox low at home, EMS called.(EMS report currently unavailable). Reports drinking significant amount of fluids. Denies nausea vomiting or diarrhea. Denies abdominal pain. Denies lightheadedness dizziness or focal deficits. Denies chest pain, palpitations or shortness of breath. Denies any fever or chills. Garcia virus not detected.EKG reported atrial fibrillation, with ventricular rate controlled. Serial troponins in progress ;0.035.Chest x-ray reported CHF with increased pulmonary congestion and fluid .Pro-BNP elevated, 8770 .Sodium on admission 116, IV fluids of 3% hypertonic saline initiated along with Lasix IVP. Requiring 12 L high flow nasal cannula to maintain O2 sats in the low 90s. Creatinine 1.5, baseline. Hyperglycemic, blood sugars in the high 200s. Admitted to ICU. Afebrile, WBC 11.7. AM Labs pending. 07/17/2021 transfer out of ICU yesterday .status post [facility] ,continues on fluid restrictions, IV push diuretics with sodium currently at 134, renal function improving BUN 64.9, creatinine 1.7. Diuresing well on Lasix IV push with 24- hour I&O reflecting a negative fluid balance. Afebrile, WBC 11.14. Breathing comfortably , denies shortness of breath .denies chest pain or palpitations .Maintaining O2 sats in the 90s on 3 L nasal cannula. Objective - Vital Signs Vital signs: Vital Signs Temp 98.1 F 07/17/21 14:00 Pulse 63 07/17/21 14:00 Resp 16 07/17/21 14:00 BP 116/57 07/17/21 14:00 Pulse Ox 93 L 07/17/21 14:00 Intake & Output 07/16/21 07/17/21 07/17/21 18:59 06:59 18:59 Intake Total 605 240 Output Total 820 1500 Balance -215 -1260 Intake: Oral 605 240 Output: Urine 820 1500 Other: Voiding Method Indwelling Catheter Indwelling Catheter Indwelling Catheter # Bowel Movements 1 - Exam - Exam VITAL SIGNS: As above GENERAL: Sitting up in bed, no acute distress HEENT: Conjunctivae normal. eyes normal. Oral mucosa moist NECK: No JVD. No thyroid enlargement. No LNs CARDIOVASCULAR: S1, S2 regular.Systolic murmur RESPIRATION: Breath sounds diminished in the bases. ABDOMEN: Soft, nontender . No guarding. no masses palpable. Bowel sounds heard. LEGS: No edema. no swelling PSYCHIATRY: Alert and oriented X3, mood and affect normal. NERVOUS SYSTEM: Cranial N 2-12 grossly normal. No focal deficits. Strength and sensation grossly intact. Skin: no lesions, no rash - Labs CBC & Chem 7: 07/17/21 04:38 07/17/21 04:38 Labs: Abnormal Lab Results - Last 24 Hours (Table) 07/16/21 07/16/21 07/17/21 Range/Units 16:33 20:12 03:08 WBC (4.50-10.00) X 10*3/uL RBC (4.10-5.20) X 10*6/uL Hgb (12.0-15.0) g/dL Hct (37.2-46.3) % MCHC (32.0-37.0) g/dL RDW (11.5-14.5) % Plt Count (140-440) X 10*3/uL Monocytes # (0.20-1.00) X 10*3/uL Eosinophils # (0.04-0.35) X 10*3/uL Sodium (135-145) mmol/L BUN (9.0-27.0) mg/dL Creatinine (0.6-1.5) mg/dL Est GFR (CKD-EPI)AfAm (60.0-200.0) Est GFR (CKD-EPI)NonAf (60.0-200.0) BUN/Creatinine Ratio (12.00-20.00) Ratio Glucose (70-110) mg/dL POC Glucose (mg/dL) 226 H 309 H 261 H (75-99) mg/dL 07/17/21 07/17/21 07/17/21 Range/Units 04:38 04:38 11:40 WBC 11.14 H (4.50-10.00) X 10*3/uL RBC 3.84 L (4.10-5.20) X 10*6/uL Hgb 11.0 L (12.0-15.0) g/dL Hct 34.9 L (37.2-46.3) % MCHC 31.5 L (32.0-37.0) g/dL RDW 14.9 H (11.5-14.5) % Plt Count 448 H (140-440) X 10*3/uL Monocytes # 1.03 H (0.20-1.00) X 10*3/uL Eosinophils # 0.66 H (0.04-0.35) X 10*3/uL Sodium 134 L (135-145) mmol/L BUN 64.9 H (9.0-27.0) mg/dL Creatinine 1.7 H (0.6-1.5) mg/dL Est GFR (CKD-EPI)AfAm 31.8 L (60.0-200.0) Est GFR (CKD-EPI)NonAf 27.4 L (60.0-200.0) BUN/Creatinine Ratio 38.18 H (12.00-20.00) Ratio Glucose 183 H (70-110) mg/dL POC Glucose (mg/dL) 238 H (75-99) mg/dL Assessment and Plan Assessment: -Acute on chronic CHF systolic dysfunction, EF 30-35%, fluid overload, bilateral pleural effusions improving -Acute on chronic hypoxic respiratory failure secondary to the above. Wears 2 L nasal cannula O2 at home -Hyponatremia, hypervolemic and related to hyperglycemia, status post [facility], -Diabetes mellitus, uncontrolled with hyperglycemia -CAD, history of UT, CABG, stents -Moderate mitral regurgitation -Moderate tricuspid regurgitation -Pulmonary hypertension -Chronic renal failure, Stage 3B, baseline creatinine around 1.5 -Metabolic acidosis secondary to the above -Gastroesophageal reflux disease -Hypertension -Hyperlipidemia -Macular degeneration -Obesity, BMI 31.8 Plan: Continue on current medication regime ,monitoring and symptomatic treatment. Diuretics and fluid restriction as per nephrology. Close monitoring of renal function, which patient repeat labs ordered for a.m. discharge planning in progress for tomorrow pending final DC recommendations/including diuretics and clearance from consults. The impression and plan of care has been dictated as directed. : I performed a history and examination of this patient, discussed the same with the dictator. I agree with the dictator's note ,documented as a scribe. Any additional findings or plans will be noted.
[2021-07-17 16:45] LABS: Glucose,Whole Blood 414 mg/dL (75-99)
[2021-07-17 20:46] LABS: Glucose,Whole Blood 138 mg/dL (75-99)
[2021-07-17] MEDS: FAMOTIDINE 20 MG TAB PO SCH (22:30)
[2021-07-17] MEDS: PRAVASTATIN SODIUM 40 MG TAB PO SCH (22:30)
[2021-07-17] MEDS: QUEtiapine 25 MG TAB PO SCH (22:30)
[2021-07-18 02:10] LABS: Glucose,Whole Blood 259 mg/dL (75-99)
[2021-07-18] MEDS: INSULIN ASPART (NovoLOG) 100 UNIT/ML VIAL SQ SCH ×3 (02:27→12:09)
[2021-07-18 04:28] LABS: African American GFR (CKD) 32 (>60 ml/min/1.73 sqM); Anion Gap 10 mmol/L; Blood Urea Nitrogen 74 mg/dL (7-17); Calcium 9.5 mg/dL (8.4-10.2); Carbon Dioxide 29 mmol/L (22-30); Chloride 94 mmol/L (98-107); Glucose 204 mg/dL (74-99); Magnesium 2.2 mg/dL (1.6-2.3); Non-African American GFR(CKD) 27 (>60 ml/min/1.73 sqM); Potassium 4.3 mmol/L (3.5-5.1); Sodium 133 mmol/L (137-145)
[2021-07-18 07:02] LABS: Glucose,Whole Blood 115 mg/dL (75-99)
[2021-07-18] MEDS: IPRATROPIUM-ALBUTEROL 3 ML NEB INHALATION SCH ×3 (07:11→15:26)
[2021-07-18 07:24] VITALS: RESP 18
[2021-07-18] MEDS: METOPROLOL SUCCINATE (ER) 25 MG TAB.ER.24H PO SCH (09:16)
[2021-07-18] MEDS: LORATADINE 10 MG TAB PO SCH (09:16)
[2021-07-18] MEDS: ASPIRIN 81 MG PO SCH (09:16)
[2021-07-18] MEDS: ISOSORBIDE MONONITRATE ER 30 MG TAB.ER.24H PO SCH (09:16)
[2021-07-18] MEDS: SODIUM BICARBONATE TAB 650 MG TAB PO SCH (09:16)
[2021-07-18] MEDS: TAMSULOSIN 0.4 MG CAP.ER.24H PO SCH (09:16)
[2021-07-18] MEDS: CHOLECALCIFEROL 25 MCG (1000 IU) TABLET PO SCH (09:17)
[2021-07-18] MEDS: INSULIN DETEMIR (LEVEMIR) 100 UNIT/ML SYR SQ SCH (09:17)
[2021-07-18] MEDS: FUROSEMIDE 10 MG/ML 4 ML VIAL IV SCH (09:18)
[2021-07-18] MEDS: ENOXAPARIN 30 MG/0.3 ML SYRINGE SQ SCH (09:19)
[2021-07-18] MEDS: LOSARTAN 25 MG TAB PO SCH (09:19)
--- NOTE | 2021-07-18 10:03 | P.PN ---
Subjective Progress Note Date: 07/18/21 Principal diagnosis: Shortness of breath 81-year-old female patient with extensive cardiac history with previous coronary artery bypass surgery and the patient is known to have CAD and valvular heart disease with severe mitral regurgitation, tricuspid regurgitation, along with h istory of hypertension and hyperlipidemia and chronic kidney disease. She has also multiple other medical positive comorbidities as mentioned in the medical records. The patient presented to the hospital because of progressive worsening shortness of breath. No increase in lower extremity edema. Denied having any chest pain. She specifically on 2 L of O2 at home. Currently her oxidation is worse and the patient is currently up to 12 L of O2. In the emergency, the chest x-ray showed pulmonary edema, bilateral pleural effusion, right lower lobe atelectasis. Same time, her proBNP level was elevated at 8770. Initial troponin was at 0.035. Sodium level was also had 116 attributed to C HF. Creatinine is at 1.5 to which is essentially equivalent to her baseline as the patient is chronic stage III kidney disease. The patient was started on diuretics. She is currently on Lasix. Follow-up sodium level is up to 122. Noted the patient taking Lasix 40 mg at home on a daily basis. She is also maintained on a combination of metoprolol, Cozaar, M.D. or. She is diabetic and she is on Lantus insulin and a NovoLog scale. On today's evaluation of 3 72,022, the patient continues to BE short of breath. She remains on oxygen at 12 L over oxygen by nasal cannula. Chest x-ray still s howed pulmonary edema. There is also possibility about the pleural effusion more so on the right. There is also cardiomegaly. Echo of the heart was done and the patient was found to have an EF around 30-35%. There is grade 2 diastolic heart failure. There is also evidence of pulmonary hypertension moderate to severe in nature along with moderate to severe MR, moderate tricuspid regurgitation. The patient is currently on IV Lasix 40 mg every 8 hours. She is a negative fluid balance. Her cardiac rhythm is sinus for now. She history of any chest pain or angina. On her blood work, the white cell count is at 11.7 with a hemoglobin of 10.5 and a platelet count of 362. Sodium level is at 122 which is improved compared to yesterday and the patient has a BUN of 52 with a creatinine of 1.7. Troponins of 0.04. Blood sugars of 77 from this morning. The patient is diabetic. No altered mentation. No chest pain. 07/14/2021, seeing the patient for a follow-up. Clinically improved compared to yesterday. The patient was started on dobutamine and this improved her cardiac output and urine output. The patient has been a negative fluid balance. The patient has diuresed adequately over the past 24 hours and the patient is currently on 3 L of oxygen by nasal cannula. Her chest x-ray still showing CHF and edema and the patient has bilateral pleural effusion, small. The patient's is currently on diuretics and the patient is receiving Lasix 40 mg IV push every 12 hours. Sodium is at 127, BUN is associated with a creatinine of 1.8, and the patient's potassium level is at 4.8. The patient is able to speak in longer sentences. No angina. No palpitation. Cardiac rhythm is sinus. The patient has a RBBB pattern on her EKG. Noted the patient also had issues with hyperglycemia. She was on an insulin drip overnight. This morning, blood sugars under better control. She was given Levemir insulin 20 units twice a day along with NovoLog sliding scale coverage. She is also on beta blockers and the patient is currently on metoprolol 25 mg by mouth daily. She is on aspirin and Plavix. 07/15/2021, patient is doing well. No specific complaints. Continues to improve. Producing excellent urine output. Fluid balance is -2.7 L over the past 24 hours. Chest x-ray still showing pulmonary edema. Remains on 4 L of O2 by nasal cannula. Creatinine is up to 1.9 which is stable. Sodium level is at 134, improved. The patient continues to be an IV Lasix. The patient is off dobutamine. Cardiac rhythm remains sinus with a RBB pattern. The patient had a bout of hypoglycemia today. Levemir insulin was held for today. No altered mentation. No chest pain.Lasix dose was reduced down to 40 mg every 12 hours. no other complaints for now.the patient's white cell count is 21.7 with hemoglobin of 10.5. 07/16/2021, seeing the patient for a follow-up. The patient remains in the intensive care unit. Over the past 24 hours, the patient WAS kept on diuretics and the patient was being diuresed adequately. Fluid balance is -1.6 L over the past 24 hours. As such, the patient is improved. She is less short of breath. She is showing improvement in chest x-ray findings although the chest x-ray findings not completely normalized. She is currently on 3 L of O2 by nasal cannula. Creatinine is stable at 1.8 with a BUN of 79 and his sodium level of 137. Meanwhile, the patient is noted to have some episodes of hypoglycemia that occurred in early this morning. Levemir insulin dose will be adjusted. Free of any chest pain. Cardiac rhythm is sinus. There is a RBB pattern. She is not requiring any inotropes at this point in time. The plan is to continue the treatment and the patient will be transferred to a medical surgical floor with telemetry. The patient will be kept on diuretics. On 07/17/2021 patient seen in follow-up on medical surgical floor. Patient is up in the chair, she looks quite comfortable, she is on 3 L of oxygen her pulse ox is 95-96%. She remains on Lasix at 40 mg twice daily, she is in -1475 ML net fluid balance over the last 24 hours. She states her breathing is much improved, Christie catheter is in place. Today's labs have been reviewed, white blood cell count is improving and is down to 11.14, hemoglobin is 11, sodium is 134, the rest of electrolytes are unremarkable, BUN is 64, creatinine is 1.7. No complaints of chest discomfort, no worsening dyspnea or cough On 07/18/2021 patient seen in follow-up on the surgical floor. She is up in the chair, breathing comfortably, she is on 3 L of oxygen pulse ox is 96%, she is maintaining negative net fluid balance of 1475 over the last 24 hours, remains in sinus mechanism, no acute issues overnight. Remains on Lasix at 40 mg every 12 hours. No complaints of chest pain. Christie catheter remains in place, however patient has been ambulating tolerating activity very well. Objective - Vital Signs Vital signs: Vital Signs Temp 97.9 F 07/18/21 07:22 Pulse 79 07/18/21 07:22 Resp 18 07/18/21 07:22 BP 129/76 07/18/21 07:22 Pulse Ox 96 07/18/21 02:00 Intake & Output 07/17/21 07/18/21 07/18/21 18:59 06:59 18:59 Intake Total 240 Output Total 1300 1300 Balance -1300 -1060 Intake: Oral 240 Output: Urine 1300 1300 Other: Voiding Method Indwelling Catheter Indwelling Catheter Indwelling Catheter - Exam GENERAL EXAM: Alert, very pleasant, 81-year-old white female, on 3 L of oxygen with a pulse ox of 93-99% comfortable in no apparent distress. HEAD: Normocephalic/atraumatic. EYES: Normal reaction of pupils, equal size. Conjunctiva pink, sclera white. NOSE: Clear with pink turbinates. THROAT: No erythema or exudates. NECK: No masses, no JVD, no thyroid enlargement, no adenopathy. CHEST: No chest wall deformity. Symmetrical expansion. LUNGS: Equal air entry with no crackles, wheeze, rhonchi or dullness. CVS: Regular rate and rhythm, normal S1 and S2, no gallops, no murmurs, no rubs ABDOMEN: Soft, nontender. No hepatosplenomegaly, normal bowel sounds, no guarding or rigidity. EXTREMITIES: No clubbing, no edema, no cyanosis, 2+ pulses and upper and lower extremities. MUSCULOSKELETAL: Muscle strength and tone normal. SPINE: No scoliosis or deformity SKIN: No rashes CENTRAL NERVOUS SYSTEM: Alert and oriented -3. No focal deficits, tone is normal in all 4 extremities. PSYCHIATRIC: Alert and oriented -3. Appropriate affect. Intact judgment and insight. - Labs CBC & Chem 7: 07/17/21 04:38 07/18/21 03:25 Labs: Abnormal Lab Results - Last 24 Hours (Table) 07/17/21 07/17/21 07/17/21 Range/Units 11:40 16:43 20:45 Sodium (137-145) mmol/L Chloride (98-107) mmol/L BUN (7-17) mg/dL Creatinine (0.52-1.04) mg/dL Glucose (74-99) mg/dL POC Glucose (mg/dL) 238 H 414 H 138 H (75-99) mg/dL 07/18/21 07/18/21 07/18/21 Range/Units 02:08 03:25 07:00 Sodium 133 L (137-145) mmol/L Chloride 94 L (98-107) mmol/L BUN 74 H (7-17) mg/dL Creatinine 1.71 H (0.52-1.04) mg/dL Glucose 204 H (74-99) mg/dL POC Glucose (mg/dL) 259 H 115 H (75-99) mg/dL Assessment and Plan Plan: Assessment: #1. Acute exacerbation of chronic systolic CHF. Patient presented with pulmonary edema and bilateral pleural effusions, currently improving, breathing easier, maintaining negative fluid balance #2. Acute on chronic hypoxic respiratory failure related to the above #3. Acute hypovolemic hyponatremia, improving with diuresis #4. Chronic CHF with impaired LV function and multiple segmental wall motion abnormalities, EF of 30-35% based on the echocardiogram from 2019 #5. Valvular heart disease in addition to moderate to severe mitral regurgitation, and severe tricuspid regurgitation and severe pulmonary hypertension #6. History of coronary artery bypass surgery #7. History of AICD/pacemaker insertion #8. Chronic kidney disease stage III #9. Diabetes but this type II #10. Hypertension #11. Macular degeneration #12. Coronary artery disease #13. Previous history of OH #14. Diverticular disease Plan: Patient has been stable She is close to her baseline She is maintaining negative fluid balance Overall for Lyme status is improving Hemodynamically stable Renal function has improved Discontinue Christie catheter From pulmonary perspective she stable for discharge home today I have personally seen and examined the patient, performed the documentation and the assessment and plan as written. Number of minutes spent on the visit: [10] Time with Patient: Less than 30
--- NOTE | 2021-07-18 11:31 | P.PN ---
Subjective Patient is seen for follow-up for hyponatremia and chronic kidney disease. Currently patient is being diuresed and is maintained on fluid restriction. She also received Samsca and her sodium has improved. Patient the denies any significant complaints today. No nausea vomiting No shortness of breath. Sodium and serum creatinine continues to improve Lasix is at 40 mg IV twice a day. No significant shortness of breath Good urine output Objective - Vital Signs Vital signs: Vital Signs Temp 97.9 F 07/18/21 07:22 Pulse 82 07/18/21 11:03 Resp 18 07/18/21 07:22 BP 129/76 07/18/21 07:22 Pulse Ox 96 07/18/21 02:00 Intake & Output 07/17/21 07/18/21 07/18/21 18:59 06:59 18:59 Intake Total 240 Output Total 1300 1900 Balance -1300 -1660 Intake: Oral 240 Output: Urine 1300 1900 Uretheral (Christie) 600 Other: Voiding Method Indwelling Catheter Indwelling Catheter Indwelling Catheter - Exam Patient is awake comfortable. Not in any acute distress. Alert oriented 3 Examination of the heart S1 and S2 Examination lungs shows decreased breath sounds at the bases Abdomen is soft nontender Exam in lower extremities shows no evidence of edema. - Labs CBC & Chem 7: 07/17/21 04:38 07/18/21 03:25 Labs: Abnormal Lab Results - Last 24 Hours (Table) 07/17/21 07/17/21 07/17/21 Range/Units 11:40 16:43 20:45 Sodium (137-145) mmol/L Chloride (98-107) mmol/L BUN (7-17) mg/dL Creatinine (0.52-1.04) mg/dL Glucose (74-99) mg/dL POC Glucose (mg/dL) 238 H 414 H 138 H (75-99) mg/dL 07/18/21 07/18/21 07/18/21 Range/Units 02:08 03:25 07:00 Sodium 133 L (137-145) mmol/L Chloride 94 L (98-107) mmol/L BUN 74 H (7-17) mg/dL Creatinine 1.71 H (0.52-1.04) mg/dL Glucose 204 H (74-99) mg/dL POC Glucose (mg/dL) 259 H 115 H (75-99) mg/dL Assessment and Plan Assessment: 1. Hypervolemic hyponatremia. Status post Samsca maintained on diuretics and fluid restriction. Sodium is 133 today 2. Urinary retention status post Christie catheter placement 3. CK D stage III B baseline creatinine 1.5 secondary to diabetic kidney disease 4. Volume overload improving with diuresis 5. Metabolic acidosis secondary to CK D maintained on oral sodium bicarb 6. Acute on chronic systolic CHF with ejection fraction 30-35% with moderate to severe mitral regurgitation, moderate tricuspid regurg and moderate pulmonary hypertension Plan: Continue to diurese patient Okay to switch to oral Lasix Maintain fluid restriction Repeat labs in a.m.
[2021-07-18 11:43] LABS: Glucose,Whole Blood 197 mg/dL (75-99)
--- NOTE | 2021-07-18 12:10 | P.PN ---
Subjective The patient is a very pleasant 81-year-old female. She used to follow with Dr. Calvillo in 2019, does not currently follow with a apron trimmer. She has a known history of CAD s/p PCI in 2004, CABG 30+ years ago, hypertension, hyperlipidemia, severe mitral regurgitation as well as moderate tricuspid regurgitation, ischemic cardiomyopathy with EF 30-35%. We were initially consulted to see for further evaluation of abnormal cardiac enzymes. She presen praneeth to the hospital on 07/11/2021 with with progressive dyspnea. Diagnosed with acute heart failure exacerbaion. She presented with progressive exertional dyspnea and left heart failure more than right heart failure. She was initially in the ICU and transferred out of the ICU on 07/16/21. 07/18/2021 Patient seen and examined at bedside, no acute distress. Her breathing and symptoms of orthopnea have improved, she is close to her baseline and hemodynamically stable. Negative 1660mL fluid balance, decreased weight noted. She's currently maintained on IV Lasix 40 mg twice a day, aspirin 80 mg daily, Plavix 75 mg daily, Imdur 30 mg daily, losartan 12.5 mg daily, pravastatin 40 mg nightly, metoprolol succinate 25 mg daily Labs, sodium 133, potassium 4.3, BUN 74, serum creatinine 1.7, magnesium 2.2 PHYSICAL EXAMINATION Vital signs reviewed. CONSTITUTIONAL: No apparent distress. HEENT: Some mild JVD noted. No carotid bruit. CHEST EXAMINATION: Lungs with mild crackles in the bases bilaterally to auscultation. HEART EXAMINATION: Regular rate and rhythm. S1, S2 heard. Systolic ejection murmur noted, No gallops or rub. ABDOMEN: Soft, nontender. Positive bowel sounds. EXTREMITIES: 2+ peripheral pulses, no lower extremity edema and no calf tenderness. NEUROLOGIC EXAMINATION: Patient is awake, alert and oriented x3. Assessment Acute hypoxic respiratory failure secondary to heart failure with reduced ejection fraction Congestive heart failure exacerbation secondary to heart failure with reduced ejection fraction Known severe cardiomyopathy with EF around 35% Valvular heart disease with severe mitral regurgitation and moderate tricuspid regurgitation Coronary artery disease with prior revascularization History of chronic kidney disease Hyponatremia likely mainly related to volume overload, congestive heart failure, improved Plan We will transition to PO Lasix today Continue Losartan, aspirin, statin, plavix, and metoprolol succinate From a cardiology perspective, patient is stable to be discharged home today. Follow up with Dr. Calvillo outpatient. Patient with appointment on 07/24/2021 at 10:15am. Nurse Practitioner note has been reviewed, I agree with a documented findings and plan of care. Patient was seen and examined. Objective - Vital Signs Vital signs: Vital Signs Temp 97.9 F 07/18/21 07:22 Pulse 82 07/18/21 11:03 Resp 18 07/18/21 07:22 BP 129/76 07/18/21 07:22 Pulse Ox 96 07/18/21 02:00 Intake & Output 07/17/21 07/18/21 07/18/21 18:59 06:59 18:59 Intake Total 240 Output Total 1300 1900 Balance -1300 -1660 Intake: Oral 240 Output: Urine 1300 1900 Uretheral (Christie) 600 Other: Voiding Method Indwelling Catheter Indwelling Catheter Indwelling Catheter - Labs CBC & Chem 7: 07/17/21 04:38 07/18/21 03:25 Labs: Abnormal Lab Results - Last 24 Hours (Table) 07/17/21 07/17/21 07/17/21 Range/Units 11:40 16:43 20:45 Sodium (137-145) mmol/L Chloride (98-107) mmol/L BUN (7-17) mg/dL Creatinine (0.52-1.04) mg/dL Glucose (74-99) mg/dL POC Glucose (mg/dL) 238 H 414 H 138 H (75-99) mg/dL 07/18/21 07/18/21 07/18/21 Range/Units 02:08 03:25 07:00 Sodium 133 L (137-145) mmol/L Chloride 94 L (98-107) mmol/L BUN 74 H (7-17) mg/dL Creatinine 1.71 H (0.52-1.04) mg/dL Glucose 204 H (74-99) mg/dL POC Glucose (mg/dL) 259 H 115 H (75-99) mg/dL
[2021-07-18] MEDS: CLOPIDOGREL 75 MG TAB PO SCH (12:12)
[2021-07-18 12:13] VITALS: BP 111/65; PULSE 81; TEMP 97.8
--- NOTE | 2021-07-18 15:00 | P.DS ---
Providers Date of admission: 07/11/21 20:29 Expected date of discharge: 07/18/21 Attending physician: Kobe Anderson Consults: 07/11/21 20:28 Consult Physician Routine Consulting Provider: [facility] Consult Reason/Comments: Acute pulmonary edema, elevated troponin Do you want consulting provider notified?: Yes 07/11/21 22:29 Consult Physician Routine Consulting Provider: Sandra Fulton Consult Reason/Comments: icu Do you want consulting provider notified?: Yes 07/11/21 22:32 Consult Physician Routine Consulting Provider: Alina Pearce Consult Reason/Comments: hypoNa Do you want consulting provider notified?: Yes Primary care physician: Kobe Anderson [facility] Course: Final Diagnoses: -Acute on chronic CHF systolic dysfunction, EF 30-35%, fluid overload, bilateral pleural effusions improving -Acute on chronic hypoxic respiratory failure secondary to the above. Wears 2 L nasal cannula O2 at home -Hyponatremia, hypervolemic and related to hyperglycemia, status post Samsca, -Diabetes mellitus, uncontrolled with hyperglycemia -CAD, history of MT, CABG, stents -Moderate mitral regurgitation -Moderate tricuspid regurgitation -Pulmonary hypertension -Chronic renal failure, Stage 3B, baseline creatinine around 1.5 -Metabolic acidosis secondary to the above -Gastroesophageal reflux disease -Hypertension -Hyperlipidemia -Macular degeneration -Obesity, BMI 31.8 Hospital course:This is a pleasant 81-year-old female with past medical history of CAD, MT, CABG, pulmonary hypertension, moderate mitral and tricuspid regurgitation, hyperlipidemia, hypertension, chronic hypoxic respiratory failure, diabetes mellitus, gastroesophageal reflux disease,macular degeneration, UTIs-recently treated for UTI with current UA negative, CKD IIIB and multiple other medical issues, admitted to ICU with worsening shortness of breath without edema over the last 2 weeks. Pulse ox low at home, EMS called.(EMS report currently unavailable). Reports drinking significant amount of fluids. Denies nausea vomiting or diarrhea. Denies abdominal pain. Denies lightheadedness dizziness or focal deficits. Denies chest pain, palpitations or shortness of breath. Denies any fever or chills. Garcia virus not detected.EKG reported atrial fibrillation, with ventricular rate controlled. Serial troponins in progress ;0.035.Chest x-ray reported CHF with increased pulmonary congestion and fluid .Pro-BNP elevated, 8770 .Sodium on admission 116, IV fluids of 3% hypertonic saline initiated along with Lasix IVP. Requiring 12 L high flow nasal cannula to maintain O2 sats in the low 90s. Creatinine 1.5, baseline. Hyperglycemic, blood sugars in the high 200s. Admitted to ICU. Afebrile, WBC 11.7. AM Labs pending. 07/17/2021 transfer out of ICU yesterday .status post Samsca ,continues on fluid restrictions, IV push diuretics with sodium currently at 134, renal function improving BUN 64.9, creatinine 1.7. Diuresing well on Lasix IV push with 24- hour I&O reflecting a negative fluid balance. Afebrile, WBC 11.14. Breathing comfortably , denies shortness of breath .denies chest pain or palpitations .Maintaining O2 sats in the 90s on 3 L nasal cannula. Significant clinical improvement. Maintaining O2 sats in the 90s on 3 L nasal cannula. Diuresing well on diuretics with 24-hour I&O reflecting a negative fluid balance. Telemetry sinus rhythm. Denies chest pain, palpitations or increasing shortness of breath. Patient will be discharged home today in stable condition with guarded prognosis pending final DC recommendations/diuretics/clearance per nephrology, cardiology and pulmonary. The impression and plan of care has been dictated as directed. : I performed a history and examination of this patient, discussed the same with the dictator. I agree with the dictator's note ,documented as a scribe. Any additional findings or plans will be noted. Patient Condition at Discharge: Stable Plan - Discharge Summary Discharge Rx Participant: No New Discharge Prescriptions: New Losartan [Cozaar] 12.5 mg PO DAILY 60 Days #30 tab Furosemide [Lasix] 40 mg PO BID@0900,1600 30 Days #60 tab Tamsulosin [Flomax] 0.4 mg PO DAILY #14 cap Continue Solifenacin Succinate [Vesicare] 5 mg PO DAILY Multivitamin/Iron/Folic Acid [Centrum Complete Multivit Tab] 1 tab PO DAILY Clopidogrel Bisulfate [Clopidogrel] 75 mg PO DAILY@1200 Famotidine [Pepcid] 20 mg PO HS Isosorbide Mononitrate ER [Imdur] 30 mg PO DAILY Loratadine [Claritin] 10 mg PO DAILY Metoprolol Succinate [Toprol XL] 25 mg PO DAILY Pravastatin Sodium [Pravachol] 40 mg PO HS Sodium Bicarbonate Tab 650 mg PO TID Aspirin 81 mg PO DAILY Insulin Lispro [humaLOG Kwikpen] 0 unit SQ AC-TID #10 ml Cholecalciferol [Vitamin D3 (25 Mcg = 1000 Iu)] 100 mcg PO DAILY QUEtiapine FUMARATE [SEROquel] 25 mg PO HS PRN PRN Reason: Insomnia Changed Insulin Glargine,Hum.rec.anlog [Lantus Solostar Pen] 6 units SQ BID #0 Discontinued Sulfamethox-Tmp 800-160Mg [Bactrim DS 800-160 mg] 1 tab PO BID amLODIPine [Norvasc] 5 mg PO HS Losartan [Cozaar] 25 mg PO HS Furosemide [Lasix] 40 mg PO DAILY Discharge Medication List Clopidogrel Bisulfate [Clopidogrel] 75 mg PO DAILY@1200 03/15/15 [History] Famotidine [Pepcid] 20 mg PO HS 03/15/15 [History] Multivitamin/Iron/Folic Acid [Centrum Complete Multivit Tab] 1 tab PO DAILY 03/15/15 [History] Solifenacin Succinate [Vesicare] 5 mg PO DAILY 03/15/15 [History] Isosorbide Mononitrate ER [Imdur] 30 mg PO DAILY 07/17/18 [History] Loratadine [Claritin] 10 mg PO DAILY 07/17/18 [History] Metoprolol Succinate [Toprol XL] 25 mg PO DAILY 07/17/18 [History] Pravastatin Sodium [Pravachol] 40 mg PO HS 07/17/18 [History] Sodium Bicarbonate Tab 650 mg PO TID 07/17/18 [History] Aspirin 81 mg PO DAILY 10/08/18 [History] Cholecalciferol [Vitamin D3 (25 Mcg = 1000 Iu)] 100 mcg PO DAILY 07/11/21 [History] QUEtiapine FUMARATE [SEROquel] 25 mg PO HS PRN 07/11/21 [History] Furosemide [Lasix] 40 mg PO BID@0900,1600 30 Days #60 tab 07/18/21 [Rx] Insulin Glargine,Hum.rec.anlog [Lantus Solostar Pen] 6 units SQ BID #0 07/18/21 [Rx] Insulin Lispro [humaLOG Kwikpen] 0 unit SQ AC-TID #10 ml 07/18/21 [Rx] Losartan [Cozaar] 12.5 mg PO DAILY 60 Days #30 tab 07/18/21 [Rx] Tamsulosin [Flomax] 0.4 mg PO DAILY #14 cap 07/18/21 [Rx] Follow up Appointment(s)/Referral(s): Bijal Calvillo MD [STAFF PHYSICIAN] - 07/24/21 10:15 am [facility] [REFERRING] - Kobe Anderson DO [Primary Care Provider] - 07/26/21 10:20 am Ambulatory/Diagnostic Orders: Complete Blood Count w/diff [LAB.AMB] Time Frame: 3 Days, Location: None Selected Activity/Diet/Wound Care/Special Instructions: maintain log of accucheks ac & hs and take to F/U visit with PCP for further rec. Follow up with [facility] for applying to Medicaid. Discharge/Stand Alone Forms: Who Do I Call?, Community Resources Discharge Disposition: HOME WITH HOME HEALTH SERVICES
[2021-07-18] MEDS ORDERED: FUROSEMIDE 40 MG TAB PO SCH (16:00)
== END 2021-07-18 15:40 | disposition home health service (06) | DRG 291 ==
LOC: EC 19:05 → 3SCARD 20:29 → 2SICU 22:36 → 4SSUR 07-16 11:52
PROVIDERS: ADMIT Family Medicine; ATTEND Family Medicine
PROC: 5A0935A Assistance with Respiratory Ventilation, Less than 24 Consecutive Hours, High Flow/Velocity Cannula (ICD-10-PCS; principal; 2021-07-12)
PROC: 3E043XZ Introduction of Vasopressor into Central Vein, Percutaneous Approach (ICD-10-PCS; 2021-07-17)
DX: I13.0 Hypertensive heart and chronic kidney disease with heart failure and stage 1 through stage 4 chronic kidney disease, or unspecified chronic kidney disease (principal); I50.43 Acute on chronic combined systolic (congestive) and diastolic (congestive) heart failure; J96.21 Acute and chronic respiratory failure with hypoxia; E87.1 Hypo-osmolality and hyponatremia; E87.2 Acidosis; J98.11 Atelectasis; N17.9 Acute kidney failure, unspecified; E11.22 Type 2 diabetes mellitus with diabetic chronic kidney disease; E11.649 Type 2 diabetes mellitus with hypoglycemia without coma; E11.65 Type 2 diabetes mellitus with hyperglycemia; E66.9 Obesity, unspecified; E86.1 Hypovolemia; H35.30 Unspecified macular degeneration; I08.1 Rheumatic disorders of both mitral and tricuspid valves; I25.2 Old myocardial infarction; I25.5 Ischemic cardiomyopathy; I27.29 Other secondary pulmonary hypertension; I48.91 Unspecified atrial fibrillation; Z68.31 Body mass index [BMI] 31.0-31.9, adult; K21.9 Gastro-esophageal reflux disease without esophagitis; Z95.1 Presence of aortocoronary bypass graft; Z20.822 Contact with and (suspected) exposure to COVID-19; Z99.81 Dependence on supplemental oxygen; N18.32 Chronic kidney disease, stage 3b; K57.90 Diverticulosis of intestine, part unspecified, without perforation or abscess without bleeding; R33.9 Retention of urine, unspecified; R77.8 Other specified abnormalities of plasma proteins; R32 Unspecified urinary incontinence; E78.5 Hyperlipidemia, unspecified; I25.10 Atherosclerotic heart disease of native coronary artery without angina pectoris; Z79.4 Long term (current) use of insulin; I45.10 Unspecified right bundle-branch block; Z79.82 Long term (current) use of aspirin; Z79.899 Other long term (current) drug therapy; Z82.3 Family history of stroke; Z82.49 Family history of ischemic heart disease and other diseases of the circulatory system; Z83.3 Family history of diabetes mellitus; Z95.5 Presence of coronary angioplasty implant and graft; Z98.42 Cataract extraction status, left eye; Z98.41 Cataract extraction status, right eye; Z96.1 Presence of intraocular lens; Z90.49 Acquired absence of other specified parts of digestive tract; Z98.890 Other specified postprocedural states; Z88.7 Allergy status to serum and vaccine; Z88.8 Allergy status to other drugs, medicaments and biological substances; Z91.041 Radiographic dye allergy status; Z87.81 Personal history of (healed) traumatic fracture; Z86.19 Personal history of other infectious and parasitic diseases
CPT/HCPCS: 36415; 71045; 71046; 76604; 80048; 80053; 81001; 83036; 83605; 83735; 83880; 83930; 83935; 84100; 84295; 84300; 84443; 84484; 85025; 85027; 85379; 85610; 85730; 87086; 87635; 93005; 93306; 94640; 96374; 96375; 99291

== ENCOUNTER → 2023-01-17 | Outpatient (CLI) | payer MEDICARE ==
--- NOTE | 2023-01-17 12:33 | XR ---
EXAMINATION TYPE: XR chest 2V DATE OF EXAM: 01/17/2023 COMPARISON: NONE HISTORY: Rapid heart rate. TECHNIQUE: Frontal and lateral views of the chest are obtained. FINDINGS: The cardiac silhouette is markedly enlarged and there is diffuse interstitial changes like ly related to pulmonary edema which is mild. There are midline sternotomy wires and multiple surgical clips within the mediastinum. There is no focal area of consolidation. IMPRESSION: Cardiomegaly with mild pulmonary edema.
[2023-01-17 16:31] LABS: HGB 12.8 d/dL (12.0-15.0); MCH 28.3 pg (27.0-32.0); MCHC 31.2 d/dL (32.0-37.0); MCV 90.5 FL (80.0-97.0); Mean Platelet Volume 10.8 FL (9.5-12.2); NRBC Per 100 WBC 0 X 10*3/uL (0.00-0.01); Platelet Count 305 X 10*3/uL (140-440); RBC 4.53 X 10*6/uL (4.10-5.20); RDW 15.9 % (11.5-14.5); WBC 9.21 X 10*3/uL (4.50-10.00)
== END | disposition home or self-care (01) ==
LOC: LABWHC1 10:06
PROVIDERS: ATTEND Family Medicine
DX: I51.7 Cardiomegaly (principal); J81.1 Chronic pulmonary edema; J44.9 Chronic obstructive pulmonary disease, unspecified; I50.9 Heart failure, unspecified; R06.02 Shortness of breath; Z57.2 Occupational exposure to dust
CPT/HCPCS: 36415; 71046; 83036; 85027

== ENCOUNTER → 2023-02-04 | Outpatient (CLI) | payer MEDICARE ==
--- NOTE | 2023-02-05 14:08 | CA ---
Transthoracic Echo Report Name: Elisabeth Cruz Age: 82 Gender: F : 1940 Exam Date: 02/04/2023 16:10 Exam Location: [facility] Ht (in): 58 Wt (lb): 129 Ordering Physician: Kobe Anderson DO Attending/Referring Phys: Film Archivist Liz Hernandez RDCS Procedure CPT: Indications: R06.2 WHEEZING Cardiac Hx: Technical Quality: Good Contrast 1: Total Dose (mL): Contrast 2: Total Dose (mL): MEASUREMENTS (Male / Female) Normal Values 2D ECHO LV Diastolic Diameter PLAX 5.7 cm 4.2 - 5.9 / 3.9 - 5.3 cm LV Systolic Diameter PLAX 4.8 cm IVS Diastolic Thickness 0.9 cm 0.6 - 1.0 / 0.6 - 0.9 cm LVPW Diastolic Thickness 0.9 cm 0.6 - 1.0 / 0.6 - 0.9 cm LV Relative Wall Thickness 0.3 RV Internal Dim ED PLAX 3.0 cm LVOT Diameter 2.0 cm LA Systolic Diameter LX 3.4 cm 3.0 - 4.0 / 2.7 - 3.8 cm LV Diastolic Volume MOD 4C 120.3 cm??? LV Systolic Volume MOD 4C 89.7 cm??? LV Ejection Fraction MOD 4C 25.4 % LV Cardiac Index MOD 4C 1289.5 cm???/min???m??? LV Diastolic Length 4C 7.8 cm LV Systolic Length 4C 7.1 cm LV Diastolic Volume MOD 2C 84.6 cm??? LV Systolic Volume MOD 2C 73.7 cm??? LV Ejection Fraction MOD 2C 12.9 % LV Cardiac Index MOD 2C 459.4 cm???/min???m??? LV Diastolic Length 2C 8.0 cm LV Systolic Length 2C 7.6 cm LA Volume 38.3 cm??? 18 - 58 / 22 - 52 cm??? LA Volume Index 24.4 cm???/m??? 16 - 28 cm???/m??? M-MODE Aortic Root Diameter MM 2.8 cm MV E Point Septal Separation 2.5 cm AV Cusp Separation MM 1.3 cm DOPPLER AV Peak Velocity 175.1 cm/s AV Peak Gradient 12.3 mmHg AI Peak Velocity 336.4 cm/s AI Peak Gradient 45.3 mmHg AI Pressure Half Time 642.3 ms MV Peak Velocity 160.0 cm/s MV Peak Gradient 10.2 mmHg MV Mean Velocity 94.5 cm/s MV Mean Gradient 4.0 mmHg MV Velocity Time Integral 40.1 cm MV Area PHT 3.4 cm??? MR Peak Velocity 523.7 cm/s MR Peak Gradient 109.7 mmHg Mitral E Point Velocity 146.2 cm/s Mitral A Point Velocity 103.1 cm/s Mitral E to A Ratio 1.4 MV Deceleration Time 225.8 ms TR Peak Velocity 361.4 cm/s TR Peak Gradient 52.2 mmHg Right Ventricular Systolic Press 54.7 mmHg FINDINGS Left Ventricle Left ventricular ejection fraction is estimated at 25-30 %. Mildly increased left ventricular diastolic diameter. Left ventricular wall thickness normal. Severely reduced global left ventricular systolic function. Right Ventricle Normal right ventricular size. Severe pulmonary hypertension. Right ventricular systolic pressure estimated at 55 mm hg. Right Atrium Normal right atrial size. Left Atrium Normal left atrial size. Mitral Valve Mitral valve thickened. Mild mitral annular calcification. Severe mitral regurgitation. Aortic Valve Thickened aortic valve without stenosis. Mild aortic regurgitation. Tricuspid Valve Structurally normal tricuspid valve. [id number] tricuspid regurgitation. Pulmonic Valve Structurally normal pulmonic valve. No pulmonic regurgitation. Pericardium No pericardial effusion. Aorta Normal size aortic root and proximal ascending aorta. CONCLUSIONS Severely reduced LV systolic function, global Elevated right ventricular systolic pressures, severe Previewed by: Dr. Eugene Samuel MD (Electronically Signed) Final Date: 05 February 2023 14:07
== END | disposition home or self-care (01) ==
LOC: RADECHMAIN 15:58
PROVIDERS: ATTEND Family Medicine
DX: R06.2 Wheezing (principal); I27.89 Other specified pulmonary heart diseases
CPT/HCPCS: 93306

== ENCOUNTER → 2023-10-01 | Outpatient (CLI) | payer MEDICARE ==
--- NOTE | 2023-10-01 17:31 | CA ---
Transthoracic Echo Report Name: Elisabeth Cruz Age: 83 Gender: F : 1940 Exam Date: 10/01/2023 15:30 Exam Location: [facility] Ht (in): 59 Wt (lb): 127 Ordering Physician: Kobe Anderson DO Attending/Referring Phys: Resource Paraprofessional Ruchi Hernandez RDCS Procedure CPT: Indications: I50.30 UNSPECIFIED DIASTOLIC (CONGESTIVE) HEART FA Cardiac Hx: Technical Quality: Contrast 1: Total Dose (mL): Contrast 2: Total Dose (mL): MEASUREMENTS (Male / Female) Normal Values 2D ECHO LV Diastolic Diameter PLAX 5.9 cm 4.2 - 5.9 / 3.9 - 5.3 cm LV Systolic Diameter PLAX 5.5 cm IVS Diastolic Thickness 0.8 cm 0.6 - 1.0 / 0.6 - 0.9 cm LVPW Diastolic Thickness 0.8 cm 0.6 - 1.0 / 0.6 - 0.9 cm LV Relative Wall Thickness 0.3 RV Internal Dim ED PLAX 2.4 cm LA Systolic Diameter LX 4.5 cm 3.0 - 4.0 / 2.7 - 3.8 cm LV Diastolic Volume MOD BP 106.6 cm??? 67 - 155 / 56 - 104 cm??? LV Systolic Volume MOD BP 87.9 cm??? 22 - 58 / 19 - 49 cm??? LV Ejection Fraction MOD BP 17.6 % >= 55 % LV Diastolic Volume MOD 4C 98.3 cm??? LV Systolic Volume MOD 4C 86.8 cm??? LV Ejection Fraction MOD 4C 11.6 % LV Diastolic Length 4C 7.2 cm LV Systolic Length 4C 7.1 cm LV Diastolic Volume MOD 2C 111.7 cm??? LV Systolic Volume MOD 2C 88.8 cm??? LV Ejection Fraction MOD 2C 20.5 % LV Diastolic Length 2C 7.5 cm LV Systolic Length 2C 7.1 cm LA Volume 69.6 cm??? 18 - 58 / 22 - 52 cm??? LA Volume Index 44.5 cm???/m??? 16 - 28 cm???/m??? M-MODE Aortic Root Diameter MM 2.1 cm LA Systolic Diameter MM 4.4 cm LA Ao Ratio MM 2.1 AV Cusp Separation MM 1.3 cm DOPPLER AV Peak Velocity 152.6 cm/s AV Peak Gradient 9.3 mmHg AV Mean Velocity 101.9 cm/s AV Mean Gradient 4.8 mmHg AV Velocity Time Integral 25.6 cm AI Peak Velocity 342.6 cm/s AI Peak Gradient 46.9 mmHg AI Pressure Half Time 756.9 ms MV Area PHT 2.8 cm??? Mitral E Point Velocity 151.8 cm/s Mitral A Point Velocity 99.3 cm/s Mitral E to A Ratio 1.5 MV Deceleration Time 267.5 ms TR Peak Velocity 390.9 cm/s TR Peak Gradient 61.1 mmHg FINDINGS Left Ventricle Left ventricular ejection fraction is estimated at 15-20 %. Moderately increased left ventricular diastolic diameter. Mildly increased left ventricular diastolic volume. Severely increased left ventricular systolic volume. Severely decreased left ventricular ejection fraction. Right Ventricle Normal right ventricular size and function. Severe pulmonary hypertension. Right ventricular systolic pressure estimated at 61mmhg. Right Atrium Moderate right atrial dilatation. Left Atrium Moderately increased left atrial diameter. Moderately increased left atrial volume. Severe left atrial dilatation. Mitral Valve Structurally normal mitral valve. Severe mitral regurgitation. Aortic Valve Trileaflet aortic valve. No aortic stenosis. Moderate aortic regurgitation. Tricuspid Valve Structurally normal tricuspid valve. [id number] tricuspid regurgitation. Pulmonic Valve Structurally normal pulmonic valve. Trace to mild pulmonic regurgitation. Pericardium No pericardial or pleural effusion. Aorta Normal size aortic root and proximal ascending aorta. CONCLUSIONS Severe LV systolic dysfunction Severe pulmonary hypertension Severe mitral regurgitation Moderate aortic regurgitation Moderate to severe tricuspid regurgitation Previewed by: Dr. Ramu Quiroz MD (Electronically Signed) Final Date: 01 October 2023 17:30
== END | disposition home or self-care (01) ==
LOC: RADECHMAIN 15:26
PROVIDERS: ATTEND Family Medicine
DX: I27.20 Pulmonary hypertension, unspecified (principal); I08.3 Combined rheumatic disorders of mitral, aortic and tricuspid valves; I50.30 Unspecified diastolic (congestive) heart failure
CPT/HCPCS: 93306

== ENCOUNTER 2023-10-12 10:37 | Inpatient (IN) | payer MEDICARE ==
--- NOTE | 2023-10-12 11:40 | ED ---
SOB HPI - General Source: patient, RN notes reviewed Mode of arrival: EMS Limitations: no limitations <Brooke Morton - Last Filed: 10/12/23 11:37> - General Source: patient, RN notes reviewed Mode of arrival: EMS Limitations: no limitations - History of Present Illness MD Complaint: shortness of breath <Anya France - Last Filed: 10/12/23 17:22> - General Chief Complaint: Shortness of Breath Stated Complaint: SOB, nausea Time Seen by Provider: 10/12/23 11:38 - History of Present Illness Initial Comments: Quick [id number] female presenting with daughter to the ER with chief complaint of shortness of breath x 2 days. States that she has a history of CHF and is currently taking Lasix twice daily. She reports she missed a couple of nighttime doses over the past week. She is having some edema in the stomach but denies leg swelling. Reports difficulty sleeping due due to difficulty breathing while laying flat. Denies chest pain. (Brooke Morton) This is an 83-year-old female who presents to the emergency department for shortness of breath. States that it started about 2 days ago. She has a history of CHF treated with Lasix, but missed a few nighttime doses this past week. Shortness of breath is much worse when lying flat, and family states that she has been unable to sleep as a result of this. Denies any chest pain associated with this. States that she is retaining water in the abdomen. Does not retain water in her legs, states that it only occurs in the abdomen when she has a CHF exacerbation. She does report nausea. Does not currently follow with cardiology. (Anya France) - Related Data Home Medications Medication Instructions Recorded Confirmed Clopidogrel Bisulfate [Clopidogrel] 75 mg PO HS 03/15/15 10/12/23 Famotidine [Pepcid] 20 mg PO HS 03/15/15 10/12/23 Multivitamin/Iron/Folic Acid 1 tab PO DAILY 03/15/15 10/12/23 [Centrum Complete Multivit Tab] Isosorbide Mononitrate ER [Imdur] 30 mg PO DAILY 07/17/18 10/12/23 Loratadine [Claritin] 10 mg PO DAILY 07/17/18 10/12/23 Metoprolol Succinate [Toprol XL] 25 mg PO DAILY 07/17/18 10/12/23 Pravastatin Sodium [Pravachol] 40 mg PO HS 07/17/18 10/12/23 Sodium Bicarbonate Tab 650 mg PO TID 07/17/18 10/12/23 Aspirin 81 mg PO DAILY 10/08/18 10/12/23 Cholecalciferol [Vitamin D3 (25 50 mcg PO BID 07/11/21 10/12/23 Mcg = 1000 Iu)] QUEtiapine FUMARATE [SEROquel] 25 mg PO HS 07/11/21 10/12/23 Furosemide [Lasix] 20 mg PO W/SUPPER 10/12/23 10/12/23 Furosemide [Lasix] 40 mg PO DAILY 10/12/23 10/12/23 Insulin Glargine,Hum.rec.anlog 40 units SQ HS 10/12/23 10/12/23 [Lantus Solostar Pen] Insulin Lispro [humaLOG Kwikpen] See Protocol SQ AC-TID 10/12/23 10/12/23 Losartan [Cozaar] 25 mg PO DAILY 10/12/23 10/12/23 Allergies Allergy/AdvReac Type Severity Reaction Status Date / Time influenza virus vaccine, Allergy Anaphylaxis Verified 10/12/23 14:22 specific [influenza virus vacc,specific] Iodinated Contrast Media Allergy Rash/Hives Verified 10/12/23 14:22 [Iodinated Contrast Media - IV Dye] iodine Allergy Rash/Hives Verified 10/12/23 14:22 Review of Systems ROS Other: All systems not noted in ROS Statement are negative. <Brooke Morton - Last Filed: 10/12/23 11:37> ROS Other: All systems not noted in ROS Statement are negative. <Anya France - Last Filed: 10/12/23 17:22> ROS Statement: Those systems with pertinent positive or pertinent negative responses have been documented in the HPI. Past Medical History Past Medical History: Coronary Artery Disease (CAD), Heart Failure, GERD/Reflux, Hyperlipidemia, Hypertension, Myocardial Infarction (WI), Renal Disease Additional Past Medical History / Comment(s): Pt states she has been having periods of rapid heart beats/SOB and that she is to soon possible have an AICD/pacemaker, IDDM type II, pt states recently had low blood sugar with syncope, impaired kidney function, WI in 1988 and 2003, macular degeneration bilaterally with limited vision, past few months pt states she has been having diarrhea/constipation occasionally, diverticular disease, macular degeneration bilaterally, urinary incontinence, UTI, sinus problems, past ankle fracture, April 2018 had bilateral ear infections/sinus infection Last Myocardial Infarction Date:: 2003 History of Any Multi-Drug Resistant Organisms: None Reported Past Surgical History: Appendectomy, Cholecystectomy, Coronary Bypass/CABG, Heart Catheterization With Stent, Orthopedic Surgery Additional Past Surgical History / Comment(s): 1988 CABG 3 vessel, PCI with stent 2003, bilateral cataract removals/lens implants-unsuccessful, bilateral eye injections for macular degeneration., L ankle fracture with surgery/hardware. Past Anesthesia/Blood Transfusion Reactions: No Reported Reaction Additional Past Anesthesia/Blood Transfusion Reaction / Comment(s): Pt received blood with CABG Date of Last Stent Placement:: 2003 Past Psychological History: No Psychological Hx Reported Smoking Status: Never smoker Past Alcohol Use History: None Reported Past Drug Use History: None Reported - Past Family History Father Family Medical History: Myocardial Infarction (W[place]) Additional Family Medical History / Comment(s): Father of a WI at the age of 52 yrs. Mother Family Medical History: CVA/TIA, Diabetes Mellitus, Hypertension Additional Family Medical History / Comment(s): Mother developed diabetes later in life and had CVAs. She at the age of 64yrs from a CVA <Brooke Morton - Last Filed: 10/12/23 11:37> General Exam Limitations: no limitations <Brooke Morton - Last Filed: 10/12/23 11:37> Limitations: no limitations General appearance: alert, in no apparent distress Head exam: Present: atraumatic, normocephalic, normal inspection Respiratory exam: Present: normal lung sounds bilaterally. Absent: respiratory distress, wheezes, rales, rhonchi, stridor Cardiovascular Exam: Present: regular rate, normal rhythm, normal heart sounds. Absent: systolic murmur, diastolic murmur, rubs, gallop, clicks GI/Abdominal exam: Present: distended, normal bowel sounds. Absent: tenderness Neurological exam: Present: alert, oriented X3, CN II-XII intact Psychiatric exam: Present: normal affect, normal mood Skin exam: Present: warm, dry, intact, normal color. Absent: rash <Anya France - Last Filed: 10/12/23 17:22> - General Exam Comments Initial Comments: Visual Physical Exam Vital signs reviewed General: Well-appearing, nontoxic, no acute distress. Head: Normocephalic, atraumatic Eyes: PERRLA, EOMI ENT: Airway patent Chest: Nonlabored breathing Skin: No visual rash, normal skin tone Neuro: Alert and oriented 3 Musculoskeletal: No gross abnormalities (Brooke Morton) Course Vital Signs 10/12/23 10/12/23 10/12/23 10:44 13:26 15:57 Temperature 97.8 F Pulse Rate 63 59 L 63 Respiratory 20 18 18 Rate Blood Pressure 134/81 128/94 133/72 O2 Sat by Pulse 98 96 Oximetry 10/12/23 16:09 Temperature Pulse Rate 63 Respiratory 18 Rate Blood Pressure 133/72 O2 Sat by Pulse 97 Oximetry Medical Decision Making <Brooke Morton - Last Filed: 10/12/23 11:37> - Lab Data Result diagrams: 10/12/23 13:18 10/12/23 13:18 - Radiology Data Radiology results: report reviewed, image reviewed <Anya France - Last Filed: 10/12/23 17:22> - Medical Decision Making I completed the quick note portion of this chart signed Brooke Morton PA-C (Brooke Morton) This is an 83 year old female who presents to the emergency department for shortness of breath. Was pt. sent in by a medical professional or institution? @ -No Did you speak to anyone other than the patient for history? @ -No Did you review nursing and triage notes? @ -Yes, and I agree, it is accurate with regards to the patient's symptoms. Were old charts reviewed? @ -Echocardiogram from 10/01/23 demonstrating an ejection fraction of 15 to 20% with severe left ventricular systolic dysfunction and severe pulmonary hypertension. Differential Diagnosis? @ -Differential Dyspnea: Coronary syndrome, arrhythmia, tamponade, asthma, COPD, pulmonary embolism, pneumonia, pneumothorax, pulmonary effusion, anaphylaxis, diabetic ketoacidosis, flailed chest, pulmonary contusion, diaphragmatic rupture, anemia, neuromuscular, this is not meant to be an all-inclusive list. EKG interpreted by me (3pts min.)? @ -EKG interpreted by me demonstrating the following: Sinus rhythm. Ventricular rate 68 bpm, AR interval 131 ms, QRS duration 148 ms, QTc 484 ms. X-rays interpreted by me (1pt min.)? @ -Chest x-ray obtained, my interpretation identifies no localized consolidations or infiltrates. CT interpreted by me (1pt min.)? @ -Not obtained U/S interpreted by me (1pt. min.)? @ -Not obtained What testing was considered but not performed? (CT, X-rays, U/S, labs)? Why? @ -None What meds were considered but not given? Why? @ -None Did you discuss the management of the patient with other professionals? @ -Yes, Dr. Fuentes, who accepts the patient for admission. Did you reconcile home meds? @ -Yes Was smoking cessation discussed for >3mins.? @ -No Was critical care preformed (if so, how long)? @ -No Were there social determinants of health that impacted care today? How? (Homelessness, low income, unemployed, alcoholism, drug addiction, transportation, low edu. Level, literacy, decrease access to med. care, half-way, rehab)? @ -No Was there de-escalation of care discussed even if they declined? (Discuss DNR or withdrawal of care, Hospice)? @ -No What co-morbidities impacted this encounter? (DM, HTN, Smoking, COPD, CAD, Cancer, CVA, Hep., AIDS, mental health diagnosis, sleep apnea, morbid obesity)? @ -CAD, CHF, HTN, HLD Was patient admitted / discharged? @ -Admitted. Lab work demonstrates mild leukocytosis. Renal function is fairly stable when compared with prior values. Patient noted to be hyponatremic with a sodium of 125. BNP elevated at 18,500. Patient does have a history of hyponatremia and was hospitalized for this a couple of years ago. She was advised to follow-up with nephrology, but states that she has been scared to do so as she does not want go on dialysis. She is confused on how much water or sodium intake she should have each day. Chest x-ray demonstrates cardiomegaly with interstitial pattern and they advised correlation for mild venous congestion or interstitial pneumonitis. Patient is on Lasix but admits to missing a few doses recently. Does not currently follow with cardiology. 40 mg of IV Lasix administered for CHF exacerbation. Patient admitted to medicine for CHF exacerbation and hyponatremia. Consult placed for cardiology and nephrology. Undiagnosed new problem with uncertain prognosis? @ -None Drug Therapy requiring intensive monitoring for toxicity (Heparin, Nitro, Insulin, Cardizem)? @ -None Were any procedures done? @ -None Diagnosis/symptom? @ -CHF exacerbation Acute, or Chronic, or Acute on Chronic? @ -Acute on chronic Uncomplicated (without systemic symptoms) or Complicated (systemic symptoms)? @ -Complicated Side effects of treatment? @ -None Exacerbation, Progression, or Severe Exacerbation] @ -Severe exacerbation Poses a threat to life or bodily function? @ -Yes This case was discussed in detail with the attending ED physician, Dr. Diane. Presentation, findings, and treatment plan discussed in detail as well. (Anya France) - Lab Data Lab Results 10/12/23 10/12/23 10/12/23 Range/Units 13:18 13:18 13:18 WBC 11.7 H (3.8-10.6) k/uL RBC 4.90 (3.80-5.40) m/uL Hgb 14.1 (11.4-16.0) gm/dL Hct 43.5 (34.0-46.0) % MCV 88.7 (80.0-100.0) fL MCH 28.7 (25.0-35.0) pg MCHC 32.4 (31.0-37.0) g/dL RDW 15.2 (11.5-15.5) % Plt Count 263 (150-450) k/uL MPV 8.7 Neutrophils % 73 % Lymphocytes % 15 % Monocytes % 7 % Eosinophils % 3 % Basophils % 1 % Neutrophils # 8.5 H (1.3-7.7) k/uL Lymphocytes # 1.8 (1.0-4.8) k/uL Monocytes # 0.8 (0-1.0) k/uL Eosinophils # 0.3 (0-0.7) k/uL Basophils # 0.1 (0-0.2) k/uL PT 11.5 (10.0-12.5) sec INR 1.1 (<1.2) APTT 28.2 (22.0-30.0) sec Sodium 125 L (137-145) mmol/L Potassium 5.0 (3.5-5.1) mmol/L Chloride 91 L (98-107) mmol/L Carbon Dioxide 24 (22-30) mmol/L Anion Gap 10 mmol/L BUN 63 H (7-17) mg/dL Creatinine 2.15 H (0.52-1.04) mg/dL Est GFR (CKD-EPI)AfAm 24 (>60 ml/min/1.73 sqM) Est GFR (CKD-EPI)NonAf 20 (>60 ml/min/1.73 sqM) Glucose 186 H (74-99) mg/dL Plasma Lactic Acid Hari (0.7-2.0) mmol/L Calcium 9.7 (8.4-10.2) mg/dL Phosphorus (2.5-4.5) mg/dL Magnesium 2.1 (1.6-2.3) mg/dL Total Bilirubin 0.9 (0.2-1.3) mg/dL AST 29 (14-36) U/L ALT 18 (4-34) U/L Alkaline Phosphatase 178 H (38-126) U/L Troponin I (0.000-0.034) ng/mL NT-Pro-B Natriuret Pep 31986 pg/mL Total Protein 6.7 (6.3-8.2) g/dL Albumin 4.3 (3.5-5.0) g/dL Influenza Type A (PCR) (Not Detectd) Influenza Type B (PCR) (Not Detectd) RSV (PCR) (Not Detectd) SARS-CoV-2 (PCR) (Not Detectd) 10/12/23 10/12/23 10/12/23 Range/Units 13:18 13:18 13:18 WBC (3.8-10.6) k/uL RBC (3.80-5.40) m/uL Hgb (11.4-16.0) gm/dL Hct (34.0-46.0) % MCV (80.0-100.0) fL MCH (25.0-35.0) pg MCHC (31.0-37.0) g/dL RDW (11.5-15.5) % Plt Count (150-450) k/uL MPV Neutrophils % % Lymphocytes % % Monocytes % % Eosinophils % % Basophils % % Neutrophils # (1.3-7.7) k/uL Lymphocytes # (1.0-4.8) k/uL Monocytes # (0-1.0) k/uL Eosinophils # (0-0.7) k/uL Basophils # (0-0.2) k/uL PT (10.0-12.5) sec INR (<1.2) APTT (22.0-30.0) sec Sodium (137-145) mmol/L Potassium (3.5-5.1) mmol/L Chloride (98-107) mmol/L Carbon Dioxide (22-30) mmol/L Anion Gap mmol/L BUN (7-17) mg/dL Creatinine (0.52-1.04) mg/dL Est GFR (CKD-EPI)AfAm (>60 ml/min/1.73 sqM) Est GFR (CKD-EPI)NonAf (>60 ml/min/1.73 sqM) Glucose (74-99) mg/dL Plasma Lactic Acid Hari 1.6 (0.7-2.0) mmol/L Calcium (8.4-10.2) mg/dL Phosphorus 5.1 H (2.5-4.5) mg/dL Magnesium (1.6-2.3) mg/dL Total Bilirubin (0.2-1.3) mg/dL AST (14-36) U/L ALT (4-34) U/L Alkaline Phosphatase (38-126) U/L Troponin I 0.018 (0.000-0.034) ng/mL NT-Pro-B Natriuret Pep pg/mL Total Protein (6.3-8.2) g/dL Albumin (3.5-5.0) g/dL Influenza Type A (PCR) (Not Detectd) Influenza Type B (PCR) (Not Detectd) RSV (PCR) (Not Detectd) SARS-CoV-2 (PCR) (Not Detectd) 10/12/23 Range/Units 13:44 WBC (3.8-10.6) k/uL RBC (3.80-5.40) m/uL Hgb (11.4-16.0) gm/dL Hct (34.0-46.0) % MCV (80.0-100.0) fL MCH (25.0-35.0) pg MCHC (31.0-37.0) g/dL RDW (11.5-15.5) % Plt Count (150-450) k/uL MPV Neutrophils % % Lymphocytes % % Monocytes % % Eosinophils % % Basophils % % Neutrophils # (1.3-7.7) k/uL Lymphocytes # (1.0-4.8) k/uL Monocytes # (0-1.0) k/uL Eosinophils # (0-0.7) k/uL Basophils # (0-0.2) k/uL PT (10.0-12.5) sec INR (<1.2) APTT (22.0-30.0) sec Sodium (137-145) mmol/L Potassium (3.5-5.1) mmol/L Chloride (98-107) mmol/L Carbon Dioxide (22-30) mmol/L Anion Gap mmol/L BUN (7-17) mg/dL Creatinine (0.52-1.04) mg/dL Est GFR (CKD-EPI)AfAm (>60 ml/min/1.73 sqM) Est GFR (CKD-EPI)NonAf (>60 ml/min/1.73 sqM) Glucose (74-99) mg/dL Plasma Lactic Acid Hari (0.7-2.0) mmol/L Calcium (8.4-10.2) mg/dL Phosphorus (2.5-4.5) mg/dL Magnesium (1.6-2.3) mg/dL Total Bilirubin (0.2-1.3) mg/dL AST (14-36) U/L ALT (4-34) U/L Alkaline Phosphatase (38-126) U/L Troponin I (0.000-0.034) ng/mL NT-Pro-B Natriuret Pep pg/mL Total Protein (6.3-8.2) g/dL Albumin (3.5-5.0) g/dL Influenza Type A (PCR) Not Detected (Not Detectd) Influenza Type B (PCR) Not Detected (Not Detectd) RSV (PCR) Not Detected (Not Detectd) SARS-CoV-2 (PCR) Not Detected (Not Detectd) Disposition <Brooke Morton - Last Filed: 10/12/23 11:37> <Anya France - Last Filed: 10/12/23 17:22> Clinical Impression: CHF exacerbation, Hyponatremia Disposition: ADMITTED IP TO THIS HOSP
--- NOTE | 2023-10-12 13:09 | XR ---
EXAMINATION TYPE: XR chest 2V DATE OF EXAM: 10/12/2023 COMPARISON: 01/17/2023 TECHNIQUE: PA and lateral views submitted. HISTORY: Difficulty breathing FINDINGS: The lungs are clear and there is no pneumothorax, pleural effusion, or focal pneumonia. Heart is enl arged and there is an interstitial pattern. Median sternotomy changes.. Osseous structures demonstrat e hypertrophic and degenerative changes of the spine. IMPRESSION: 1. Cardiomegaly with interstitial pattern correlate for mild venous congestion or interstitial pneumo nitis.
[2023-10-12] MEDS: ONDANSETRON 4 MG/2 ML VIAL IVP STA (13:28)
[2023-10-12 13:38] LABS: ALT 18 U/L (4-34); AST 29 U/L (14-36); African American GFR (CKD) 24 (>60 ml/min/1.73 sqM); Albumin 4.3 g/dL (3.5-5.0); Alkaline Phosphatase 178 U/L (38-126); Anion Gap 10 mmol/L; Blood Urea Nitrogen 63 mg/dL (7-17); Calcium 9.7 mg/dL (8.4-10.2); Carbon Dioxide 24 mmol/L (22-30); Chloride 91 mmol/L (98-107); Glucose 186 mg/dL (74-99); INR 1.1 (<1.2); Magnesium 2.1 mg/dL (1.6-2.3); Non-African American GFR(CKD) 20 (>60 ml/min/1.73 sqM); Partial Thromboplastin Time 28.2 sec (22.0-30.0); Prothrombin Time 11.5 sec (10.0-12.5); Sodium 125 mmol/L (137-145); Total Bilirubin 0.9 mg/dL (0.2-1.3); Total Protein 6.7 g/dL (6.3-8.2)
[2023-10-12 13:39] LABS: Basophils # (A) 0.1 k/uL (0-0.2); Basophils % (A) 1 %; Eosinophils # (A) 0.3 k/uL (0-0.7); Eosinophils % (A) 3 %; HCT 43.5 % (34.0-46.0); HGB 14.1 gm/dL (11.4-16.0); Lymphocytes # (A) 1.8 k/uL (1.0-4.8); Lymphocytes % (A) 15 %; MCH 28.7 pg (25.0-35.0); MCHC 32.4 g/dL (31.0-37.0); MCV 88.7 fL (80.0-100.0); Mean Platelet Volume 8.7; Monocytes # (A) 0.8 k/uL (0-1.0); Monocytes % (A) 7 %; Neutrophils # (A) 8.5 k/uL (1.3-7.7); Neutrophils % (A) 73 %; Platelet Count 263 k/uL (150-450); RDW 15.2 % (11.5-15.5); WBC 11.7 k/uL (3.8-10.6)
[2023-10-12 13:47] LABS: NT-Pro-B-Type Natriuretic Pept 18500 pg/mL
[2023-10-12] MEDS ORDERED: ONDANSETRON 4 MG/2 ML VIAL IVP PRN (14:50)
[2023-10-12] MEDS ORDERED: HYDROcodone/APAP 5-325MG 1 EACH TAB PO PRN (14:50)
[2023-10-12] MEDS ORDERED: NALOXONE 0.4 MG/ML 1 ML VIAL IV PRN (14:50)
[2023-10-12] MEDS: FUROSEMIDE 10 MG/ML 4 ML VIAL IV STA (15:58)
[2023-10-12] MEDS: SODIUM BICARBONATE TAB 650 MG TAB PO SCH (15:59)
[2023-10-12 16:20] LABS: Phosphorus 5.1 mg/dL (2.5-4.5)
[2023-10-12] MEDS: FUROSEMIDE 20 MG TAB PO SCH (17:47)
[2023-10-12] MEDS: ACETAMINOPHEN TAB 325 MG TAB PO PRN (18:37)
[2023-10-12] MEDS ORDERED: DEXTROSE 50% SYRINGE 50 ML IVP PRN ×2 (20:18)
[2023-10-12 20:44] LABS: Glucose,Whole Blood 258 mg/dL (70-110)
[2023-10-12] MEDS: CHOLECALCIFEROL 25 MCG (1000 IU) TABLET PO SCH (20:52)
[2023-10-12] MEDS: FAMOTIDINE 20 MG TAB PO SCH (20:52)
[2023-10-12] MEDS: QUEtiapine 25 MG TAB PO SCH (20:52)
[2023-10-12] MEDS: PRAVASTATIN SODIUM 40 MG TAB PO SCH (20:52)
[2023-10-12] MEDS: INSULIN DETEMIR (LEVEMIR) 100 UNIT/ML SYR SQ SCH (20:52)
[2023-10-12] MEDS: CLOPIDOGREL 75 MG TAB PO SCH (20:52)
[2023-10-12] MEDS: INSULIN ASPART (NovoLOG) 100 UNIT/ML VIAL SQ SCH (20:53)
[2023-10-12 21:15] LABS: Appearance,Urine Clear (Clear); Bilirubin,Urine Negative (Negative); Blood,Urine Negative (Negative); Color,Urine Colorless; Glucose,Urine (UA) Negative (Negative); Ketones,Urine Negative (Negative); Leukocyte Esterase,Urine Trace (Negative); Nitrite,Urine Negative (Negative); Protein,Urine Trace (Negative); RBC,Urine 1 /hpf (0-5); Specific Gravity,Urine 1.006 (1.001-1.035); Urobilinogen,Urine <2.0 mg/dL (<2.0); WBC,Urine 4 /hpf (0-5)
--- NOTE | 2023-10-13 00:15 | P.HPIM ---
History of Present Illness H&P Date: 10/12/23 Chief Complaint: Shortness of breath Patient is a 83-year-old female with a past medical history of coronary artery disease status post CABG, history of stent placement, hypertension, diabetes type 2 insulin-dependent, hyperlipidemia, history of AL, diabetic peripheral neuropathy, macular degeneration bilaterally and other multiple medical problems presents to ER with complaints of shortness of breath for the past 3 days. Patient states that she does have a history of CHF. She has been feeling lightheaded and unable to lie flat without shortness of breath. She was also having cough without sputum production. Denies any worsening leg swelling. No fever no chills. Chest x-ray showed cardiomegaly with interstitial pattern correlate. Mild venous congestion or interstitial pneumonitis. EKG showed sinus rhythm with occasional ventricular premature complexes. Laboratory data showed WBC 11.7 hemoglobin 14.1 and platelets 263 INR 1.1 sodium 125 potassium 5.0 chloride 91 bicarb is 24 BUN 63 and creatinine 2.15 and GFR 20 blood sugar 186 lactic acid 1.6 and phosphorus 5.1 liver enzymes are not elevated. Alcohol is 178 troponin 0.018 and proBNP 18,500 albumin 4.3 urinalysis is negative for infection influenza AB RSV and COVID-19 PCR not detected. Patient had echocardiogram done 10/01/2023 showed severe LV systolic dysfunction, severe pulmonary hypertension, severe MR, moderate TR and moderate to severe TR Review of Systems Constitutional: Patient denies any fever or chills . No generalized weakness or weight loss. Abdomen: Patient denied nausea vomiting and diarrhea and abdominal pain. Cardiovascular: Complaining of shortness of breath. No chest pain. No leg swelling. No palpitations. Positive for orthopnea. Respiratory: patient does have cough without sputum production Positive for shortness of breath Neurologic: Patient denied any numbness or tingling. no headache. Musculoskeletal: Patient denies any complaints of joint swelling or deformity. Skin: Negative Psychiatric: Negative Endocrine: No heat or cold intolerance. No recent weight gain. Genitourinary: No dysuria or hematuria. All other 14 point ROS negative except the above Past Medical History Past Medical History: Coronary Artery Disease (CAD), Heart Failure, Diabetes Mellitus, Eye Disorder, GERD/Reflux, Hyperlipidemia, Hypertension, Myocardial Infarction (AL), Renal Disease Additional Past Medical History / Comment(s): IDDM type II, impaired kidney function, AL in 1988 and 2003, macular degeneration bilaterally with limited vision, past few months pt states she has been having diarrhea/constipation occasionally, diverticular disease, macular degeneration bilaterally, urinary incontinence, UTI, sinus problems, past ankle fracture, April 2018 had bilateral ear infections/sinus infection Last Myocardial Infarction Date:: 2003 History of Any Multi-Drug Resistant Organisms: None Reported Past Surgical History: Appendectomy, Cholecystectomy, Coronary Bypass/CABG, Heart Catheterization With Stent, Orthopedic Surgery Additional Past Surgical History / Comment(s): 1988 CABG 3 vessel, PCI with stent 2003, bilateral cataract removals/lens implants-unsuccessful, bilateral eye injections for macular degeneration., L ankle fracture with surgery/hardware. Past Anesthesia/Blood Transfusion Reactions: No Reported Reaction Additional Past Anesthesia/Blood Transfusion Reaction / Comment(s): Pt received blood with CABG Date of Last Stent Placement:: 2003 Past Psychological History: No Psychological Hx Reported Additional Psychological History / Comment(s): Pt has a daughter who resides with her. Pt has limited vision d/t macular degeneration. She states she can manage her own medications. She has a glucometer. She uses no assistive devices but own a walker and wheelchair that were her her spouses. Her hal drives her to [employer]. Her home is handicap accessible. Smoking Status: Never smoker Past Alcohol Use History: None Reported Past Drug Use History: None Reported - Past Family History Father Family Medical History: Myocardial Infarction (AL) Additional Family Medical History / Comment(s): Father of a AL at the age of 52 yrs. Mother Family Medical History: CVA/TIA, Diabetes Mellitus, Hypertension Additional Family Medical History / Comment(s): Mother developed diabetes later in life and had CVAs. She at the age of 64yrs from a CVA Medications and Allergies Home Medications Medication Instructions Recorded Confirmed Type Clopidogrel Bisulfate [Clopidogrel] 75 mg PO HS 03/15/15 10/12/23 History Famotidine [Pepcid] 20 mg PO HS 03/15/15 10/12/23 History Multivitamin/Iron/Folic Acid 1 tab PO DAILY 03/15/15 10/12/23 History [Centrum Complete Multivit Tab] Isosorbide Mononitrate ER [Imdur] 30 mg PO DAILY 07/17/18 10/12/23 History Loratadine [Claritin] 10 mg PO DAILY 07/17/18 10/12/23 History Metoprolol Succinate [Toprol XL] 25 mg PO DAILY 07/17/18 10/12/23 History Pravastatin Sodium [Pravachol] 40 mg PO HS 07/17/18 10/12/23 History Sodium Bicarbonate Tab 650 mg PO TID 07/17/18 10/12/23 History Aspirin 81 mg PO DAILY 10/08/18 10/12/23 History Cholecalciferol [Vitamin D3 (25 50 mcg PO BID 07/11/21 10/12/23 History Mcg = 1000 Iu)] QUEtiapine FUMARATE [SEROquel] 25 mg PO HS 07/11/21 10/12/23 History Furosemide [Lasix] 20 mg PO W/SUPPER 10/12/23 10/12/23 History Furosemide [Lasix] 40 mg PO DAILY 10/12/23 10/12/23 History Insulin Glargine,Hum.rec.anlog 40 units SQ HS 10/12/23 10/12/23 History [Lantus Solostar Pen] Insulin Lispro [humaLOG Kwikpen] See Protocol SQ AC-TID 10/12/23 10/12/23 History Losartan [Cozaar] 25 mg PO DAILY 10/12/23 10/12/23 History Allergies Allergy/AdvReac Type Severity Reaction Status Date / Time influenza virus vaccine, Allergy Anaphylaxis Verified 10/12/23 14:22 specific [influenza virus vacc,specific] Iodinated Contrast Media Allergy Rash/Hives Verified 10/12/23 14:22 [Iodinated Contrast Media - IV Dye] iodine Allergy Rash/Hives Verified 10/12/23 14:22 Physical Exam Vitals: Vital Signs Temp Pulse Pulse Resp BP BP Pulse Ox 10/12/23 17:07 96.8 F L 10/12/23 17:05 66 17 111/53 96 10/12/23 16:09 63 18 133/72 97 10/12/23 15:57 63 18 133/72 96 10/12/23 13:26 59 L 18 128/94 10/12/23 10:44 97.8 F 63 20 134/81 98 Intake and Output 10/12/23 10/12/23 10/12/23 06:59 14:59 22:59 Other: Voiding Method External Catheter Weight 56.699 kg 56.699 kg PHYSICAL EXAMINATION: Patient is lying in the bed comfortably, no acute distress, awake alert and oriented.. HEENT: Normocephalic. Neck is supple. Pupils reactive. Nostrils clear. Oral cavi ty is moist. Neck reveals no JVD, carotid bruits, or thyromegaly. CHEST EXAMINATION: Trachea is central. Symmetrical expansion. Bibasilar crackles and coarse sounds. Nonlabored breathing. CARDIAC: Normal S1, S2 with no gallops. Systolic murmur ABDOMEN: Soft. Bowel sounds normal. No organomegaly. No abdominal bruits. Extremities: Trace bilateral pedal edema. No clubbing or cyanosis Neurologically awake, alert, oriented x3 with well-coordinated movements. No focal deficits noted Skin: No rash or skin lesions. Psychiatric: Coperative. Nonsuicidal Musculoskeletal: No joint swelling or deformity. Normal range of motion. Results CBC & Chem 7: 10/13/23 04:27 10/13/23 04:27 Labs: Abnormal Lab Results - Last 24 Hours (Table) 10/12/23 10/12/23 10/12/23 Range/Units 13:18 13:18 13:18 WBC 11.7 H (3.8-10.6) k/uL Neutrophils # 8.5 H (1.3-7.7) k/uL Sodium 125 L (137-145) mmol/L Chloride 91 L (98-107) mmol/L BUN 63 H (7-17) mg/dL Creatinine 2.15 H (0.52-1.04) mg/dL Glucose 186 H (74-99) mg/dL POC Glucose (mg/dL) (70-110) mg/dL Phosphorus 5.1 H (2.5-4.5) mg/dL Alkaline Phosphatase 178 H (38-126) U/L 10/12/23 Range/Units 20:43 WBC (3.8-10.6) k/uL Neutrophils # (1.3-7.7) k/uL Sodium (137-145) mmol/L Chloride (98-107) mmol/L BUN (7-17) mg/dL Creatinine (0.52-1.04) mg/dL Glucose (74-99) mg/dL POC Glucose (mg/dL) 258 H (70-110) mg/dL Phosphorus (2.5-4.5) mg/dL Alkaline Phosphatase (38-126) U/L Thrombosis Risk Factor Assmnt - DVT/VTE Prophylaxis DVT/VTE Prophylaxis: Pharmacologic Prophylaxis ordered - Choose All That Apply Any of the Below Risk Factors Present?: Yes Each Factor Represents 1 point: Obesity (BMI >25) Other Risk Factors: Yes Each Risk Factor Represents 3 Points: Age 75 years or older Thrombosis Risk Factor Assessment Total Risk Factor Score: 4 Thrombosis Risk Factor Assessment Level: Moderate Risk Assessment and Plan Assessment: Acute on chronic CHF with systolic dysfunction ejection fraction 35% Hypervolemic hyponatremia Ischemic cardiomyopathy Significant valvular heart disease with severe MR and moderate to severe TR Severe pulmonary hypertension Coronary arteries history of prior CABG and stent placement Chronic kidney disease stage IV Diabetes type 2 insulin-dependent Hypertension Hyperlipidemia Osteoarthritis History of AL Macular degeneration DVT prophylaxis Plan: Patient will be continued on telemonitoring. Continue with aspirin, Plavix, metoprolol and statins. Patient will be continued on IV Lasix 20 mg twice daily. Follow-up renal function . Oxygen supplementation as needed. Continue the other home medications and follow-up closely. Prognosis guarded. Cardiology and nephrology was consulted. Time with Patient: Greater than 30
[2023-10-13 02:32] LABS: Glucose,Whole Blood 62 mg/dL (70-110)
[2023-10-13 03:01] LABS: Glucose,Whole Blood 92 mg/dL (70-110)
[2023-10-13 04:17] LABS: Glucose,Whole Blood 112 mg/dL (70-110)
[2023-10-13 05:44] LABS: Glucose,Whole Blood 80 mg/dL (70-110)
[2023-10-13] MEDS ORDERED: FUROSEMIDE 40 MG TAB PO SCH (09:00)
[2023-10-13] MEDS: LORATADINE 10 MG TAB PO SCH (09:22)
[2023-10-13] MEDS: ISOSORBIDE MONONITRATE ER 30 MG TAB.ER.24H PO SCH (09:22)
[2023-10-13] MEDS: ASPIRIN 81 MG PO SCH (09:22)
[2023-10-13] MEDS: LOSARTAN 25 MG TAB PO SCH (09:22)
[2023-10-13] MEDS: FUROSEMIDE 10 MG/ML 2 ML VIAL IV SCH (09:22)
[2023-10-13] MEDS: MULTIVITAMINS, THERA 1 EACH TAB PO SCH (09:22)
[2023-10-13] MEDS: METOPROLOL SUCCINATE (ER) 25 MG TAB.ER.24H PO SCH (09:22)
[2023-10-13 11:04] LABS: Calcium 9.6 mg/dL (8.7-10.3); Carbon Dioxide 22.9 mmol/L (21.6-31.8); Chloride 89 mmol/L (96-109); Glucose 95 mg/dL (70-110); Potassium 4.6 mmol/L (3.5-5.5); Sodium 128 mmol/L (135-145)
[2023-10-13 11:38] LABS: Basophils # (A) 0.07 X 10*3/uL (0.00-0.10); Basophils % (A) 0.7 %; Eosinophils # (A) 0.36 X 10*3/uL (0.04-0.35); Eosinophils % (A) 3.8 %; HCT 36.8 % (37.2-46.3); HGB 12.4 g/dL (12.0-15.0); Lymphocytes # (A) 1.89 X 10*3/uL (0.90-5.00); Lymphocytes % (A) 19.7 %; MCH 29.1 pg (27.0-32.0); MCHC 33.7 g/dL (32.0-37.0); MCV 86.4 FL (80.0-97.0); Mean Platelet Volume 10.7 FL (9.5-12.2); Monocytes # (A) 0.93 X 10*3/uL (0.20-1.00); Monocytes % (A) 9.7 %; NRBC Per 100 WBC 0 X 10*3/uL (0.00-0.01); Neutrophils # (A) 6.31 X 10*3/uL (1.80-7.70); Neutrophils % (A) 65.8 %; Platelet Count 237 X 10*3/uL (140-440); RBC 4.26 X 10*6/uL (4.10-5.20); RDW 15.5 % (11.5-14.5); WBC 9.59 X 10*3/uL (4.50-10.00)
[2023-10-13 12:07] LABS: Glucose,Whole Blood 72 mg/dL (70-110)
--- NOTE | 2023-10-13 12:38 | P.NPCON ---
History of Present Illness - Reason for Consult Consult date: 10/13/23 hyponatremia - Chief Complaint SOB - History of Present Illness 83-year-old female presenting with daughter to the ER with chief complaint of shortness of breath x 2 days. States that she has a history of CHF and is currently taking Lasix twice daily. She reports she missed a couple of nighttime doses over the past week. She is having some edema in the stomach but denies leg swelling. Reports difficulty sleeping due due to difficulty breathing while laying flat. This morning her brathing has improved and able to lay flat. Urine output improved with Lasix IV. No other new complaints. General: Well-appearing, nontoxic, no acute distress. Head: Normocephalic, atraumatic HEENT: PERRLA, EOMI Lung: Non-labored breathing, diminished breath sounds Heart: RRR, +S1/S2 Skin: No visual rash, normal skin tone Neuro: Alert and oriented 3 Musculoskeletal: No gross abnormalities, +edema Review of Systems Constitutional: Reports as per HPI Past Medical History Past Medical History: Coronary Artery Disease (CAD), Heart Failure, Diabetes Mellitus, Eye Disorder, GERD/Reflux, Hyperlipidemia, Hypertension, Myocardial Infarction (OR), Renal Disease Additional Past Medical History / Comment(s): IDDM type II, impaired kidney function, OR in 1988 and 2003, macular degeneration bilaterally with limited vision, past few months pt states she has been having diarrhea/constipation occasionally, diverticular disease, macular degeneration bilaterally, urinary incontinence, UTI, sinus problems, past ankle fracture, April 2018 had bilateral ear infections/sinus infection Last Myocardial Infarction Date:: 2003 History of Any Multi-Drug Resistant Organisms: None Reported Past Surgical History: Appendectomy, Cholecystectomy, Coronary Bypass/CABG, Heart Catheterization With Stent, Orthopedic Surgery Additional Past Surgical History / Comment(s): 1988 CABG 3 vessel, PCI with stent 2003, bilateral cataract removals/lens implants-unsuccessful, bilateral eye injections for macular degeneration., L ankle fracture with surgery/hardware. Past Anesthesia/Blood Transfusion Reactions: No Reported Reaction Additional Past Anesthesia/Blood Transfusion Reaction / Comment(s): Pt received blood with CABG Date of Last Stent Placement:: 2003 Past Psychological History: No Psychological Hx Reported Additional Psychological History / Comment(s): Pt has a daughter who resides with her. Pt has limited vision d/t macular degeneration. She states she can manage her own medications. She has a glucometer. She uses no assistive devices but own a walker and wheelchair that were her her spouses. Her hal drives her to [employer]. Her home is handicap accessible. Smoking Status: Never smoker Past Alcohol Use History: None Reported Past Drug Use History: None Reported - Past Family History Father Family Medical History: Myocardial Infarction (OR) Additional Family Medical History / Comment(s): Father of a OR at the age of 52 yrs. Mother Family Medical History: CVA/TIA, Diabetes Mellitus, Hypertension Additional Family Medical History / Comment(s): Mother developed diabetes later in life and had CVAs. She at the age of 64yrs from a CVA Medications and Allergies Home Medications Medication Instructions Recorded Confirmed Type Clopidogrel Bisulfate [Clopidogrel] 75 mg PO HS 03/15/15 10/12/23 History Famotidine [Pepcid] 20 mg PO HS 03/15/15 10/12/23 History Multivitamin/Iron/Folic Acid 1 tab PO DAILY 03/15/15 10/12/23 History [Centrum Complete Multivit Tab] Isosorbide Mononitrate ER [Imdur] 30 mg PO DAILY 07/17/18 10/12/23 History Loratadine [Claritin] 10 mg PO DAILY 07/17/18 10/12/23 History Metoprolol Succinate [Toprol XL] 25 mg PO DAILY 07/17/18 10/12/23 History Pravastatin Sodium [Pravachol] 40 mg PO HS 07/17/18 10/12/23 History Sodium Bicarbonate Tab 650 mg PO TID 07/17/18 10/12/23 History Aspirin 81 mg PO DAILY 10/08/18 10/12/23 History Cholecalciferol [Vitamin D3 (25 50 mcg PO BID 07/11/21 10/12/23 History Mcg = 1000 Iu)] QUEtiapine FUMARATE [SEROquel] 25 mg PO HS 07/11/21 10/12/23 History Furosemide [Lasix] 20 mg PO W/SUPPER 10/12/23 10/12/23 History Furosemide [Lasix] 40 mg PO DAILY 10/12/23 10/12/23 History Insulin Glargine,Hum.rec.anlog 40 units SQ HS 10/12/23 10/12/23 History [Lantus Solostar Pen] Insulin Lispro [humaLOG Kwikpen] See Protocol SQ AC-TID 10/12/23 10/12/23 History Losartan [Cozaar] 25 mg PO DAILY 10/12/23 10/12/23 History Allergies Allergy/AdvReac Type Severity Reaction Status Date / Time influenza virus vaccine, Allergy Anaphylaxis Verified 10/12/23 14:22 specific [influenza virus vacc,specific] Iodinated Contrast Media Allergy Rash/Hives Verified 10/12/23 14:22 [Iodinated Contrast Media - IV Dye] iodine Allergy Rash/Hives Verified 10/12/23 14:22 Physical Exam Vitals: Vital Signs Temp Pulse Pulse Resp BP BP Pulse Ox 10/13/23 07:15 97.9 F 69 18 148/82 100 10/13/23 01:13 97.5 F L 64 15 98/51 100 10/12/23 19:17 97.5 F L 54 L 15 107/56 100 10/12/23 17:07 96.8 F L 10/12/23 17:05 66 17 111/53 96 10/12/23 16:09 63 18 133/72 97 10/12/23 15:57 63 18 133/72 96 10/12/23 13:26 59 L 18 128/94 Intake and Output 10/12/23 10/13/23 10/13/23 22:59 06:59 14:59 Intake Total 200 Output Total 500 Balance -500 200 Intake: Oral 200 Output: Urine 500 Other: Voiding Method External Catheter # Voids 3 Weight 56.699 kg 61.2 kg Results - Lab Results Most recent lab results Calcium 9.7 mg/dL (8.4-10.2) 10/12/23 13:18 Phosphorus 5.1 mg/dL (2.5-4.5) H 10/12/23 13:18 Magnesium 2.1 mg/dL (1.6-2.3) 10/12/23 13:18 10/13/23 04:27 10/13/23 04:27 Assessment and Plan Assessment: 1. Hypercolemic hyponatremia due to fluid overload from CHF. Sodium 125 on presentation. 2. Non-oliguric RAFAEL likely cardiorenal syndrome. Presented creatinine 2.1. UA no active sediment. 3. CKD Stage 3b baseline creatinine 1.5-1.8 mg/dL. 4. CHF exacerbation with fluid overload. 5. HTN with CKD Plan Continue with IV Lasix Fluid restriction. Repeat renal function. Check PVR and if creatinine does not improve will obtain renal US. Hold Losartan for now. If sodium does not improve with Lasix will chekc urine studies as well. Needs outpatient follow-up
[2023-10-13] MEDS: FUROSEMIDE 10 MG/ML 4 ML VIAL IV SCH (16:09)
[2023-10-13 16:47] LABS: Glucose,Whole Blood 77 mg/dL (70-110)
[2023-10-13] MEDS: FAMOTIDINE 20 MG TAB PO SCH (17:44)
[2023-10-13 20:37] LABS: Glucose,Whole Blood 153 mg/dL (70-110)
[2023-10-13] MEDS: INSULIN DETEMIR (LEVEMIR) 100 UNIT/ML SYR SQ SCH (20:40)
--- NOTE | 2023-10-13 20:44 | P.CRDCN ---
History of Present Illness Consult date: 10/13/23 History of present illness: HISTORY OF PRESENTING ILLNESS 83-year-old female with past medical history of cardiomyopathy EF 20%, CKD, severe mitral regurgitation, severe tricuspid regurgitation, severe pulmonary hypertension, CAD s/p CABG and PCI, type 2 diabetes, hypertension hyperlipidemia. She presents to the hospital because of increased worsening shortness of breath and feeling more bloated. Patient had a recent outpatient echocardiogram which showed an EF of 15 to 20% with severe pulm hypertension severe MR severe TR BP 148/82, pulse 69, ECG shows sinus rhythm with left bundle branch block REVIEW OF SYSTEMS 14 point review of system is negative except what is mentioned above in HPI. PHYSICAL EXAMINATION Vital signs reviewed. Head: Normocephalic. Eyes: Sclerae nonicteric. Neck: Brisk carotid upstroke, no jugular venous distention. Lungs: Clear to auscultation. Heart: Regular rate and rhythm, S1-S2, no S3, no murmur or rub. Abdomen: Soft nontender, positive bowel sounds. Extremities: No edema, intact distal pulses. Neuro: Alert, oritented, no focal deficits. Detailed neuro exam was not performed. ASSESSMENT Acute HFrEF exacerbation Cardiomyopathy EF 15 to 20% Severe mitral regurgitation and severe tricuspid regurgitation Severe pulm hypertension Type 2 diabetes Hypertension hyperlipidemia CKD PLAN Continue aspirin, Plavix, Lasix 40 mg IV twice daily, metoprolol 25 mg daily Obtain clinical records. Optimize heart failure medications further Monitor renal function Consult nephrology Maurilio Faustin MD, FACC, RPVI Thank you for allowing [facility] to participate in this patient's care. Feel free to reach out in case of any followup questions. Past Medical History Past Medical History: Coronary Artery Disease (CAD), Heart Failure, Diabetes Mellitus, Eye Disorder, GERD/Reflux, Hyperlipidemia, Hypertension, Myocardial Infarction ([place]), Renal Disease Additional Past Medical History / Comment(s): IDDM type II, impaired kidney function, [place] in 1988 and 2003, macular degeneration bilaterally with limited vision, past few months pt states she has been having diarrhea/constipation occasionally, diverticular disease, macular degeneration bilaterally, urinary incontinence, UTI, sinus problems, past ankle fracture, April 2018 had bilateral ear infections/sinus infection Last Myocardial Infarction Date:: 2003 History of Any Multi-Drug Resistant Organisms: None Reported Past Surgical History: Appendectomy, Cholecystectomy, Coronary Bypass/CABG, Heart Catheterization With Stent, Orthopedic Surgery Additional Past Surgical History / Comment(s): 1988 CABG 3 vessel, PCI with stent 2003, bilateral cataract removals/lens implants-unsuccessful, bilateral eye injections for macular degeneration., L ankle fracture with surgery/hardware. Past Anesthesia/Blood Transfusion Reactions: No Reported Reaction Additional Past Anesthesia/Blood Transfusion Reaction / Comment(s): Pt received blood with CABG Date of Last Stent Placement:: 2003 Past Psychological History: No Psychological Hx Reported Additional Psychological History / Comment(s): Pt has a daughter who resides with her. Pt has limited vision d/t macular degeneration. She states she can manage her own medications. She has a glucometer. She uses no assistive devices but own a walker and wheelchair that were her her spouses. Her hal drives her to [employer]. Her home is handicap accessible. Smoking Status: Never smoker Past Alcohol Use History: None Reported Past Drug Use History: None Reported - Past Family History Father Family Medical History: Myocardial Infarction ([place]) Additional Family Medical History / Comment(s): Father of a [place] at the age of 52 yrs. Mother Family Medical History: CVA/TIA, Diabetes Mellitus, Hypertension Additional Family Medical History / Comment(s): Mother developed diabetes later in life and had CVAs. She at the age of 64yrs from a CVA Medications and Allergies Home Medications Medication Instructions Recorded Confirmed Type Clopidogrel Bisulfate [Clopidogrel] 75 mg PO HS 03/15/15 10/12/23 History Famotidine [Pepcid] 20 mg PO HS 03/15/15 10/12/23 History Multivitamin/Iron/Folic Acid 1 tab PO DAILY 03/15/15 10/12/23 History [Centrum Complete Multivit Tab] Isosorbide Mononitrate ER [Imdur] 30 mg PO DAILY 07/17/18 10/12/23 History Loratadine [Claritin] 10 mg PO DAILY 07/17/18 10/12/23 History Metoprolol Succinate [Toprol XL] 25 mg PO DAILY 07/17/18 10/12/23 History Pravastatin Sodium [Pravachol] 40 mg PO HS 07/17/18 10/12/23 History Sodium Bicarbonate Tab 650 mg PO TID 07/17/18 10/12/23 History Aspirin 81 mg PO DAILY 10/08/18 10/12/23 History Cholecalciferol [Vitamin D3 (25 50 mcg PO BID 07/11/21 10/12/23 History Mcg = 1000 Iu)] QUEtiapine FUMARATE [SEROquel] 25 mg PO HS 07/11/21 10/12/23 History Furosemide [Lasix] 20 mg PO W/SUPPER 10/12/23 10/12/23 History Furosemide [Lasix] 40 mg PO DAILY 10/12/23 10/12/23 History Insulin Glargine,Hum.rec.anlog 40 units SQ HS 10/12/23 10/12/23 History [Lantus Solostar Pen] Insulin Lispro [humaLOG Kwikpen] See Protocol SQ AC-TID 10/12/23 10/12/23 History Losartan [Cozaar] 25 mg PO DAILY 10/12/23 10/12/23 History Allergies Allergy/AdvReac Type Severity Reaction Status Date / Time influenza virus vaccine, Allergy Anaphylaxis Verified 10/12/23 14:22 specific [influenza virus vacc,specific] Iodinated Contrast Media Allergy Rash/Hives Verified 10/12/23 14:22 [Iodinated Contrast Media - IV Dye] iodine Allergy Rash/Hives Verified 10/12/23 14:22 Physical Exam Vitals: Vital Signs Temp Pulse Resp BP Pulse Ox 10/13/23 19:49 97.4 F L 66 18 150/95 100 10/13/23 15:00 97.6 F 71 17 111/71 100 10/13/23 07:15 97.9 F 69 18 148/82 100 10/13/23 01:13 97.5 F L 64 15 98/51 100 Intake and Output 10/13/23 10/13/23 10/13/23 06:59 14:59 22:59 Intake Total 200 120 Balance 200 120 Intake: Oral 200 120 Other: Voiding Method Toilet Toilet Diaper Diaper External Catheter External Catheter # Voids 3 3 Weight 61.2 kg Results 10/13/23 04:27 10/13/23 04:27 CBC 10/13/23 Range/Units 04:27 WBC 9.59 (4.50-10.00) X 10*3/uL RBC 4.26 (4.10-5.20) X 10*6/uL Hgb 12.4 (12.0-15.0) g/dL Hct 36.8 L (37.2-46.3) % Plt Count 237 (140-440) X 10*3/uL Comprehensive Metabolic Panel 10/13/23 Range/Units 04:27 Sodium 128 L (135-145) mmol/L Potassium 4.6 (3.5-5.5) mmol/L Chloride 89 L (96-109) mmol/L Carbon Dioxide 22.9 (21.6-31.8) mmol/L BUN 67.0 H (9.0-27.0) mg/dL Creatinine 2.5 H (0.6-1.5) mg/dL Glucose 95 (70-110) mg/dL Calcium 9.6 (8.7-10.3) mg/dL Current Medications Generic Name Dose Route Start Last Admin Trade Name Freq PRN Reason Stop Dose Admin Acetaminophen 650 mg 10/12/23 14:50 10/13/23 09:34 Acetaminophen Tab 325 Mg Tab PO 650 mg Q6HR PRN Administration Mild Pain or Fever > 100.5 Hydrocodone Bitart/Acetaminophen 1 each 10/12/23 14:50 Hydrocodone/Apap 5-325mg 1 Each Tab PO Q4HR PRN Moderate Pain (Scale 4 to 6) Aspirin 81 mg 10/13/23 09:00 10/13/23 09:22 Aspirin 81 Mg PO 81 mg DAILY NICKI Administration Cholecalciferol 50 mcg 10/12/23 21:00 10/13/23 09:22 Cholecalciferol 25 Mcg (1000 Iu) Tablet PO 50 mcg BID NICKI Administration Clopidogrel Bisulfate 75 mg 10/12/23 21:00 10/12/23 20:52 Clopidogrel 75 Mg Tab PO 75 mg HS NICKI Administration Dextrose/Water 25 ml 10/12/23 20:18 Dextrose 50% Syringe 50 Ml IVP PER PROTOCOL PRN Hypoglycemia Protocol Dextrose/Water 50 ml 10/12/23 20:18 Dextrose 50% Syringe 50 Ml IVP PER PROTOCOL PRN Hypoglycemia Protocol Famotidine 20 mg 10/13/23 16:08 10/13/23 17:44 Famotidine 20 Mg Tab PO 20 mg BID NICKI Administration Furosemide 40 mg 10/13/23 15:00 10/13/23 16:09 Furosemide 10 Mg/Ml 4 Ml Vial IV 40 mg Q12HR NICKI Administration Insulin Aspart 0 unit 10/12/23 21:00 10/13/23 16:52 Insulin Aspart (Novolog) 100 Unit/Ml Vial SQ Not Given ACHS [facility] Protocol Insulin Detemir 27 unit 10/13/23 21:00 Insulin Detemir (Levemir) 100 Unit/Ml Syr SQ HS NICKI Isosorbide Mononitrate 30 mg 10/13/23 09:00 10/13/23 09:22 Isosorbide Mononitrate Er 30 Mg Tab.Er.24h PO 30 mg DAILY NICKI Administration Loratadine 10 mg 10/13/23 09:00 10/13/23 09:22 Loratadine 10 Mg Tab PO 10 mg DAILY NICKI Administration Metoprolol Succinate 25 mg 10/13/23 09:00 10/13/23 09:22 Metoprolol Succinate (Er) 25 Mg Tab.Er.24h PO 25 mg DAILY NICKI Administration Multivitamins 1 each 10/13/23 09:00 10/13/23 09:22 Multivitamins, Thera 1 Each Tab PO 1 each DAILY NICKI Administration Naloxone HCl 0.2 mg 10/12/23 14:50 Naloxone 0.4 Mg/Ml 1 Ml Vial IV Q2M PRN Opioid Reversal Ondansetron HCl 4 mg 10/12/23 14:50 Ondansetron 4 Mg/2 Ml Vial IVP Q8HR PRN Nausea And Vomiting Pravastatin Sodium 40 mg 10/12/23 21:00 10/12/23 20:52 Pravastatin Sodium 40 Mg Tab PO 40 mg HS NICKI Administration Quetiapine Fumarate 25 mg 10/12/23 21:00 10/12/23 20:52 Quetiapine 25 Mg Tab PO 25 mg HS NICKI Administration Intake and Output 10/13/23 10/13/23 10/13/23 06:59 14:59 22:59 Intake Total 200 120 Balance 200 120 Intake: Oral 200 120 Other: Voiding Method Toilet Toilet Diaper Diaper External Catheter External Catheter # Voids 3 3 Weight 61.2 kg 10/13/23 04:27 10/13/23 04:27
--- NOTE | 2023-10-14 01:24 | P.PN ---
Subjective Progress Note Date: 10/13/23 Patient is a 83-year-old female with a past medical history of coronary artery disease status post CABG, history of stent placement, hypertension, diabetes type 2 insulin-dependent, hyperlipidemia, history of [place], diabetic peripheral neuropathy, macular degeneration bilaterally and other multiple medical problems presents to ER with complaints of shortness of breath for the past 3 days. Patient states that she does have a history of CHF. She has been feeling lightheaded and unable to lie flat without shortness of breath. She was also having cough without sputum production. Denies any worsening leg swelling. No fever no chills. Chest x-ray showed cardiomegaly with interstitial pattern correlate. Mild venous congestion or interstitial pneumonitis. EKG showed sinus rhythm with occasional ventricular premature complexes. Laboratory data showed WBC 11.7 hemoglobin 14.1 and platelets 263 INR 1.1 sodium 125 potassium 5.0 chloride 91 bicarb is 24 BUN 63 and creatinine 2.15 and GFR 20 blood sugar 186 lactic acid 1.6 and phosphorus 5.1 liver enzymes are not elevated. Alcohol is 178 troponin 0.018 and proBNP 18,500 albumin 4.3 urinalysis is negative for infection influenza AB RSV and COVID-19 PCR not detected. Patient had echocardiogram done 10/01/2023 showed severe LV systolic dysfunction, severe pulmonary hypertension, severe MR, moderate TR and moderate to severe TR 10/13/2023 Patient is currently lying in the bed. Awake alert and oriented. Breathing status is better patient is able to lie flat. No complaints of chest pain. No nausea vomiting. Tolerating oral diet. Blood pressure is improved. Patient is being continued IV Lasix increased to 40 mg twice daily. Cardiology is on board. Blood sugar was 62 last night at 2 AM. Insulin dose reduced to 27 units at bedtime. Other laboratory showed WBC 9.5 hemoglobin 12.1 and platelets 237 sodium improved to 128, potassium 4.6 chloride 89 bicarb is 22.9 BUN 67 creatinine increased to 2.5 blood sugar 112 and procalcitonin level is 0.24 Current medications reviewed. Objective - Vital Signs Vital signs: Vital Signs Temp 97.9 F 10/13/23 07:15 Pulse 69 10/13/23 07:15 Resp 18 10/13/23 07:15 BP 148/82 10/13/23 07:15 Pulse Ox 100 10/13/23 07:15 FiO2 Intake & Output 10/12/23 10/13/23 10/13/23 18:59 06:59 18:59 Intake Total 200 Output Total 500 Balance -500 200 Weight 56.699 kg 61.2 kg Intake: Oral 200 Output: Urine 500 Other: Voiding Method External Catheter Toilet Diaper External Catheter # Voids 3 - Exam PHYSICAL EXAMINATION: Patient is lying in the bed comfortably, no acute distress, awake alert and oriented.. HEENT: Normocephalic. Neck is supple. Pupils reactive. Nostrils clear. Oral cavity is moist. Neck reveals no JVD, carotid bruits, or thyromegaly. CHEST EXAMINATION: Trachea is central. Symmetrical expansion. Bibasilar crackles and coarse sounds. Nonlabored breathing. CARDIAC: Normal S1, S2 with no gallops. Systolic murmur ABDOMEN: Soft. Bowel sounds normal. No organomegaly. No abdominal bruits. Extremities: Trace bilateral pedal edema. No clubbing or cyanosis Neurologically awake, alert, oriented x3 with well-coordinated movements. No focal deficits noted Skin: No rash or skin lesions. Psychiatric: Coperative. Nonsuicidal Musculoskeletal: No joint swelling or deformity. Normal range of motion. - Labs CBC & Chem 7: 10/13/23 04:27 10/13/23 04:27 Labs: Abnormal Lab Results - Last 24 Hours (Table) 10/12/23 10/12/23 10/12/23 Range/Units 13:18 13:18 13:18 WBC 11.7 H (3.8-10.6) k/uL Hct (37.2-46.3) % RDW (11.5-14.5) % Neutrophils # 8.5 H (1.3-7.7) k/uL Eosinophils # (0.04-0.35) X 10*3/uL Sodium 125 L (137-145) mmol/L Chloride 91 L (98-107) mmol/L Anion Gap (4.00-12.00) mmol/L BUN 63 H (7-17) mg/dL Creatinine 2.15 H (0.52-1.04) mg/dL Est GFR (CKD-EPI) (>=60) BUN/Creatinine Ratio (12.00-20.00) Ratio Glucose 186 H (74-99) mg/dL POC Glucose (mg/dL) (70-110) mg/dL Hemoglobin A1c (<=6.0) % Phosphorus 5.1 H (2.5-4.5) mg/dL Alkaline Phosphatase 178 H (38-126) U/L Urine Protein (Negative) Ur Leukocyte Esterase (Negative) 10/12/23 10/12/23 10/13/23 Range/Units 20:40 20:43 02:30 WBC (3.8-10.6) k/uL Hct (37.2-46.3) % RDW (11.5-14.5) % Neutrophils # (1.3-7.7) k/uL Eosinophils # (0.04-0.35) X 10*3/uL Sodium (137-145) mmol/L Chloride (98-107) mmol/L Anion Gap (4.00-12.00) mmol/L BUN (7-17) mg/dL Creatinine (0.52-1.04) mg/dL Est GFR (CKD-EPI) (>=60) BUN/Creatinine Ratio (12.00-20.00) Ratio Glucose (74-99) mg/dL POC Glucose (mg/dL) 258 H 62 L (70-110) mg/dL Hemoglobin A1c (<=6.0) % Phosphorus (2.5-4.5) mg/dL Alkaline Phosphatase (38-126) U/L Urine Protein Trace H (Negative) Ur Leukocyte Esterase Trace H (Negative) 10/13/23 10/13/23 10/13/23 Range/Units 04:15 04:27 04:27 WBC (3.8-10.6) k/uL Hct 36.8 L (37.2-46.3) % RDW 15.5 H (11.5-14.5) % Neutrophils # (1.3-7.7) k/uL Eosinophils # 0.36 H (0.04-0.35) X 10*3/uL Sodium (137-145) mmol/L Chloride (98-107) mmol/L Anion Gap (4.00-12.00) mmol/L BUN (7-17) mg/dL Creatinine (0.52-1.04) mg/dL Est GFR (CKD-EPI) (>=60) BUN/Creatinine Ratio (12.00-20.00) Ratio Glucose (74-99) mg/dL POC Glucose (mg/dL) 112 H (70-110) mg/dL Hemoglobin A1c 9.6 H (<=6.0) % Phosphorus (2.5-4.5) mg/dL Alkaline Phosphatase (38-126) U/L Urine Protein (Negative) Ur Leukocyte Esterase (Negative) 10/13/23 Range/Units 04:27 WBC (3.8-10.6) k/uL Hct (37.2-46.3) % RDW (11.5-14.5) % Neutrophils # (1.3-7.7) k/uL Eosinophils # (0.04-0.35) X 10*3/uL Sodium 128 L (137-145) mmol/L Chloride 89 L (98-107) mmol/L Anion Gap 16.10 H (4.00-12.00) mmol/L BUN 67.0 H (7-17) mg/dL Creatinine 2.5 H (0.52-1.04) mg/dL Est GFR (CKD-EPI) 18 L (>=60) BUN/Creatinine Ratio 26.80 H (12.00-20.00) Ratio Glucose (74-99) mg/dL POC Glucose (mg/dL) (70-110) mg/dL Hemoglobin A1c (<=6.0) % Phosphorus (2.5-4.5) mg/dL Alkaline Phosphatase (38-126) U/L Urine Protein (Negative) Ur Leukocyte Esterase (Negative) Assessment and Plan Assessment: Acute on chronic CHF with systolic dysfunction ejection fraction 35% Possible interstitial pneumonia. Procalcitonin level 0.24 Hypervolemic hyponatremia Ischemic cardiomyopathy Significant valvular heart disease with severe MR and moderate to severe TR Severe pulmonary hypertension Coronary arteries history of prior CABG and stent placement Chronic kidney disease stage IV Diabetes type 2 insulin-dependent Hypertension Hyperlipidemia Osteoarthritis History of [place] Macular degeneration DVT prophylaxis Plan: Patient will be continued on telemonitoring. Continue with aspirin, Plavix, metoprolol and statins. Patient will be continued on IV Lasix 20 mg twice daily. Dose increased to 40 mg twice daily. Follow-up renal function . Patient will be started on antibiotics ceftriaxone and azithromycin. Procalcitonin level is elevated. Follow-up repeat chest x-ray. Oxygen supplementation as needed. Titrate down to room air. Continue the other home medications and follow-up closely. Prognosis guarded. Cardiology and nephrology is on board. Time with Patient: Greater than 30
[2023-10-14] MEDS: AZITHROMYCIN 500 MG TAB PO SCH (01:54)
[2023-10-14 01:58] LABS: Glucose,Whole Blood 62 mg/dL (70-110)
[2023-10-14 02:44] LABS: Glucose,Whole Blood 90 mg/dL (70-110)
[2023-10-14 06:08] LABS: Glucose,Whole Blood 148 mg/dL (70-110)
[2023-10-14 08:03] VITALS: BP 122/68; PULSE 71; RESP 16; TEMP 97.9
--- NOTE | 2023-10-14 08:13 | XR ---
EXAMINATION TYPE: XR chest 1V DATE OF EXAM: 10/14/2023 COMPARISON: 10/12/2023 INDICATION: Pneumonia cough short of breath TECHNIQUE: Single frontal view of the chest is obtained. FINDINGS: The heart size is enlarged. The pulmonary vasculature is mildly prominent. No focal consolidations are evident IMPRESSION: 1. Cardiomegaly with prominent pulmonary vascular markings. Correlate for mild volume overload.
--- NOTE | 2023-10-14 08:36 | P.PN ---
Subjective Patient is seen in follow-up for hyponatremia and acute kidney injury on chronic kidney disease. Creatinine 2.5 yesterday. On IV Lasix. Admits to good urine output. Denies chest pain or shortness of breath at this time. Vital signs are stable. General: No acute distress. HEENT: Head exam is unremarkable. On room air. LUNGS: No audible rhonchi or wheezes. HEART: Rate and Rhythm are regular. ABDOMEN: Nontender. EXTREMITITES: No edema. Objective - Vital Signs Vital signs: Vital Signs Temp 97.9 F 10/14/23 07:00 Pulse 71 10/14/23 07:00 Resp 16 10/14/23 07:00 BP 122/68 10/14/23 07:00 Pulse Ox 96 10/14/23 07:00 FiO2 Intake & Output 10/13/23 10/14/23 10/14/23 18:59 06:59 18:59 Intake Total 320 Balance 320 Weight 61 kg Intake: Oral 320 Other: Voiding Method Toilet Toilet Diaper Diaper External Catheter # Voids 3 2 - Labs CBC & Chem 7: 10/13/23 04:27 10/13/23 04:27 Labs: Abnormal Lab Results - Last 24 Hours (Table) 10/12/23 10/13/23 10/13/23 Range/Units 20:40 04:27 04:27 Hct 36.8 L (37.2-46.3) % RDW 15.5 H (11.5-14.5) % Eosinophils # 0.36 H (0.04-0.35) X 10*3/uL Sodium (135-145) mmol/L Chloride (96-109) mmol/L Anion Gap (4.00-12.00) mmol/L BUN (9.0-27.0) mg/dL Creatinine (0.6-1.5) mg/dL Est GFR (CKD-EPI) (>=60) BUN/Creatinine Ratio (12.00-20.00) Ratio POC Glucose (mg/dL) (70-110) mg/dL Hemoglobin A1c 9.6 H (<=6.0) % Procalcitonin (0.02-0.09) ng/mL Urine Osmolality 212 L (400-1100) mOsm/kg 10/13/23 10/13/23 10/13/23 Range/Units 04:27 04:27 20:36 Hct (37.2-46.3) % RDW (11.5-14.5) % Eosinophils # (0.04-0.35) X 10*3/uL Sodium 128 L (135-145) mmol/L Chloride 89 L (96-109) mmol/L Anion Gap 16.10 H (4.00-12.00) mmol/L BUN 67.0 H (9.0-27.0) mg/dL Creatinine 2.5 H (0.6-1.5) mg/dL Est GFR (CKD-EPI) 18 L (>=60) BUN/Creatinine Ratio 26.80 H (12.00-20.00) Ratio POC Glucose (mg/dL) 153 H (70-110) mg/dL Hemoglobin A1c (<=6.0) % Procalcitonin 0.24 H (0.02-0.09) ng/mL Urine Osmolality (400-1100) mOsm/kg 10/14/23 10/14/23 Range/Units 01:57 06:06 Hct (37.2-46.3) % RDW (11.5-14.5) % Eosinophils # (0.04-0.35) X 10*3/uL Sodium (135-145) mmol/L Chloride (96-109) mmol/L Anion Gap (4.00-12.00) mmol/L BUN (9.0-27.0) mg/dL Creatinine (0.6-1.5) mg/dL Est GFR (CKD-EPI) (>=60) BUN/Creatinine Ratio (12.00-20.00) Ratio POC Glucose (mg/dL) 62 L 148 H (70-110) mg/dL Hemoglobin A1c (<=6.0) % Procalcitonin (0.02-0.09) ng/mL Urine Osmolality (400-1100) mOsm/kg Assessment and Plan Plan: Assessment: 1. Acute kidney injury secondary to ATN secondary to cardiorenal syndrome. Creatinine 2.5 yesterday. UA fairly benign. 2. Chronic kidney disease stage IIIb/IV with baseline creatinine 1.5-1.8 secondary to nephrosclerosis. Possibly underlying diabetic kidney disease due to trace proteinuria. Further workup outpatient. 3. Acute on chronic systolic CHF with ejection fraction of 15 to 20% with moderate aortic regurgitation, moderate to severe tricuspid regurgitation and severe mitral regurgitation. 4. Hypervolemic hyponatremia. Urine osmolality 212. Improving. 5. Diabetes mellitus. 6. Hypertension with chronic kidney disease. Controlled. Plan: Change IV Lasix to oral. Check renal ultrasound. Add 1500 cc fluid restriction. Encouraged oral intake. Avoid nephrotoxins. Advised to follow-up outpatient 1 to 2 weeks postdischarge.
[2023-10-14] MEDS: FUROSEMIDE 40 MG TAB PO SCH (09:16)
[2023-10-14] MEDS: HEPARIN SODIUM,PORCINE 5,000 UNIT/ML 1 ML VIAL SQ SCH (09:18)
[2023-10-14 10:21] LABS: Basophils # (A) 0.06 X 10*3/uL (0.00-0.10); Basophils % (A) 0.6 %; Eosinophils # (A) 0.39 X 10*3/uL (0.04-0.35); Eosinophils % (A) 3.7 %; HCT 38.7 % (37.2-46.3); HGB 12.8 g/dL (12.0-15.0); Lymphocytes # (A) 1.82 X 10*3/uL (0.90-5.00); Lymphocytes % (A) 17.4 %; MCH 28.9 pg (27.0-32.0); MCHC 33.1 g/dL (32.0-37.0); MCV 87.4 FL (80.0-97.0); Monocytes # (A) 0.94 X 10*3/uL (0.20-1.00); NRBC Per 100 WBC 0 X 10*3/uL (0.00-0.01); Neutrophils # (A) 7.23 X 10*3/uL (1.80-7.70); Neutrophils % (A) 68.9 %; Platelet Count 260 X 10*3/uL (140-440); RBC 4.43 X 10*6/uL (4.10-5.20); RDW 15.7 % (11.5-14.5); WBC 10.48 X 10*3/uL (4.50-10.00)
[2023-10-14 10:31] LABS: BUN/Creat Ratio 28.61 Ratio (12.00-20.00); Blood Urea Nitrogen 65.8 mg/dL (9.0-27.0); Calcium 9.5 mg/dL (8.7-10.3); Carbon Dioxide 21.4 mmol/L (21.6-31.8); Chloride 90 mmol/L (96-109); Glucose 107 mg/dL (70-110); Potassium 4.5 mmol/L (3.5-5.5); Sodium 129 mmol/L (135-145)
--- NOTE | 2023-10-14 10:55 | P.PN ---
Subjective HISTORY OF PRESENT ILLNESS: Patient examined this morning. Patient is sitting on the side of the bed. Patient currently denies any chest pain or pressure. She reports mild shortness of breath this morning. She has been transitioned to oral diuretics secondary to worsening kidney function. Creatinine 2.5 yesterday. Creatinine 2.3 today. Patients sodium 129. Vital signs are stable. PHYSICAL EXAM: VITAL SIGNS: Reviewed. GENERAL: Well-developed in no acute distress. NECK: Supple. No JVD or thyromegaly LUNGS: Respirations even and unlabored. Lungs with mild bibasilar crackles HEART: Regular rate and rhythm. S1 and S2 heard. Systolic murmur noted EXTREMITIES: Normal range of motion. No clubbing or cyanosis. Peripheral pulses intact. No lower extremity edema ASSESSMENT: Shortness of breath Acute on chronic heart failure with reduced EF, 15 to 20% Coronary artery disease with previous CABG and PCI Acute on chronic kidney disease Hypertension Hyperlipidemia Diabetes Severe pulmonary hypertension Severe mitral regurgitation Severe tricuspid regurgitation Left bundle branch block Hyponatremia PLAN: Continue current cardiac medications Continue oral diuretics. Continue to monitor sodium and kidney function Increase activity as tolerated Patient is stable for discharge home this afternoon from a cardiac standpoint Patient to follow-up postdischarge in the office Nurse practitioner note has been reviewed by physician. Signing provider agrees with the documented findings, assessment, and plan of care documented by DYE AND CHEMICAL COORDINATOR as a scribe. Objective - Vital Signs Vital signs: Vital Signs Temp 97.9 F 10/14/23 07:00 Pulse 71 10/14/23 07:00 Resp 16 10/14/23 07:00 BP 122/68 10/14/23 07:00 Pulse Ox 96 10/14/23 07:00 FiO2 Intake & Output 10/13/23 10/14/23 10/14/23 18:59 06:59 18:59 Intake Total 320 Balance 320 Weight 61 kg Intake: Oral 320 Other: Voiding Method Toilet Toilet Diaper Diaper External Catheter # Voids 3 2 - Labs CBC & Chem 7: 10/14/23 06:36 10/14/23 06:36 Labs: Abnormal Lab Results - Last 24 Hours (Table) 10/12/23 10/13/23 10/13/23 Range/Units 20:40 04:27 04:27 WBC (4.50-10.00) X 10*3/uL Hct 36.8 L (37.2-46.3) % RDW 15.5 H (11.5-14.5) % Eosinophils # 0.36 H (0.04-0.35) X 10*3/uL Sodium (135-145) mmol/L Chloride (96-109) mmol/L Carbon Dioxide (21.6-31.8) mmol/L Anion Gap (4.00-12.00) mmol/L BUN (9.0-27.0) mg/dL Creatinine (0.6-1.5) mg/dL Est GFR (CKD-EPI) (>=60) BUN/Creatinine Ratio (12.00-20.00) Ratio POC Glucose (mg/dL) (70-110) mg/dL Hemoglobin A1c 9.6 H (<=6.0) % Procalcitonin (0.02-0.09) ng/mL Urine Osmolality 212 L (400-1100) mOsm/kg 10/13/23 10/13/23 10/13/23 Range/Units 04:27 04:27 20:36 WBC (4.50-10.00) X 10*3/uL Hct (37.2-46.3) % RDW (11.5-14.5) % Eosinophils # (0.04-0.35) X 10*3/uL Sodium 128 L (135-145) mmol/L Chloride 89 L (96-109) mmol/L Carbon Dioxide (21.6-31.8) mmol/L Anion Gap 16.10 H (4.00-12.00) mmol/L BUN 67.0 H (9.0-27.0) mg/dL Creatinine 2.5 H (0.6-1.5) mg/dL Est GFR (CKD-EPI) 18 L (>=60) BUN/Creatinine Ratio 26.80 H (12.00-20.00) Ratio POC Glucose (mg/dL) 153 H (70-110) mg/dL Hemoglobin A1c (<=6.0) % Procalcitonin 0.24 H (0.02-0.09) ng/mL Urine Osmolality (400-1100) mOsm/kg 10/14/23 10/14/23 10/14/23 Range/Units 01:57 06:06 06:36 WBC 10.48 H (4.50-10.00) X 10*3/uL Hct (37.2-46.3) % RDW 15.7 H (11.5-14.5) % Eosinophils # 0.39 H (0.04-0.35) X 10*3/uL Sodium (135-145) mmol/L Chloride (96-109) mmol/L Carbon Dioxide (21.6-31.8) mmol/L Anion Gap (4.00-12.00) mmol/L BUN (9.0-27.0) mg/dL Creatinine (0.6-1.5) mg/dL Est GFR (CKD-EPI) (>=60) BUN/Creatinine Ratio (12.00-20.00) Ratio POC Glucose (mg/dL) 62 L 148 H (70-110) mg/dL Hemoglobin A1c (<=6.0) % Procalcitonin (0.02-0.09) ng/mL Urine Osmolality (400-1100) mOsm/kg 10/14/23 Range/Units 06:36 WBC (4.50-10.00) X 10*3/uL Hct (37.2-46.3) % RDW (11.5-14.5) % Eosinophils # (0.04-0.35) X 10*3/uL Sodium 129 L (135-145) mmol/L Chloride 90 L (96-109) mmol/L Carbon Dioxide 21.4 L (21.6-31.8) mmol/L Anion Gap 17.60 H (4.00-12.00) mmol/L BUN 65.8 H (9.0-27.0) mg/dL Creatinine 2.3 H (0.6-1.5) mg/dL Est GFR (CKD-EPI) 20 L (>=60) BUN/Creatinine Ratio 28.61 H (12.00-20.00) Ratio POC Glucose (mg/dL) (70-110) mg/dL Hemoglobin A1c (<=6.0) % Procalcitonin (0.02-0.09) ng/mL Urine Osmolality (400-1100) mOsm/kg
[2023-10-14 11:35] LABS: Glucose,Whole Blood 129 mg/dL (70-110)
--- NOTE | 2023-10-14 13:14 | P.DS ---
Providers Date of admission: 10/14/23 08:58 Attending physician: Kobe Anderson Consults: 10/12/23 14:50 Consult Physician Urgent Consulting Provider: Maurilio Faustin Consult Reason/Comments: CHF exacerbation Do you want consulting provider notified?: Yes Consult Physician Urgent Consulting Provider: Demian Nick Consult Reason/Comments: Hyponatremia Do you want consulting provider notified?: Yes Primary care physician: Kobe Anderson Hospital Course: Final Diagnoses: Acute on chronic CHF with systolic dysfunction ejection fraction 15 to 20% Acute on chronic renal failure, secondary to ATN related to cardiorenal syndrome, stage IV. Possible interstitial pneumonia, ruled out. Hypervolemic hyponatremia, improving Ischemic cardiomyopathy, EF 15 to 20% Significant valvular heart disease with severe MR and moderate to severe TR Severe pulmonary hypertension Severe mitral and tricuspid regurgitation CAD, history of IL,CABG,stent placement Diabetes type 2 insulin-dependent, hemoglobin A1c 9.6. Further diabetic teaching outpatient in clinic with PCP Hypertension Hyperlipidemia Osteoarthritis Macular degeneration Hospital course: This is an 83-year-old female admitted with acute on chronic CHF, acute on chronic renal failure and multiple other medical issues. Evaluated by both cardiology and nephrology. Treated with IV push diuretics with significant clinical improvement. Sodium increased to 1.29. Creatinine decreased to 2.5. Transitioned to oral Lasix with 1500 fluid restrictions added. Renal ultrasound ordered, results pending. Patient received empiric antibiotics for potential interstitial pneumonia, mildly elevated procalcitonin 0.24. Repeat chest x-ray reported cardiomegaly with prominent pulmonary vascular markings, correlate for mild volume overload. Afebrile, WBC 10.48. Cleared for discharge per cardiology. Patient will be discharged home today in a stable condition with guarded prognosis pending final DC recommendations and clearance per nephrology. The impression and plan of care has been dictated as directed. : I performed a history and examination of this patient, discussed the same with the dictator. I agree with the dictator's note ,documented as a scribe. Any additional findings or plans will be noted. Patient Condition at Discharge: Stable Plan - Discharge Summary Discharge Rx Participant: No New Discharge Prescriptions: New Insulin Glargine,Hum.rec.anlog [Lantus Solostar Pen] 30 units SQ HS #1 each Furosemide [Lasix] 40 mg PO BID@0900,1600 #60 tab Continue Multivitamin/Iron/Folic Acid [Centrum Complete Multivit Tab] 1 tab PO DAILY Clopidogrel Bisulfate [Clopidogrel] 75 mg PO HS Famotidine [Pepcid] 20 mg PO HS Isosorbide Mononitrate ER [Imdur] 30 mg PO DAILY Loratadine [Claritin] 10 mg PO DAILY Metoprolol Succinate [Toprol XL] 25 mg PO DAILY Pravastatin Sodium [Pravachol] 40 mg PO HS Sodium Bicarbonate Tab 650 mg PO TID Aspirin 81 mg PO DAILY Cholecalciferol [Vitamin D3 (25 Mcg = 1000 Iu)] 50 mcg PO BID QUEtiapine FUMARATE [SEROquel] 25 mg PO HS Insulin Lispro [humaLOG Kwikpen] See Protocol SQ AC-TID Discontinued Furosemide [Lasix] 20 mg PO W/SUPPER Furosemide [Lasix] 40 mg PO DAILY Insulin Glargine,Hum.rec.anlog [Lantus Solostar Pen] 40 units SQ HS Losartan [Cozaar] 25 mg PO DAILY Discharge Medication List Clopidogrel Bisulfate [Clopidogrel] 75 mg PO HS 03/15/15 [History] Famotidine [Pepcid] 20 mg PO HS 03/15/15 [History] Multivitamin/Iron/Folic Acid [Centrum Complete Multivit Tab] 1 tab PO DAILY 03/15/15 [History] Isosorbide Mononitrate ER [Imdur] 30 mg PO DAILY 07/17/18 [History] Loratadine [Claritin] 10 mg PO DAILY 07/17/18 [History] Metoprolol Succinate [Toprol XL] 25 mg PO DAILY 07/17/18 [History] Pravastatin Sodium [Pravachol] 40 mg PO HS 07/17/18 [History] Sodium Bicarbonate Tab 650 mg PO TID 07/17/18 [History] Aspirin 81 mg PO DAILY 10/08/18 [History] Cholecalciferol [Vitamin D3 (25 Mcg = 1000 Iu)] 50 mcg PO BID 07/11/21 [History] QUEtiapine FUMARATE [SEROquel] 25 mg PO HS 07/11/21 [History] Insulin Lispro [humaLOG Kwikpen] See Protocol SQ AC-TID 10/12/23 [History] Furosemide [Lasix] 40 mg PO BID@0900,1600 #60 tab 10/14/23 [Rx] Insulin Glargine,Hum.rec.anlog [Lantus Solostar Pen] 30 units SQ HS #1 each 10/14/23 [Rx] Follow up Appointment(s)/Referral(s): Kobe Anderson DO [Primary Care Provider] - 3 Days Activity/Diet/Wound Care/Special Instructions: 1500 cc fluid restriction
[2023-10-14 14:38] VITALS: BMI 28.0
--- NOTE | 2023-10-14 15:09 | US ---
EXAMINATION TYPE: US kidneys/renal and bladder DATE OF EXAM: 10/14/2023 COMPARISON: CLINICAL INDICATION: Female, 83 years old with history of conrad; Abnormal labs. EXAM MEASUREMENTS: Right Kidney: 9.7 x 3.7 x 4.6 cm Left Kidney: 8.6 x 3.8 x 5.4 cm Right Kidney: Mid echogenic focus= 0.5 cm. Lower pole anechoic lesion = 0.7 x 0.7 x 0.5 cm Left Kidney: Echogenic focus with shadowing mid kidney = 0.7 cm Bladder: Anechoic Bilateral Jets not seen There is no evidence for hydronephrosis at this point in time. No masses are identified. The urinar y bladder is anechoic. Bilateral ureteral jets are seen. IMPRESSION: There is evidence of nonobstructive nephrolithiasis seen bilaterally. Subcentimeter cyst right kidney .
== END 2023-10-14 16:18 | disposition home or self-care (01) | DRG 291 ==
LOC: EC 10:37 → 6NMEDSUR 14:46 → OBSVTOIN 10-14 08:58
PROVIDERS: ADMIT Family Medicine; ATTEND Family Medicine
DX: I13.0 Hypertensive heart and chronic kidney disease with heart failure and stage 1 through stage 4 chronic kidney disease, or unspecified chronic kidney disease (principal); I50.23 Acute on chronic systolic (congestive) heart failure; N17.0 Acute kidney failure with tubular necrosis; E87.1 Hypo-osmolality and hyponatremia; N18.4 Chronic kidney disease, stage 4 (severe); E11.22 Type 2 diabetes mellitus with diabetic chronic kidney disease; E11.42 Type 2 diabetes mellitus with diabetic polyneuropathy; E78.5 Hyperlipidemia, unspecified; H35.30 Unspecified macular degeneration; I08.3 Combined rheumatic disorders of mitral, aortic and tricuspid valves; I25.10 Atherosclerotic heart disease of native coronary artery without angina pectoris; I25.5 Ischemic cardiomyopathy; I27.20 Pulmonary hypertension, unspecified; I44.7 Left bundle-branch block, unspecified; J84.89 Other specified interstitial pulmonary diseases; M19.90 Unspecified osteoarthritis, unspecified site; Z96.1 Presence of intraocular lens; I25.2 Old myocardial infarction; Z79.4 Long term (current) use of insulin; Z79.82 Long term (current) use of aspirin; Z79.899 Other long term (current) drug therapy; Z82.49 Family history of ischemic heart disease and other diseases of the circulatory system; Z95.1 Presence of aortocoronary bypass graft; Z95.5 Presence of coronary angioplasty implant and graft; Z88.7 Allergy status to serum and vaccine; Z88.8 Allergy status to other drugs, medicaments and biological substances; Z91.041 Radiographic dye allergy status; Z11.52 Encounter for screening for COVID-19
CPT/HCPCS: 36415; 71045; 71046; 76770; 80048; 80053; 81001; 83036; 83605; 83735; 83880; 83930; 83935; 84100; 84145; 84484; 85025; 85610; 85730; 87040; 87636; 93005; 96374; 99285

== ENCOUNTER 2023-10-21 10:16 | Emergency (ER) | payer MEDICARE ==
[2023-10-21 10:32] VITALS: RESP 18
--- NOTE | 2023-10-21 11:36 | ED ---
General Adult HPI - General Chief complaint: Fall Stated complaint: fall Time Seen by Provider: 10/21/23 10:20 Source: patient, family, EMS, RN notes reviewed, old records reviewed Mode of arrival: EMS Limitations: no limitations - History of Present Illness Initial comments: 83-year-old female with suspected fall from bed, injury to the left foot and r ight knee. There may have been head trauma and this was discussed at length with the patient and the patient's daughters. It is likely that this patient is transitioning to hospice care and they would like evaluation only of the foot and knee at this time and as well as basic laboratory testing. Patient has ischemic cardiomyopathy with low EF. There is plan to adjust goals of care moving forward. - Related Data Home Medications Medication Instructions Recorded Confirmed Clopidogrel Bisulfate [Clopidogrel] 75 mg PO HS 03/15/15 10/21/23 Famotidine [Pepcid] 20 mg PO HS 03/15/15 10/21/23 Multivitamin/Iron/Folic Acid 1 tab PO DAILY 03/15/15 10/21/23 [Centrum Complete Multivit Tab] Isosorbide Mononitrate ER [Imdur] 30 mg PO DAILY 07/17/18 10/21/23 Loratadine [Claritin] 10 mg PO DAILY 07/17/18 10/21/23 Metoprolol Succinate [Toprol XL] 25 mg PO DAILY 07/17/18 10/21/23 Pravastatin Sodium [Pravachol] 40 mg PO HS 07/17/18 10/21/23 Sodium Bicarbonate Tab 650 mg PO TID 07/17/18 10/21/23 Aspirin 81 mg PO DAILY 10/08/18 10/21/23 Cholecalciferol [Vitamin D3 (25 50 mcg PO BID 07/11/21 10/21/23 Mcg = 1000 Iu)] QUEtiapine FUMARATE [SEROquel] 25 mg PO HS 07/11/21 10/21/23 Insulin Lispro [humaLOG Kwikpen] See Protocol SQ AC-TID 10/12/23 10/21/23 Furosemide [Lasix] 40 mg PO PC-BID 10/21/23 10/21/23 Losartan [Cozaar] 25 mg PO DAILY 10/21/23 10/21/23 Previous Rx's Medication Instructions Recorded Insulin Glargine,Hum.rec.anlog 30 units SQ HS #1 each 10/14/23 [Lantus Solostar Pen] Allergies Allergy/AdvReac Type Severity Reaction Status Date / Time influenza virus vaccine, Allergy Anaphylaxis Verified 10/21/23 11:11 specific [influenza virus vacc,specific] Iodinated Contrast Media Allergy Rash/Hives Verified 10/21/23 11:11 [Iodinated Contrast Media - IV Dye] iodine Allergy Rash/Hives Verified 10/21/23 11:11 Review of Systems ROS Statement: Those systems with pertinent positive or pertinent negative responses have been documented in the HPI. ROS Other: All systems not noted in ROS Statement are negative. Past Medical History Past Medical History: Coronary Artery Disease (CAD), Heart Failure, Diabetes Mellitus, Eye Disorder, GERD/Reflux, Hyperlipidemia, Hypertension, Myocardial Infarction (KS), Renal Disease Additional Past Medical History / Comment(s): IDDM type II, impaired kidney function, KS in 1988 and 2003, macular degeneration bilaterally with limited vision, past few months pt states she has been having diarrhea/constipation occasionally, diverticular disease, macular degeneration bilaterally, urinary incontinence, UTI, sinus problems, past ankle fracture, April 2018 had bilateral ear infections/sinus infection Last Myocardial Infarction Date:: 2003 History of Any Multi-Drug Resistant Organisms: None Reported Past Surgical History: Appendectomy, Cholecystectomy, Coronary Bypass/CABG, Heart Catheterization With Stent, Orthopedic Surgery Additional Past Surgical History / Comment(s): 1988 CABG 3 vessel, PCI with stent 2003, bilateral cataract removals/lens implants-unsuccessful, bilateral eye injections for macular degeneration., L ankle fracture with surgery/hardware. Past Anesthesia/Blood Transfusion Reactions: No Reported Reaction Additional Past Anesthesia/Blood Transfusion Reaction / Comment(s): Pt received blood with CABG Date of Last Stent Placement:: 2003 Past Psychological History: No Psychological Hx Reported Smoking Status: Never smoker Past Alcohol Use History: None Reported Past Drug Use History: None Reported - Past Family History Father Family Medical History: Myocardial Infarction (KS) Additional Family Medical History / Comment(s): Father of a KS at the age of 52 yrs. Mother Family Medical History: CVA/TIA, Diabetes Mellitus, Hypertension Additional Family Medical History / Comment(s): Mother developed diabetes later in life and had CVAs. She at the age of 64yrs from a CVA General Exam Limitations: no limitations General appearance: alert, in no apparent distress Eye exam: Present: normal appearance, PERRL ENT exam: Present: other (Ecchymosis to the right lower lip) Neck exam: Present: normal inspection. Absent: tenderness, meningismus Cardiovascular Exam: Present: regular rate, normal rhythm GI/Abdominal exam: Present: soft. Absent: distended, tenderness Extremities exam: Present: other (Erythema to the right knee, ecchymosis to the left foot) Neurological exam: Present: alert, oriented X3 Psychiatric exam: Present: normal affect, normal mood Skin exam: Present: warm Course Vital Signs 10/21/23 10:24 Temperature 97.5 F L Pulse Rate 66 Respiratory 18 Rate Blood Pressure 134/64 O2 Sat by Pulse 99 Oximetry Medical Decision Making - Medical Decision Making Was pt. sent in by a medical professional or institution (KUMAR Lino, ENDOSCOPIC TECHNICIAN, urgent care, hospital, or long term...) When possible be specific @ -No Did you speak to anyone other than the patient for history (EMS, parent, family, police, friend...)? What history was obtained from this source @ -No Did you review nursing and triage notes (agree or disagree)? Why? @ -I reviewed and agree with nursing and triage notes Were old charts reviewed (outside hosp., previous admission, EMS record, old EKG, old radiological studies, urgent care reports/EKG's, long term records)? Report findings @ -No old charts were reviewed Differential Diagnosis (chest pain, altered mental status, abdominal pain women, abdominal pain men, vaginal bleeding, weakness, fever, dyspnea, syncope, headache, dizziness, GI bleed, back pain, seizure, CVA, palpatations, mental health, musculoskeletal)? @ -Not applicable EKG interpreted by me (3pts min.). @Sinus rhythm with left bundle branch block, rate of 72, [place] interval 140, QRS duration 166, QTc 481 X-rays interpreted by me (1pt min.). @ -'s of the right knee are negative for displaced fracture or dislocation, x- ray of the left foot shows CT interpreted by me (1pt min.). @ -None done U/S interpreted by me (1pt. min.). @ -Chronic changes without acute fracture or dislocation.None done What testing was considered but not performed or refused? (CT, X-rays, U/S, labs)? Why? @ -None What meds were considered but not given or refused? Why? @ -None Did you discuss the management of the patient with other professionals (professionals i.e. , PA, ENDOSCOPIC TECHNICIAN, lab, RT, psych nurse, social media sr strategy manager, commutator repairer, teacher, financial aids officer, rn field case manager)? Give summary @ -No Was smoking cessation discussed for >3mins.? @ -No Was critical care preformed (if so, how long)? @ -No Were there social determinants of health that impacted care today? How? (Homelessness, low income, unemployed, alcoholism, drug addiction, transportation, low edu. Level, literacy, decrease access to med. care, skilled nursing, rehab)? @ -No Was there de-escalation of care discussed even if they declined (Discuss DNR or withdrawal of care, Hospice)? DNR status @ -[There are, goals of hospice care What co-morbidities impacted this encounter? (DM, HTN, Smoking, COPD, CAD, Cancer, CVA, ARF, Chemo, Hep., AIDS, mental health diagnosis, sleep apnea, morbid obesity)? @ -Ischemic cardiomyopathy, renal failure Was patient admitted / discharged? Hospital course, mention meds given and route, prescriptions, significant lab abnormalities, going to OR and other pertinent info. @ -83-year-old female presenting with fall from bed. Patient is in poor overall health. She has an ischemic cardiomyopathy, chronic kidney disease, recent admission with CHF and fluid overload. Patient's daughters are at [facility] and are aware of the patient's condition. They request x-rays regarding the injury of the right knee and foot to allow for weightbearing status. There is significant lab abnormalities including worsening kidney function, hyponatremia at 118, liver enzymes and bilirubin are trending up. The family is wishing to take the patient home with information on hospice care. Patient's primary care is unavailable today. Hospice is informed of the patient's status and goals of care and contact info. Patient taken home with her daughters. Undiagnosed new problem with uncertain prognosis? @ -No Drug Therapy requiring intensive monitoring for toxicity (Heparin, Nitro, Insulin, Cardizem)? @ -No Were any procedures done? @ -No Diagnosis/symptom? @ -Fall, knee contusion, foot contusion, hyponatremia, kidney failure, liver failure Acute, or Chronic, or Acute on Chronic? @ -acute on chronic Uncomplicated (without systemic symptoms) or Complicated (systemic symptoms)? @ -complicated Side effects of treatment? @ -No Exacerbation, Progression, or Severe Exacerbation? @ -No Poses a threat to life or bodily function? How? (Chest pain, [place], [place], pneumonia, PE, COPD, DKA, ARF, appy, cholecystitis, CVA, Diverticulitis, Homicidal, Suicidal, threat to staff... and all critical care pts) @ -yes, likely end-of-life - Lab Data Result diagrams: 10/21/23 11:16 10/21/23 11:16 Lab Results 10/21/23 10/21/23 Range/Units 11:16 11:16 WBC 9.0 (3.8-10.6) k/uL RBC 4.64 (3.80-5.40) m/uL Hgb 13.5 (11.4-16.0) gm/dL Hct 42.3 (34.0-46.0) % MCV 91.3 (80.0-100.0) fL MCH 29.2 (25.0-35.0) pg MCHC 31.9 (31.0-37.0) g/dL RDW 17.7 H (11.5-15.5) % Plt Count 217 (150-450) k/uL MPV 9.1 Neutrophils % 78 % Lymphocytes % 11 % Monocytes % 9 % Eosinophils % 1 % Basophils % 1 % Neutrophils # 6.9 (1.3-7.7) k/uL Lymphocytes # 1.0 (1.0-4.8) k/uL Monocytes # 0.8 (0-1.0) k/uL Eosinophils # 0.1 (0-0.7) k/uL Basophils # 0.1 (0-0.2) k/uL Anisocytosis Slight Sodium 118 L* (137-145) mmol/L Potassium 5.2 H (3.5-5.1) mmol/L Chloride 84 L (98-107) mmol/L Carbon Dioxide 22 (22-30) mmol/L Anion Gap 12 mmol/L BUN 86 H (7-17) mg/dL Creatinine 2.62 H (0.52-1.04) mg/dL Est GFR (CKD-EPI)AfAm 19 (>60 ml/min/1.73 sqM) Est GFR (CKD-EPI)NonAf 16 (>60 ml/min/1.73 sqM) Glucose 191 H (74-99) mg/dL Calcium 9.6 (8.4-10.2) mg/dL Total Bilirubin 1.4 H (0.2-1.3) mg/dL AST 148 H (14-36) U/L ALT 135 H (4-34) U/L Alkaline Phosphatase 245 H (38-126) U/L Total Protein 6.0 L (6.3-8.2) g/dL Albumin 3.6 (3.5-5.0) g/dL Disposition Clinical Impression: Heart failure, Acute kidney injury superimposed on chronic kidney disease, Hyponatremia Disposition: HOME SELF-CARE Condition: Poor Instructions (If sedation given, give patient instructions): Fall Prevention for Older Adults (ED) Is patient prescribed a controlled substance at d/c from ED?: No Referrals: Kobe Anderson DO [Primary Care Provider] - 1-2 days Time of Disposition: 12:51
[2023-10-21 11:46] LABS: ALT 135 U/L (4-34); African American GFR (CKD) 19 (>60 ml/min/1.73 sqM); Anion Gap 12 mmol/L; Blood Urea Nitrogen 86 mg/dL (7-17); Calcium 9.6 mg/dL (8.4-10.2); Carbon Dioxide 22 mmol/L (22-30); Chloride 84 mmol/L (98-107); Glucose 191 mg/dL (74-99); Non-African American GFR(CKD) 16 (>60 ml/min/1.73 sqM); Total Bilirubin 1.4 mg/dL (0.2-1.3)
[2023-10-21 11:51] LABS: Potassium 5.2 mmol/L (3.5-5.1); Sodium 118 mmol/L (137-145)
[2023-10-21 11:52] LABS: AST 148 U/L (14-36); Albumin 3.6 g/dL (3.5-5.0); Alkaline Phosphatase 245 U/L (38-126)
[2023-10-21 11:54] LABS: Anisocytosis Slight; Basophils # (A) 0.1 k/uL (0-0.2); Basophils % (A) 1 %; Eosinophils # (A) 0.1 k/uL (0-0.7); Eosinophils % (A) 1 %; HCT 42.3 % (34.0-46.0); HGB 13.5 gm/dL (11.4-16.0); Lymphocytes % (A) 11 %; MCH 29.2 pg (25.0-35.0); MCHC 31.9 g/dL (31.0-37.0); MCV 91.3 fL (80.0-100.0); Mean Platelet Volume 9.1; Monocytes # (A) 0.8 k/uL (0-1.0); Monocytes % (A) 9 %; Neutrophils # (A) 6.9 k/uL (1.3-7.7); Neutrophils % (A) 78 %; Platelet Count 217 k/uL (150-450); RBC 4.64 m/uL (3.80-5.40); RDW 17.7 % (11.5-15.5)
--- NOTE | 2023-10-21 12:06 | XR ---
EXAMINATION TYPE: XR knee complete 3 views RT, XR foot complete 3 views LT DATE OF EXAM: 10/21/2023 COMPARISON: NONE HISTORY: 83-year-old female pain after fall FINDINGS: Right knee: No knee joint effusion. Osteopenia and vascular calcifications. Projectional artifact. Degenerative j oint space narrowing medial compartment with marginal spurring and subchondral sclerosis. Lucency pro jecting at the upper pole of the patella on the lateral view and at the lateral tibial plateau may be projectional. Again, exam limitations due to positioning and external artifact. Left foot: Previous lateral plate and screw fixation distal fibula and screw fixation medial malleolus. Vascular calcifications. Pes planus. Prominent change along the second and third TMT joints with bulky dorsal spurring. Bony bunion with mild hallux valgus. Some dorsal soft tissue swelling along the mid foot. No acute fracture seen. IMPRESSION: 1. Right knee: Limitations due to positioning and contralateral abutting leg on the lateral view. The re is moderate medial compartmental OA. Subtle lucencies at the upper pole of the patella and lateral tibial plateau may be projectional. Depending on clinical suspicion, consider either CT versus short interval follow-up radiograph. 2. Left foot: At least moderate midfoot OA of the TMT joints. Bony bunion. No definite acute osseous abnormality seen.
[2023-10-21 13:18] VITALS: BP 126/87; PULSE 78; TEMP 98.6
== END 2023-10-21 13:19 | disposition home or self-care (01) ==
LOC: EC 10:16
DX: S80.01XA Contusion of right knee, initial encounter (principal); S90.32XA Contusion of left foot, initial encounter; I13.0 Hypertensive heart and chronic kidney disease with heart failure and stage 1 through stage 4 chronic kidney disease, or unspecified chronic kidney disease; N17.9 Acute kidney failure, unspecified; N18.1 Chronic kidney disease, stage 1; I50.9 Heart failure, unspecified; E87.1 Hypo-osmolality and hyponatremia; Z88.7 Allergy status to serum and vaccine; Z88.8 Allergy status to other drugs, medicaments and biological substances; W06.XXXA Fall from bed, initial encounter
CPT/HCPCS: 36415; 80053; 85025; 93005; 99284